=== PATIENT | male | born 1950 | race Caucasian/White ===

== ENCOUNTER 2016-10-06 09:58 | Inpatient (IN) | payer OTHER ==
[~2016-10-06] VITALS: Ht 180.3 cm; Wt 85.9 kg
[2016-10-06 10:09] VITALS: BP 167/77; PULSE 131; RESP 22; O2SAT 97
[2016-10-06 10:15] VITALS: O2SAT 100
[2016-10-06] MEDS ORDERED: SODIUM CHLORIDE 0.9% FLUSH 10 ML FLUSH IVF PRN (10:15)
[2016-10-06] MEDS: RESP: ALBUTEROL 2.5 MG/IPRATROPIUM 0.5 MG NEB (SCH) INH (10:15)
[2016-10-06] MEDS ORDERED: methylPREDNISolone SOD SUCC 125 MG/2 ML VIAL IVP ONE (10:15)
[2016-10-06 10:34] LABS: BLOOD GAS BASE EXCESS -0.9 mmol/L (-2-2); BLOOD GAS CARBOXYHEMOGLOBIN 2.2 % (0-4); BLOOD GAS HCO3 23 mmol/L (22-26); BLOOD GAS METHEMOGLOBIN 0.4 % (0-2); BLOOD GAS O2 HGB SATURATION 93 % (90-100); BLOOD GAS PCO2 39 mmHg (38-42); BLOOD GAS PO2 81 mmHG (61-120); BLOOD GAS TOTAL HGB 17.6 G/DL (12.0-16.0); CRITICAL VALUE NO; DRAW SITE RT RADIAL; LITER FLOW 4 L/M; NUMBER OF ARTERIAL PUNCTURES 1; OXYGEN DEVICE NASAL CANNULA; TEMP CORR TO 98.6
[2016-10-06 10:35] LABS: STAT YES; ULNAR PULSE PRESENT
--- NOTE | 2016-10-06 10:35 | PD ---
HPI Chief Complaint: Respiratory Distress Time Seen by Provider: 10:19 Travel History International Travel<30 days: No Contact w/Intl Traveler<30days: No Traveled to known affect area: No History of Present Illness HPI 66yo M with no significant PMH presents to the ED with c/o sob for 1 week. States he has not seen a physician in 11 years and quit cig smoking 3 days ago because he was sob. +Productive cough. +Tactile fever. Denies any chest pain , n/v, abdominal pain. Pt also noticed that his legs are swollen and this is new. [facility] and given 1 treatment and sent here. Pt received another treatment by [facility] and is saturating in the mid 80s on room air. PFSH Past Medical History Autoimmune Disease: No Blood Disorders: No Cancer: No Cardiovascular Problems: No COPD: Yes (smoker since ago 10) Diabetes: No Endocrine: No Genitourinary: No Musculoskeletal: No Neurologic: No Psychiatric: No Reproductive: No Respiratory: Yes ?: Not Past Surgical History Oral Surgery: Yes Social History Alcohol Use: No Tobacco Use: Yes (trying to quit. Stopped three days ago. Smoked since age 12) Substance Use: No Allergies-Medications (Allergen,Severity, Reaction): Coded Allergies: No Known Allergies (Verified Allergy, Severe, 03/13/05) Reported Meds & Prescriptions Reported Meds & Active Scripts Active Review of Systems Except as stated in HPI: all other systems reviewed are Neg Physical Exam Narrative GENERAL: 66yo M in moderate distress. SKIN: Focused skin assessment warm/dry. HEAD: Atraumatic. Normocephalic. EYES: Pupils equal and round. No scleral icterus. No injection or drainage. ENT: No nasal bleeding or discharge. Mucous membranes pink and moist. NECK: Trachea midline. No JVD. CARDIOVASCULAR: Sinus tachycardia at 130bpm. No murmur appreciated. RESPIRATORY: + accessory muscle use. Coarse breath sounds bilaterally and diffusely. GASTROINTESTINAL: Abdomen soft, non-tender, nondistended. +Umbilical hernia that is reducible. MUSCULOSKELETAL: No obvious deformities. No clubbing. No cyanosis. +Bilateral lower ext edema. NEUROLOGICAL: Awake and alert. No obvious cranial nerve deficits. Motor grossly within normal limits. Normal speech. PSYCHIATRIC: Appropriate mood and affect; insight and judgment normal. Data Data Last Documented VS Vital Signs Date Time Temp Pulse Resp B/P Pulse Ox O2 Delivery O2 Flow Rate FiO2 10/06/16 10:15 100 Nasal Cannula 4.00 10/06/16 10:13 22 10/06/16 10:09 131 167/77 Orders Complete Blood Count With Diff (10/06/16 10:08) Basic Metabolic Panel (Bmp) (10/06/16 10:08) B-Type Natriuretic Peptide (10/06/16 10:08) Act Partial Throm Time (Ptt) (10/06/16 10:08) Prothrombin Time / Inr (Pt) (10/06/16 10:08) Magnesium (Mg) (10/06/16 10:08) Ckmb (Isoenzyme) Profile (10/06/16 10:08) Troponin I (10/06/16 10:08) Arterial Blood Gas (Abg) (10/06/16 10:08) Blood Culture (10/06/16 10:08) Iv Access Insert/Monitor (10/06/16 10:08) Electrocardiogram (10/06/16 10:08) Ecg Monitoring (10/06/16 10:08) Oximetry (10/06/16 10:08) Oxygen Administration (10/06/16 10:08) Chest, Single Ap (10/06/16 10:08) Sodium Chloride 0.9% Flush (Ns Flush) (10/06/16 10:15) Methylprednisolone So Succ Inj (Solumedr (10/06/16 10:15) Albuterol-Ipratropium Neb (Duoneb Neb) (10/06/16 10:15) Lactic Acid Sepsis Protocol (10/06/16 10:08) Sodium Chlorid 0.9% 500 Ml Inj (Ns 500 M (10/06/16 10:45) CKMB (10/06/16 10:05) CKMB% (10/06/16 10:05) Ct Thorax/ Chest W Iv Contrast (10/06/16 ) Ceftriaxone Inj (Rocephin Inj) (10/06/16 11:45) Azithromycin Inj (Zithromax Inj) (10/06/16 11:45) Sodium Chlor 0.9% 1000 Ml Inj (Ns 1000 M (10/06/16 12:45) Iohexol 350 Inj (Omnipaque 350 Inj) (10/06/16 12:45) Admit Order (Ed Use Only) (10/06/16 13:00) Labs Laboratory Tests Test 10/06/16 10/06/16 10:05 10:25 White Blood Count 11.5 TH/MM3 Red Blood Count 4.53 MIL/MM3 Hemoglobin 14.8 GM/DL Hematocrit 43.2 % Mean Corpuscular Volume 95.3 FL Mean Corpuscular Hemoglobin 32.7 PG Mean Corpuscular Hemoglobin 34.3 % Concent Red Cell Distribution Width 13.0 % Platelet Count 278 TH/MM3 Mean Platelet Volume 8.6 FL Neutrophils (%) (Auto) 82.3 % Lymphocytes (%) (Auto) 10.8 % Monocytes (%) (Auto) 5.3 % Eosinophils (%) (Auto) 1.2 % Basophils (%) (Auto) 0.4 % Neutrophils # (Auto) 9.4 TH/MM3 Lymphocytes # (Auto) 1.2 TH/MM3 Monocytes # (Auto) 0.6 TH/MM3 Eosinophils # (Auto) 0.1 TH/MM3 Basophils # (Auto) 0.0 TH/MM3 CBC Comment DIFF FINAL Differential Comment Prothrombin Time 10.7 SEC Prothromb Time International 1.0 RATIO Ratio Activated Partial 36.9 SEC Thromboplast Time Sodium Level 136 MEQ/L Potassium Level 3.9 MEQ/L Chloride Level 99 MEQ/L Carbon Dioxide Level 27.7 MEQ/L Anion Gap 9 MEQ/L Blood Urea Nitrogen 15 MG/DL Creatinine 0.72 MG/DL Estimat Glomerular Filtration 110 ML/MIN Rate Random Glucose 113 MG/DL Lactic Acid Level 2.3 mmol/L Calcium Level 8.7 MG/DL Magnesium Level 2.1 MG/DL Total Creatine Kinase 143 U/L Creatine Kinase MB 3.3 NG/ML Troponin I LESS THAN 0.02 NG/ML B-Type Natriuretic Peptide 14 PG/ML Blood Gas Puncture Site RT RADIAL Blood Gas Patient Temperature 98.6 Blood Gas HCO3 23 mmol/L Blood Gas Base Excess -0.9 mmol/L Blood Gas Oxygen Saturation 93 % Arterial Blood pH 7.39 Arterial Blood Partial 39 mmHg Pressure CO2 Arterial Blood Partial 81 mmHG Pressure O2 Arterial Blood Oxygen Content 23.0 Vol % Arterial Blood 2.2 % Carboxyhemoglobin Arterial Blood Methemoglobin 0.4 % Blood Gas Hemoglobin 17.6 G/DL Oxygen Delivery Device NASAL CANNULA Blood Gas Liter Flow 4 L/M MDM Medical Decision Making Medical Screen Exam Complete: Yes Emergency Medical Condition: Yes Interpretation(s) EKG: Sinus tachycardia at 130bpm. Normal axis. No ST segment elevation or depression. Differential Diagnosis Pneumonia vs. CHF exacerbation vs. COPD exacerbation vs. ACS vs. malignancy Narrative Course 66yo M with sob for 1 week. Coarse rhonchi bilaterally. Pt is a smoker and does not go to the doctor. Labs reviewed, mild leukocytosis at 11.5. Lactic acid elevated at 2.3. BNP 14. Troponin negative. Pt given 1.5 liters of NS IVF. Pt feels slightly better with the oxygen and saturating at 97% on 3 L NC. CXR showed large pleura effusion and adjacent density. Recommend CT chest. Pt covered with ceftriaxone and azithromycin. 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 Pt informed of this. Discussed with Dr. Romero and accepted to her service. Critical Care Narrative Aggregate critical care time was 40 minutes. Time to perform other separately billable procedures was not included in the critical care time. My time did not include minutes spent treating any other patients simultaneously or on activities that did not directly contribute to the patient's treatment. The services I provided to this patient were to treat and/or prevent clinically significant deterioration that could result in: respiratory collapse or . I provided critical care services requiring my management, as noted below: Chart data review, documentation time, medication orders and management, vital sign assessments/reviewing monitor data, ordering and reviewing lab tests, ordering and interpreting/reviewing x-rays and diagnostic studies, care of the patient and discussion of the patient with the admitting physicians. Diagnosis Primary Impression: Lung cancer Qualified Code: C34.01 - Malignant neoplasm of hilus of right lung Admitting Information Admitting Physician Requests: Dania Stokes DO October 06, 2016 10:35
--- NOTE | 2016-10-06 10:43 | RADRPT ---
EXAM DATE/TIME: 10/06/2016 10:23 [facility] COMPARISON: No previous studies available for comparison. INDICATIONS : Short of breath for 2 weeks. MEDICAL HISTORY : None. SURGICAL HISTORY : None. ENCOUNTER: Initial ACUITY: 2 weeks PAIN SCORE: 0/10 LOCATION: Bilateral chest FINDINGS: A single view of the chest demonstrates large right pleural effusion and adjacent density. There is v olume loss. Left lung clear. Osseous structures are intact. CONCLUSION: 1. Large pleural effusion and adjacent density. 2. There is volume loss in the right hemithorax, obstructing central lesion cannot be excluded. Contr asted CT chest recommended. Ben Peterson MD on October 06, 2016 at 10:40 Board Certified Radiologist. This report was verified electronically.
[2016-10-06] MEDS ORDERED: SODIUM CHLORID 0.9% 500 ML INJ 500 ML IV ONE (10:45)
[2016-10-06 10:51] LABS: AUTOMATED NEUTROPHIL # 9.4 TH/MM3 (1.8-7.7); BASOPHIL % 0.4 % (0.0-2.0); EOSINOPHIL # 0.1 TH/MM3 (0-0.4); EOSINOPHIL % 1.2 % (0.0-4.0); HEMATOCRIT 43.2 % (39.0-51.0); HEMO FLAGS DIFF FINAL; LYMPH % 10.8 % (9.0-44.0); LYMPHOCYTE # 1.2 TH/MM3 (1.0-4.8); MEAN CELL VOLUME 95.3 FL (80.0-100.0); MEAN CORPUSCULAR HEMOGLOBIN 32.7 PG (27.0-34.0); MEAN CORPUSCULAR HGB CONC 34.3 % (32.0-36.0); MONO % 5.3 % (0.0-8.0); NEUT % 82.3 % (16.0-70.0); PLATELET COUNT 278 TH/MM3 (150-450); RED BLOOD COUNT 4.53 MIL/MM3 (4.50-5.90); WHITE BLOOD COUNT 11.5 TH/MM3 (4.0-11.0)
[2016-10-06 11:02] LABS: APTT (PATIENT) 36.9 SEC (24.3-30.1); PROTHROMBIN TIME - PATIENT 10.7 SEC (9.8-11.6)
[2016-10-06 11:12] LABS: ANION GAP 9 MEQ/L (5-15); BICARBONATE 27.7 MEQ/L (21.0-32.0); BLOOD UREA NITROGEN 15 MG/DL (7-18); CHLORIDE 99 MEQ/L (98-107); GLOMERULAR FILTRATION RATE 110 ML/MIN (>89); MAGNESIUM 2.1 MG/DL (1.5-2.5); POTASSIUM 3.9 MEQ/L (3.5-5.1); SODIUM (NA) 136 MEQ/L (136-145)
[2016-10-06 11:16] LABS: CREATINE KINASE 143 U/L (39-308)
[2016-10-06 11:28] LABS: CKMB 3.3 NG/ML (0.5-3.6)
--- NOTE | 2016-10-06 11:33 | EKG ---
Date Performed: 10/06/2016 Time Performed: 10:13:43 PTAGE: 66 years EKG: SINUS TACHYCARDIA ABNORMAL RHYTHM ECG PREVIOUS TRACING : 03/13/2005 01.29 DOCTOR: Houston Martin Interpretating Date/Time 10/06/2016 11:31:28
[2016-10-06] MEDS ORDERED: cefTRIAXone INJ 1,000 MG in SODIUM CHLORIDE 0.9% INJ 100 ML IV ONE (11:45)
[2016-10-06] MEDS ORDERED: AZITHROMYCIN INJ 500 MG in SODIUM CHLOR 0.9% 250 ML INJ 250 ML IV ONE (11:45)
[2016-10-06 12:31] LABS: LACTIC ACID GHOST NOT REPORTABLE
[2016-10-06] MEDS ORDERED: IOHEXOL 350 MG/ML 10 ML VIAL (for RAD DIAG) IV ONE (12:45)
[2016-10-06] MEDS ORDERED: SODIUM CHLOR 0.9% 1000 ML INJ 1,000 ML IV ONE (12:45)
[2016-10-06] MEDS: DOCUSATE SODIUM 100 MG CAP PO SCH (13:00)
[2016-10-06] MEDS ORDERED: RESP: ALBUTEROL 2.5 MG/IPRATROPIUM 0.5 MG NEB (PRN) NEB (13:00)
[2016-10-06] MEDS ORDERED: ONDANSETRON HCL 4 MG/2 ML VIAL IVP PRN (13:00)
[2016-10-06] MEDS ORDERED: MAGNESIUM HYDROXIDE SUSP 30 ML CUP PO PRN (13:00)
[2016-10-06] MEDS ORDERED: ACETAMINOPHEN 325 MG TAB PO PRN (13:00)
[2016-10-06] MEDS ORDERED: TEMAZEPAM 15 MG CAP PO PRN (13:00)
--- NOTE | 2016-10-06 13:27 | RADRPT ---
EXAM DATE/TIME: 10/06/2016 12:20 [facility] COMPARISON: No previous studies available for comparison. INDICATIONS : Shortness of breath for one week. IV CONTRAST: 60 cc Omnipaque 350 (iohexol) IV RADIATION DOSE: 5.64 CTDIvol (mGy) MEDICAL HISTORY : Chronic obstructive pulmonary disease. SURGICAL HISTORY : None. ENCOUNTER: Initial ACUITY: 1 week PAIN SCALE: 0/10 LOCATION: Chest TECHNIQUE: Volumetric scanning of the chest was performed. Using automated exposure control and adjustment of t he mA and/or kV according to patient size, radiation dose was kept as low as reasonably achievable to obtain optimal diagnostic quality images. FINDINGS: Study is abnormal. There is extensive mediastinal and subcarinal adenopathy. There is a large right hilar mass. There is endobronchial obstruction of the right lower lobe. Small amount of pleural effusion is evid ent. There is some fissural thickening on the left. The portion of the liver and spleen identified are free of focal defects. Both adrenal glands are pr ominent. Large cystic masses are seen in both kidneys. Review of bone windows reveals only degenerative changes. CONCLUSION: Findings would be consistent with a large hilar mass with extensive mediastinal adenopathy extending into the supraclavicular region with consolidative changes in the right. 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 Only a small amount of the opacity on the chest radiograph is fluid. Majority of the opacity is drow jayson lung. This would be amenable to percutaneous biopsy. Most likely site of biopsy would be the supraclavicul ar node on the right. There is impending SVC syndrome. Simone Tracy MD FACR on October 06, 2016 at 12:43 Board Certified Radiologist. This report was verified electronically.
[2016-10-06 13:33] VITALS: BP 146/69; PULSE 124; RESP 20; O2SAT 97
[2016-10-06] MEDS ORDERED: DILTIAZEM HCL 30 MG TAB PO ONE (14:15)
--- NOTE | 2016-10-06 14:29 | HHI.HP ---
HPI Service [facility] Primary Care Physician [facility] Admission Diagnosis Pneumonia Diagnoses: Chief Complaint: sob Travel History International Travel<30 Days: No Contact w/Intl Traveler <30 Da: No Traveled to Known Affected Are: No History of Present Illness 66 yo male with h/o SVT was seen by Dr Romano in the past (~10 years ago), HTN , noncompliant with meds and follow up says last time has seen a physician was ~ 10 years ago. Patient came to the ED for evaluation of SOB, fatigue, LE edema present for the past 1 week and getting worse over the past 3 days. States he has not seen a physician in 11 years and quit cig smoking 3 days ago because he was getting worsening sob. Some productive cough yellow color, no blood in it. No weight loss. Has tactile fever, no chills. Denies any chest pain, n/v, abdominal pain. Pt also noticed that his legs are swollen and this is new. He also says he needs more pillows at home when he is sleeping and he can go only 5 stairs because he feels sob. Says he doesn;t have any chest pain and he doesn't feel his heart raising. [facility] and given 1 treatment and he was sent here. Pt received another treatment by [facility] and is saturating in the mid 80s on room air on arrival to the hospital. No other complaints. No n/v/d/c. No diaphoresis. No urinary symptoms or abdominal pain. Review of Systems Except as stated in HPI: all other systems reviewed are Neg Past Family Social History Past Medical History HTN, SVT, tobaccoism Past Surgical History tonsillectomy, adenoidectomy, left lat maleolus fracture with ORIF [address] Rodriguez Reported Medications Reported Meds & Active Scripts Active Allergies: Coded Allergies: No Known Allergies (Verified Allergy, Severe, 03/13/05) Family History Mother of lung CA, she was a smoker Social History Smoking 1 PPD daily since young age, quit 3 days ago Occasional EtOH use, used to binge before No illicit drug use Physical Exam Vital Signs Vital Signs Date Time Temp Pulse Resp B/P Pulse Ox O2 Delivery O2 Flow Rate FiO2 10/06/16 13:33 124 20 146/69 97 Nasal Cannula 2 10/06/16 10:15 100 Nasal Cannula 4.00 10/06/16 10:13 Aerosol Mask 10/06/16 10:13 Aerosol Mask 10/06/16 10:13 22 97 Nasal Cannula 3 10/06/16 10:09 131 22 167/77 97 Physical Exam GENERAL: This is a very pleasant 66 yo male, sitting up, appears in acute distress 2/2 sob, talks in short sentences, well-nourished, well-developed patient. SKIN: No rashes, ecchymoses or lesions. Cool and dry. HEAD: Atraumatic. Normocephalic. No temporal or scalp tenderness. EYES: Pupils equal round and reactive. Extraocular motions intact. No scleral icterus. No injection or drainage. ENT: Nose without bleeding, purulent drainage or septal hematoma. Throat without erythema, tonsillar hypertrophy or exudate. Uvula midline. Airway patent. NECK: Trachea midline. No JVD or lymphadenopathy. Supple, nontender, no meningeal signs. CARDIOVASCULAR: Regular rate and rhythm without murmurs, gallops, or rubs. RESPIRATORY: Clear to auscultation. Breath sounds equal bilaterally. No wheezes , rales, or rhonchi. GASTROINTESTINAL: Abdomen soft, non-tender, nondistended. No hepato-splenomegaly , or palpable masses. No guarding. MUSCULOSKELETAL: Extremities without clubbing, cyanosis. edema. No joint tenderness, effusion, or edema noted. No calf tenderness. Negative Homans sign bilaterally. NEUROLOGICAL: Awake and alert. Cranial nerves II through XII intact. Motor and sensory grossly within normal limits. Five out of 5 muscle strength in all muscle groups. Normal speech. Laboratory Laboratory Tests Test 10/06/16 10/06/16 10:05 10:25 White Blood Count 11.5 Red Blood Count 4.53 Hemoglobin 14.8 Hematocrit 43.2 Mean Corpuscular Volume 95.3 Mean Corpuscular Hemoglobin 32.7 Mean Corpuscular Hemoglobin 34.3 Concent Red Cell Distribution Width 13.0 Platelet Count 278 Mean Platelet Volume 8.6 Neutrophils (%) (Auto) 82.3 Lymphocytes (%) (Auto) 10.8 Monocytes (%) (Auto) 5.3 Eosinophils (%) (Auto) 1.2 Basophils (%) (Auto) 0.4 Neutrophils # (Auto) 9.4 Lymphocytes # (Auto) 1.2 Monocytes # (Auto) 0.6 Eosinophils # (Auto) 0.1 Basophils # (Auto) 0.0 CBC Comment DIFF FINAL Differential Comment Prothrombin Time 10.7 Prothromb Time International 1.0 Ratio Activated Partial 36.9 Thromboplast Time Sodium Level 136 Potassium Level 3.9 Chloride Level 99 Carbon Dioxide Level 27.7 Anion Gap 9 Blood Urea Nitrogen 15 Creatinine 0.72 Estimat Glomerular Filtration 110 Rate Random Glucose 113 Lactic Acid Level 2.3 Calcium Level 8.7 Magnesium Level 2.1 Total Creatine Kinase 143 Creatine Kinase MB 3.3 Troponin I LESS THAN 0.02 B-Type Natriuretic Peptide 14 Blood Gas Puncture Site RT RADIAL Blood Gas Patient Temperature 98.6 Blood Gas HCO3 23 Blood Gas Base Excess -0.9 Blood Gas Oxygen Saturation 93 Arterial Blood pH 7.39 Arterial Blood Partial 39 Pressure CO2 Arterial Blood Partial 81 Pressure O2 Arterial Blood Oxygen Content 23.0 Arterial Blood 2.2 Carboxyhemoglobin Arterial Blood Methemoglobin 0.4 Blood Gas Hemoglobin 17.6 Oxygen Delivery Device NASAL CANNULA Blood Gas Liter Flow 4 Date/Time Procedure Status Source Growth 10/06/16 10:05 Aerobic Blood Culture Received Blood Peripheral Pending 10/06/16 10:05 Anaerobic Blood Culture Received Blood Peripheral Pending Result Diagram: 10/06/16 1005 10/06/16 1005 Imaging Last Impressions Chest X-Ray 10/06/16 1008 Signed Impressions: Service Date/Time: Thursday, October 06, 2016 10:23 - CONCLUSION: 1. Large pleural effusion and adjacent density. 2. There is volume loss in the right hemithorax , obstructing central lesion cannot be excluded. Contrasted CT chest recommended. Ben Peterson MD Assessment and Plan Assessment and Plan 66 yo male with h/o SVT was seen by Dr Romano in the past, HTN, noncompliant with meds and follow up says last time has seen a physician was ~10 years ago. Patient came to the ED for evaluation of SOB, LE edema SOB Acute respiratory failure with hypoxia, O2 sat in 80s on admission, requiring O2 Lactic acidosis likely related to hypoxia. Will trend lactic acid Community acquired pneumonia Left pleural effusion. Poss lung mass. LE edema. Will do LE doppler US to r/o DVT Tobaccoism SVT HTN Noncompliant with meds and follow up Tachycardic 120s-130s, WBC 11.5, afebrile, RR 20s CXR reviewed 1. Large pleural effusion and adjacent density. 2. There is volume loss in the right hemithorax, obstructing central lesion cannot be excluded. Contrasted CT chest recommended. CT chest pending Obtain sputum cx, legionella/pneumococcal Ag Start Ceftriaxone and Azithromycin IV Incentive spirometry ABG reviewed. O2 supplement keep O2 sat > 92 %. Duonebs scheduled and as need for wheezing/sob. Add steroid solumedrol 40 mg Q8 hrs will decrease inflammation patient is longterm smoker. Consult pulmonology BNP is 14, trops are nagative , he doesn't have any chest pain. BP 167/77 on admission. Persistent tachycardic in 130s, used to take Lopressor 100 mg po BID he is noncompliant for a long time , however due to pulm issues at his time will give cardizem to avoid further bronchoconstriction. Will also do a 2D ECHO to r/o valvulopathy, pericardial effusion. Consult cardiology DVT ppx SCD/TEDS GI ppx PPI Discussed Condition With patient, nurse, Dr Back ED physician Physician Certification 2 Midnight Certification Type: Admission for Inpatient Services Order for Inpatient Services The services are ordered in accordance with Medicare regulations or non- Medicare payer requirements, as applicable. In the case of services not specified as inpatient-only, they are appropriately provided as inpatient services in accordance with the 2-midnight benchmark. Estimated LOS (days): 3 days is the estimated time the patient will need to remain in the hospital, assuming treatment plan goals are met and no additional complications. Post-Hospital Plan: Not yet determined Lnida Romero MD October 06, 2016 14:29
[2016-10-06] MEDS: RESP: ALBUTEROL 2.5 MG/IPRATROPIUM 0.5 MG NEB (SCH) NEB ×2 (15:59→20:00)
[2016-10-06 16:50] VITALS: BP 168/86; PULSE 134; RESP 26; TEMP 97.2; O2SAT 91
--- NOTE | 2016-10-06 17:09 | PD.CONS ---
HPI Service Cardiology Consult Requested By Primary Care Physician [facility] History of Present Illness 66 y/o M with pmhx significant for SVT, HTN, noncompliant with medications and smoker that presented to the ED with complaints SOB, fatigue for 1 week. Denies any chest pain, n/v, abdominal pain. Found to be hypoxic. He reports chest congestion. Cardiology has been consulted due to sinus tachycardia. CT done here shows LARGE HILAR MASS CONCERNING FOR MALIGNANCY. Negative troponin's, no acute ST changes on EKG. Review of Systems Consitutional: COMPLAINS OF: Fatigue, DENIES: Fever, Chills, Weight gain, Weight loss Eyes: DENIES: Amaurosis Fugax, Change in vision HEENT: DENIES: Lightheadedness, Change in hearing Respiratory: COMPLAINS OF: Shortness of breath, Wheezing, DENIES: See HPI, Cough, Snoring, Sputum production Cardiovascular: DENIES: See HPI, Chest pain, Palpitations, Syncope, Tachycardia Gastrointestinal: DENIES: Nausea, Vomiting, Change in bowel habits, Reflux, Bloody stools, Melena Genitourinary: DENIES: Urinary incontinence, Difficulty voiding Integumentary: DENIES: Rash Psychiatric: DENIES: Anxiety, Depression, Sleep disturbances Hematologic: DENIES: Bruising tendencies, Bleeding tendencies Endocrine: DENIES: Weight gain, Weight loss, Thyroid disease Past Family Social History Allergies: Coded Allergies: No Known Allergies (Verified Allergy, Severe, 03/13/05) Past Medical History HTN, SVT, SMOKER Past Surgical History tonsillectomy, adenoidectomy, left lat maleolus fracture with ORIF 2004 Reported Medications Reported Meds & Active Scripts Active Active Ordered Medications Current Medications Medications (Trade) Dose Ordered Sig/Nicole Route Start Time Stop Time Status Last Admin (NS Flush) 2 ml UNSCH PRN IVF 10/06/16 10:15 (NS Flush) 2 ml UNSCH PRN IV FLUSH 10/06/16 13:00 (NS Flush) 2 ml BID IV FLUSH 10/06/16 21:00 (Tylenol) 650 mg Q4H PRN PO 10/06/16 13:00 (Zofran Inj) 4 mg Q6H PRN IVP 10/06/16 13:00 (Colace) 100 mg Q12H PO 10/06/16 13:00 (Milk Of Magnesia Liq) 30 ml Q12H PRN PO 10/06/16 13:00 (Restoril) 15 mg HS PRN PO 10/06/16 13:00 (Lovenox Inj) 40 mg Q24H SQ 10/06/16 14:00 Methylprednisolone Sodium Succinate 40 mg 40 mg Q8H IV PUSH 10/06/16 20:00 Azithromycin 500 mg/Sodium Chloride 250 ml @ 250 mls/hr Q24H IV 10/07/16 14:00 (Rocephin Inj/NS Inj) 100 ml @ 200 mls/hr Q24H IV 10/07/16 13:00 Family History NONCONTRIBUTORY Social History CHRONIC SMOKER Physical Exam Vital Signs Vital Signs Date Time Temp Pulse Resp B/P Pulse Ox O2 Delivery O2 Flow Rate FiO2 10/06/16 13:33 124 20 146/69 97 Nasal Cannula 2 10/06/16 10:15 100 Nasal Cannula 4.00 10/06/16 10:13 Aerosol Mask 10/06/16 10:13 Aerosol Mask 10/06/16 10:13 22 97 Nasal Cannula 3 10/06/16 10:09 131 22 167/77 97 Physical Exam GENERAL: Awake, alert, and oriented x 3. SKIN: Warm and dry. HEAD: Normocephalic. EYES: No scleral icterus. No injection or drainage. NECK: Supple, trachea midline. No JVD or lymphadenopathy. CARDIOVASCULAR: Tachycardiac no murmurs, gallops, or rubs. RESPIRATORY: Diminished sounds equal bilaterally. No accessory muscle use. GASTROINTESTINAL: Abdomen soft, non-tender, nondistended, ventral hernia EXTREMITIES: No cyanosis, or edema, dry skin Laboratory Laboratory Tests Test 10/06/16 10/06/16 10/06/16 10:05 10:25 13:50 White Blood Count 11.5 Red Blood Count 4.53 Hemoglobin 14.8 Hematocrit 43.2 Mean Corpuscular Volume 95.3 Mean Corpuscular Hemoglobin 32.7 Mean Corpuscular Hemoglobin 34.3 Concent Red Cell Distribution Width 13.0 Platelet Count 278 Mean Platelet Volume 8.6 Neutrophils (%) (Auto) 82.3 Lymphocytes (%) (Auto) 10.8 Monocytes (%) (Auto) 5.3 Eosinophils (%) (Auto) 1.2 Basophils (%) (Auto) 0.4 Neutrophils # (Auto) 9.4 Lymphocytes # (Auto) 1.2 Monocytes # (Auto) 0.6 Eosinophils # (Auto) 0.1 Basophils # (Auto) 0.0 CBC Comment DIFF FINAL Differential Comment Prothrombin Time 10.7 Prothromb Time International 1.0 Ratio Activated Partial 36.9 Thromboplast Time Sodium Level 136 Potassium Level 3.9 Chloride Level 99 Carbon Dioxide Level 27.7 Anion Gap 9 Blood Urea Nitrogen 15 Creatinine 0.72 Estimat Glomerular Filtration 110 Rate Random Glucose 113 Lactic Acid Level 2.3 2.0 Calcium Level 8.7 Magnesium Level 2.1 Total Creatine Kinase 143 Creatine Kinase MB 3.3 Troponin I LESS THAN 0.02 B-Type Natriuretic Peptide 14 Blood Gas Puncture Site RT RADIAL Blood Gas Patient Temperature 98.6 Blood Gas HCO3 23 Blood Gas Base Excess -0.9 Blood Gas Oxygen Saturation 93 Arterial Blood pH 7.39 Arterial Blood Partial 39 Pressure CO2 Arterial Blood Partial 81 Pressure O2 Arterial Blood Oxygen Content 23.0 Arterial Blood 2.2 Carboxyhemoglobin Arterial Blood Methemoglobin 0.4 Blood Gas Hemoglobin 17.6 Oxygen Delivery Device NASAL CANNULA Blood Gas Liter Flow 4 Date/Time Procedure Status Source Growth 10/06/16 10:05 Aerobic Blood Culture Received Blood Peripheral Pending 10/06/16 10:05 Anaerobic Blood Culture Received Blood Peripheral Pending Result Diagram: 10/06/16 1005 10/06/16 1005 Imaging Last Impressions Chest X-Ray 10/06/16 1008 Signed Impressions: Service Date/Time: Thursday, October 06, 2016 10:23 - CONCLUSION: 1. Large pleural effusion and adjacent density. 2. There is volume loss in the right hemithorax , obstructing central lesion cannot be excluded. Contrasted CT chest recommended. Ben Peterson MD Chest CT 10/06/16 0000 Signed Impressions: Service Date/Time: Thursday, October 06, 2016 12:20 - CONCLUSION: Findings would be consistent with a large hilar mass with extensive mediastinal adenopathy extending into the supraclavicular region with consolidative changes in the right. 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 Only a small amount of the opacity on the chest radiograph is fluid. Majority of the opacity is drowned lung. This would be amenable to percutaneous biopsy. Most likely site of biopsy would be the supraclavicular node on the right. There is impending SVC syndrome. Simone Tracy MD FACR Assessment and Plan Problem List: (1) Lung cancer Assessment and Plan: Sinus tachycardia likely secondary to underlying lung disease, physiologic response vs. neuroendocrine ? SMALL CELL CARCINOMA. Please treat underlying condition. Recommendations: 1. Smoking cessation 2. Pulmonology consult 3. IR for biopsy 4. Heme/Onc consult Thank you for the opportunity to participate in the care of this patient Sign off Problem Qualifiers (1) Lung cancer: Qualified Code: C34.01 - Malignant neoplasm of hilus of right lung Houston Martin MD October 06, 2016 17:09
--- NOTE | 2016-10-06 18:06 | RADRPT ---
EXAM DATE/TIME: 10/06/2016 17:11 [facility] COMPARISON: No previous studies available for comparison. INDICATIONS : Bilateral leg swelling. MEDICAL HISTORY : Chronic obstructive pulmonary disease. Hypertension. Irregular heartbeat. SURGICAL HISTORY : Tonsillectomy. Adenoidectomy. Left lat maleolus fracture with ORIF. ENCOUNTER: Initial ACUITY: 1 week PAIN SCORE: 3/10 LOCATION: Bilateral leg. TECHNIQUE: Venous ultrasound of the left and right leg was performed from the inguinal ligament t o the proximal calf. Real-time, color Doppler and spectral tracing, compression and augmentation zelda hniques were used. FINDINGS: RIGHT LEG: There is normal compressibility of the deep venous system from the inguinal region to the proximal calf. No echogenic clot is seen in the lumen of the common femoral, femoral, popliteal, and posterior tibial veins. There is a normal response of the venous system to proximal and distal augmentation and respiration. Large lymph node measuring 3.4 x 2.0 x 1.1 cm is identified in the right groin. LEFT LEG: There is normal compressibility of the deep venous system from the inguinal region to t he proximal calf. No echogenic clot is seen in the lumen of the common femoral, femoral, popliteal, and posterior tibial veins. There is a normal response of the venous system to proximal and distal a ugmentation and respiration. CONCLUSION: No evidence of DVT. Enlarged right groin lymph node. Dennis Peters MD on October 06, 2016 at 18:02 Board Certified Radiologist. This report was verified electronically.
[2016-10-06] MEDS: ENOXAPARIN SODIUM 40 MG/0.4 ML SYRINGE SQ SCH (18:44)
[2016-10-06 20:00] VITALS: BP 141/80; PULSE 132; RESP 18; TEMP 97.6; O2SAT 92
[2016-10-06 20:11] VITALS: PULSE 131
[2016-10-06 20:37] LABS: LACTIC ACID GHOST NOT REPORTABLE
[2016-10-06] MEDS: methylPREDNISolone SOD SUCC 40 MG/1 ML VIAL IV PUSH SCH (20:52)
[2016-10-06] MEDS: SODIUM CHLORIDE 0.9% FLUSH 10 ML FLUSH IV FLUSH SCH (21:01)
[2016-10-07] VITALS (11 sets, daily range): BP systolic 130–160; BP diastolic 79–89; PULSE 119–132; RESP 18–26; TEMP 96.6–98.2; O2SAT 91–95
[2016-10-07] MEDS: DOCUSATE SODIUM 100 MG CAP PO SCH ×3 (01:33→23:42)
[2016-10-07] MEDS: SODIUM CHLORIDE 0.9% FLUSH 10 ML FLUSH IV FLUSH PRN ×2 (04:07→22:26)
[2016-10-07] MEDS: methylPREDNISolone SOD SUCC 40 MG/1 ML VIAL IV PUSH SCH ×5 (04:07→22:25)
[2016-10-07 07:05] LABS: AUTOMATED NEUTROPHIL # 11.6 TH/MM3 (1.8-7.7); BASOPHIL % 0.1 % (0.0-2.0); HEMATOCRIT 42.5 % (39.0-51.0); HEMO FLAGS DIFF FINAL; LYMPH % 7.1 % (9.0-44.0); LYMPHOCYTE # 0.9 TH/MM3 (1.0-4.8); MEAN CORPUSCULAR HEMOGLOBIN 32.2 PG (27.0-34.0); MEAN CORPUSCULAR HGB CONC 33.2 % (32.0-36.0); MONO % 3.4 % (0.0-8.0); NEUT % 89.4 % (16.0-70.0); PLATELET COUNT 277 TH/MM3 (150-450); RED BLOOD COUNT 4.38 MIL/MM3 (4.50-5.90); RED CELL DISTRIBUTION WIDTH 13.1 % (11.6-17.2)
[2016-10-07 07:39] LABS: BICARBONATE 27.2 MEQ/L (21.0-32.0); POTASSIUM 4.1 MEQ/L (3.5-5.1)
[2016-10-07] MEDS: RESP: ALBUTEROL 2.5 MG/IPRATROPIUM 0.5 MG NEB (SCH) NEB ×4 (08:03→19:39)
[2016-10-07] MEDS: SODIUM CHLORIDE 0.9% FLUSH 10 ML FLUSH IV FLUSH SCH ×2 (08:31→20:44)
--- NOTE | 2016-10-07 10:25 | HHI.PR ---
Subjective Remarks Feels improving somehow, says he is less sob, O2 and meds helped some. He feels weak. + wheezing. No fever or chills overnight. Not much cough. No chest pain. Feels palpitations at times. He si noted persistent tachycardia. No n/v/d/c. Discussed regarding poss biopsy, consult IR for biopsy to eval, patient agrees with the plan. Objective Vitals Vital Signs Date Time Temp Pulse Resp B/P Pulse Ox O2 Delivery O2 Flow Rate FiO2 10/07/16 08:05 92 Nasal Cannula 3.00 10/07/16 08:00 97.1 127 24 160/88 91 10/07/16 04:00 96.9 128 18 152/81 91 10/07/16 00:18 122 10/07/16 00:00 97.5 127 18 134/79 92 10/06/16 20:11 131 10/06/16 20:00 97.6 132 18 141/80 92 10/06/16 16:50 97.2 134 26 168/86 91 10/06/16 13:33 124 20 146/69 97 Nasal Cannula 2 I/O 10/06/16 10/06/16 10/06/16 10/07/16 10/07/16 10/07/16 07:00 15:00 23:00 07:00 15:00 23:00 Intake Total 240 ml Output Total 600 ml 700 ml Balance -600 ml -460 ml Intake Oral 240 ml Output Urine Total 600 ml 700 ml Result Diagram: 10/07/16 0555 10/07/16 0555 Imaging Last Impressions Chest X-Ray 10/06/16 1008 Signed Impressions: Service Date/Time: Thursday, October 06, 2016 10:23 - CONCLUSION: 1. Large pleural effusion and adjacent density. 2. There is volume loss in the right hemithorax , obstructing central lesion cannot be excluded. Contrasted CT chest recommended. Ben Peterson MD Lower Extremity Ultrasound 10/06/16 0000 Signed Impressions: Service Date/Time: Thursday, October 06, 2016 17:11 - CONCLUSION: No evidence of DVT. Enlarged right groin lymph node. Dennis Peters MD Chest CT 10/06/16 0000 Signed Impressions: Service Date/Time: Thursday, October 06, 2016 12:20 - CONCLUSION: Findings would be consistent with a large hilar mass with extensive mediastinal adenopathy extending into the supraclavicular region with consolidative changes in the right. 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 Only a small amount of the opacity on the chest radiograph is fluid. Majority of the opacity is drowned lung. This would be amenable to percutaneous biopsy. Most likely site of biopsy would be the supraclavicular node on the right. There is impending SVC syndrome. Simone Tracy MD FACR Objective Remarks GENERAL: This is a very pleasant 66 yo male, sitting up, appears in acute distress 2/2 sob, talks in short sentences, well-nourished, well-developed patient. SKIN: No rashes, ecchymoses or lesions. Cool and dry. HEAD: Atraumatic. Normocephalic. No temporal or scalp tenderness. EYES: Pupils equal round and reactive. Extraocular motions intact. No scleral icterus. No injection or drainage. ENT: Nose without bleeding, purulent drainage or septal hematoma. Throat without erythema, tonsillar hypertrophy or exudate. Uvula midline. Airway patent. NECK: Trachea midline. No JVD or lymphadenopathy. Supple, nontender, no meningeal signs. CARDIOVASCULAR: Regular rate and rhythm without murmurs, gallops, or rubs. RESPIRATORY: Clear to auscultation. Breath sounds equal bilaterally. No wheezes , rales, or rhonchi. GASTROINTESTINAL: Abdomen soft, non-tender, nondistended. No hepato-splenomegaly , or palpable masses. No guarding. MUSCULOSKELETAL: Extremities without clubbing, cyanosis. edema. No joint tenderness, effusion, or edema noted. No calf tenderness. Negative Homans sign bilaterally. NEUROLOGICAL: Awake and alert. Cranial nerves II through XII intact. Motor and sensory grossly within normal limits. Five out of 5 muscle strength in all muscle groups. Normal speech. A/P Assessment and Plan 66 yo male with h/o SVT was seen by Dr Romano in the past, HTN, noncompliant with meds and follow up says last time has seen a physician was ~10 years ago. Patient came to the ED for evaluation of SOB, LE edema SOB Acute respiratory failure with hypoxia, O2 sat in 80s on admission, requiring O2 Lactic acidosis likely related to hypoxia. Will trend lactic acid Community acquired pneumonia Left pleural effusion. Large lung mass. LE edema. Will do LE doppler US to r/o DVT Tobaccoism SVT HTN Noncompliant with meds and follow up Tachycardic 120s-130s, WBC 11.5, afebrile, RR 20s CXR reviewed 1. Large pleural effusion and adjacent density. 2. There is volume loss in the right hemithorax, obstructing central lesion cannot be excluded. Contrasted CT chest recommended. CT chest reviewed patient with large mass, plan for biopsy by IR Cardiology also signed off to treat underlying condition. Also patient with impending SVC syndr 2/ 2 mass. Monitor closely. Obtain sputum cx, legionella/pneumococcal Ag Start Ceftriaxone and Azithromycin IV Incentive spirometry ABG reviewed. O2 supplement keep O2 sat > 92 %. Duonebs scheduled and as need for wheezing/sob. 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 Consult pulmonology BNP is 14, trops are nagative , he doesn't have any chest pain. BP 167/77 on admission. Persistent tachycardic in 130s, used to take Lopressor 100 mg po BID he is noncompliant for a long time , however due to pulm issues at his time will give cardizem to avoid further bronchoconstriction. Will also do a 2D ECHO to r/o valvulopathy, pericardial effusion. Consult cardiology, appreciate recommendations, cardiology feels is all lung related. DVT ppx SCD/TEDS GI ppx PPI Discussed Condition With patient, nurse Linda Romero MD October 07, 2016 10:25 Prothromb Time International 1.0 Ratio Activated Partial 36.9 Thromboplast Time Sodium Level 136 Potassium Level 3.9 Chloride Level 99 Carbon Dioxide Level 27.7 Anion Gap 9 Blood Urea Nitrogen 15 Creatinine 0.72 Estimat Glomerular Filtration 110 Rate Random Glucose 113 Lactic Acid Level 2.3 Calcium Level 8.7 Magnesium Level 2.1 Total Creatine Kinase 143 Creatine Kinase MB 3.3 Troponin I LESS THAN 0.02 B-Type Natriuretic Peptide 14 Blood Gas Puncture Site RT RADIAL Blood Gas Patient Temperature 98.6 Blood Gas HCO3 23 Blood Gas Base Excess -0.9 Blood Gas Oxygen Saturation 93 Arterial Blood pH 7.39 Arterial Blood Partial 39 Pressure CO2 Arterial Blood Partial 81 Pressure O2 Arterial Blood Oxygen Content 23.0 Arterial Blood 2.2 Carboxyhemoglobin Arterial Blood Methemoglobin 0.4 Blood Gas Hemoglobin 17.6 Oxygen Delivery Device NASAL CANNULA Blood Gas Liter Flow 4 Date/Time Procedure Status Source Growth 10/06/16 10:05 Aerobic Blood Culture Received Blood Peripheral Pending 10/06/16 10:05 Anaerobic Blood Culture Received Blood Peripheral Pending Result Diagram: 10/06/16 1005 10/06/16 1005 Imaging Last Impressions Chest X-Ray 10/06/16 1008 Signed Impressions: Service Date/Time: Thursday, October 06, 2016 10:23 - CONCLUSION: 1. Large pleural effusion and adjacent density. 2. There is volume loss in the right hemithorax , obstructing central lesion cannot be excluded. Contrasted CT chest recommended. Ben Peterson MD Assessment and Plan Assessment and Plan 66 yo male with h/o SVT was seen by Dr Romano in the past, HTN, noncompliant with meds and follow up says last time has seen a physician was ~10 years ago. Patient came to the ED for evaluation of SOB, LE edema SOB Acute respiratory failure with hypoxia, O2 sat in 80s on admission, requiring O2 Lactic acidosis likely related to hypoxia. Will trend lactic acid Community acquired pneumonia Left pleural effusion. Large lung mass. LE edema. Will do LE doppler US to r/o DVT Tobaccoism SVT HTN Noncompliant with meds and follow up Tachycardic 120s-130s, WBC 11.5, afebrile, RR 20s CXR reviewed 1. Large pleural effusion and adjacent density. 2. There is volume loss in the right hemithorax, obstructing central lesion cannot be excluded. Contrasted CT chest recommended. CT chest reviewed patient with large mass, plan for biopsy by IR Cardiology also signed off to treat underlying condition. Also patient with impending SVC syndr 2/ 2 mass. Monitor closely. Obtain sputum cx, legionella/pneumococcal Ag Start Ceftriaxone and Azithromycin IV Incentive spirometry ABG reviewed. O2 supplement keep O2 sat > 92 %. Duonebs scheduled and as need for wheezing/sob. Add steroid solumedrol 40 mg Q8 hrs will decrease inflammation patient is long-term smoker. Consult pulmonology BNP is 14, trops are nagative , he doesn't have any chest pain. BP 167/77 on admission. Persistent tachycardic in 130s, used to take Lopressor 100 mg po BID he is noncompliant for a long time , however due to pulm issues at his time will give cardizem to avoid further bronchoconstriction. Will also do a 2D ECHO to r/o valvulopathy, pericardial effusion. Consult cardiology DVT ppx SCD/TEDS GI ppx PPI Discussed Condition With patient, nurse Linda Romero MD October 07, 2016 10:25
[2016-10-07] MEDS: cefTRIAXone INJ 1,000 MG in SODIUM CHLORIDE 0.9% INJ 100 ML IV SCH (12:56)
[2016-10-07] MEDS: DILTIAZEM HCL 30 MG TAB PO SCH ×3 (13:00→23:42)
[2016-10-07] MEDS: ENOXAPARIN SODIUM 40 MG/0.4 ML SYRINGE SQ SCH (14:00)
[2016-10-07] MEDS ORDERED: fentaNYL CITRATE 250 MCG/5 ML AMP ONE (15:38)
[2016-10-07] MEDS ORDERED: MIDAZOLAM HCL 5 MG/5 ML VIAL ONE (15:38)
[2016-10-07] MEDS ORDERED: LIDOCAINE 1%/EPINEPHrine 1:100,000 SOLN 20 ML VIAL ONE (15:50)
[2016-10-07] MEDS: AZITHROMYCIN INJ 500 MG in SODIUM CHLOR 0.9% 250 ML INJ 250 ML IV SCH (17:59)
--- NOTE | 2016-10-07 22:30 | MB ---
cc: Yassine TOTH M.D., MIRELA MD DATE OF CONSULTATION: 10/07/2016 REASON FOR CONSULTATION: Pneumonia and lung mass HISTORY OF PRESENT ILLNESS: This is a 66-year-old white male with a history of chronic cough and wheezing, stated that he has been short of breath and extremely weak for the past 1-2 weeks. The patient has been a long-time cigarette smoker and has been experiencing cough with yellow sputum, weight loss and had some low grade fevers. He also noticed some leg edema. Since he could not catch his breath, he went to the [facility] for his shortness of breath and orthopnea. He was directed to go to the emergency room for evaluation and admission. The patient was seen in the ER and CT scan of the chest demonstrated evidence of a mass in the right hilar region with consolidation in the right as well as adenopathy in the supraclavicular region. There was mild SVT syndrome noted. The patient has now been started on IV antibiotics and IV steroids. He is tachycardiac but has been started on Cardizem p.o. He denies hemoptysis or significant chest pain, and on two liters of oxygen, his saturation is up to 95%. PAST HISTORY Past history includes history of hypertension. History of supraventricular tachycardia and COPD. PAST SURGICAL HISTORY: He has had a history of fracture of the left malleolus with ORIF. Tonsillectomy remotely. HABITS The patient smoked one-pack per day for over 40 years, quit 5 days ago. No alcohol use recently. FAMILY HISTORY: Significant for lung cancer in his mother. ALLERGIES: None listed. SYSTEM REVIEW: The patient admits to mild weight loss. He has dizziness, postnasal drip, cough with wheezing. He has epigastric distress and reflux. He has leg swelling, joint pains of his extremities. Denies any skin rash. He had some depression with anxiety. PHYSICAL EXAMINATION: This is an averagely built middle-aged white male, who is alert, mildly dyspneic at rest. VITAL SIGNS: Blood pressure is 140/70, pulse is 122, respiratory rate 20, temperature 98.2. HEENT: Head normocephalic. Pupils are reactive. Tongue dry. Throat is injected. He has no inflammation. Neck: Supple. No bruits or thyroid enlargement. Chest: Distant breath sounds with occasional crackles over the right mid and lower chest with wheezes bilaterally. Heart: The heart sounds are irregular, S1-S2 with no murmur. Abdomen is soft, protuberant with the liver just felt below the costal margin. The bowel sounds are active. Extremities: Mild edema with diminished pulses. Reflexes are 1+. No gross motor deficits. Cranial nerves grossly intact. Rectal: Exam is deferred. Skin was dry and warm. IMPRESSION 1. Hypoxemic respiratory failure resolving. 2. Right basilar pneumonia, right pleural effusion. 3. COPD with emphysema. 4. Tachycardia. SVT. PLAN: The patient has been started on antibiotic coverage including Rocephin one gram IV daily and Zithromax 500 milligrams IV daily. We will also continue Solu-Medrol 40 milligrams IV q8 hours. CT guided needle biopsy of the lung mass to be scheduled and the patient will be placed on Cardizem to control his heart rate. Bedside pulmonary function study will be done. Oxygen supplementation at 3 liters nasal cannula. DuoNeb solution, nebulizer q.i.d. Sputum will be sent for Gram stain and culture. Further evaluation will depend on the biopsy results. Thank you Dr. Romero for this consultation. MD GEETHA Munson/GEMMA /6:29 PM /10:12 PM
[2016-10-08] VITALS (10 sets, daily range): BP systolic 136–162; BP diastolic 84–89; PULSE 118–130; RESP 18–20; TEMP 96.6–97.7; O2SAT 91–98
[2016-10-08] MEDS: methylPREDNISolone SOD SUCC 40 MG/1 ML VIAL IV PUSH SCH ×3 (05:14→22:07)
[2016-10-08] MEDS: DILTIAZEM HCL 30 MG TAB PO SCH ×2 (05:19→11:57)
[2016-10-08] MEDS: RESP: ALBUTEROL 2.5 MG/IPRATROPIUM 0.5 MG NEB (SCH) NEB ×4 (07:19→19:43)
--- NOTE | 2016-10-08 07:53 | RADRPT ---
EXAM DATE/TIME: 10/07/2016 16:10 [facility] COMPARISON: No previous studies available for comparison. INDICATIONS : Supraclavical mass/lymph nodes SEDATION TIME: 30 minutes BIOPSY SITE: Right supra clavical MEDICATION(S): 1.) 100 mcg fentanyl (Sublimaze) IV 1.) 18 gauge Temno core biopsy needle MEDICAL HISTORY : Chronic obstructive pulmonary disease. SURGICAL HISTORY : None. ENCOUNTER: Initial ACUITY: 2 weeks PAIN SCORE: 0/10 LOCATION: Right neckLymphnode A total of two core specimen(s) were obtained and sent to the laboratory for pathologic evaluation. PROCEDURE: 1. CT guided lymph nodeRight neck biopsy. Prior to the procedure informed consent was obtained. Any appropriate prior imaging studies were rev iewed. Using automated exposure control and adjustment of the mA and/or kV according to patient size, radiat ion dose was kept as low as reasonably achievable to obtain optimal diagnostic quality images. The site was prepped in a sterile fashion. Full sterile technique was used, including cap, mask, morgan rile gloves and gown and a large sterile sheet. Hand hygiene and 2% chlorhexidine and/or betadine/al cohol prep was utilized per protocol for cutaneous antisepsis. The skin and subcutaneous tissues wer e infiltrated with local anesthetic solution. With CT guidance the previously identified target was localized. Biopsy was performed using the presc ribed needle as above. Adequate hemostasis was obtained with compression at the puncture site. Follow-up CT scan reveals no hemorrhage. The patient tolerated the procedure well and there were no complications. The patient was returned to the Radiology Outpatient Unit in stable condition. CONCLUSION: Uncomplicated CT guided biopsy of right supraclavicular adenopathy. Ben Peterson MD on October 08, 2016 at 7:50 Board Certified Radiologist. This report was verified electronically.
[2016-10-08] MEDS: SODIUM CHLORIDE 0.9% FLUSH 10 ML FLUSH IV FLUSH SCH ×2 (08:00→22:07)
[2016-10-08 08:08] LABS: AUTOMATED NEUTROPHIL # 17.1 TH/MM3 (1.8-7.7); BASOPHIL % 0.2 % (0.0-2.0); HEMATOCRIT 42.2 % (39.0-51.0); LYMPH % 4.2 % (9.0-44.0); LYMPHOCYTE # 0.8 TH/MM3 (1.0-4.8); MEAN CELL VOLUME 97.4 FL (80.0-100.0); MEAN CORPUSCULAR HEMOGLOBIN 32.8 PG (27.0-34.0); MEAN CORPUSCULAR HGB CONC 33.7 % (32.0-36.0); MONO % 3.7 % (0.0-8.0); NEUT % 91.9 % (16.0-70.0); PLATELET COUNT 276 TH/MM3 (150-450); RED BLOOD COUNT 4.34 MIL/MM3 (4.50-5.90); RED CELL DISTRIBUTION WIDTH 13.1 % (11.6-17.2); WHITE BLOOD COUNT 18.6 TH/MM3 (4.0-11.0)
[2016-10-08 08:56] LABS: HEMO FLAGS AUTO DIFF
[2016-10-08 09:00] LABS: NEUTROPHIL # MANUAL DIFF 17.1 TH/MM3 (1.8-7.7); POLYS (SEG NEUTROPHILS) 92 % (16-70); WBC DIFF SAMPLE 100
[2016-10-08 09:01] LABS: PLATELET ESTIMATE SMEAR NORMAL (NORMAL); PLATELET MORPHOLOGY NORMAL (NORMAL); SCAN/DIFF FINAL DIFF MANUAL
[2016-10-08 10:02] LABS: BICARBONATE 30.3 MEQ/L (21.0-32.0); MAGNESIUM 2.4 MG/DL (1.5-2.5)
[2016-10-08] MEDS: DOCUSATE SODIUM 100 MG CAP PO SCH ×2 (11:57→23:43)
[2016-10-08] MEDS: cefTRIAXone INJ 1,000 MG in SODIUM CHLORIDE 0.9% INJ 100 ML IV SCH (12:00)
[2016-10-08] MEDS: AZITHROMYCIN INJ 500 MG in SODIUM CHLOR 0.9% 250 ML INJ 250 ML IV SCH (14:22)
[2016-10-08] MEDS: ENOXAPARIN SODIUM 40 MG/0.4 ML SYRINGE SQ SCH (14:25)
--- NOTE | 2016-10-08 14:25 | HHI.PR ---
Subjective Remarks At the margin of the bed. Says she feels better when he is sitting up . With wheezing and feels congested in his chest and says he is not coughing anything up. No n/v/d/c. No fever or chills. Had biopsy yesterday. Son at bedside. Objective Vitals Vital Signs Date Time Temp Pulse Resp B/P Pulse Ox O2 Delivery O2 Flow Rate FiO2 10/08/16 11:50 96.9 130 20 162/86 93 10/08/16 08:30 125 10/08/16 07:50 97.1 118 20 136/84 98 10/08/16 07:21 93 Nasal Cannula 3.00 10/08/16 04:11 93 10/08/16 04:00 97.7 127 18 150/89 91 10/07/16 23:45 96.9 119 20 132/89 95 10/07/16 20:17 124 10/07/16 20:00 96.6 126 18 132/84 91 10/07/16 17:30 98.2 130 26 130/83 91 10/07/16 15:10 91 Nasal Cannula 3.00 I/O 10/07/16 10/07/16 10/07/16 10/08/16 10/08/16 10/08/16 07:00 15:00 23:00 07:00 15:00 23:00 Intake Total 240 ml 720 ml 640 ml 360 ml Output Total 700 ml 750 ml 350 ml 275 ml Balance -460 ml -30 ml 290 ml 85 ml Intake Oral 240 ml 720 ml 240 ml 360 ml IV Total 400 ml Output Urine Total 700 ml 750 ml 350 ml 275 ml Result Diagram: 10/08/16 0620 10/08/16 0834 Imaging Last Impressions Lymph Node Biopsy CT 10/07/16 1600 Signed Impressions: Service Date/Time: Friday, October 07, 2016 16:10 - CONCLUSION: Uncomplicated CT guided biopsy of right supraclavicular adenopathy. Ben Peterson MD Chest X-Ray 10/06/16 1008 Signed Impressions: Service Date/Time: Thursday, October 06, 2016 10:23 - CONCLUSION: 1. Large pleural effusion and adjacent density. 2. There is volume loss in the right hemithorax , obstructing central lesion cannot be excluded. Contrasted CT chest recommended. Ben Peterson MD Lower Extremity Ultrasound 10/06/16 0000 Signed Impressions: Service Date/Time: Thursday, October 06, 2016 17:11 - CONCLUSION: No evidence of DVT. Enlarged right groin lymph node. Dennis Peters MD Chest CT 10/06/16 0000 Signed Impressions: Service Date/Time: Thursday, October 06, 2016 12:20 - CONCLUSION: Findings would be consistent with a large hilar mass with extensive mediastinal adenopathy extending into the supraclavicular region with consolidative changes in the right. 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 Only a small amount of the opacity on the chest radiograph is fluid. Majority of the opacity is drowned lung. This would be amenable to percutaneous biopsy. Most likely site of biopsy would be the supraclavicular node on the right. There is impending SVC syndrome. Simone Tracy MD FACR Objective Remarks GENERAL: This is a very pleasant 66 yo male, sitting up, appears in acute distress 2/2 sob, talks in short sentences, well-nourished, well-developed patient. SKIN: No rashes, ecchymoses or lesions. Cool and dry. HEAD: Atraumatic. Normocephalic. No temporal or scalp tenderness. EYES: Pupils equal round and reactive. Extraocular motions intact. No scleral icterus. No injection or drainage. ENT: Nose without bleeding, purulent drainage or septal hematoma. Throat without erythema, tonsillar hypertrophy or exudate. Uvula midline. Airway patent. NECK: Trachea midline. No JVD or lymphadenopathy. Supple, nontender, no meningeal signs. CARDIOVASCULAR: Regular rate and rhythm without murmurs, gallops, or rubs. RESPIRATORY: Clear to auscultation. Breath sounds equal bilaterally. No wheezes , rales, or rhonchi. GASTROINTESTINAL: Abdomen soft, non-tender, nondistended. No hepato-splenomegaly , or palpable masses. No guarding. MUSCULOSKELETAL: Extremities without clubbing, cyanosis. edema. No joint tenderness, effusion, or edema noted. No calf tenderness. Negative Homans sign bilaterally. NEUROLOGICAL: Awake and alert. Cranial nerves II through XII intact. Motor and sensory grossly within normal limits. Five out of 5 muscle strength in all muscle groups. Normal speech. A/P Assessment and Plan 66 yo male with h/o SVT was seen by Dr Romano in the past, HTN, noncompliant with meds and follow up says last time has seen a physician was ~10 years ago. Patient came to the ED for evaluation of SOB, LE edema SOB Acute respiratory failure with hypoxia, O2 sat in 80s on admission, requiring O2 Lactic acidosis likely related to hypoxia. Will trend lactic acid , back to nl Community acquired pneumonia Left pleural effusion. Large lung mass. S/P CT guided biopsy of right supraclavicular adenopathy 10/07/16 LE edema. Will do LE doppler US to r/o DVT Tobaccoism SVT HTN Noncompliant with meds and follow up Tachycardic 120s-130s, WBC 11.5, afebrile, RR 20s. CXR reviewed 1. Large pleural effusion and adjacent density. 2. There is volume loss in the right hemithorax, obstructing central lesion cannot be excluded. Contrasted CT chest recommended. CT chest reviewed patient with large mass. S/P CT guided biopsy of right supraclavicular adenopathy 10/07/16 by IR Cardiology also signed off to treat underlying condition. Also patient with impending SVC syndr 2/ 2 mass. Monitor closely. Obtain sputum cx, legionella/pneumococcal Ag Start Ceftriaxone and Azithromycin IV Incentive spirometry ABG reviewed. O2 supplement keep O2 sat > 92 %. Duonebs scheduled and as need for wheezing/sob. 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 Consult pulmonology BNP is 14, trops are negative , he doesn't have any chest pain. BP 167/77 on admission. Persistent tachycardic in 130s, used to take Lopressor 100 mg po BID he is noncompliant for a long time, however due to pulm issues at his time will give cardizem to avoid further bronchoconstriction. Increase cardizem . Consult cardiology, appreciate recommendations, cardiology feels is all lung related. DVT ppx SCD/TEDS GI ppx PPI Discussed Condition With patient, nurse, son at bedside Linda Romero MD October 08, 2016 14:25
[2016-10-08] MEDS: DILTIAZEM HCL 60 MG TAB PO SCH ×2 (17:42→23:44)
--- NOTE | 2016-10-08 20:32 | HHI.PR ---
Subjective Remarks He is feeling better. No fever. Biopsy of Lymph node done. On Antibiotics Objective Vital Signs Date Time Temp Pulse Resp B/P Pulse Ox O2 Delivery O2 Flow Rate FiO2 10/08/16 20:00 96.6 120 18 142/84 93 10/08/16 19:43 95 High Flow Nasal Cannula 3.00 10/08/16 15:50 96.8 127 20 138/86 93 10/08/16 11:50 96.9 130 20 162/86 93 10/08/16 08:30 125 10/08/16 07:50 97.1 118 20 136/84 98 10/08/16 07:21 93 Nasal Cannula 3.00 10/08/16 04:11 93 10/08/16 04:00 97.7 127 18 150/89 91 10/07/16 23:45 96.9 119 20 132/89 95 I/O 10/07/16 10/07/16 10/07/16 10/08/16 10/08/16 10/08/16 07:00 15:00 23:00 07:00 15:00 23:00 Intake Total 240 ml 720 ml 640 ml 360 ml 720 ml 391 ml Output Total 700 ml 750 ml 350 ml 275 ml 425 ml Balance -460 ml -30 ml 290 ml 85 ml 295 ml 391 ml Intake Oral 240 ml 720 ml 240 ml 360 ml 720 ml IV Total 400 ml 391 ml Output Urine Total 700 ml 750 ml 350 ml 275 ml 425 ml # Bowel Movements 1 Result Diagram: 10/08/16 0620 10/08/16 0834 Objective Remarks This is an averagely built middle-aged white male, who is alert, mildly dyspneic at rest. HEENT: Head normocephalic. Pupils are reactive. Tongue dry. Throat is injected. He has no inflammation. Neck: Supple. No bruits or thyroid enlargement. Chest: Distant breath sounds with occasional crackles over the right mid and lower chest with wheezes bilaterally. Heart: The heart sounds are irregular, S1-S2 with no murmur. Abdomen is soft, protuberant with the liver just felt below the costal margin. The bowel sounds are active. Extremities: No edema with diminished pulses. Reflexes are 1+. No gross motor deficits. Cranial nerves grossly intact. Rectal: Exam is deferred. Skin was dry and warm. Assessment and Plan Assessment and Plan IMPRESSION 1. Hypoxemic respiratory failure resolving. 2. Right basilar pneumonia, right pleural effusion. 3. COPD with emphysema. 4. Tachycardia. SVT. Plan : 1. Continue antibiotics. 2. Solumedrol 40 mg IV q6h. 3. O2 at 3 L. 4. Nebs qid , duoneb. 5. CBC,BMP in am .PFT . Yassine Osei MD October 08, 2016 20:32
[2016-10-09] VITALS (10 sets, daily range): BP systolic 127–152; BP diastolic 80–93; PULSE 110–126; RESP 18–20; TEMP 96.2–98; O2SAT 94–97
[2016-10-09] MEDS: DILTIAZEM HCL 60 MG TAB PO SCH ×4 (05:45→23:32)
[2016-10-09] MEDS: methylPREDNISolone SOD SUCC 40 MG/1 ML VIAL IV PUSH SCH ×3 (05:45→20:48)
[2016-10-09] MEDS: RESP: IPRATROPIUM 0.5 MG/2.5 ML NEB NEB PRN (05:47)
[2016-10-09] MEDS: SODIUM CHLORIDE 0.9% FLUSH 10 ML FLUSH IV FLUSH SCH ×2 (08:30→20:48)
[2016-10-09] MEDS: RESP: ALBUTEROL 2.5 MG/IPRATROPIUM 0.5 MG NEB (SCH) NEB ×4 (08:45→21:17)
--- NOTE | 2016-10-09 09:38 | HHI.PR ---
Subjective Remarks He is in the chair, says he feels that shortness of breath than when he came. He is still requiring oxygen by nasal cannula. Still with elevated heart rate, however he denies palpitations, says he doesn't feel his heart racing. Says Mucinex is helping with congestion, he is coughing more now no blood view done. He is eating without any dysphagia. No fever or chills overnight. He is feeling somehow anxious regarding path results. Objective Vitals Vital Signs Date Time Temp Pulse Resp B/P Pulse Ox O2 Delivery O2 Flow Rate FiO2 10/09/16 07:00 96.2 112 20 127/80 94 10/09/16 05:50 95 Nasal Cannula 3.00 10/09/16 04:00 98.0 121 18 152/86 95 10/09/16 00:00 96.7 122 18 139/93 96 10/08/16 20:03 119 10/08/16 20:00 96.6 120 18 142/84 93 10/08/16 19:43 95 High Flow Nasal Cannula 3.00 10/08/16 15:50 96.8 127 20 138/86 93 10/08/16 11:50 96.9 130 20 162/86 93 I/O 10/08/16 10/08/16 10/08/16 10/09/16 10/09/16 10/09/16 07:00 15:00 23:00 07:00 15:00 23:00 Intake Total 360 ml 720 ml 871 ml 480 ml Output Total 275 ml 425 ml 600 ml 525 ml Balance 85 ml 295 ml 271 ml -45 ml Intake Oral 360 ml 720 ml 480 ml 480 ml IV Total 391 ml Output Urine Total 275 ml 425 ml 600 ml 525 ml # Bowel Movements 1 Result Diagram: 10/08/16 0620 10/08/16 0834 Imaging Last Impressions Lymph Node Biopsy CT 10/07/16 1600 Signed Impressions: Service Date/Time: Friday, October 07, 2016 16:10 - CONCLUSION: Uncomplicated CT guided biopsy of right supraclavicular adenopathy. Ben Peterson MD Chest X-Ray 10/06/16 1008 Signed Impressions: Service Date/Time: Thursday, October 06, 2016 10:23 - CONCLUSION: 1. Large pleural effusion and adjacent density. 2. There is volume loss in the right hemithorax , obstructing central lesion cannot be excluded. Contrasted CT chest recommended. Ben Peterson MD Lower Extremity Ultrasound 10/06/16 0000 Signed Impressions: Service Date/Time: Thursday, October 06, 2016 17:11 - CONCLUSION: No evidence of DVT. Enlarged right groin lymph node. Dennis Peters MD Chest CT 10/06/16 0000 Signed Impressions: Service Date/Time: Thursday, October 06, 2016 12:20 - CONCLUSION: Findings would be consistent with a large hilar mass with extensive mediastinal adenopathy extending into the supraclavicular region with consolidative changes in the right. 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 Only a small amount of the opacity on the chest radiograph is fluid. Majority of the opacity is drowned lung. This would be amenable to percutaneous biopsy. Most likely site of biopsy would be the supraclavicular node on the right. There is impending SVC syndrome. Simone Tracy MD FACR Objective Remarks GENERAL: This is a very pleasant 66 yo male, sitting up, appears in acute distress 2/2 sob, talks in short sentences, well-nourished, well-developed patient. Somehow anxious. SKIN: No rashes, ecchymoses or lesions. Cool and dry. HEAD: Atraumatic. Normocephalic. No temporal or scalp tenderness. EYES: Pupils equal round and reactive. Extraocular motions intact. No scleral icterus. No injection or drainage. ENT: Nose without bleeding, purulent drainage or septal hematoma. Throat without erythema, tonsillar hypertrophy or exudate. Uvula midline. Airway patent. NECK: Trachea midline. Large supraclavicular LN. no meningeal signs. CARDIOVASCULAR: Regular rate and rhythm without murmurs, gallops, or rubs. RESPIRATORY: Clear to auscultation. Breath sounds equal bilaterally. No wheezes , rales, or rhonchi. GASTROINTESTINAL: Abdomen soft, non-tender, nondistended. No hepato-splenomegaly , or palpable masses. No guarding. MUSCULOSKELETAL: Extremities without clubbing, cyanosis. edema. No joint tenderness, effusion, or edema noted. No calf tenderness. Negative Homans sign bilaterally. NEUROLOGICAL: Awake and alert. Cranial nerves II through XII intact. Motor and sensory grossly within normal limits. Five out of 5 muscle strength in all muscle groups. Normal speech. A/P Assessment and Plan 66 yo male with h/o SVT was seen by Dr Romano in the past, HTN, noncompliant with meds and follow up says last time has seen a physician was ~10 years ago. Patient came to the ED for evaluation of SOB, LE edema SOB Acute respiratory failure with hypoxia, O2 sat in 80s on admission, requiring O2 Lactic acidosis likely related to hypoxia. Will trend lactic acid , back to nl Community acquired pneumonia Left pleural effusion. Large lung mass. S/P CT guided biopsy of right supraclavicular adenopathy 10/07/16. Pathology pending. LE edema. Will do LE doppler US to r/o DVT Tobaccoism SVT HTN Noncompliant with meds and follow up Anxiety, acute: ativan prn Tachycardic 120s-130s, WBC 11.5, afebrile, RR 20s. CXR reviewed 1. Large pleural effusion and adjacent density. 2. There is volume loss in the right hemithorax, obstructing central lesion cannot be excluded. Contrasted CT chest recommended. CT chest reviewed patient with large mass. S/P CT guided biopsy of right supraclavicular adenopathy 10/07/16 by IR Cardiology also signed off to treat underlying condition. Also patient with impending SVC syndr 2/ 2 mass. Monitor closely. Sputum cx neg, legionella/pneumococcal Ag negative Blood cultures are NTD Continue Ceftriaxone and Azithromycin IV Incentive spirometry ABG reviewed. O2 supplement keep O2 sat > 92 %. Duonebs scheduled and as need for wheezing/sob. 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 Mucinex Consult pulmonology, following appreciate recommendations BNP is 14, trops are negative , he doesn't have any chest pain. BP 167/77 on admission. Persistent tachycardic in 130s, used to take Lopressor 100 mg po BID he is noncompliant for a long time, however due to pulm issues at his time will give cardizem to avoid further bronchoconstriction. Increase cardizem . Consult cardiology, appreciate recommendations, cardiology feels is all lung related. DVT ppx SCD/TEDS GI ppx PPI Discussed Condition With patient, nurse, son at bedside DC plan: Pending improvement, pathology results Linda Romero MD October 09, 2016 09:38
[2016-10-09] MEDS ORDERED: LORazepam 0.5 MG TAB PO PRN (10:00)
[2016-10-09] MEDS ORDERED: ACETAMINOPHEN/CODEINE ELIX 120 MG/12 MG/5 ML CUP PO PRN (11:00)
[2016-10-09] MEDS: guaiFENesin E.R. 600 MG TAB PO SCH ×2 (11:23→20:48)
[2016-10-09] MEDS: cefTRIAXone INJ 1,000 MG in SODIUM CHLORIDE 0.9% INJ 100 ML IV SCH (12:57)
[2016-10-09] MEDS: DOCUSATE SODIUM 100 MG CAP PO SCH ×2 (13:00→23:31)
[2016-10-09] MEDS: ENOXAPARIN SODIUM 40 MG/0.4 ML SYRINGE SQ SCH (13:00)
[2016-10-09] MEDS: AZITHROMYCIN INJ 500 MG in SODIUM CHLOR 0.9% 250 ML INJ 250 ML IV SCH (14:19)
[2016-10-09] MEDS ORDERED: IOHEXOL 350 MG/ML 10 ML VIAL (for RAD DIAG) IV ONE (20:34)
--- NOTE | 2016-10-09 20:42 | MB ---
cc: ASHLEE ROY MD DATE OF CONSULTATION: 10/09/2016 HEMATOLOGY/ONCOLOGY CONSULTATION NOTE REASON FOR CONSULTATION: Patient with a large mediastinal mass associated with extensive mediastinal and supraclavicular lymphadenopathy. Findings concerning for a primary malignancy of the lung. CHIEF COMPLAINT: Two week history of progressive difficulty breathing. The patient reports having had a three day history of pressure on either side of his neck at the level of the collarbones. HISTORY OF PRESENT ILLNESS: Mr. Ruano is a 66-year-old male. He tells me he has been smoking since he was 12 years old. Mr. Ruano presently lives at home alone. He is . 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 Mr. Ruano reports being his usual good state of health up until about three weeks ago, he then began to notice increasing difficulty breathing and shortness of breath with exertion. He subsequently began to notice difficulty breathing even at rest. He tells me that it has been increasingly difficult for him to sleep lying flat, and that at nighttime he has to sit up to catch his breath. Additionally, three days ago, he began to notice "knots on either side of my neck" that feel as if his neck is being squeezed. He presented to the [facility] for further workup and management. In the emergency department, he was noted to be hypoxic on room air and was initiated on oxygen supplementation. Imaging studies of the chest performed on admission revealed a large mass involving the right hilum with extensive mediastinal lymphadenopathy extending to the supraclavicular lesion and extensive consolidation changes in the right lung. The findings were concerning for a primary lung carcinoma. On 10/07/2016, he underwent CT-guided lymph node biopsy of the right supraclavicular lymph nodes. PAST MEDICAL HISTORY: 1. Extensive history of tobaccoism. 2. Hypertension. PAST SURGICAL HISTORY: 1. Tonsillectomy. 2. Ankle surgery. FAMILY HISTORY: Sister with pancreas cancer (alive). Mother of lung cancer. SOCIAL HISTORY: He is . He has a 31-year-old son. 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 He is a of the [place] . He smoked since he was 12 years old, and on average he thinks he may have smoked about a pack a day. He also reports previously being a heavy drinker. ALLERGIES: NO KNOWN DRUG ALLERGIES. CURRENT INPATIENT MEDICATIONS: 1. Azithromycin 500 milligrams IV q. 24 hours. 2. Ceftriaxone 1 milligram IV q. 24 hours. 3. Tylenol 650 milligrams p.o. q. 4 hours. 4. Diltiazem 60 milligrams p.o. q. 6 hours. 5. Colace 100 milligrams p.o. q. 12. 6. Lovenox 40 milligrams subcutaneous q. 24 hours. 7. Guaifenesin 600 milligrams p.o. twice a day.. 8. Lorazepam 0.5 milligrams q. 8 hours as needed for anxiety. 9. MoM 30 mL. 10. Methylprednisolone 40 milligrams IV q. 8 hours. 11. Zofran 4 milligrams IV as needed for nausea and vomiting. 12. Temazepam 15 milligrams p.o. at bedtime as needed for insomnia. REVIEW OF SYSTEMS: A thirteen point review of systems was obtained and the following are the pertinent positives: CONSTITUTIONAL: The patient reports fatigue, decreased appetite. He denies weight loss. Denies fevers or chills. HEAD, EYES, EARS, NOSE, THROAT: Denies headaches, tells me his face feels "flushed and swollen". Denies difficulty swallowing. Denies soreness in the throat. RESPIRATORY: Difficulty breathing with rest, exertion and when laying flat, denies hemoptysis. CARDIOVASCULAR: Reports orthopnea, PND, denies angina-like chest pain, PND, orthopnea. GI: Denies nausea, vomiting, diarrhea hematochezia, melena. : No complaints. 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 No other complaints reported. PHYSICAL EXAMINATION: VITAL SIGNS: The vital signs reveal a temperature of 97.7 degrees Fahrenheit, heart rate 127 beats per minute, respiratory rate 18 breaths per minute, blood pressure 150/89, 02 saturation 91% on three liters nasal cannula. GENERAL PHYSICAL APPEARANCE: Mr. Ruano is a middle-aged man. He is sitting up in bed. He appears to be in mild respiratory distress. HEAD, EYES, EARS, NOSE, THROAT: Head is atraumatic and normocephalic. Conjunctivae are non-pale. The sclerae are anicteric. Extraocular muscles intact. Pupils equal, round and reactive to light and accommodation. ORAL EXAM: No pharyngeal erythema. NECK EXAM: No palpable cervical or supraclavicular lymphadenopathy. RESPIRATORY EXAM: Coarse conducted breath sounds over the left and right lungs. Decreased right lung air movement. CARDIOVASCULAR EXAM: Tachycardic. S1, S2. No obvious murmurs, rubs or gallops. ABDOMINAL EXAM: Protuberant belly. The abdomen is soft, nontender and nondistended. No palpable organ enlargement. He does have an umbilical hernia. LOWER EXTREMITIES: No pretibial edema or calf tenderness. MUSCULOSKELETAL: Adequate muscle mass, tone and strength. 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 LABORATORY FINDINGS: Blood work dated 10/08/2016: WBC count 18.6, hemoglobin 14.2 gm/dL, hematocrit 42%, platelet count 276,000, absolute neutrophil count 17. Chemistries: Sodium 138, potassium 4, chloride 102, bicarbonate 30, BUN 14, creatinine 0.57, EGFR 144, random glucose 154, magnesium 2.4. Coags: INR 1, PTT 37, PT 10.7. IMAGING STUDIES: CT scan of the thorax dated 10/06/2016: Findings consistent with a large mass involving the right hilum with extensive mediastinal lymphadenopathy. Supraclavicular lymphadenopathy is also noted. Right lung with consolidative changes. Small amount of opacity in the right chest. Impending SVC syndrome. ASSESSMENT: Mr. Ruano is a 66-year-old male with a greater than 50 pack/year history of smoking who presented to hospital with a two week history of progressive difficulty breathing and sensation of pressure on the right and left side of his neck. He was noted to be in hypoxic respiratory failure upon presentation. Imaging studies of the chest revealed massive mediastinal lymphadenopathy with a large mass which seemed to originate from the right hilum. Extensive supraclavicular adenopathy was also noted. He has undergone a CT-guided biopsy of one of the right supraclavicular lymph nodes. Primary differential diagnoses include a primary lung malignancy such as small cell carcinoma versus a rapidly proliferating lymphoma. RECOMMENDATIONS: 1. Right hilar mass associated with extensive mediastinal and supraclavicular adenopathy: Await biopsy results. 2. I would like to obtain a CT scan of the head to rule out brain metastases given the suspicion of small cell lung carcinoma. 3. Should he be diagnosed with small cell lung carcinoma, I would recommend he be initiated on systemic therapy in the hospital emergently with a cahto doublet such as carboplatin and Etoposide. I will also order systemic staging with a CT scan of the abdomen and pelvis to identify and quantify any possible intra-abdominal disease burden. The oncology service will follow this patient closely. MD CARLYLE Bennett/MAMTA /7:45 PM /8:20 PM MTDAntonia
--- NOTE | 2016-10-09 21:00 | RADRPT ---
EXAM DATE/TIME: 10/09/2016 20:27 [facility] COMPARISON: No previous studies available for comparison. INDICATIONS : Lung cancer. Evaluate for metastatic disease. IV CONTRAST: 75 cc Omnipaque 350 (iohexol) IV RADIATION DOSE: 49.25 CTDIvol (mGy) MEDICAL HISTORY : Carcinoma, lung. SURGICAL HISTORY : None. ENCOUNTER: Initial ACUITY: 1 day PAIN SCALE: 0/10 LOCATION: cranial TECHNIQUE: Multiple contiguous axial images were obtained of the head. Using automated exposure control and adj ustment of the mA and/or kV according to patient size, radiation dose was kept as low as reasonably a chievable to obtain optimal diagnostic quality images. FINDINGS: Focus of poorly circumscribed enhancement in the right frontal vertex with underlying vasogenic edema , appearance worrisome for metastatic disease. The brain is also more symmetric and benign. The ventr icles are normal. There is no evidence of hemorrhage. There is nothing to suggest acute infarction. T he extracranial structures are benign and intact. CONCLUSION: Abnormal focus in the right frontal vertex worrisome for metastatic disease Wei Duggan MD on October 09, 2016 at 20:56 Board Certified Radiologist. This report was verified electronically.
[2016-10-10] VITALS (8 sets, daily range): BP systolic 135–168; BP diastolic 77–88; PULSE 110–125; RESP 18–19; TEMP 96–97.9; O2SAT 95–97
[2016-10-10] MEDS: methylPREDNISolone SOD SUCC 40 MG/1 ML VIAL IV PUSH SCH ×3 (05:48→21:51)
[2016-10-10] MEDS: DILTIAZEM HCL 60 MG TAB PO SCH ×4 (05:48→23:28)
[2016-10-10 07:31] LABS: AUTOMATED NEUTROPHIL # 11.1 TH/MM3 (1.8-7.7); BASOPHIL % 0.3 % (0.0-2.0); HEMATOCRIT 42.8 % (39.0-51.0); HEMO FLAGS DIFF FINAL; LYMPH % 5.3 % (9.0-44.0); LYMPHOCYTE # 0.7 TH/MM3 (1.0-4.8); MEAN CELL VOLUME 97.1 FL (80.0-100.0); MEAN CORPUSCULAR HEMOGLOBIN 31.4 PG (27.0-34.0); MEAN CORPUSCULAR HGB CONC 32.4 % (32.0-36.0); NEUT % 88.4 % (16.0-70.0); PLATELET COUNT 246 TH/MM3 (150-450); RED BLOOD COUNT 4.41 MIL/MM3 (4.50-5.90); RED CELL DISTRIBUTION WIDTH 13.1 % (11.6-17.2); WHITE BLOOD COUNT 12.6 TH/MM3 (4.0-11.0)
[2016-10-10 08:07] LABS: BICARBONATE 33.3 MEQ/L (21.0-32.0); POTASSIUM 4.2 MEQ/L (3.5-5.1)
[2016-10-10] MEDS: RESP: ALBUTEROL 2.5 MG/IPRATROPIUM 0.5 MG NEB (SCH) NEB ×3 (08:27→15:43)
--- NOTE | 2016-10-10 08:50 | HHI.PR ---
Subjective Remarks Patient in bed, appears anxious. Says we should check for allergy and parasites. He says she is still sob and feels his lung is ciongested and unable to breath, He says she is not coughing much, no blood in his sputum. No fever or chills overnight. No n/v/d/c. Denies chest pain. he denies feeling palpitations. He is tachycardic. He is sattign well on NC. Objective Vitals Vital Signs Date Time Temp Pulse Resp B/P Pulse Ox O2 Delivery O2 Flow Rate FiO2 10/10/16 04:00 96.8 120 19 168/84 95 10/10/16 00:00 96.6 120 19 141/87 96 10/09/16 21:18 96 2.00 10/09/16 20:08 121 10/09/16 20:00 97.8 120 19 141/82 94 10/09/16 15:48 96.3 114 20 138/85 97 10/09/16 11:55 97.2 126 20 146/86 95 I/O 10/09/16 10/09/16 10/09/16 10/10/16 10/10/16 10/10/16 07:00 15:00 23:00 07:00 15:00 23:00 Intake Total 480 ml 430 ml 618 ml 240 ml Output Total 525 ml 250 ml 600 ml 800 ml Balance -45 ml 180 ml 18 ml -560 ml Intake Oral 480 ml 430 ml 240 ml 240 ml IV Total 378 ml Output Urine Total 525 ml 250 ml 600 ml 800 ml # Bowel Movements 1 0 0 Result Diagram: 10/10/16 0550 10/10/16 0550 Imaging Last Impressions Head CT 10/09/16 0000 Signed Impressions: Service Date/Time: September 20:27 - CONCLUSION: Abnormal focus in the right frontal vertex worrisome for metastatic disease Wei Duggan MD Lymph Node Biopsy CT 10/07/16 1600 Signed Impressions: Service Date/Time: Friday, October 07, 2016 16:10 - CONCLUSION: Uncomplicated CT guided biopsy of right supraclavicular adenopathy. Ben Peterson MD Chest X-Ray 10/06/16 1008 Signed Impressions: Service Date/Time: Thursday, October 06, 2016 10:23 - CONCLUSION: 1. Large pleural effusion and adjacent density. 2. There is volume loss in the right hemithorax , obstructing central lesion cannot be excluded. Contrasted CT chest recommended. Ben Peterson MD Lower Extremity Ultrasound 10/06/16 Signed Impressions: Service Date/Time: Thursday, October 06, 2016 17:11 - CONCLUSION: No evidence of DVT. Enlarged right groin lymph node. Dennis Peters MD Chest CT 10/06/16 Signed Impressions: Service Date/Time: Thursday, October 06, 2016 12:20 - CONCLUSION: Findings would be consistent with a large hilar mass with extensive mediastinal adenopathy extending into the supraclavicular region with consolidative changes in the right. 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 Only a small amount of the opacity on the chest radiograph is fluid. Majority of the opacity is drowned lung. This would be amenable to percutaneous biopsy. Most likely site of biopsy would be the supraclavicular node on the right. There is impending SVC syndrome. Simone Tracy MD FACR Objective Remarks GENERAL: This is a very pleasant 66 yo male, sitting up, appears in acute distress 2/2 sob, talks in short sentences, well-nourished, well-developed patient. Somehow anxious. SKIN: No rashes, ecchymoses or lesions. Cool and dry. HEAD: Atraumatic. Normocephalic. No temporal or scalp tenderness. EYES: Pupils equal round and reactive. Extraocular motions intact. No scleral icterus. No injection or drainage. ENT: Nose without bleeding, purulent drainage or septal hematoma. Throat without erythema, tonsillar hypertrophy or exudate. Uvula midline. Airway patent. NECK: Trachea midline. Large supraclavicular LN. no meningeal signs. CARDIOVASCULAR: Regular rate and rhythm without murmurs, gallops, or rubs. RESPIRATORY: Clear to auscultation. Breath sounds equal bilaterally. No wheezes , rales, or rhonchi. GASTROINTESTINAL: Abdomen soft, non-tender, nondistended. No hepato-splenomegaly , or palpable masses. No guarding. MUSCULOSKELETAL: Extremities without clubbing, cyanosis. edema. No joint tenderness, effusion, or edema noted. No calf tenderness. Negative Homans sign bilaterally. NEUROLOGICAL: Awake and alert. Cranial nerves II through XII intact. Motor and sensory grossly within normal limits. Five out of 5 muscle strength in all muscle groups. Normal speech. A/P Assessment and Plan 66 yo male with h/o SVT was seen by Dr Romano in the past, HTN, noncompliant with meds and follow up says last time has seen a physician was ~10 years ago. Patient came to the ED for evaluation of SOB, LE edema SOB Acute respiratory failure with hypoxia, O2 sat in 80s on admission, requiring O2 Lactic acidosis likely related to hypoxia. Will trend lactic acid , back to nl Community acquired pneumonia Left pleural effusion. Large lung mass. S/P CT guided biopsy of right supraclavicular adenopathy 10/07/16. Pathology pending. LE edema. Will do LE doppler US to r/o DVT Tobaccoism SVT HTN Noncompliant with meds and follow up Anxiety, acute: ativan prn Tachycardic 120s-130s, WBC 11.5, afebrile, RR 20s. CXR reviewed 1. Large pleural effusion and adjacent density. 2. There is volume loss in the right hemithorax, obstructing central lesion cannot be excluded. Contrasted CT chest recommended. CT chest reviewed patient with large mass and enlarged LN. S/P CT guided biopsy of right supraclavicular adenopathy 10/07/16 by IR Pathology pending. Consult Hem.onc . Seen by Dr Benitez hem/onc. Recommends CT head. reviewed, patient with poss mets right frontal vertex. Cardiology also signed off to treat underlying condition. Also patient with impending SVC syndr 2/ 2 mass. Monitor closely. Sputum cx neg, legionella/pneumococcal Ag negative Blood cultures are NTD Continue Ceftriaxone and Azithromycin IV Incentive spirometry ABG reviewed. O2 supplement keep O2 sat > 92 %. Duonebs scheduled and as need for wheezing/sob. Add steroid solumedrol 40 mg Q8 hrs will decrease inflammation patient is residential smoker. Mucinex Consult pulmonology, following appreciate recommendations BNP is 14, trops are negative , he doesn't have any chest pain. BP 167/77 on admission. Persistent tachycardic in 130s, used to take Lopressor 100 mg po BID he is noncompliant for a long time, however due to pulm issues at his time will give cardizem to avoid further bronchoconstriction. Increase cardizem . Consult cardiology, appreciate recommendations, cardiology feels is all lung related. DVT ppx SCD/TEDS GI ppx PPI Discussed Condition With patient, nurse, son at bedside DC plan: Pending improvement, pathology results Linda Romero MD October 10, 2016 08:50
[2016-10-10] MEDS: guaiFENesin E.R. 600 MG TAB PO SCH ×2 (09:22→21:51)
[2016-10-10] MEDS: SODIUM CHLORIDE 0.9% FLUSH 10 ML FLUSH IV FLUSH SCH ×2 (09:24→21:51)
--- NOTE | 2016-10-10 11:43 | PD.ONC.PN ---
Subjective Subjective Remarks Afebrile overnight. Patient eager to know what pathology shows. He remains short of breath, but no more so than yesterday. Denies facial or upper extremity swelling. Objective Data Date Time Temp Pulse Resp B/P Pulse Ox O2 Delivery O2 Flow Rate FiO2 10/10/16 08:30 96 Nasal Cannula 2.00 10/10/16 08:00 97.9 111 18 148/77 97 10/10/16 04:00 96.8 120 19 168/84 95 10/10/16 00:00 96.6 120 19 141/87 96 10/09/16 21:18 96 2.00 10/09/16 20:08 121 10/09/16 20:00 97.8 120 19 141/82 94 10/09/16 15:48 96.3 114 20 138/85 97 10/09/16 11:55 97.2 126 20 146/86 95 Result Diagram: 10/10/16 0550 10/10/16 0550 Laboratory Results Laboratory Tests Test 10/10/16 05:50 White Blood Count 12.6 TH/MM3 Red Blood Count 4.41 MIL/MM3 Hemoglobin 13.9 GM/DL Hematocrit 42.8 % Mean Corpuscular Volume 97.1 FL Mean Corpuscular Hemoglobin 31.4 PG Mean Corpuscular Hemoglobin 32.4 % Concent Red Cell Distribution Width 13.1 % Platelet Count 246 TH/MM3 Mean Platelet Volume 8.9 FL Neutrophils (%) (Auto) 88.4 % Lymphocytes (%) (Auto) 5.3 % Monocytes (%) (Auto) 6.0 % Eosinophils (%) (Auto) 0.0 % Basophils (%) (Auto) 0.3 % Neutrophils # (Auto) 11.1 TH/MM3 Lymphocytes # (Auto) 0.7 TH/MM3 Monocytes # (Auto) 0.7 TH/MM3 Eosinophils # (Auto) 0.0 TH/MM3 Basophils # (Auto) 0.0 TH/MM3 CBC Comment DIFF FINAL Differential Comment Sodium Level 139 MEQ/L Potassium Level 4.2 MEQ/L Chloride Level 100 MEQ/L Carbon Dioxide Level 33.3 MEQ/L Anion Gap 6 MEQ/L Blood Urea Nitrogen 19 MG/DL Creatinine 0.52 MG/DL Estimat Glomerular Filtration 160 ML/MIN Rate Random Glucose 125 MG/DL Calcium Level 8.6 MG/DL Administered Medications Medications (Trade) Dose Ordered Sig/Nicole Route PRN Reason Start Time Stop Time Status Last Admin Dose Admin Sodium Chloride (NS Flush) 2 ml UNSCH PRN IV FLUSH FLUSH AFTER USING IV ACCESS 10/06/16 13:00 10/07/16 22:26 Sodium Chloride (NS Flush) 2 ml BID IV FLUSH 10/06/16 21:00 10/10/16 09:24 Docusate Sodium (Colace) 100 mg Q12H PO 10/06/16 13:00 10/09/16 23:31 Enoxaparin Sodium 40 mg 40 mg Q24H SQ 10/06/16 14:00 10/09/16 13:00 Azithromycin 500 mg/Sodium Chloride 250 ml @ 250 mls/hr Q24H IV 10/07/16 14:00 10/09/16 14:19 Ceftriaxone Sodium/Sodium Chloride (Rocephin Inj/NS Inj) 100 ml @ 200 mls/hr Q24H IV 10/07/16 13:00 10/09/16 12:57 Methylprednisolone Sodium Succinate (SoluMEDROL INJ) 40 mg Q8HR IV PUSH 10/07/16 14:00 10/10/16 05:48 Diltiazem HCl (Cardizem) 60 mg Q6HR PO 10/08/16 18:00 10/10/16 05:48 Guaifenesin (Mucinex Er) 600 mg BID PO 10/09/16 11:00 10/10/16 09:22 Objective Remarks GENERAL: Middle aged male, visibly dyspneic, sitting up in chair in room. SKIN: Warm and dry. HEAD: Normocephalic. EYES: No injection or drainage. NECK: Supple, trachea midline. CARDIOVASCULAR: +S1/S2 RESPIRATORY: scattered rhonchi. diminished at right base. on 2L O2 via NC GASTROINTESTINAL: Abdomen soft, non-tender, nondistended. EXTREMITIES: No cyanosis NEUROLOGICAL: No obvious focal deficit. Awake, alert, and oriented x3. Assessment/Plan Problem List: (1) Lung mass Status: Acute Plan: --s/p right hilar mass associated with extensive mediastinal and supraclavicular adenopathy: Await biopsy results. --CT brain--> abnormal focus in the right frontal vertex, possible met Assessment 66y/o male with a large mediastinal mass associated with extensive mediastinal and supraclavicular lymphadenopathy. Findings concerning for a primary malignancy of the lung. History (from initial consult):Mr. Ruano reports being his usual good state of health up until about three weeks ago, he then began to notice increasing difficulty breathing and shortness of breath with exertion. He subsequently began to notice difficulty breathing even at rest. He tells me that it has been increasingly difficult for him to sleep lying flat, and that at nighttime he has to sit up to catch his breath. Additionally, three days ago, he began to notice "knots on either side of my neck" that feel as if his neck is being squeezed. In the emergency department, he was noted to be hypoxic on room air and was initiated on oxygen supplementation. Imaging studies of the chest performed on admission revealed a large mass involving the right hilum with extensive mediastinal lymphadenopathy extending to the supraclavicular lesion and extensive consolidation changes in the right lung as well as impending SVC syndrome. The findings were concerning for a primary lung carcinoma. On 2016, he underwent CT-guided lymph node biopsy of the right supraclavicular lymph nodes. Plan 1. await biopsy results 2. monitor for signs of SVC syndrome 3. continue Lovenox as DVT prophylaxis Keesha Rosa October 10, 2016 11:43 Keesha Rosa October 10, 2016 11:43
[2016-10-10] MEDS: DOCUSATE SODIUM 100 MG CAP PO SCH (12:25)
[2016-10-10] MEDS: cefTRIAXone INJ 1,000 MG in SODIUM CHLORIDE 0.9% INJ 100 ML IV SCH (12:25)
[2016-10-10] MEDS: ENOXAPARIN SODIUM 40 MG/0.4 ML SYRINGE SQ SCH (14:15)
[2016-10-10] MEDS: AZITHROMYCIN INJ 500 MG in SODIUM CHLOR 0.9% 250 ML INJ 250 ML IV SCH (14:16)
[2016-10-11] VITALS (12 sets, daily range): BP systolic 130–159; BP diastolic 73–84; PULSE 102–123; RESP 20–22; TEMP 96.2–97.7; O2SAT 95–98
[2016-10-11] MEDS: DOCUSATE SODIUM 100 MG CAP PO SCH ×2 (00:34→11:59)
[2016-10-11] MEDS: RESP: IPRATROPIUM 0.5 MG/2.5 ML NEB NEB PRN ×2 (03:58→08:50)
[2016-10-11] MEDS: RESP: ALBUTEROL 2.5 MG/3 ML NEB (PRN) NEB ×2 (03:58→20:10)
[2016-10-11] MEDS: DILTIAZEM HCL 60 MG TAB PO SCH ×4 (04:33→23:09)
[2016-10-11] MEDS: methylPREDNISolone SOD SUCC 40 MG/1 ML VIAL IV PUSH SCH ×3 (04:33→22:07)
--- NOTE | 2016-10-11 07:21 | HHI.PR ---
Subjective Remarks Patient to appear anxious. He says he feels less short of breath today says oxygen is helping. Feels his neck is engorged and he feels chest congestion. He is agreeable with chemotherapy WILL do well. Denies fever or chills. Not much cough. He is not passing any blood. No nausea or vomiting is eating well. No dysphasia. Objective Vitals Vital Signs Date Time Temp Pulse Resp B/P Pulse Ox O2 Delivery O2 Flow Rate FiO2 10/11/16 04:00 96.3 110 22 144/84 96 10/11/16 00:00 97.6 116 21 142/84 98 10/10/16 20:10 115 10/10/16 20:00 96.6 117 19 135/78 96 10/10/16 16:00 96.0 125 18 148/80 96 10/10/16 12:00 97.3 118 19 139/88 95 10/10/16 08:30 96 Nasal Cannula 2.00 10/10/16 08:00 97.9 111 18 148/77 97 10/10/16 08:00 110 I/O 10/10/16 10/10/16 10/10/16 10/11/16 10/11/16 10/11/16 07:00 15:00 23:00 07:00 15:00 23:00 Intake Total 240 ml 960 ml 480 ml 240 ml Output Total 800 ml 550 ml 200 ml 750 ml Balance -560 ml 410 ml 280 ml -510 ml Intake Oral 240 ml 960 ml 480 ml 240 ml Output Urine Total 800 ml 550 ml 200 ml 750 ml # Voids 1 # Bowel Movements 0 1 1 Result Diagram: 10/10/16 0550 10/10/16 0550 Imaging Last Impressions Head CT 10/09/16 0000 Signed Impressions: Service Date/Time: September 20:27 - CONCLUSION: Abnormal focus in the right frontal vertex worrisome for metastatic disease Wei Duggan MD Lymph Node Biopsy CT 10/07/16 1600 Signed Impressions: Service Date/Time: Friday, October 07, 2016 16:10 - CONCLUSION: Uncomplicated CT guided biopsy of right supraclavicular adenopathy. Ben Peterson MD Chest X-Ray 10/06/16 1008 Signed Impressions: Service Date/Time: Thursday, October 06, 2016 10:23 - CONCLUSION: 1. Large pleural effusion and adjacent density. 2. There is volume loss in the right hemithorax , obstructing central lesion cannot be excluded. Contrasted CT chest recommended. Ben Peterson MD Lower Extremity Ultrasound 10/06/16 Signed Impressions: Service Date/Time: Thursday, October 06, 2016 17:11 - CONCLUSION: No evidence of DVT. Enlarged right groin lymph node. Dennis Peters MD Chest CT 10/06/16 Signed Impressions: Service Date/Time: Thursday, October 06, 2016 12:20 - CONCLUSION: Findings would be consistent with a large hilar mass with extensive mediastinal adenopathy extending into the supraclavicular region with consolidative changes in the right. 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 Only a small amount of the opacity on the chest radiograph is fluid. Majority of the opacity is drowned lung. This would be amenable to percutaneous biopsy. Most likely site of biopsy would be the supraclavicular node on the right. There is impending SVC syndrome. Simone Tracy MD FACR Objective Remarks GENERAL: This is a very pleasant 66 yo male, sitting up, appears in acute distress 2/2 sob, talks in short sentences, well-nourished, well-developed patient. Somehow anxious. SKIN: No rashes, ecchymoses or lesions. Cool and dry. HEAD: Atraumatic. Normocephalic. No temporal or scalp tenderness. EYES: Pupils equal round and reactive. Extraocular motions intact. No scleral icterus. No injection or drainage. ENT: Nose without bleeding, purulent drainage or septal hematoma. Throat without erythema, tonsillar hypertrophy or exudate. Uvula midline. Airway patent. NECK: Trachea midline. Large supraclavicular LN. no meningeal signs. CARDIOVASCULAR: Regular rate and rhythm without murmurs, gallops, or rubs. RESPIRATORY: Clear to auscultation. Breath sounds equal bilaterally. No wheezes , rales, or rhonchi. GASTROINTESTINAL: Abdomen soft, non-tender, nondistended. No hepato-splenomegaly , or palpable masses. No guarding. MUSCULOSKELETAL: Extremities without clubbing, cyanosis. edema. No joint tenderness, effusion, or edema noted. No calf tenderness. Negative Homans sign bilaterally. NEUROLOGICAL: Awake and alert. Cranial nerves II through XII intact. Motor and sensory grossly within normal limits. Five out of 5 muscle strength in all muscle groups. Normal speech. A/P Assessment and Plan 66 yo male with h/o SVT was seen by Dr Romano in the past, HTN, noncompliant with meds and follow up says last time has seen a physician was ~10 years ago. Patient came to the ED for evaluation of SOB, LE edema SOB Acute respiratory failure with hypoxia, O2 sat in 80s on admission, requiring O2 Lactic acidosis likely related to hypoxia. Will trend lactic acid , back to nl Community acquired pneumonia Left pleural effusion. Large lung mass. 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 S/P CT guided biopsy of right supraclavicular adenopathy 10/07/16. Pathology shows small cell carcinoma. Oncology following plan to start treatments per oncology LE edema. Will do LE doppler US to r/o DVT Tobaccoism SVT HTN Noncompliant with meds and follow up Anxiety, acute: ativan prn Tachycardic 120s-130s, WBC 11.5, afebrile, RR 20s. CXR reviewed 1. Large pleural effusion and adjacent density. 2. There is volume loss in the right hemithorax, obstructing central lesion cannot be excluded. Contrasted CT chest recommended. CT chest reviewed patient with large mass and enlarged LN. S/P CT guided biopsy of right supraclavicular adenopathy 10/07/16 by IR Pathology pending. Consult Hem.onc . Seen by Dr Benitez hem/onc. Recommends CT head. reviewed, patient with poss mets right frontal vertex. Cardiology also signed off to treat underlying condition. Also patient with impending SVC syndr 2/ 2 mass. Monitor closely. Sputum cx neg, legionella/pneumococcal Ag negative Blood cultures are NTD Continue Ceftriaxone and Azithromycin IV Incentive spirometry ABG reviewed. O2 supplement keep O2 sat > 92 %. Duonebs scheduled and as need for wheezing/sob. 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 BP 167/77 on admission. Persistent tachycardic in 130s, used to take Lopressor 100 mg po BID he is noncompliant for a long time, however due to pulm issues at his time will give cardizem to avoid further bronchoconstriction. Increase cardizem . Consult cardiology, appreciate recommendations, cardiology feels is all lung related. DVT ppx SCD/TEDS GI ppx PPI Discussed Condition With patient, nurse, son at bedside DC plan: Pending improvement, pathology results Linda Romero MD October 11, 2016 07:21
[2016-10-11] MEDS: SODIUM CHLORIDE 0.9% FLUSH 10 ML FLUSH IV FLUSH SCH ×2 (08:40→22:07)
[2016-10-11] MEDS: guaiFENesin E.R. 600 MG TAB PO SCH ×2 (08:41→22:07)
--- NOTE | 2016-10-11 10:48 | PD.ONC.PN ---
Subjective Subjective Remarks Afebrile overnight. Patient resting comfortably. Eagerly waiting for his pathology results. Objective Data Date Time Temp Pulse Resp B/P Pulse Ox O2 Delivery O2 Flow Rate FiO2 10/11/16 08:51 97 Nasal Cannula 2.00 10/11/16 07:51 97.7 113 20 130/73 95 10/11/16 07:41 122 10/11/16 04:00 96.3 110 22 144/84 96 10/11/16 00:00 97.6 116 21 142/84 98 10/10/16 20:10 115 10/10/16 20:00 96.6 117 19 135/78 96 10/10/16 16:00 96.0 125 18 148/80 96 10/10/16 12:00 97.3 118 19 139/88 95 10/11/16 10/11/16 10/11/16 07:00 15:00 23:00 Intake Total 240 ml Output Total 750 ml Balance -510 ml Result Diagram: 10/10/16 0550 10/10/16 0550 Administered Medications Medications (Trade) Dose Ordered Sig/Nicole Route PRN Reason Start Time Stop Time Status Last Admin Dose Admin Sodium Chloride (NS Flush) 2 ml UNSCH PRN IV FLUSH FLUSH AFTER USING IV ACCESS 10/06/16 13:00 10/07/16 22:26 Sodium Chloride (NS Flush) 2 ml BID IV FLUSH 10/06/16 21:00 10/11/16 08:40 Docusate Sodium (Colace) 100 mg Q12H PO 10/06/16 13:00 10/10/16 12:25 Enoxaparin Sodium 40 mg 40 mg Q24H SQ 10/06/16 14:00 10/10/16 14:15 Azithromycin 500 mg/Sodium Chloride 250 ml @ 250 mls/hr Q24H IV 10/07/16 14:00 10/10/16 14:16 Ceftriaxone Sodium/Sodium Chloride (Rocephin Inj/NS Inj) 100 ml @ 200 mls/hr Q24H IV 10/07/16 13:00 10/10/16 12:25 Methylprednisolone Sodium Succinate (SoluMEDROL INJ) 40 mg Q8HR IV PUSH 10/07/16 14:00 10/11/16 04:33 Diltiazem HCl (Cardizem) 60 mg Q6HR PO 10/08/16 18:00 10/11/16 04:33 Guaifenesin (Mucinex Er) 600 mg BID PO 10/09/16 11:00 10/11/16 08:41 Objective Remarks GENERAL: Middle aged male, lying in bed in nad. SKIN: Warm and dry. HEAD: Normocephalic. EYES: No injection or drainage. NECK: Supple, trachea midline. CARDIOVASCULAR: Regular rate and rhythm RESPIRATORY: diminished at bases, occasional rhonchi in anterior villatoro GASTROINTESTINAL: Abdomen soft, non-tender, nondistended. EXTREMITIES: No cyanosis NEUROLOGICAL: awake and alert, normal speech Assessment/Plan Assessment 66y/o male with newly diagnosed small cell lung cancer. History (from initial consult):Mr. Ruano reports being his usual good state of health up until about three weeks ago, he then began to notice increasing difficulty breathing and shortness of breath with exertion. He subsequently began to notice difficulty breathing even at rest. He tells me that it has been increasingly difficult for him to sleep lying flat, and that at nighttime he has to sit up to catch his breath. Additionally, three days ago, he began to notice "knots on either side of my neck" that feel as if his neck is being squeezed. In the emergency department, he was noted to be hypoxic on room air and was initiated on oxygen supplementation. Imaging studies of the chest performed on admission revealed a large mass involving the right hilum with extensive mediastinal lymphadenopathy extending to the supraclavicular lesion and extensive consolidation changes in the right lung as well as impending SVC syndrome. The findings were concerning for a primary lung carcinoma. On 2016, he underwent CT-guided lymph node biopsy of the right supraclavicular lymph nodes. Plan 1. discussed pathology results showing small cell cancer. emotional support provided. feelings validated. questions answered. discussed the need to start chemotherapy as soon as possible. will also obtain ct ab/pelvis today and place PICC line. nurse present for duration of interview. Attending Statement The exam, history, and the medical decision-making described in the above note were completed with the assistance of the mid-level provider. I reviewed and agree with the findings presented. I attest that I had a [id number] encounter with the patient on the same day, and personally performed and documented my assessment and findings in the medical record. ct of thorax and ct of brain and path report reviewed . will go ahead with tx with carbo and [employer] 16 for extensive small cell cancer today and do MRI of brain tomorrow. talked with patient and son . Keesha Rosa October 11, 2016 10:48 Javad Kwong MD October 11, 2016 13:57
[2016-10-11] MEDS ORDERED: DIATRIZOATE MEGLUM/DIATRIZOATE SOD 9 ML CUP PO ONE (10:54)
[2016-10-11 12:07] LABS: BASOPHIL % 0.1 % (0.0-2.0); HEMATOCRIT 42.1 % (39.0-51.0); LYMPH % 3.3 % (9.0-44.0); LYMPHOCYTE # 0.5 TH/MM3 (1.0-4.8); MEAN CELL VOLUME 96.9 FL (80.0-100.0); MEAN CORPUSCULAR HEMOGLOBIN 32.5 PG (27.0-34.0); MEAN CORPUSCULAR HGB CONC 33.5 % (32.0-36.0); MONO % 4.9 % (0.0-8.0); NEUT % 91.7 % (16.0-70.0); PLATELET COUNT 256 TH/MM3 (150-450); RED BLOOD COUNT 4.34 MIL/MM3 (4.50-5.90); RED CELL DISTRIBUTION WIDTH 12.9 % (11.6-17.2); WHITE BLOOD COUNT 15.3 TH/MM3 (4.0-11.0)
[2016-10-11 12:09] LABS: HEMO FLAGS AUTO DIFF
[2016-10-11 12:12] LABS: ALKALINE PHOSPHATASE 74 U/L (45-117); ALT (GPT) 61 U/L (12-78); ANION GAP 6 MEQ/L (5-15); AST (GOT) 45 U/L (15-37); BICARBONATE 36.4 MEQ/L (21.0-32.0); BLOOD UREA NITROGEN 20 MG/DL (7-18); CHLORIDE 97 MEQ/L (98-107); GLOMERULAR FILTRATION RATE 110 ML/MIN (>89); POTASSIUM 4.4 MEQ/L (3.5-5.1); SODIUM (NA) 139 MEQ/L (136-145); TOTAL BILIRUBIN ADULT 0.3 MG/DL (0.2-1.0)
[2016-10-11] MEDS: cefTRIAXone INJ 1,000 MG in SODIUM CHLORIDE 0.9% INJ 100 ML IV SCH (13:30)
[2016-10-11] MEDS ORDERED: SODIUM CHLORIDE 0.9% FLUSH 10 ML FLUSH IV FLUSH PRN (13:45)
[2016-10-11 13:51] LABS: SCAN/DIFF AUTO DIFF CONFIRMED
--- NOTE | 2016-10-11 14:01 | RADRPT ---
EXAM DATE/TIME: 10/11/2016 13:34 [facility] COMPARISON: CHEST SINGLE AP, October 06, 2016, 10:23. INDICATIONS : PICC line placement MEDICAL HISTORY : None. SURGICAL HISTORY : None. ENCOUNTER: Initial ACUITY: 1 day PAIN SCORE: 0/10 LOCATION: Bilateral chest FINDINGS: A single view of the chest demonstrates almost complete opacification right hemithorax with volume lo ss. Right-sided PICC line with tip at the cavoatrial junction. Left lung clear. Osseous structures a re intact. CONCLUSION: 1. Almost complete opacification right hemithorax slightly worse. 2. Right sided PICC line in position. Ben Peterson MD on October 11, 2016 at 13:57 Board Certified Radiologist. This report was verified electronically.
[2016-10-11] MEDS: ENOXAPARIN SODIUM 40 MG/0.4 ML SYRINGE SQ SCH (14:16)
[2016-10-11] MEDS: AZITHROMYCIN INJ 500 MG in SODIUM CHLOR 0.9% 250 ML INJ 250 ML IV SCH (14:16)
[2016-10-11] MEDS ORDERED: GRANISETRON HCL 1 MG/ML VIAL IV PUSH ONE (17:00)
[2016-10-11] MEDS ORDERED: DEXAMETHASONE INJ 20 MG in SODIUM CHLORIDE 0.9% INJ 50 ML IV ONE (17:00)
[2016-10-11] MEDS ORDERED: CARBOPLATIN IV ONE (17:30)
[2016-10-11] MEDS ORDERED: SODIUM CHLOR 0.9% IV ONE (17:30)
[2016-10-11] MEDS: NS IV SCH (19:33)
[2016-10-11] MEDS: ETOPOSIDE IV SCH (19:33)
[2016-10-11] MEDS ORDERED: IOHEXOL 350 MG/ML 10 ML VIAL (for RAD DIAG) IV ONE (21:41)
--- NOTE | 2016-10-11 22:07 | RADRPT ---
EXAM DATE/TIME: 10/11/2016 21:29 [facility] COMPARISON: No previous studies available for comparison. INDICATIONS : Metastases. IV CONTRAST: 95 cc Omnipaque 350 (iohexol) IV ORAL CONTRAST: Prescribed oral contrast ingested. RADIATION DOSE: 16.41 CTDIvol (mGy) MEDICAL HISTORY : Chronic obstructive pulmonary disease. Carcinoma, lung. SURGICAL HISTORY : None. ENCOUNTER: Initial ACUITY: 1 day PAIN SCALE: 0/10 LOCATION: Bilateral abdomen TECHNIQUE: Volumetric scanning of the abdomen and pelvis was performed. Using automated exposure control and ad justment of the mA and/or kV according to patient size, radiation dose was kept as low as reasonably achievable to obtain optimal diagnostic quality images. FINDINGS: There is diffuse consolidation/collapse of the visualized portion of the right lower lung as well as a moderate sized right pleural effusion. There is also a 2 cm soft tissue nodule adjacent to the rig ht heart which may represent an enlarged epicardial lymph node. There is a 1 cm low density lesion w ithin the right lobe of the liver which is indeterminate. MRI of the abdomen with contrast may be he lpful for further characterization of this solitary lesion, if clinically indicated. No biliary duct al dilatation is noted. The gallbladder is unremarkable. The spleen is normal. The pancreas is als o normal. The right adrenal gland is normal. There is a left adrenal nodule measuring 2.8 x 2.1 cm which is nonspecific. Differential includes adenoma and possible small metastatic lesion. Multiple bilateral renal cysts are noted. There are multiple tiny calcified nonobstructing left renal calculi with the largest in the lower pole measuring 6 mm. No hydronephrosis is noted. The abdominal aorta is calcified but is not aneurysmally dilated. The inferior vena cava is normal. There is no paraaor tic, retroperitoneal or mesenteric lymphadenopathy. A midline ventral abdominal wall hernia contains only fat. Uncomplicated colonic diverticulosis is noted. The urinary bladder demonstrates no wall thickening. There is a right posterolateral bladder diverticulum. The prostate gland is minimally p rominent. Scattered mildly prominent inguinal lymph nodes are noted bilaterally. CONCLUSION: 1. 1 cm indeterminate liver lesion within the right lobe. MRI of the abdomen with contrast may be h elpful for further characterization of this finding. 2. Left adrenal nodule measuring 2.8 x 2.1 cm which is nonspecific. Differential includes adenoma o r possible small metastatic lesion. This also could be assessed by MRI of the abdomen with contrast. 3. 2 cm soft tissue nodule along the right heart border consistent with possible epicardial lymphade nopathy. 4. Moderate sized right pleural effusion with complete collapse and/or consolidation of the visualiz ed portion of the right lower lung. 5. Multiple calcified nonobstructing left renal calculi. 6. Multiple bilateral renal cysts. 7. Uncomplicated colonic diverticulosis. 8. Midline ventral abdominal wall hernia containing only fat. 9. Right posterolateral urinary bladder diverticulum. 10. Degenerative changes throughout the lumbar and lower thoracic spine. Dwight Jewell MD on October 11, 2016 at 21:44 Board Certified Radiologist. This report was verified electronically.
[2016-10-12] VITALS (10 sets, daily range): BP systolic 144–155; BP diastolic 80–83; PULSE 101–122; RESP 18–24; TEMP 95.6–98.1; O2SAT 94–99
[2016-10-12] MEDS: DOCUSATE SODIUM 100 MG CAP PO SCH ×2 (01:00→12:40)
[2016-10-12] MEDS: DILTIAZEM HCL 60 MG TAB PO SCH ×3 (06:00→17:38)
[2016-10-12] MEDS: methylPREDNISolone SOD SUCC 40 MG/1 ML VIAL IV PUSH SCH ×2 (06:00→13:31)
--- NOTE | 2016-10-12 08:35 | HHI.PR ---
Subjective Remarks Has a very weak voice, says he has hoarse voice, getting worse. He is not able to ambulate to the bath whithout O2 suppley . He feels SOB, however O2 is helping. He also appears anxious at times. Can eat without difficulty. No fever or chills. No much cough. Feels congested. Doesn't have any pain at this time Objective Vitals Vital Signs Date Time Temp Pulse Resp B/P Pulse Ox O2 Delivery O2 Flow Rate FiO2 10/12/16 08:00 95.8 112 152/82 94 10/12/16 04:00 97.1 118 23 153/80 98 10/12/16 00:00 98.1 122 21 144/80 97 10/11/16 21:00 96.2 102 21 137/78 95 10/11/16 20:04 111 10/11/16 20:00 96.3 118 22 151/82 96 10/11/16 16:44 96 Nasal Cannula 2.00 10/11/16 16:00 96.2 112 22 136/82 97 10/11/16 12:00 97.2 123 22 159/83 96 10/11/16 08:51 97 Nasal Cannula 2.00 I/O 10/11/16 10/11/16 10/11/16 10/12/16 10/12/16 10/12/16 06:59 14:59 22:59 06:59 14:59 22:59 Intake Total 240 ml 1670 ml 240 ml Output Total 750 ml 2100 ml 750 ml Balance -510 ml -430 ml -510 ml Intake Oral 240 ml 1080 ml 240 ml IV Total 590 ml Output Urine Total 750 ml 2100 ml 750 ml Result Diagram: 10/11/16 1122 10/11/16 1122 Imaging Last Impressions Chest X-Ray 10/11/16 0000 Signed Impressions: Service Date/Time: Tuesday, October 11, 2016 13:34 - CONCLUSION: 1. Almost complete opacification right hemithorax slightly worse. 2. Right sided PICC line in position. Ben Peterson MD Abdomen/Pelvis CT 10/11/16 0000 Signed Impressions: Service Date/Time: Tuesday, October 11, 2016 21:29 - CONCLUSION: 1. 1 cm indeterminate liver lesion within the right lobe. MRI of the abdomen with contrast may be helpful for further characterization of this finding. 2. Left adrenal nodule measuring 2.8 x 2.1 cm which is nonspecific. Differential includes adenoma or possible small metastatic lesion. This also could be assessed by MRI of the abdomen with contrast. 3. 2 cm soft tissue nodule along the right heart border consistent with possible epicardial lymphadenopathy. 4. Moderate sized right pleural effusion with complete collapse and/or consolidation of the visualized portion of the right lower lung. 5. Multiple calcified nonobstructing left renal calculi. 6. Multiple bilateral renal cysts. 7. Uncomplicated colonic diverticulosis. 8. Midline ventral abdominal wall hernia containing only fat. 9. Right posterolateral urinary bladder diverticulum. 10. Degenerative changes throughout the lumbar and lower thoracic spine. Dwight Jewell MD Head CT 10/09/16 0000 Signed Impressions: Service Date/Time: September 20:27 - CONCLUSION: Abnormal focus in the right frontal vertex worrisome for metastatic disease Wei Duggan MD Lymph Node Biopsy CT 10/07/16 1600 Signed Impressions: Service Date/Time: Friday, October 07, 2016 16:10 - CONCLUSION: Uncomplicated CT guided biopsy of right supraclavicular adenopathy. Ben Peterson MD Lower Extremity Ultrasound 10/06/16 0000 Signed Impressions: Service Date/Time: Thursday, October 06, 2016 17:11 - CONCLUSION: No evidence of DVT. Enlarged right groin lymph node. Dennis Peters MD Chest CT 10/06/16 0000 Signed Impressions: Service Date/Time: Thursday, October 06, 2016 12:20 - CONCLUSION: Findings would be consistent with a large hilar mass with extensive mediastinal adenopathy extending into the supraclavicular region with consolidative changes in the right. 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 Only a small amount of the opacity on the chest radiograph is fluid. Majority of the opacity is drowned lung. This would be amenable to percutaneous biopsy. Most likely site of biopsy would be the supraclavicular node on the right. There is impending SVC syndrome. Simone Tracy MD FACR Objective Remarks GENERAL: This is a very pleasant 66 yo male, sitting up, appears in acute distress 2/2 sob, talks in short sentences, well-nourished, well-developed patient. Somehow anxious. SKIN: No rashes, ecchymoses or lesions. Cool and dry. HEAD: Atraumatic. Normocephalic. No temporal or scalp tenderness. EYES: Pupils equal round and reactive. Extraocular motions intact. No scleral icterus. No injection or drainage. ENT: Nose without bleeding, purulent drainage or septal hematoma. Throat without erythema, tonsillar hypertrophy or exudate. Uvula midline. Airway patent. NECK: Trachea midline. Large supraclavicular LN. no meningeal signs. CARDIOVASCULAR: Regular rate and rhythm without murmurs, gallops, or rubs. RESPIRATORY: Clear to auscultation. Breath sounds equal bilaterally. No wheezes , rales, or rhonchi. GASTROINTESTINAL: Abdomen soft, non-tender, nondistended. No hepato-splenomegaly , or palpable masses. No guarding. MUSCULOSKELETAL: Extremities without clubbing, cyanosis. edema. No joint tenderness, effusion, or edema noted. No calf tenderness. Negative Homans sign bilaterally. NEUROLOGICAL: Awake and alert. Cranial nerves II through XII intact. Motor and sensory grossly within normal limits. Five out of 5 muscle strength in all muscle groups. Normal speech. A/P Assessment and Plan 66 yo male with h/o SVT was seen by Dr Romano in the past, HTN, noncompliant with meds and follow up says last time has seen a physician was ~10 years ago. Patient came to the ED for evaluation of SOB, LE edema SOB Acute respiratory failure with hypoxia, O2 sat in 80s on admission, requiring O2 Lactic acidosis likely related to hypoxia. Will trend lactic acid , back to nl Community acquired pneumonia Left pleural effusion. Large lung mass. 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 S/P CT guided biopsy of right supraclavicular adenopathy 10/07/16. Pathology shows small cell carcinoma. Oncology following, chemo treatments per oncology LE edema. Will do LE doppler US to r/o DVT Tobaccoism SVT HTN Noncompliant with meds and follow up Anxiety, acute: ativan prn Tachycardic 120s-130s, WBC 11.5, afebrile, RR 20s. CXR reviewed 1. Large pleural effusion and adjacent density. 2. There is volume loss in the right hemithorax, obstructing central lesion cannot be excluded. Contrasted CT chest recommended. CT chest reviewed patient with large mass and enlarged LN. S/P CT guided biopsy of right supraclavicular adenopathy 10/07/16 by IR Pathology pending. Consult Hem.onc . Seen by Dr Benitez hem/onc. Recommends CT head. reviewed, patient with poss mets right frontal vertex. Cardiology also signed off to treat underlying condition. Also patient with impending SVC syndr 2/ 2 mass. Monitor closely. Sputum cx neg, legionella/pneumococcal Ag negative Blood cultures are NTD Continue Ceftriaxone and Azithromycin IV Incentive spirometry ABG reviewed. O2 supplement keep O2 sat > 92 %. Duonebs scheduled and as need for wheezing/sob. 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 Mucinex Consult pulmonology, following appreciate recommendations BNP is 14, trops are negative , he doesn't have any chest pain. BP 167/77 on admission. Persistent tachycardic in 130s, used to take Lopressor 100 mg po BID he is noncompliant for a long time, however due to pulm issues at his time will give cardizem to avoid further bronchoconstriction. Increase cardizem . Consult cardiology, appreciate recommendations, cardiology feels is all lung related. DVT ppx SCD/TEDS GI ppx PPI Discussed Condition With patient, nurse, son at bedside DC plan: Pending improvement, pathology with small cell CA , chemo per oncology . DC when cleared by oncology Linda Romero MD October 12, 2016 08:35
[2016-10-12] MEDS: SODIUM CHLORIDE 0.9% FLUSH 10 ML FLUSH IV FLUSH SCH ×3 (08:55→19:44)
[2016-10-12] MEDS: guaiFENesin E.R. 600 MG TAB PO SCH ×2 (08:56→20:00)
--- NOTE | 2016-10-12 09:50 | PD.ONC.PN ---
Subjective Subjective Remarks Afebrile overnight. Patient tolerated chemotherapy yesterday. Still with dyspnea. About to go down for MRI brain. Objective Data Date Time Temp Pulse Resp B/P Pulse Ox O2 Delivery O2 Flow Rate FiO2 10/12/16 08:48 96 Nasal Cannula 2.00 10/12/16 08:00 95.8 112 152/82 94 10/12/16 04:00 97.1 118 23 153/80 98 10/12/16 00:00 98.1 122 21 144/80 97 10/11/16 21:00 96.2 102 21 137/78 95 10/11/16 20:04 111 10/11/16 20:00 96.3 118 22 151/82 96 10/11/16 16:44 96 Nasal Cannula 2.00 10/11/16 16:00 96.2 112 22 136/82 97 10/11/16 12:00 97.2 123 22 159/83 96 10/12/16 10/12/16 10/12/16 06:59 14:59 22:59 Intake Total 240 ml Output Total 750 ml Balance -510 ml Result Diagram: 10/11/16 1122 10/11/16 1122 Laboratory Results Laboratory Tests Test 10/11/16 11:22 White Blood Count 15.3 TH/MM3 Red Blood Count 4.34 MIL/MM3 Hemoglobin 14.1 GM/DL Hematocrit 42.1 % Mean Corpuscular Volume 96.9 FL Mean Corpuscular Hemoglobin 32.5 PG Mean Corpuscular Hemoglobin 33.5 % Concent Red Cell Distribution Width 12.9 % Platelet Count 256 TH/MM3 Mean Platelet Volume 8.9 FL Neutrophils (%) (Auto) 91.7 % Lymphocytes (%) (Auto) 3.3 % Monocytes (%) (Auto) 4.9 % Eosinophils (%) (Auto) 0.0 % Basophils (%) (Auto) 0.1 % Neutrophils # (Auto) 14.0 TH/MM3 Lymphocytes # (Auto) 0.5 TH/MM3 Monocytes # (Auto) 0.7 TH/MM3 Eosinophils # (Auto) 0.0 TH/MM3 Basophils # (Auto) 0.0 TH/MM3 CBC Comment AUTO DIFF Differential Comment AUTO DIFF CONFIRMED Sodium Level 139 MEQ/L Potassium Level 4.4 MEQ/L Chloride Level 97 MEQ/L Carbon Dioxide Level 36.4 MEQ/L Anion Gap 6 MEQ/L Blood Urea Nitrogen 20 MG/DL Creatinine 0.72 MG/DL Estimat Glomerular Filtration 110 ML/MIN Rate Random Glucose 187 MG/DL Calcium Level 8.6 MG/DL Total Bilirubin 0.3 MG/DL Aspartate Amino Transf 45 U/L (AST/SGOT) Alanine Aminotransferase 61 U/L (ALT/SGPT) Alkaline Phosphatase 74 U/L Total Protein 6.7 GM/DL Albumin 2.8 GM/DL Administered Medications Medications (Trade) Dose Ordered Sig/Nicole Route PRN Reason Start Time Stop Time Status Last Admin Dose Admin Sodium Chloride (NS Flush) 2 ml UNSCH PRN IV FLUSH FLUSH AFTER USING IV ACCESS 10/06/16 13:00 10/07/16 22:26 Sodium Chloride (NS Flush) 2 ml BID IV FLUSH 10/06/16 21:00 10/12/16 08:55 Docusate Sodium (Colace) 100 mg Q12H PO 10/06/16 13:00 10/10/16 12:25 Enoxaparin Sodium 40 mg 40 mg Q24H SQ 10/06/16 14:00 10/11/16 14:16 Azithromycin 500 mg/Sodium Chloride 250 ml @ 250 mls/hr Q24H IV 10/07/16 14:00 10/11/16 14:16 Ceftriaxone Sodium/Sodium Chloride (Rocephin Inj/NS Inj) 100 ml @ 200 mls/hr Q24H IV 10/07/16 13:00 10/11/16 13:30 Methylprednisolone Sodium Succinate (SoluMEDROL INJ) 40 mg Q8HR IV PUSH 10/07/16 14:00 10/12/16 06:00 Diltiazem HCl (Cardizem) 60 mg Q6HR PO 10/08/16 18:00 10/12/16 06:00 Lorazepam (Ativan) 0.5 mg Q8H PRN PO anxiety 10/09/16 10:00 10/11/16 10:48 Guaifenesin (Mucinex Er) 600 mg BID PO 10/09/16 11:00 10/12/16 08:56 Sodium Chloride (NS Flush) See Protocol DAILY IV FLUSH 10/12/16 09:00 10/12/16 08:55 Heparin Sodium (Porcine) See Protocol DAILY IV FLUSH 10/12/16 09:00 10/12/16 08:56 Etoposide/Sodium Chloride (Vepesid Inj/NS 500 ml (Hinton Bag) Inj) 510.55 ml @ 510.55 mls/hr Q24H IV 10/11/16 18:00 10/13/16 18:59 10/11/16 19:33 Objective Remarks GENERAL: Middle aged male, lying on stretcher, on 2L O2 via nc SKIN: Warm and dry. HEAD: Normocephalic. EYES: No injection or drainage. NECK: Supple, trachea midline. CARDIOVASCULAR: Regular rate and rhythm RESPIRATORY: anterior villatoro with scattered rhonchi GASTROINTESTINAL: Abdomen soft, non-tender, nondistended. EXTREMITIES: No cyanosis NEUROLOGICAL: awake and alert, normal speech. moving extremities. Assessment/Plan Assessment 66y/o male with newly diagnosed small cell lung cancer. History (from initial consult):Mr. Ruano reports being his usual good state of health up until about three weeks ago, he then began to notice increasing difficulty breathing and shortness of breath with exertion. He subsequently began to notice difficulty breathing even at rest. He tells me that it has been increasingly difficult for him to sleep lying flat, and that at nighttime he has to sit up to catch his breath. Additionally, three days ago, he began to notice "knots on either side of my neck" that feel as if his neck is being squeezed. In the emergency department, he was noted to be hypoxic on room air and was initiated on oxygen supplementation. Imaging studies of the chest performed on admission revealed a large mass involving the right hilum with extensive mediastinal lymphadenopathy extending to the supraclavicular lesion and extensive consolidation changes in the right lung as well as impending SVC syndrome. The findings were concerning for a primary lung carcinoma. On 2016, he underwent CT-guided lymph node biopsy of the right supraclavicular lymph nodes. Plan 1. second day of FUNCTIONAL SUPPORT ANALYST 16 today. 2. MRI brain 3. review CT ab/pelvis results with patient 4. fs faxed to [facility] for follow up. will also consult case management for assistance as patient is [facility] Attending Statement The exam, history, and the medical decision-making described in the above note were completed with the assistance of the mid-level provider. I reviewed and agree with the findings presented. I attest that I had a [id number] encounter with the patient on the same day, and personally performed and documented my assessment and findings in the medical record. no better today but it will take several days for chemo to work. small single met in brain on MRI which can be dealt with radiation at a future date if persistent. It is not causing him any immediate problem and the life threatening problem is pulmonary. continue steroids and wait. for svp of digital 16 today and tomorrow and may consider Neupogen afterwards. Keesha Rosa October 12, 2016 09:50 Javad Kwong MD October 12, 2016 11:26
[2016-10-12] MEDS ORDERED: GADODIAMIDE PF 287 MG/ML 20 ML VIAL (for RAD MRI) IV ONE (10:29)
--- NOTE | 2016-10-12 10:37 | RADRPT ---
EXAM DATE/TIME: 10/12/2016 09:42 [facility] COMPARISON: CT BRAIN W & W/O CONTRAST, October 09, 2016, 20:27. INDICATIONS : Metastatic disease. CONTRAST: 18 cc Omniscan (gadodiamide) IV MEDICAL HISTORY : Carcinoma, lung. Hypertension. Hypertension. SURGICAL HISTORY : Ankle surgery. ENCOUNTER: Initial ACUITY: 1 day PAIN SCORE: 0/10 LOCATION: cranial TECHNIQUE: Multiplanar, multisequence MRI of the brain was performed both prior to and following the administrat ion of paramagnetic contrast. FINDINGS: CEREBRUM: Small metastatic lesion in the high right parietal convexity with adjacent vasogenic edema. The ventr icles are normal for age. No evidence of midline shift, hemorrhage or acute infarction. No extraaxi al fluid collections are seen. The pituitary gland and suprasellar cistern are normal in configurati on. WHITE MATTER: A few scattered foci of bright T2 signal abnormalities are seen in the white matter. POSTERIOR FOSSA: The cerebellum and brainstem are intact. The 4th ventricle is midline. The cerebellopontine angle is unremarkable. The cerebellar tonsils are normal in position. DIFFUSION IMAGING: No focal areas of restricted diffusion are seen. No evidence of acute infarction. EXTRACRANIAL: The visualized portions of the orbits and paranasal sinuses are unremarkable. POST-CONTRAST: Small mass involving the high parietal convexity measures 11 x 12 mm. Adjacent vasogenic edema. CONCLUSION: 1. Small enhancing lesion in the high right parietal convexity concerning for metastatic disease. Sma ll amount of vasogenic edema. 2. Minimal nonspecific white matter changes. Ben Peterson MD on October 12, 2016 at 10:31 Board Certified Radiologist. This report was verified electronically.
[2016-10-12 11:04] LABS: AUTOMATED NEUTROPHIL # 14.2 TH/MM3 (1.8-7.7); BASOPHIL % 0.1 % (0.0-2.0); EOSINOPHIL % 0.1 % (0.0-4.0); HEMATOCRIT 42.7 % (39.0-51.0); HEMO FLAGS DIFF FINAL; LYMPH % 3.2 % (9.0-44.0); LYMPHOCYTE # 0.5 TH/MM3 (1.0-4.8); MEAN CELL VOLUME 97.6 FL (80.0-100.0); MEAN CORPUSCULAR HEMOGLOBIN 31.7 PG (27.0-34.0); MEAN CORPUSCULAR HGB CONC 32.5 % (32.0-36.0); MONO % 5.6 % (0.0-8.0); PLATELET COUNT 240 TH/MM3 (150-450); RED BLOOD COUNT 4.38 MIL/MM3 (4.50-5.90); RED CELL DISTRIBUTION WIDTH 12.8 % (11.6-17.2); WHITE BLOOD COUNT 15.6 TH/MM3 (4.0-11.0)
[2016-10-12] MEDS: RESP: IPRATROPIUM 0.5 MG/2.5 ML NEB NEB PRN ×2 (11:18→20:49)
[2016-10-12] MEDS: RESP: ALBUTEROL 2.5 MG/3 ML NEB (PRN) NEB (11:18)
[2016-10-12 11:37] LABS: ANION GAP 6 MEQ/L (5-15); AST (GOT) 43 U/L (15-37); BLOOD UREA NITROGEN 21 MG/DL (7-18); CHLORIDE 98 MEQ/L (98-107); GLOMERULAR FILTRATION RATE 138 ML/MIN (>89); MAGNESIUM 2.4 MG/DL (1.5-2.5); POTASSIUM 4.2 MEQ/L (3.5-5.1); SODIUM (NA) 139 MEQ/L (136-145)
[2016-10-12 11:40] LABS: ALKALINE PHOSPHATASE 63 U/L (45-117); ALT (GPT) 64 U/L (12-78); TOTAL BILIRUBIN ADULT 0.3 MG/DL (0.2-1.0)
[2016-10-12] MEDS: cefTRIAXone INJ 1,000 MG in SODIUM CHLORIDE 0.9% INJ 100 ML IV SCH (12:38)
[2016-10-12] MEDS: ENOXAPARIN SODIUM 40 MG/0.4 ML SYRINGE SQ SCH (13:31)
[2016-10-12] MEDS: AZITHROMYCIN INJ 500 MG in SODIUM CHLOR 0.9% 250 ML INJ 250 ML IV SCH (13:31)
--- NOTE | 2016-10-12 14:24 | HHI.PR ---
Subjective Remarks He is feeling better. No fever.Small cell Lung Ca. On Chemotherapy On Antibiotics. O2 at 3 L Objective Vital Signs Date Time Temp Pulse Resp B/P Pulse Ox O2 Delivery O2 Flow Rate FiO2 10/12/16 12:00 96.2 110 18 155/80 98 10/12/16 08:48 96 Nasal Cannula 2.00 10/12/16 08:05 110 10/12/16 08:00 95.8 112 152/82 94 10/12/16 04:00 97.1 118 23 153/80 98 10/12/16 00:00 98.1 122 21 144/80 97 10/11/16 21:00 96.2 102 21 137/78 95 10/11/16 20:04 111 10/11/16 20:00 96.3 118 22 151/82 96 10/11/16 16:44 96 Nasal Cannula 2.00 10/11/16 16:00 96.2 112 22 136/82 97 I/O 10/11/16 10/11/16 10/11/16 10/12/16 10/12/16 10/12/16 07:00 15:00 23:00 07:00 15:00 23:00 Intake Total 240 ml 1670 ml 240 ml Output Total 750 ml 2100 ml 750 ml Balance -510 ml -430 ml -510 ml Intake Oral 240 ml 1080 ml 240 ml IV Total 590 ml Output Urine Total 750 ml 2100 ml 750 ml Result Diagram: 10/12/16 1048 10/12/16 1048 Objective Remarks This is an averagely built middle-aged white male, who is alert.. HEENT: Head normocephalic. Pupils are reactive. Tongue dry. Throat is clear Neck: Supple. No bruits or thyroid enlargement. Chest: Distant breath sounds with occasional crackles over the right mid and lower chest. Heart: The heart sounds are irregular, S1-S2 with no murmur. Abdomen is soft, protuberant with the liver just felt below the costal margin. The bowel sounds are active. Extremities: No edema with diminished pulses. Reflexes are 1+. No gross motor deficits. Rectal: Exam is deferred. Skin was dry and warm. Assessment and Plan Assessment and Plan IMPRESSION 1. Hypoxemic respiratory failure resolving. 2. Right basilar pneumonia, right pleural effusion. 3. COPD with emphysema. 4. Tachycardia. SVT. Plan : 1. Continue antibiotics. 2. D/C Solumedrol 3. O2 at 2 L. 4. Nebs qid , duoneb. 5. CBC,BMP in am 6. Chemo per Yassine Young MD October 12, 2016 14:24
[2016-10-12] MEDS: DEXAMETHASONE INJ 10 MG in SODIUM CHLORIDE 0.9% INJ 50 ML IV SCH (17:38)
[2016-10-12] MEDS: ETOPOSIDE IV SCH (18:10)
[2016-10-12] MEDS: NS IV SCH (18:10)
[2016-10-12] MEDS: CEFUROXIME AXETIL 500 MG TAB PO SCH (20:01)
[2016-10-13] VITALS (10 sets, daily range): BP systolic 130–145; BP diastolic 67–84; PULSE 95–106; RESP 18–24; TEMP 96.5–97.5; O2SAT 92–98
[2016-10-13] MEDS: DOCUSATE SODIUM 100 MG CAP PO SCH ×2 (00:19→13:33)
[2016-10-13] MEDS: DILTIAZEM HCL 60 MG TAB PO SCH ×4 (00:19→18:24)
[2016-10-13] MEDS: RESP: IPRATROPIUM 0.5 MG/2.5 ML NEB NEB PRN ×2 (03:33→20:21)
--- NOTE | 2016-10-13 09:19 | HHI.PR ---
Subjective Remarks A bed he says he feels very tired and feels his chest is very congested and cannot bring anything up. He also has a weak voice hoarseness. Family is at bedside his son. Says he is tolerating chemotherapy. Says he feels short of breath and he Removed without oxygen. Objective Vitals Vital Signs Date Time Temp Pulse Resp B/P Pulse Ox O2 Delivery O2 Flow Rate FiO2 10/13/16 08:00 96.7 96 20 131/67 97 10/13/16 07:26 96 Nasal Cannula 3.00 10/13/16 04:00 97.5 104 24 145/84 96 10/13/16 00:23 97.2 106 22 144/82 97 10/12/16 20:51 99 Nasal Cannula 4.00 10/12/16 20:11 107 10/12/16 20:00 96.1 107 23 144/81 97 10/12/16 16:00 95.6 101 24 147/83 97 10/12/16 12:00 96.2 110 18 155/80 98 I/O 10/12/16 10/12/16 10/12/16 10/13/16 10/13/16 10/13/16 07:00 15:00 23:00 07:00 15:00 23:00 Intake Total 240 ml 860 ml 1455 ml 480 ml Output Total 750 ml 600 ml 500 ml 800 ml Balance -510 ml 260 ml 955 ml -320 ml Intake Oral 240 ml 860 ml 480 ml 480 ml IV Total 975 ml Output Urine Total 750 ml 600 ml 500 ml 800 ml # Bowel Movements 2 Result Diagram: 10/12/16 1048 10/12/16 1048 Imaging Last Impressions Brain MRI 10/12/16 0000 Signed Impressions: Service Date/Time: Wednesday, October 12, 2016 09:42 - CONCLUSION: 1. Small enhancing lesion in the high right parietal convexity concerning for metastatic disease. Small amount of vasogenic edema. 2. Minimal nonspecific white matter changes. Ben Peterson MD Chest X-Ray 10/11/16 0000 Signed Impressions: Service Date/Time: Tuesday, October 11, 2016 13:34 - CONCLUSION: 1. Almost complete opacification right hemithorax slightly worse. 2. Right sided PICC line in position. Ben Peterson MD Abdomen/Pelvis CT 10/11/16 0000 Signed Impressions: Service Date/Time: Tuesday, October 11, 2016 21:29 - CONCLUSION: 1. 1 cm indeterminate liver lesion within the right lobe. MRI of the abdomen with contrast may be helpful for further characterization of this finding. 2. Left adrenal nodule measuring 2.8 x 2.1 cm which is nonspecific. Differential includes adenoma or possible small metastatic lesion. This also could be assessed by MRI of the abdomen with contrast. 3. 2 cm soft tissue nodule along the right heart border consistent with possible epicardial lymphadenopathy. 4. Moderate sized right pleural effusion with complete collapse and/or consolidation of the visualized portion of the right lower lung. 5. Multiple calcified nonobstructing left renal calculi. 6. Multiple bilateral renal cysts. 7. Uncomplicated colonic diverticulosis. 8. Midline ventral abdominal wall hernia containing only fat. 9. Right posterolateral urinary bladder diverticulum. 10. Degenerative changes throughout the lumbar and lower thoracic spine. Dwight Jewell MD Head CT 10/09/16 0000 Signed Impressions: Service Date/Time: September 20:27 - CONCLUSION: Abnormal focus in the right frontal vertex worrisome for metastatic disease Wei Duggan MD Lymph Node Biopsy CT 10/07/16 1600 Signed Impressions: Service Date/Time: Friday, October 07, 2016 16:10 - CONCLUSION: Uncomplicated CT guided biopsy of right supraclavicular adenopathy. Ben Peterson MD Lower Extremity Ultrasound 10/06/16 0000 Signed Impressions: Service Date/Time: Thursday, October 06, 2016 17:11 - CONCLUSION: No evidence of DVT. Enlarged right groin lymph node. Dennis Peters MD Chest CT 10/06/16 0000 Signed Impressions: Service Date/Time: Thursday, October 06, 2016 12:20 - CONCLUSION: Findings would be consistent with a large hilar mass with extensive mediastinal adenopathy extending into the supraclavicular region with consolidative changes in the right. 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 Only a small amount of the opacity on the chest radiograph is fluid. Majority of the opacity is drowned lung. This would be amenable to percutaneous biopsy. Most likely site of biopsy would be the supraclavicular node on the right. There is impending SVC syndrome. Simone Tracy MD FACR Objective Remarks GENERAL: This is a very pleasant 66 yo male, sitting up, appears in acute distress 2/2 sob, talks in short sentences, well-nourished, well-developed patient. Somehow anxious. SKIN: No rashes, ecchymoses or lesions. Cool and dry. HEAD: Atraumatic. Normocephalic. No temporal or scalp tenderness. EYES: Pupils equal round and reactive. Extraocular motions intact. No scleral icterus. No injection or drainage. ENT: Nose without bleeding, purulent drainage or septal hematoma. Throat without erythema, tonsillar hypertrophy or exudate. Uvula midline. Airway patent. NECK: Trachea midline. Large supraclavicular LN. no meningeal signs. CARDIOVASCULAR: Regular rate and rhythm without murmurs, gallops, or rubs. RESPIRATORY: Clear to auscultation. Breath sounds equal bilaterally. No wheezes , rales, or rhonchi. GASTROINTESTINAL: Abdomen soft, non-tender, nondistended. No hepato-splenomegaly , or palpable masses. No guarding. MUSCULOSKELETAL: Extremities without clubbing, cyanosis. edema. No joint tenderness, effusion, or edema noted. No calf tenderness. Negative Homans sign bilaterally. NEUROLOGICAL: Awake and alert. Cranial nerves II through XII intact. Motor and sensory grossly within normal limits. Five out of 5 muscle strength in all muscle groups. Normal speech. A/P Assessment and Plan 66 yo male with h/o SVT was seen by Dr Romano in the past, HTN, noncompliant with meds and follow up says last time has seen a physician was ~10 years ago. Patient came to the ED for evaluation of SOB, LE edema SOB Acute respiratory failure with hypoxia, O2 sat in 80s on admission, requiring O2 Lactic acidosis likely related to hypoxia. Will trend lactic acid , back to nl Community acquired pneumonia Left pleural effusion. Large lung mass. 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 S/P CT guided biopsy of right supraclavicular adenopathy 10/07/16. Pathology shows small cell carcinoma. Oncology following, chemo treatments per oncology LE edema. Will do LE doppler US to r/o DVT Tobaccoism SVT HTN Noncompliant with meds and follow up Anxiety, acute: ativan prn Tachycardic 120s-130s, WBC 11.5, afebrile, RR 20s. CXR reviewed 1. Large pleural effusion and adjacent density. 2. There is volume loss in the right hemithorax, obstructing central lesion cannot be excluded. Contrasted CT chest recommended. CT chest reviewed patient with large mass and enlarged LN. S/P CT guided biopsy of right supraclavicular adenopathy 10/07/16 by IR Pathology pending. Consult Hem.onc . Seen by Dr Benitez hem/onc. Recommends CT head. reviewed, patient with poss mets right frontal vertex. Cardiology also signed off to treat underlying condition. Also patient with impending SVC syndr 2/ 2 mass. Monitor closely. Sputum cx neg, legionella/pneumococcal Ag negative Blood cultures are NTD Continue Ceftriaxone and Azithromycin IV Incentive spirometry ABG reviewed. O2 supplement keep O2 sat > 92 %. Duonebs scheduled and as need for wheezing/sob. Add steroid solumedrol 40 mg Q8 hrs will decrease inflammation patient is snf smoker. Mucinex Consult pulmonology, following appreciate recommendations BNP is 14, trops are negative , he doesn't have any chest pain. BP 167/77 on admission. Persistent tachycardic in 130s, used to take Lopressor 100 mg po BID he is noncompliant for a long time, however due to pulm issues at his time will give cardizem to avoid further bronchoconstriction. Increase cardizem . Consult cardiology, appreciate recommendations, cardiology feels is all lung related. DVT ppx SCD/TEDS GI ppx PPI Discussed Condition With patient, nurse, son at bedside DC plan: Pending improvement, pathology with small cell CA , chemo per oncology . DC when cleared by oncology Linda Romero MD October 13, 2016 09:18
--- NOTE | 2016-10-13 09:41 | PD.ONC.PN ---
Subjective Subjective Remarks Afebrile overnight. Breathing better. Concerned about the [facility] paying for his chemo Denies chest pain. Objective Data Date Time Temp Pulse Resp B/P Pulse Ox O2 Delivery O2 Flow Rate FiO2 10/13/16 08:00 96.7 96 20 131/67 97 10/13/16 07:26 96 Nasal Cannula 3.00 10/13/16 04:00 97.5 104 24 145/84 96 10/13/16 00:23 97.2 106 22 144/82 97 10/12/16 20:51 99 Nasal Cannula 4.00 10/12/16 20:11 107 10/12/16 20:00 96.1 107 23 144/81 97 10/12/16 16:00 95.6 101 24 147/83 97 10/12/16 12:00 96.2 110 18 155/80 98 10/13/16 10/13/16 10/13/16 07:00 15:00 23:00 Intake Total 480 ml Output Total 800 ml Balance -320 ml Result Diagram: 10/12/16 1048 10/12/16 1048 Laboratory Results Laboratory Tests Test 10/12/16 10:48 White Blood Count 15.6 TH/MM3 Red Blood Count 4.38 MIL/MM3 Hemoglobin 13.9 GM/DL Hematocrit 42.7 % Mean Corpuscular Volume 97.6 FL Mean Corpuscular Hemoglobin 31.7 PG Mean Corpuscular Hemoglobin 32.5 % Concent Red Cell Distribution Width 12.8 % Platelet Count 240 TH/MM3 Mean Platelet Volume 7.9 FL Neutrophils (%) (Auto) 91.0 % Lymphocytes (%) (Auto) 3.2 % Monocytes (%) (Auto) 5.6 % Eosinophils (%) (Auto) 0.1 % Basophils (%) (Auto) 0.1 % Neutrophils # (Auto) 14.2 TH/MM3 Lymphocytes # (Auto) 0.5 TH/MM3 Monocytes # (Auto) 0.9 TH/MM3 Eosinophils # (Auto) 0.0 TH/MM3 Basophils # (Auto) 0.0 TH/MM3 CBC Comment DIFF FINAL Differential Comment Sodium Level 139 MEQ/L Potassium Level 4.2 MEQ/L Chloride Level 98 MEQ/L Carbon Dioxide Level 35.0 MEQ/L Anion Gap 6 MEQ/L Blood Urea Nitrogen 21 MG/DL Creatinine 0.59 MG/DL Estimat Glomerular Filtration 138 ML/MIN Rate Random Glucose 194 MG/DL Calcium Level 8.2 MG/DL Magnesium Level 2.4 MG/DL Total Bilirubin 0.3 MG/DL Aspartate Amino Transf 43 U/L (AST/SGOT) Alanine Aminotransferase 64 U/L (ALT/SGPT) Alkaline Phosphatase 63 U/L Total Protein 6.5 GM/DL Albumin 2.7 GM/DL Administered Medications Medications (Trade) Dose Ordered Sig/Nicole Route PRN Reason Start Time Stop Time Status Last Admin Dose Admin Sodium Chloride (NS Flush) 2 ml UNSCH PRN IV FLUSH FLUSH AFTER USING IV ACCESS 10/06/16 13:00 10/07/16 22:26 Sodium Chloride (NS Flush) 2 ml BID IV FLUSH 10/06/16 21:00 10/12/16 19:44 Docusate Sodium (Colace) 100 mg Q12H PO 10/06/16 13:00 10/10/16 12:25 Enoxaparin Sodium (Lovenox Inj) 40 mg Q24H SQ 10/06/16 14:00 10/12/16 13:31 Diltiazem HCl (Cardizem) 60 mg Q6HR PO 10/08/16 18:00 10/13/16 06:00 Lorazepam (Ativan) 0.5 mg Q8H PRN PO anxiety 10/09/16 10:00 10/11/16 10:48 Guaifenesin (Mucinex Er) 600 mg BID PO 10/09/16 11:00 10/12/16 20:00 Sodium Chloride (NS Flush) See Protocol DAILY IV FLUSH 10/12/16 09:00 10/12/16 08:55 Heparin Sodium (Porcine) (Heparin Central Flush) See Protocol DAILY IV FLUSH 10/12/16 09:00 10/12/16 08:56 Heparin Sodium (Porcine) (Heparin Central Flush) See Protocol UNSCH PRN IV FLUSH SEE PROTOCOL TABLE 10/11/16 13:45 10/12/16 19:43 Sodium Chloride UNSCH PRN IV FLUSH SEE PROTOCOL TABLE 10/11/16 13:45 10/12/16 19:59 Etoposide 211 mg/ Sodium Chloride 510.55 ml @ 510.55 mls/hr Q24H IV 10/11/16 18:00 10/13/16 18:59 10/12/16 18:10 Dexamethasone Sodium Phosphate/ Sodium Chloride (Decadron Inj/NS Inj) 52.5 ml @ 210 mls/hr Q24H IV 10/12/16 17:30 10/13/16 17:44 10/12/16 17:38 Cefuroxime Axetil (Ceftin) 500 mg Q12HR PO 10/12/16 21:00 10/12/16 20:01 Objective Remarks GENERAL: Middle aged male sitting up in chair at bedside, asking for a breathing treatment. Hoarse voice. SKIN: Warm and dry. HEAD: Normocephalic. EYES: No injection or drainage. NECK: Supple, trachea midline. + bilateral supraclavicular adenopathy CARDIOVASCULAR: Regular rate and rhythm RESPIRATORY: Coarse, scattered rhonchi posteriorly. GASTROINTESTINAL: Abdomen soft, non-tender, nondistended. EXTREMITIES: No cyanosis or edema. NEUROLOGICAL: Follows commands. A&Ox3. Moving all extremities. Assessment/Plan Problem List: (1) Lung mass Status: Acute Plan: --s/p right hilar mass associated with extensive mediastinal and supraclavicular adenopathy: --MRI brain concerning for metastatic disease Assessment 66y/o male with newly diagnosed small cell lung cancer. Plan 1. Final day etoposide today; will start Neupogen tomorrow. 2. MRI brain results discussed with pt. 3. Pt is overall tolerating chemo OK. He was asking if this is possibly just a parasite, discussed imaging, pathology with pt. Attending Statement The exam, history, and the medical decision-making described in the above note were completed with the assistance of the mid-level provider. I reviewed and agree with the findings presented. I attest that I had a [id number] encounter with the patient on the same day, and personally performed and documented my assessment and findings in the medical record. Overall about the same and tolerating chemo well. I am hopeful he will be able to go home in the next few days. adenopathy in neck unchanged. Mabel Leo October 13, 2016 09:41 Javad Kwong MD October 13, 2016 17:23
[2016-10-13] MEDS: RESP: ALBUTEROL 2.5 MG/3 ML NEB (PRN) NEB (09:43)
[2016-10-13] MEDS: guaiFENesin E.R. 600 MG TAB PO SCH ×2 (10:02→20:58)
[2016-10-13] MEDS: CEFUROXIME AXETIL 500 MG TAB PO SCH ×2 (10:09→20:58)
[2016-10-13] MEDS: SODIUM CHLORIDE 0.9% FLUSH 10 ML FLUSH IV FLUSH SCH ×3 (10:09→20:59)
[2016-10-13] MEDS: ENOXAPARIN SODIUM 40 MG/0.4 ML SYRINGE SQ SCH (13:32)
[2016-10-13] MEDS: DEXAMETHASONE INJ 10 MG in SODIUM CHLORIDE 0.9% INJ 50 ML IV SCH (18:37)
[2016-10-13] MEDS: NS IV SCH (19:25)
[2016-10-13] MEDS: ETOPOSIDE IV SCH (19:25)
[2016-10-14] VITALS (10 sets, daily range): BP systolic 110–146; BP diastolic 67–77; PULSE 89–113; RESP 20–22; TEMP 96.1–98.5; O2SAT 92–96
[2016-10-14] MEDS: RESP: ALBUTEROL 2.5 MG/3 ML NEB (PRN) NEB ×2 (00:26→16:41)
[2016-10-14] MEDS: DOCUSATE SODIUM 100 MG CAP PO SCH ×2 (00:53→11:44)
[2016-10-14] MEDS: DILTIAZEM HCL 60 MG TAB PO SCH ×4 (00:53→18:04)
[2016-10-14] MEDS: guaiFENesin E.R. 600 MG TAB PO SCH ×2 (07:46→21:30)
[2016-10-14] MEDS: CEFUROXIME AXETIL 500 MG TAB PO SCH ×2 (07:46→21:30)
--- NOTE | 2016-10-14 07:46 | HHI.PR ---
Subjective Remarks Patient is in the chair. He complains of shortness of breath, feels his chest is congested. He is desaturating without oxygen. Denies chest pain, fever or chills. No cough or hemoptysis. Has a hoarse voice after starting chemotherapy. Denies nausea or vomiting. No constipation or diarrhea. Objective Vitals Vital Signs Date Time Temp Pulse Resp B/P Pulse Ox O2 Delivery O2 Flow Rate FiO2 10/14/16 04:00 96.1 89 21 146/76 96 10/14/16 00:00 97.4 92 21 125/72 96 10/13/16 20:21 98 Nasal Cannula 3.00 10/13/16 20:07 99 10/13/16 20:00 97.4 102 21 130/77 96 10/13/16 16:00 96.5 102 18 132/71 95 10/13/16 12:00 97.4 103 22 136/77 92 10/13/16 08:00 96.7 96 20 131/67 97 I/O 10/13/16 10/13/16 10/13/16 10/14/16 10/14/16 10/14/16 07:00 15:00 23:00 07:00 15:00 23:00 Intake Total 480 ml 720 ml 730 ml 360 ml Output Total 800 ml 500 ml 930 ml 1100 ml Balance -320 ml 220 ml -200 ml -740 ml Intake Oral 480 ml 720 ml 120 ml 360 ml IV Total 610 ml Output Urine Total 800 ml 500 ml 930 ml 1100 ml Result Diagram: 10/12/16 1048 10/12/16 1048 Imaging Last Impressions Brain MRI 10/12/16 0000 Signed Impressions: Service Date/Time: Wednesday, October 12, 2016 09:42 - CONCLUSION: 1. Small enhancing lesion in the high right parietal convexity concerning for metastatic disease. Small amount of vasogenic edema. 2. Minimal nonspecific white matter changes. Ben Peterson MD Chest X-Ray 10/11/16 0000 Signed Impressions: Service Date/Time: Tuesday, October 11, 2016 13:34 - CONCLUSION: 1. Almost complete opacification right hemithorax slightly worse. 2. Right sided PICC line in position. Ben Peterson MD Abdomen/Pelvis CT 10/11/16 0000 Signed Impressions: Service Date/Time: Tuesday, October 11, 2016 21:29 - CONCLUSION: 1. 1 cm indeterminate liver lesion within the right lobe. MRI of the abdomen with contrast may be helpful for further characterization of this finding. 2. Left adrenal nodule measuring 2.8 x 2.1 cm which is nonspecific. Differential includes adenoma or possible small metastatic lesion. This also could be assessed by MRI of the abdomen with contrast. 3. 2 cm soft tissue nodule along the right heart border consistent with possible epicardial lymphadenopathy. 4. Moderate sized right pleural effusion with complete collapse and/or consolidation of the visualized portion of the right lower lung. 5. Multiple calcified nonobstructing left renal calculi. 6. Multiple bilateral renal cysts. 7. Uncomplicated colonic diverticulosis. 8. Midline ventral abdominal wall hernia containing only fat. 9. Right posterolateral urinary bladder diverticulum. 10. Degenerative changes throughout the lumbar and lower thoracic spine. Dwight Jewell MD Head CT 10/09/16 0000 Signed Impressions: Service Date/Time: September 20:27 - CONCLUSION: Abnormal focus in the right frontal vertex worrisome for metastatic disease Wei Duggan MD Lymph Node Biopsy CT 10/07/16 1600 Signed Impressions: Service Date/Time: Friday, October 07, 2016 16:10 - CONCLUSION: Uncomplicated CT guided biopsy of right supraclavicular adenopathy. Ben Peterson MD Lower Extremity Ultrasound 10/06/16 0000 Signed Impressions: Service Date/Time: Thursday, October 06, 2016 17:11 - CONCLUSION: No evidence of DVT. Enlarged right groin lymph node. Dennis Peters MD Chest CT 10/06/16 0000 Signed Impressions: Service Date/Time: Thursday, October 06, 2016 12:20 - CONCLUSION: Findings would be consistent with a large hilar mass with extensive mediastinal adenopathy extending into the supraclavicular region with consolidative changes in the right. 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 Only a small amount of the opacity on the chest radiograph is fluid. Majority of the opacity is drowned lung. This would be amenable to percutaneous biopsy. Most likely site of biopsy would be the supraclavicular node on the right. There is impending SVC syndrome. Simone Tracy MD FACR Objective Remarks GENERAL: This is a very pleasant 66 yo male, sitting up, appears in acute distress 2/2 sob, talks in short sentences, well-nourished, well-developed patient. Somehow anxious. SKIN: No rashes, ecchymoses or lesions. Cool and dry. HEAD: Atraumatic. Normocephalic. No temporal or scalp tenderness. EYES: Pupils equal round and reactive. Extraocular motions intact. No scleral icterus. No injection or drainage. ENT: Nose without bleeding, purulent drainage or septal hematoma. Throat without erythema, tonsillar hypertrophy or exudate. Uvula midline. Airway patent. NECK: Trachea midline. Large supraclavicular LN. no meningeal signs. CARDIOVASCULAR: Regular rate and rhythm without murmurs, gallops, or rubs. RESPIRATORY: Clear to auscultation. Breath sounds equal bilaterally. No wheezes , rales, or rhonchi. GASTROINTESTINAL: Abdomen soft, non-tender, nondistended. No hepato-splenomegaly , or palpable masses. No guarding. MUSCULOSKELETAL: Extremities without clubbing, cyanosis. edema. No joint tenderness, effusion, or edema noted. No calf tenderness. Negative Homans sign bilaterally. NEUROLOGICAL: Awake and alert. Cranial nerves II through XII intact. Motor and sensory grossly within normal limits. Five out of 5 muscle strength in all muscle groups. Normal speech. A/P Assessment and Plan 66 yo male with h/o SVT was seen by Dr Romano in the past, HTN, noncompliant with meds and follow up says last time has seen a physician was ~10 years ago. Patient came to the ED for evaluation of SOB, LE edema SOB Acute respiratory failure with hypoxia, O2 sat in 80s on admission, requiring O2 Lactic acidosis likely related to hypoxia. Will trend lactic acid , back to nl Community acquired pneumonia Left pleural effusion. Large lung mass. 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 S/P CT guided biopsy of right supraclavicular adenopathy 10/07/16. Pathology shows small cell carcinoma. Oncology following, chemo treatments per oncology LE edema. Will do LE doppler US to r/o DVT Tobaccoism SVT HTN Noncompliant with meds and follow up Anxiety, acute: ativan prn Tachycardic 120s-130s, WBC 11.5, afebrile, RR 20s. CXR reviewed 1. Large pleural effusion and adjacent density. 2. There is volume loss in the right hemithorax, obstructing central lesion cannot be excluded. Contrasted CT chest recommended. CT chest reviewed patient with large mass and enlarged LN. S/P CT guided biopsy of right supraclavicular adenopathy 10/07/16 by IR Pathology pending. Consult Hem.onc . Seen by Dr Benitez hem/onc. Recommends CT head. reviewed, patient with poss mets right frontal vertex. Cardiology also signed off to treat underlying condition. Also patient with impending SVC syndr 2/ 2 mass. Monitor closely. Sputum cx neg, legionella/pneumococcal Ag negative Blood cultures are NTD Continue Ceftriaxone and Azithromycin IV Incentive spirometry ABG reviewed. O2 supplement keep O2 sat > 92 %. Duonebs scheduled and as need for wheezing/sob. 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 BP 167/77 on admission. Persistent tachycardic in 130s, used to take Lopressor 100 mg po BID he is noncompliant for a long time, however due to pulm issues at his time will give cardizem to avoid further bronchoconstriction. Increase cardizem . Consult cardiology, appreciate recommendations, cardiology feels is all lung related. DVT ppx SCD/TEDS GI ppx PPI Discussed Condition With patient, nurse, son at bedside DC plan: Pending improvement, pathology with small cell CA , chemo per oncology . DC when cleared by oncology Linda Romero MD October 14, 2016 07:46
[2016-10-14] MEDS: RESP: IPRATROPIUM 0.5 MG/2.5 ML NEB NEB PRN (08:33)
--- NOTE | 2016-10-14 09:34 | PD.ONC.PN ---
Subjective Subjective Remarks Afebrile overnight. Pt tolerated chemo OK. States he feels somewhat more fatigued. Denies GI symptoms or chest pain. Nervous about his future treatments and whether or not [facility]. Objective Data Date Time Temp Pulse Resp B/P Pulse Ox O2 Delivery O2 Flow Rate FiO2 10/14/16 08:36 96 Nasal Cannula 3.00 10/14/16 08:00 97.6 98 20 128/70 96 10/14/16 04:00 96.1 89 21 146/76 96 10/14/16 00:00 97.4 92 21 125/72 96 10/13/16 20:21 98 Nasal Cannula 3.00 10/13/16 20:07 99 10/13/16 20:00 97.4 102 21 130/77 96 10/13/16 16:00 96.5 102 18 132/71 95 10/13/16 12:00 97.4 103 22 136/77 92 10/14/16 10/14/16 10/14/16 07:00 15:00 23:00 Intake Total 360 ml Output Total 1100 ml 200 ml Balance -740 ml -200 ml Result Diagram: 10/12/16 1048 10/12/16 1048 Administered Medications Medications (Trade) Dose Ordered Sig/Nicole Route PRN Reason Start Time Stop Time Status Last Admin Dose Admin Sodium Chloride (NS Flush) 2 ml UNSCH PRN IV FLUSH FLUSH AFTER USING IV ACCESS 10/06/16 13:00 10/07/16 22:26 Sodium Chloride (NS Flush) 2 ml BID IV FLUSH 10/06/16 21:00 10/13/16 20:59 Docusate Sodium (Colace) 100 mg Q12H PO 10/06/16 13:00 10/10/16 12:25 Enoxaparin Sodium (Lovenox Inj) 40 mg Q24H SQ 10/06/16 14:00 10/13/16 13:32 Diltiazem HCl (Cardizem) 60 mg Q6HR PO 10/08/16 18:00 10/14/16 05:26 Lorazepam (Ativan) 0.5 mg Q8H PRN PO anxiety 10/09/16 10:00 10/11/16 10:48 Guaifenesin (Mucinex Er) 600 mg BID PO 10/09/16 11:00 10/14/16 07:46 Sodium Chloride (NS Flush) See Protocol DAILY IV FLUSH 10/12/16 09:00 10/13/16 10:09 Sodium Chloride (NS Flush) See Protocol UNSCH PRN IV FLUSH SEE PROTOCOL TABLE 10/11/16 13:45 10/13/16 21:08 Heparin Sodium (Porcine) (Heparin Central Flush) See Protocol DAILY IV FLUSH 10/12/16 09:00 10/14/16 07:46 Heparin Sodium (Porcine) (Heparin Central Flush) See Protocol UNSCH PRN IV FLUSH SEE PROTOCOL TABLE 10/11/16 13:45 10/13/16 21:08 Sodium Chloride (NS Flush) UNSCH PRN IV FLUSH SEE PROTOCOL TABLE 10/11/16 13:45 10/12/16 19:59 Cefuroxime Axetil (Ceftin) 500 mg Q12HR PO 10/12/16 21:00 10/14/16 07:46 Objective Remarks GENERAL: Middle aged male sitting up in chair at bedside in no distress. Hoarse voice. SKIN: Warm and dry. HEAD: Normocephalic. EYES: No injection or drainage. NECK: Supple, trachea midline. + bilateral supraclavicular adenopathy CARDIOVASCULAR: Regular rate and rhythm RESPIRATORY: Coarse, scattered rhonchi, wheezing posteriorly. GASTROINTESTINAL: Abdomen soft, non-tender, nondistended. EXTREMITIES: No cyanosis or edema. NEUROLOGICAL: Follows commands. A&Ox3. Moving all extremities. Assessment/Plan Problem List: (1) Lung mass Status: Acute Plan: --s/p right hilar mass associated with extensive mediastinal and supraclavicular adenopathy: --MRI brain concerning for metastatic disease Assessment 66y/o male with newly diagnosed small cell lung cancer. Plan Finished first chemotherapy yesterday. Tolerated OK with no major side effects. We will plan to start Neupogen tonight, 24 hours post chemo. From an oncology standpoint, he will be able to be discharged once his pulmonary status is stable. [facility] Case mgmt is involved to try to speed up the process to allow pt to followup in our clinic outpatient. Attending Statement The exam, history, and the medical decision-making described in the above note were completed with the assistance of the mid-level provider. I reviewed and agree with the findings presented. I attest that I had a [id number] encounter with the patient on the same day, and personally performed and documented my assessment and findings in the medical record. nodes in neck a little smaller and breathing less labored. hopefully home soon. will need a tapering course of steroid on discharge. Dr. Benitez to return tomorrow. next cycle of chemo in 3 weeks. Mabel Leo October 14, 2016 09:34 Javad Kwong MD October 14, 2016 22:30
[2016-10-14] MEDS: SODIUM CHLORIDE 0.9% FLUSH 10 ML FLUSH IV FLUSH SCH ×3 (11:41→21:31)
[2016-10-14] MEDS: ENOXAPARIN SODIUM 40 MG/0.4 ML SYRINGE SQ SCH (13:23)
[2016-10-14] MEDS ORDERED: FILGRASTIM 480 MCG/1.6 ML VIAL SQ SCH (21:00)
[2016-10-15] VITALS (9 sets, daily range): BP systolic 100–129; BP diastolic 60–73; PULSE 108–116; RESP 19–22; TEMP 97.5–98.4; O2SAT 90–95
[2016-10-15] MEDS: DOCUSATE SODIUM 100 MG CAP PO SCH ×3 (01:00→23:13)
[2016-10-15] MEDS: DILTIAZEM HCL 60 MG TAB PO SCH ×5 (01:14→23:11)
[2016-10-15] MEDS: RESP: ALBUTEROL 2.5 MG/3 ML NEB (PRN) NEB (04:02)
[2016-10-15] MEDS: SODIUM CHLORIDE 0.9% FLUSH 10 ML FLUSH IV FLUSH PRN (04:03)
[2016-10-15 04:31] LABS: HEMATOCRIT 44.8 % (39.0-51.0); MEAN CELL VOLUME 96.7 FL (80.0-100.0); MEAN CORPUSCULAR HEMOGLOBIN 31.3 PG (27.0-34.0); MEAN CORPUSCULAR HGB CONC 32.4 % (32.0-36.0); PLATELET COUNT 202 TH/MM3 (150-450); RED BLOOD COUNT 4.64 MIL/MM3 (4.50-5.90); RED CELL DISTRIBUTION WIDTH 12.8 % (11.6-17.2); WHITE BLOOD COUNT 38.4 TH/MM3 (4.0-11.0)
[2016-10-15 04:33] LABS: HEMO FLAGS AUTO DIFF
[2016-10-15 04:56] LABS: BICARBONATE 35.4 MEQ/L (21.0-32.0); POTASSIUM 4.7 MEQ/L (3.5-5.1)
[2016-10-15 05:43] LABS: BANDS 4 % (0-6); EOSINOPHILS 1 % (0-4); POLYS (SEG NEUTROPHILS) 95 % (16-70); WBC DIFF SAMPLE 100
[2016-10-15 05:44] LABS: PLATELET ESTIMATE SMEAR NORMAL (NORMAL); PLATELET MORPHOLOGY NORMAL (NORMAL); SCAN/DIFF FINAL DIFF MANUAL
--- NOTE | 2016-10-15 08:09 | PD.ONC.PN ---
Subjective Subjective Remarks Patient seen and examined, he reports hoarseness of the voice. Continues to cough up phlegm which can be yellow to green in color, he denies hemoptysis. He tells me his breathing may be a little bit better as compared to 3 days ago. He completed his third day of chemotherapy yesterday and tells me he tolerated treatment without difficulty. He tells me he has been up out of bed and walks as far as the bathroom, continues to require continuous oxygen supplementation. Objective Data Date Time Temp Pulse Resp B/P Pulse Ox O2 Delivery O2 Flow Rate FiO2 10/15/16 04:00 98.2 109 22 115/70 95 10/15/16 01:13 110 129/73 10/15/16 00:00 98.0 112 20 100/60 94 10/14/16 20:25 104 10/14/16 20:00 98.5 110 20 110/67 93 10/14/16 19:23 92 Nasal Cannula 3.00 10/14/16 16:00 98.4 108 20 127/77 94 10/14/16 12:00 97.1 113 22 123/69 95 10/14/16 10:18 98 10/14/16 08:36 96 Nasal Cannula 3.00 10/14/16 08:00 97.6 98 20 128/70 96 Result Diagram: 10/15/16 0350 10/15/16 0350 Laboratory Results Laboratory Tests Test 10/15/16 03:50 White Blood Count 38.4 TH/MM3 Red Blood Count 4.64 MIL/MM3 Hemoglobin 14.5 GM/DL Hematocrit 44.8 % Mean Corpuscular Volume 96.7 FL Mean Corpuscular Hemoglobin 31.3 PG Mean Corpuscular Hemoglobin 32.4 % Concent Red Cell Distribution Width 12.8 % Platelet Count 202 TH/MM3 Mean Platelet Volume 8.5 FL Neutrophils (%) (Auto) % Lymphocytes (%) (Auto) % Monocytes (%) (Auto) % Eosinophils (%) (Auto) % Basophils (%) (Auto) % Neutrophils # (Auto) TH/MM3 Lymphocytes # (Auto) TH/MM3 Monocytes # (Auto) TH/MM3 Eosinophils # (Auto) TH/MM3 Basophils # (Auto) TH/MM3 CBC Comment AUTO DIFF Differential Total Cells 100 Counted Neutrophils % (Manual) 95 % Band Neutrophils % 4 % Eosinophils % 1 % Neutrophils # (Manual) 38.0 TH/MM3 Differential Comment FINAL DIFF MANUAL Platelet Estimate NORMAL Platelet Morphology Comment NORMAL Red Cell Morphology Comment NORMAL Sodium Level 135 MEQ/L Potassium Level 4.7 MEQ/L Chloride Level 95 MEQ/L Carbon Dioxide Level 35.4 MEQ/L Anion Gap 5 MEQ/L Blood Urea Nitrogen 21 MG/DL Creatinine 0.47 MG/DL Estimat Glomerular Filtration 180 ML/MIN Rate Random Glucose 108 MG/DL Calcium Level 8.7 MG/DL Administered Medications Medications (Trade) Dose Ordered Sig/Nicole Route PRN Reason Start Time Stop Time Status Last Admin Dose Admin Sodium Chloride (NS Flush) 2 ml UNSCH PRN IV FLUSH FLUSH AFTER USING IV ACCESS 10/06/16 13:00 10/15/16 04:03 Sodium Chloride (NS Flush) 2 ml BID IV FLUSH 10/06/16 21:00 10/14/16 21:31 Docusate Sodium (Colace) 100 mg Q12H PO 10/06/16 13:00 10/14/16 11:44 Enoxaparin Sodium (Lovenox Inj) 40 mg Q24H SQ 10/06/16 14:00 10/14/16 13:23 Diltiazem HCl (Cardizem) 60 mg Q6HR PO 10/08/16 18:00 10/15/16 05:37 Lorazepam (Ativan) 0.5 mg Q8H PRN PO anxiety 10/09/16 10:00 10/11/16 10:48 Guaifenesin (Mucinex Er) 600 mg BID PO 10/09/16 11:00 10/14/16 21:30 Sodium Chloride (NS Flush) See Protocol DAILY IV FLUSH 10/12/16 09:00 10/14/16 18:10 Sodium Chloride (NS Flush) See Protocol UNSCH PRN IV FLUSH SEE PROTOCOL TABLE 10/11/16 13:45 10/13/16 21:08 Heparin Sodium (Porcine) (Heparin Central Flush) See Protocol DAILY IV FLUSH 10/12/16 09:00 10/14/16 07:46 Heparin Sodium (Porcine) (Heparin Central Flush) See Protocol UNSCH PRN IV FLUSH SEE PROTOCOL TABLE 10/11/16 13:45 10/15/16 03:56 Sodium Chloride (NS Flush) UNSCH PRN IV FLUSH SEE PROTOCOL TABLE 10/11/16 13:45 10/15/16 03:56 Cefuroxime Axetil (Ceftin) 500 mg Q12HR PO 10/12/16 21:00 10/14/16 21:30 Filgrastim (Neupogen Inj) 480 mcg DAILY@21 SQ 10/14/16 21:00 10/19/16 20:59 10/14/16 21:28 Objective Remarks GENERAL PHYSICAL APPEARANCE: Mr. Ruano is a middle-aged man. He is sitting up in bed. He appears to be in mild respiratory distress. HEAD, EYES, EARS, NOSE, THROAT: Head is atraumatic and normocephalic. Conjunctivae are non-pale. The sclerae are anicteric. Extraocular muscles intact. Pupils equal, round and reactive to light and accommodation. ORAL EXAM: No pharyngeal erythema. NECK EXAM: No palpable cervical or supraclavicular lymphadenopathy. RESPIRATORY EXAM: Coarse conducted breath sounds over the left and right lungs. Decreased right lung air movement. CARDIOVASCULAR EXAM: Tachycardic. S1, S2. No obvious murmurs, rubs or gallops. ABDOMINAL EXAM: Protuberant belly. The abdomen is soft, nontender and nondistended. No palpable organ enlargement. He does have an umbilical hernia. LOWER EXTREMITIES: No pretibial edema or calf tenderness. MUSCULOSKELETAL: Adequate muscle mass, tone and strength. GAS FLOW REGULATOR: No focal sensory or motor deficits. Assessment/Plan Problem List: (1) Lung mass Status: Acute Plan: --s/p right hilar mass associated with extensive mediastinal and supraclavicular adenopathy: --MRI brain concerning for metastatic disease. -- CT scan of the abdomen and pelvis indicates adrenal enlargement as well as a lesion within the liver which is too small to characterize. Either of these lesions could represent metastatic disease. Assessment 66y/o male with newly diagnosed small cell lung cancer. 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 His disease extensively involves this mediastinum with threatened SVC syndrome. Patient is status post cycle #1 of carboplatin and etoposide day 1 was on 2016. He is now on Neupogen injections for growth factor support. Recommendations: 1. Request radiation oncology for management of the brain metastasis. 2. He will require a fair bit of discharge planning i.e. possible placement to nursing facility versus discharged home when appropriate arrangements such as oxygen supplementation have been arranged. 3. Neupogen dosing has been decreased to 300 g subcutaneous daily. His leukocytosis is secondary to the Neupogen. 4. I will begin the process of transitioning him to outpatient therapy, palliative chemotherapy will be due on November 04, 2015; cycle #2 of carboplatin and etoposide. Destin Benitez MD October 15, 2016 08:09
[2016-10-15] MEDS: CEFUROXIME AXETIL 500 MG TAB PO SCH ×2 (08:51→19:42)
[2016-10-15] MEDS: guaiFENesin E.R. 600 MG TAB PO SCH ×2 (08:51→19:42)
[2016-10-15] MEDS: SODIUM CHLORIDE 0.9% FLUSH 10 ML FLUSH IV FLUSH SCH ×3 (08:53→19:43)
--- NOTE | 2016-10-15 12:20 | HHI.PR ---
Subjective Remarks up in chair states no difficulty swallowing breathing - he states slightly better voice hoarse denies any ehadache, nausea or vomiting Objective Vitals Vital Signs Date Time Temp Pulse Resp B/P Pulse Ox O2 Delivery O2 Flow Rate FiO2 10/15/16 08:18 92 Nasal Cannula 3.00 10/15/16 07:50 98.4 108 20 112/63 90 10/15/16 04:00 98.2 109 22 115/70 95 10/15/16 01:13 110 129/73 10/15/16 00:00 98.0 112 20 100/60 94 10/14/16 20:25 104 10/14/16 20:00 98.5 110 20 110/67 93 10/14/16 19:23 92 Nasal Cannula 3.00 10/14/16 16:00 98.4 108 20 127/77 94 10/14/16 12:00 97.1 113 22 123/69 95 I/O 10/14/16 10/14/16 10/14/16 10/15/16 10/15/16 10/15/16 07:00 15:00 23:00 07:00 15:00 23:00 Intake Total 360 ml 1080 ml 120 ml Output Total 1100 ml 950 ml 375 ml Balance -740 ml 130 ml -255 ml Intake Oral 360 ml 1080 ml 120 ml Output Urine Total 1100 ml 950 ml 375 ml # Bowel Movements 1 0 Result Diagram: 10/15/16 0350 10/15/16 0350 Imaging Last Impressions Brain MRI 10/12/16 0000 Signed Impressions: Service Date/Time: Wednesday, October 12, 2016 09:42 - CONCLUSION: 1. Small enhancing lesion in the high right parietal convexity concerning for metastatic disease. Small amount of vasogenic edema. 2. Minimal nonspecific white matter changes. Ben Peetrson MD Chest X-Ray 10/11/16 0000 Signed Impressions: Service Date/Time: Tuesday, October 11, 2016 13:34 - CONCLUSION: 1. Almost complete opacification right hemithorax slightly worse. 2. Right sided PICC line in position. Ben Peterson MD Abdomen/Pelvis CT 10/11/16 0000 Signed Impressions: Service Date/Time: Tuesday, October 11, 2016 21:29 - CONCLUSION: 1. 1 cm indeterminate liver lesion within the right lobe. MRI of the abdomen with contrast may be helpful for further characterization of this finding. 2. Left adrenal nodule measuring 2.8 x 2.1 cm which is nonspecific. Differential includes adenoma or possible small metastatic lesion. This also could be assessed by MRI of the abdomen with contrast. 3. 2 cm soft tissue nodule along the right heart border consistent with possible epicardial lymphadenopathy. 4. Moderate sized right pleural effusion with complete collapse and/or consolidation of the visualized portion of the right lower lung. 5. Multiple calcified nonobstructing left renal calculi. 6. Multiple bilateral renal cysts. 7. Uncomplicated colonic diverticulosis. 8. Midline ventral abdominal wall hernia containing only fat. 9. Right posterolateral urinary bladder diverticulum. 10. Degenerative changes throughout the lumbar and lower thoracic spine. Dwight Jewell MD Head CT 10/09/16 0000 Signed Impressions: Service Date/Time: September 20:27 - CONCLUSION: Abnormal focus in the right frontal vertex worrisome for metastatic disease Wei Duggan MD Lymph Node Biopsy CT 10/07/16 1600 Signed Impressions: Service Date/Time: Friday, October 07, 2016 16:10 - CONCLUSION: Uncomplicated CT guided biopsy of right supraclavicular adenopathy. Ben Peterson MD Lower Extremity Ultrasound 10/06/16 0000 Signed Impressions: Service Date/Time: Thursday, October 06, 2016 17:11 - CONCLUSION: No evidence of DVT. Enlarged right groin lymph node. Dennis Peters MD Chest CT 10/06/16 0000 Signed Impressions: Service Date/Time: Thursday, October 06, 2016 12:20 - CONCLUSION: Findings would be consistent with a large hilar mass with extensive mediastinal adenopathy extending into the supraclavicular region with consolidative changes in the right. 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 Only a small amount of the opacity on the chest radiograph is fluid. Majority of the opacity is drowned lung. This would be amenable to percutaneous biopsy. Most likely site of biopsy would be the supraclavicular node on the right. There is impending SVC syndrome. Simone Tracy MD FACR Objective Remarks awake and alert anicteric lungs + rhonchis regular rhythm abdomen soft, nontender extremities no edema, TEDs A/P Assessment and Plan 66 yo male with h/o SVT was seen by Dr Romano in the past, HTN, noncompliant with meds and follow up says last time has seen a physician was ~10 years ago. Patient came to the ED for evaluation of SOB, LE edema SOB Acute respiratory failure with hypoxia, O2 sat in 80s on admission, requiring O2 Lactic acidosis likely related to hypoxia. Will trend lactic acid , back to nl Community acquired pneumonia Small Cell lung Carcinoma with Left pleural effusion. Large lung mass with mets. S/P CT guided biopsy of right supraclavicular adenopathy 10/07/16. Pathology shows small cell carcinoma. Oncology following, chemo treatments per oncology. Radiation Oncology consulted Tobaccoism SVT - in SR HTN Noncompliant with meds and follow up Leukocytosis- on Neupogen Anxiety, acute: ativan prn Also patient with impending SVC syndr 2/ 2 mass. Monitor closely. Sputum cx neg, legionella/pneumococcal Ag negative Blood cultures are NTD On po Ceftin- Dr. Bautista ff Incentive spirometry ABG reviewed. O2 supplement keep O2 sat > 92 %. Duonebs scheduled and as need for wheezing/sob. Pulmonary ff BNP is 14, trops are negative , he doesn't have any chest pain. BP 167/77 on admission. Persistent tachycardic in 130s, used to take Lopressor 100 mg po BID he is noncompliant for a long time, however due to pulm issues at his time will give cardizem to avoid further bronchoconstriction. Increase cardizem . cardiology feels is all lung related. DVT ppx SCD/TEDS GI ppx PPI Discussed Condition With patient, nurse, son at bedside CM involved Tayler Bello MD October 15, 2016 11:44 Tayler Bello MD October 15, 2016 11:44 DVT ppx SCD/TEDS GI ppx PPI Discussed Condition With patient, nurse, son at bedside CM involved Tayler Bello MD October 15, 2016 11:44
[2016-10-15] MEDS: ENOXAPARIN SODIUM 40 MG/0.4 ML SYRINGE SQ SCH (15:29)
[2016-10-15] MEDS ORDERED: FILGRASTIM 300 MCG/ML VIAL SQ SCH (21:00)
[2016-10-16] VITALS (9 sets, daily range): BP systolic 106–121; BP diastolic 57–77; PULSE 101–113; RESP 16–20; TEMP 95.1–97.2; O2SAT 93–97
[2016-10-16] MEDS: DILTIAZEM HCL 60 MG TAB PO SCH ×4 (05:28→23:54)
[2016-10-16 06:17] LABS: AUTOMATED NEUTROPHIL # 48.5 TH/MM3 (1.8-7.7); BASOPHIL # 0.1 TH/MM3 (0-0.2); BASOPHIL % 0.2 % (0.0-2.0); EOSINOPHIL # 0.3 TH/MM3 (0-0.4); EOSINOPHIL % 0.5 % (0.0-4.0); HEMATOCRIT 43.5 % (39.0-51.0); LYMPH % 1.7 % (9.0-44.0); LYMPHOCYTE # 0.9 TH/MM3 (1.0-4.8); MEAN CELL VOLUME 97.7 FL (80.0-100.0); MEAN CORPUSCULAR HEMOGLOBIN 31.6 PG (27.0-34.0); MEAN CORPUSCULAR HGB CONC 32.3 % (32.0-36.0); MONO % 0.4 % (0.0-8.0); NEUT % 97.2 % (16.0-70.0); PLATELET COUNT 165 TH/MM3 (150-450); RED BLOOD COUNT 4.45 MIL/MM3 (4.50-5.90); RED CELL DISTRIBUTION WIDTH 12.8 % (11.6-17.2); WHITE BLOOD COUNT 49.9 TH/MM3 (4.0-11.0)
[2016-10-16 06:37] LABS: HEMO FLAGS AUTO DIFF
[2016-10-16 06:47] LABS: BICARBONATE 35.1 MEQ/L (21.0-32.0); POTASSIUM 4.9 MEQ/L (3.5-5.1)
--- NOTE | 2016-10-16 07:00 | PD.ONC.PN ---
Subjective Subjective Remarks Reports feeling better as far as breathing is concerned, tells me the pressure along the side of his neck is also improved, voice remains hoarse. He tells me he was evaluated by radiation oncology yesterday. Tells me he has been eating well, and continues to ambulate with oxygen supplementation. Objective Data Date Time Temp Pulse Resp B/P Pulse Ox O2 Delivery O2 Flow Rate FiO2 10/16/16 04:00 97.2 111 18 113/77 93 10/16/16 00:00 97.0 113 19 121/70 94 10/15/16 20:00 109 10/15/16 20:00 97.9 113 19 120/69 94 10/15/16 17:27 91 Nasal Cannula 3.00 10/15/16 15:00 97.5 112 20 110/64 91 10/15/16 11:00 97.8 116 20 128/66 92 10/15/16 08:18 92 Nasal Cannula 3.00 10/15/16 07:50 98.4 108 20 112/63 90 10/16/16 10/16/16 10/16/16 07:00 15:00 23:00 Intake Total 240 ml Output Total 500 ml Balance -260 ml Result Diagram: 10/16/16 0530 10/16/16 0530 Laboratory Results Laboratory Tests Test 10/16/16 05:30 White Blood Count 49.9 TH/MM3 Red Blood Count 4.45 MIL/MM3 Hemoglobin 14.1 GM/DL Hematocrit 43.5 % Mean Corpuscular Volume 97.7 FL Mean Corpuscular Hemoglobin 31.6 PG Mean Corpuscular Hemoglobin 32.3 % Concent Red Cell Distribution Width 12.8 % Platelet Count 165 TH/MM3 Mean Platelet Volume 9.0 FL Neutrophils (%) (Auto) 97.2 % Lymphocytes (%) (Auto) 1.7 % Monocytes (%) (Auto) 0.4 % Eosinophils (%) (Auto) 0.5 % Basophils (%) (Auto) 0.2 % Neutrophils # (Auto) 48.5 TH/MM3 Lymphocytes # (Auto) 0.9 TH/MM3 Monocytes # (Auto) 0.2 TH/MM3 Eosinophils # (Auto) 0.3 TH/MM3 Basophils # (Auto) 0.1 TH/MM3 CBC Comment AUTO DIFF Sodium Level 137 MEQ/L Potassium Level 4.9 MEQ/L Chloride Level 95 MEQ/L Carbon Dioxide Level 35.1 MEQ/L Anion Gap 7 MEQ/L Blood Urea Nitrogen 24 MG/DL Creatinine 0.55 MG/DL Estimat Glomerular Filtration 150 ML/MIN Rate Random Glucose 113 MG/DL Calcium Level 8.7 MG/DL Administered Medications Medications (Trade) Dose Ordered Sig/Nicole Route PRN Reason Start Time Stop Time Status Last Admin Dose Admin Sodium Chloride (NS Flush) 2 ml UNSCH PRN IV FLUSH FLUSH AFTER USING IV ACCESS 10/06/16 13:00 10/15/16 04:03 Sodium Chloride (NS Flush) 2 ml BID IV FLUSH 10/06/16 21:00 10/15/16 19:43 Docusate Sodium (Colace) 100 mg Q12H PO 10/06/16 13:00 10/14/16 11:44 Enoxaparin Sodium (Lovenox Inj) 40 mg Q24H SQ 10/06/16 14:00 10/15/16 15:29 Diltiazem HCl (Cardizem) 60 mg Q6HR PO 10/08/16 18:00 10/16/16 05:28 Lorazepam (Ativan) 0.5 mg Q8H PRN PO anxiety 10/09/16 10:00 10/11/16 10:48 Guaifenesin (Mucinex Er) 600 mg BID PO 10/09/16 11:00 10/15/16 19:42 Sodium Chloride (NS Flush) See Protocol DAILY IV FLUSH 10/12/16 09:00 10/15/16 08:53 Sodium Chloride (NS Flush) See Protocol UNSCH PRN IV FLUSH SEE PROTOCOL TABLE 10/11/16 13:45 10/13/16 21:08 Heparin Sodium (Porcine) (Heparin Central Flush) See Protocol DAILY IV FLUSH 10/12/16 09:00 10/14/16 07:46 Heparin Sodium (Porcine) (Heparin Central Flush) See Protocol UNSCH PRN IV FLUSH SEE PROTOCOL TABLE 10/11/16 13:45 10/15/16 03:56 Sodium Chloride (NS Flush) UNSCH PRN IV FLUSH SEE PROTOCOL TABLE 10/11/16 13:45 10/15/16 03:56 Cefuroxime Axetil (Ceftin) 500 mg Q12HR PO 10/12/16 21:00 10/15/16 19:42 Filgrastim (Neupogen Inj) 300 mcg DAILY@21 SQ 10/15/16 21:00 10/15/16 19:43 Objective Remarks GENERAL PHYSICAL APPEARANCE: Mr. Ruano is a middle-aged man. He is sitting up in bed. Has a very hoarse voice, almost seems to be whispering. In no apparent respiratory distress at this time. HEAD, EYES, EARS, NOSE, THROAT/neck: Conjunctivae are mildly pale, sclerae anicteric, supraclavicular lymphadenopathy is clearly decreased in size when compared to initial examination. RESPIRATORY EXAM: Coarse conducted breath sounds over the left and right lungs. Improved air movement over the right lung. CARDIOVASCULAR EXAM: Regular rate. S1, S2. No obvious murmurs, rubs or gallops. ABDOMINAL EXAM: Protuberant belly. The abdomen is soft, nontender and nondistended. No palpable organ enlargement. He does have an umbilical hernia. LOWER EXTREMITIES: No pretibial edema or calf tenderness. MUSCULOSKELETAL: Adequate muscle mass, tone and strength. CLINICAL TECHNICIAN: No focal sensory or motor deficits. Assessment/Plan Problem List: (1) Lung mass Status: Acute Plan: --s/p right hilar mass associated with extensive mediastinal and supraclavicular adenopathy: --MRI brain concerning for metastatic disease (solitary lesion). -- CT scan of the abdomen and pelvis indicates adrenal enlargement as well as a lesion within the liver which is too small to characterize. Either of these lesions could represent metastatic disease. Assessment 66y/o male with newly diagnosed small cell lung cancer. 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 His disease extensively involves this mediastinum with threatened SVC syndrome. Patient is status post cycle #1 of carboplatin and etoposide day 1 was on 2016. He is now on Neupogen injections for growth factor support. Recommendations: 1. Will transitioned outpatient treatment by planning second cycle of chemotherapy in the office. 2. I will discuss the case with radiation oncology regarding timing of radiation to the solitary brain met. 3. Discharge planning; he will need arrangements for outpatient oxygen supplementation. 4. Neupogen has been discontinued. Destin Benitez MD October 16, 2016 07:00
[2016-10-16] MEDS: CEFUROXIME AXETIL 500 MG TAB PO SCH ×2 (08:25→21:06)
[2016-10-16] MEDS: SODIUM CHLORIDE 0.9% FLUSH 10 ML FLUSH IV FLUSH SCH ×3 (08:25→21:06)
[2016-10-16] MEDS: guaiFENesin E.R. 600 MG TAB PO SCH ×2 (08:25→21:05)
[2016-10-16 08:32] LABS: BANDS 11 % (0-6); NEUTROPHIL # MANUAL DIFF 48.4 TH/MM3 (1.8-7.7); POLYS (SEG NEUTROPHILS) 86 % (16-70); WBC DIFF SAMPLE 100
[2016-10-16 08:41] LABS: PLATELET ESTIMATE SMEAR NORMAL (NORMAL); PLATELET MORPHOLOGY NORMAL (NORMAL); SCAN/DIFF FINAL DIFF MANUAL
--- NOTE | 2016-10-16 12:44 | RC ---
cc: JULIOCESAR TOTH,NED WRIGHT,FORTINO HICKEY DATE OF SERVICE 10/15/2016 DATE OF [birth year][address] 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 REASON FOR VISIT The patient is being evaluated for salvage radiotherapy treatment options to the brain. HISTORY OF PRESENT ILLNESS This is a 66-year-old male who apparently has a long history of smoking since he was of 12 years of age. The patient appears was doing well until about three weeks previous to admission where he was noting some difficulty breathing with shortness of breath with exertion. Also, this progressed to the point that the shortness of breath was at rest. Also, he was having issues lying flat and sleeping at night due to this. He also began to have changes in his voice and losing his voice and becoming hoarse. It appears that the patient noticed masses of the neck and as a result of this presented to the emergency room for evaluation. Upon evaluation, he was noted to have a large mass within the mediastinum. He was evaluated, had a biopsy performed which was positive for a small cell carcinoma. As a result of this per the records, it appears that the patient has started on chemotherapy under the care of Dr. Benitez. Further imaging studies, which included MRI have now detected metastatic disease within the brain with a possible solitary lesion. As a result of this, I have been consulted for possible salvage radiotherapy treatment options. PAST MEDICAL HISTORY As above, also a history of: 1. Hypertension 2. Tonsillectomy 3. Ankle surgery MEDICATIONS Per hospital chart include: 1. Azithromycin 2. Ceftriaxone 3. Tylenol 4. Colace 5. Lovenox 6. Guaifenesin 7. Lorazepam 8. Methylprednisolone 9. Zofran 10. Temazepam ALLERGIES NO KNOWN DRUG ALLERGIES. FAMILY HISTORY Sister with pancreatic carcinoma. Mother of lung carcinoma. SOCIAL HISTORY The patient has an extensive history of smoking since he was 12 years old, probably about a pack per day. He also has a history of previous drinking. REVIEW OF SYSTEMS CONSTITUTIONAL: Upon review, the patient admits to fatigue, decreased appetite, no major weight loss. ALLERGIES: He has some allergic reaction recently. EYES: Denies any double vision. ENT: Unremarkable. Denies any difficulty in swallowing. NECK: Admits to neck masses. INTEGUMENTARY: Unremarkable. CARDIOVASCULAR: The patient denies any present chest pain or clinical signs of SD. He has some shortness of breath with exertion. RESPIRATORY: The patient admits to difficulty breathing at rest. He says he thinks it is better since being admitted. Denies any hemoptysis. GASTROINTESTINAL: Unremarkable. GENITOURINARY: Unremarkable. MUSCULOSKELETAL: Denies any bone pain. NEUROLOGIC: Unremarkable. Denies any headaches, clinical symptoms of increased intracranial pressure and no motor function deficits. No decrease in cognitive functions. PSYCHIATRIC: Unremarkable. ENDOCRINE: Unremarkable. HEMATOLOGIC: Unremarkable. DERMATOLOGIC: Unremarkable. PHYSICAL EXAMINATION The patient is oriented times three in no acute distress or discomfort at the present time. VITAL SIGNS: Stable per hospitalist chart. LUNGS: To auscultation, there is decreased ventilatory respiratory effort more so on the right where it is almost absent without breath sounds. HEART: Appears to be tachycardiac, but with a regular rate and rhythm with no murmurs. Palpation and neck and bilateral supraclavicular some free. ABDOMEN: To palpation abdominal cavity, there is slight abdominal distension. There is a periumbilical hernia, but I do not see any periumbilical masses. No nodes in the bilateral inguinal areas. EXTREMITIES: Lower extremities without edema bilaterally. NEUROLOGIC: To neurologic examination, no neurological deficits are detected. Cognitive functions are preserved. SURGICAL PATHOLOGY A CT-guided right neck node biopsy small cell carcinoma. RADIOLOGY Chest CT 10/06/2016, impression. The findings will be consistent with a large hilar mass with extensive mediastinal adenopathy extending to the supraclavicular region with consolidative changes in the right. 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 Only a small amount of opacity on the chest radiograph as fluid. Majority of the biopsy is brown lung. This will be amendable to percutaneous biopsy most likely site of biopsy will be supraclavicular node. He has impending SVC syndrome. CT of the head 10/09/2016, impression. Abnormal focus of the right frontal vertex worrisome for metastatic disease. Abdomen and pelvis CT 10/11/2016, impression. A 1 cm indeterminate liver lesion with within the right lobe. Left adrenal nodule measuring 2.8 x 2.1 cm which is nonspecific. A 2 cm soft tissue nodule along the right heart border consistent with possible epicardial lymphadenopathy. Multiple calcified nonobstructing left renal calculi. Multiple bilateral renal cysts. Moderate sized right pleural effusion with complete collapse and/or consolidation of the large portion of the right lower lung. MRI of the brain 10/12/2016, impression. A small enhancing lesion in the high right parietal convexity concerning for metastatic disease. A small amount of vasogenic edema. Minimal nonspecific white matter changes. ASSESSMENT A 66-year-old white male with a diagnosis of extensive stage small cell carcinoma metastatic to the brain. The patient is being evaluated for salvage treatment options. PLAN I had an extensive depression with the patient in regards to his present disease setting and condition. I reviewed the MRI of the brain, there is a lesion there. I would suggest the patient start on Dexamethasone if he has not started. Since this is a small lesion, I will discuss the case with Dr. Benitez and perhaps we can do salvage radiosurgery to the brain in between cycles of chemotherapy. I discussed the merits of the radiosurgery to the brain with the patient. I discussed side effects, complications of the radiation to include but limited to weakness and fatigue, decreased blood counts, edema of the skin, necrosis of the skin, bone damage and fracture, loss of hair in the treated area which will be permanent, brain damage and brain necrosis which may require prolonged use of steroids, decrease in cognitive functions, decreased hearing, loss of hearing, decreased vision, loss of vision, pain of the treated area. After a thorough discussion, the patient is interested in treating the brain lesion via radiosurgery when feasible. Right now, the patient is having some issues lying flat and therefore he will have to have a very good response to the initial chemotherapy so that he can be able to be flat for a prolonged period time so we can do the radiosurgery. I will discuss the case with Dr. Benitez and proceed accordingly. The patient advised if I could be of any further assistance to please let me know. Dr. Benitez, thank you much for your referral of this patient and allowing us to participate in his care. Should have any further question or concerns, please do not hesitate contact me. Ned Forte MD Radiation Oncologist DORIAN CAPELLAN/JULIAN /5:26 PM /12:16 PM JAYANT
--- NOTE | 2016-10-16 12:46 | HHI.PR ---
Subjective Remarks patient states breathing better voice hoarse- stable no difficulty swallowing Objective Vitals Vital Signs Date Time Temp Pulse Resp B/P Pulse Ox O2 Delivery O2 Flow Rate FiO2 10/16/16 11:39 93 Nasal Cannula 3.00 10/16/16 08:00 96.3 111 16 106/57 95 10/16/16 04:00 97.2 111 18 113/77 93 10/16/16 00:00 97.0 113 19 121/70 94 10/15/16 20:00 109 10/15/16 20:00 97.9 113 19 120/69 94 10/15/16 17:27 91 Nasal Cannula 3.00 10/15/16 15:00 97.5 112 20 110/64 91 I/O 10/15/16 10/15/16 10/15/16 10/16/16 10/16/16 10/16/16 07:00 15:00 23:00 07:00 15:00 23:00 Intake Total 120 ml 180 ml 300 ml 240 ml Output Total 375 ml 225 ml 250 ml 500 ml Balance -255 ml -45 ml 50 ml -260 ml Intake Oral 120 ml 180 ml 300 ml 240 ml Output Urine Total 375 ml 225 ml 250 ml 500 ml # Voids 1 # Bowel Movements 0 1 Result Diagram: 10/16/16 0530 10/16/16 0530 Imaging Last Impressions Brain MRI 10/12/16 0000 Signed Impressions: Service Date/Time: Wednesday, October 12, 2016 09:42 - CONCLUSION: 1. Small enhancing lesion in the high right parietal convexity concerning for metastatic disease. Small amount of vasogenic edema. 2. Minimal nonspecific white matter changes. Ben Peterson MD Chest X-Ray 10/11/16 0000 Signed Impressions: Service Date/Time: Tuesday, October 11, 2016 13:34 - CONCLUSION: 1. Almost complete opacification right hemithorax slightly worse. 2. Right sided PICC line in position. Ben Peterson MD Abdomen/Pelvis CT 10/11/16 0000 Signed Impressions: Service Date/Time: Tuesday, October 11, 2016 21:29 - CONCLUSION: 1. 1 cm indeterminate liver lesion within the right lobe. MRI of the abdomen with contrast may be helpful for further characterization of this finding. 2. Left adrenal nodule measuring 2.8 x 2.1 cm which is nonspecific. Differential includes adenoma or possible small metastatic lesion. This also could be assessed by MRI of the abdomen with contrast. 3. 2 cm soft tissue nodule along the right heart border consistent with possible epicardial lymphadenopathy. 4. Moderate sized right pleural effusion with complete collapse and/or consolidation of the visualized portion of the right lower lung. 5. Multiple calcified nonobstructing left renal calculi. 6. Multiple bilateral renal cysts. 7. Uncomplicated colonic diverticulosis. 8. Midline ventral abdominal wall hernia containing only fat. 9. Right posterolateral urinary bladder diverticulum. 10. Degenerative changes throughout the lumbar and lower thoracic spine. Dwight Jewell MD Head CT 10/09/16 0000 Signed Impressions: Service Date/Time: September 20:27 - CONCLUSION: Abnormal focus in the right frontal vertex worrisome for metastatic disease Wei Duggan MD Lymph Node Biopsy CT 10/07/16 1600 Signed Impressions: Service Date/Time: Friday, October 07, 2016 16:10 - CONCLUSION: Uncomplicated CT guided biopsy of right supraclavicular adenopathy. Ben Peterson MD Lower Extremity Ultrasound 10/06/16 0000 Signed Impressions: Service Date/Time: Thursday, October 06, 2016 17:11 - CONCLUSION: No evidence of DVT. Enlarged right groin lymph node. Dennis Peters MD Chest CT 10/06/16 0000 Signed Impressions: Service Date/Time: Thursday, October 06, 2016 12:20 - CONCLUSION: Findings would be consistent with a large hilar mass with extensive mediastinal adenopathy extending into the supraclavicular region with consolidative changes in the right. 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 Only a small amount of the opacity on the chest radiograph is fluid. Majority of the opacity is drowned lung. This would be amenable to percutaneous biopsy. Most likely site of biopsy would be the supraclavicular node on the right. There is impending SVC syndrome. Simone Tracy MD FACR Objective Remarks awake and alert anicteric lungs + few rhonchi regular rhythm abdomen soft, nontender extremities no edema, TEDs A/P Assessment and Plan 66 yo male with h/o SVT was seen by Dr Romano in the past, HTN, noncompliant with meds and follow up says last time has seen a physician was ~10 years ago. Patient came to the ED for evaluation of SOB, LE edema SOB Acute respiratory failure with hypoxia, O2 sat in 80s on admission, requiring O2 Lactic acidosis likely related to hypoxia. Will trend lactic acid , back to nl Community acquired pneumonia Small Cell lung Carcinoma with Left pleural effusion. Large lung mass with mets. S/P CT guided biopsy of right supraclavicular adenopathy 10/07/16. Pathology shows small cell carcinoma. Oncology following, chemo treatments per oncology. Radiation Oncology ff Tobaccoism sinus tachycardia HTN Leukocytosis- secondary to Neupogen- DC Anxiety, acute: ativan prn Also patient with impending SVC syndr 2/ 2 mass. Monitor closely. Sputum cx neg, legionella/pneumococcal Ag negative Blood cultures are NTD On po Ceftin- Dr. Bautista ff Incentive spirometry ABG reviewed. O2 supplement keep O2 sat > 92 %. Duonebs scheduled and as needed BNP is 14, trops are negative , he doesn't have any chest pain. BP 167/77 on admission. Persistent tachycardic in 130s, used to take Lopressor 100 mg po BID he is noncompliant for a long time, however due to pulm issues at his time will give cardizem to avoid further bronchoconstriction. Continue on po Cardizem . cardiology feels is all lung related. DVT ppx SCD/TEDS GI ppx PPI CM consult for home 02 arrangements- will do walk test prior to DC patient states up and ambulating to bathroom PT Tayler Bello MD October 16, 2016 12:46
[2016-10-16] MEDS: DOCUSATE SODIUM 100 MG CAP PO SCH ×2 (13:00→23:54)
[2016-10-16] MEDS: ENOXAPARIN SODIUM 40 MG/0.4 ML SYRINGE SQ SCH (14:00)
[2016-10-17] VITALS (7 sets, daily range): BP systolic 109–129; BP diastolic 65–70; PULSE 96–122; RESP 16–22; TEMP 96.3–96.9; O2SAT 93–97
[2016-10-17] MEDS: DILTIAZEM HCL 60 MG TAB PO SCH ×2 (05:27→12:11)
[2016-10-17] MEDS: guaiFENesin E.R. 600 MG TAB PO SCH (08:22)
[2016-10-17] MEDS: CEFUROXIME AXETIL 500 MG TAB PO SCH (08:23)
[2016-10-17] MEDS: SODIUM CHLORIDE 0.9% FLUSH 10 ML FLUSH IV FLUSH SCH ×2 (08:24→09:00)
--- NOTE | 2016-10-17 09:02 | HHI.PR ---
Subjective Remarks no difficulty swallowing voice - less hoarse up and ambulating no headaches, nausea or vomiting Objective Vitals Vital Signs Date Time Temp Pulse Resp B/P Pulse Ox O2 Delivery O2 Flow Rate FiO2 10/17/16 08:51 95 Nasal Cannula 3.00 10/17/16 07:00 96.7 96 17 109/67 97 10/17/16 04:00 96.5 103 20 111/65 96 10/17/16 00:00 96.9 122 22 118/67 95 10/16/16 20:11 105 10/16/16 20:00 96.3 112 20 115/66 97 10/16/16 17:34 94 Nasal Cannula 3.00 10/16/16 16:00 95.8 101 16 107/69 94 10/16/16 12:00 95.1 105 16 113/67 94 10/16/16 11:39 93 Nasal Cannula 3.00 I/O 10/16/16 10/16/16 10/16/16 10/17/16 10/17/16 10/17/16 07:00 15:00 23:00 07:00 15:00 23:00 Intake Total 240 ml 480 ml 480 ml 240 ml Output Total 500 ml 400 ml 400 ml Balance -260 ml 80 ml 480 ml -160 ml Intake Oral 240 ml 480 ml 480 ml 240 ml Output Urine Total 500 ml 400 ml 400 ml # Bowel Movements 1 Result Diagram: 10/16/16 0530 10/16/16 0530 Imaging Last Impressions Brain MRI 10/12/16 0000 Signed Impressions: Service Date/Time: Wednesday, October 12, 2016 09:42 - CONCLUSION: 1. Small enhancing lesion in the high right parietal convexity concerning for metastatic disease. Small amount of vasogenic edema. 2. Minimal nonspecific white matter changes. Ben Peterson MD Chest X-Ray 10/11/16 0000 Signed Impressions: Service Date/Time: Tuesday, October 11, 2016 13:34 - CONCLUSION: 1. Almost complete opacification right hemithorax slightly worse. 2. Right sided PICC line in position. Ben Peterson MD Abdomen/Pelvis CT 10/11/16 0000 Signed Impressions: Service Date/Time: Tuesday, October 11, 2016 21:29 - CONCLUSION: 1. 1 cm indeterminate liver lesion within the right lobe. MRI of the abdomen with contrast may be helpful for further characterization of this finding. 2. Left adrenal nodule measuring 2.8 x 2.1 cm which is nonspecific. Differential includes adenoma or possible small metastatic lesion. This also could be assessed by MRI of the abdomen with contrast. 3. 2 cm soft tissue nodule along the right heart border consistent with possible epicardial lymphadenopathy. 4. Moderate sized right pleural effusion with complete collapse and/or consolidation of the visualized portion of the right lower lung. 5. Multiple calcified nonobstructing left renal calculi. 6. Multiple bilateral renal cysts. 7. Uncomplicated colonic diverticulosis. 8. Midline ventral abdominal wall hernia containing only fat. 9. Right posterolateral urinary bladder diverticulum. 10. Degenerative changes throughout the lumbar and lower thoracic spine. Dwight Jewell MD Head CT 10/09/16 0000 Signed Impressions: Service Date/Time: September 20:27 - CONCLUSION: Abnormal focus in the right frontal vertex worrisome for metastatic disease Wei Duggan MD Lymph Node Biopsy CT 10/07/16 1600 Signed Impressions: Service Date/Time: Friday, October 07, 2016 16:10 - CONCLUSION: Uncomplicated CT guided biopsy of right supraclavicular adenopathy. Ben Peterson MD Lower Extremity Ultrasound 10/06/16 0000 Signed Impressions: Service Date/Time: Thursday, October 06, 2016 17:11 - CONCLUSION: No evidence of DVT. Enlarged right groin lymph node. Dennis Peters MD Chest CT 10/06/16 0000 Signed Impressions: Service Date/Time: Thursday, October 06, 2016 12:20 - CONCLUSION: Findings would be consistent with a large hilar mass with extensive mediastinal adenopathy extending into the supraclavicular region with consolidative changes in the right. 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 Only a small amount of the opacity on the chest radiograph is fluid. Majority of the opacity is drowned lung. This would be amenable to percutaneous biopsy. Most likely site of biopsy would be the supraclavicular node on the right. There is impending SVC syndrome. Simone Tracy MD FACR Objective Remarks awake and alert anicteric lungs + few rhonchi regular rhythm abdomen soft, nontender extremities no edema, TEDs A/P Assessment and Plan 66 yo male with h/o SVT was seen by Dr Romano in the past, HTN, noncompliant with meds and follow up says last time has seen a physician was ~10 years ago. Patient came to the ED for evaluation of SOB, LE edema Acute respiratory failure with hypoxia, O2 sat in 80s on admission, requiring O2 Lactic acidosis likely related to hypoxia. 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 Large lung mass with brain - mets. S/P CT guided biopsy of right supraclavicular adenopathy 10/07/16. Pathology shows small cell carcinoma. Oncology following. Radiation Oncology ff Brain MRI with mild vasogenic edema= patient no headaches, nausea or vomiting- patient S/P course of IV Dexamethasone will d/w Oncology- Tobaccoism sinus tachycardia HTN Leukocytosis- secondary to Neupogen- DC Anxiety, acute: ativan prn SVC syndr 2/ 2 mass. Monitor closely. Sputum cx neg, legionella/pneumococcal Ag negative Blood cultures are NTD On po Ceftin- Dr. Bautista ff- DC after today- received 10 days of total antibiotic course Incentive spirometry ABG reviewed. O2 supplement keep O2 sat > 92 %. Duonebs scheduled and as needed BNP is 14, trops are negative , he doesn't have any chest pain. BP 167/77 on admission. Continue on po Cardizem . cardiology feels is all lung related. DVT ppx SCD/TEDS GI ppx PPI CM consult for home 02 arrangements- will do walk test prior to DC patient states up and ambulating to bathroom patient also [facility] Tayler Bello MD October 17, 2016 09:02 Tayler Bello MD October 17, 2016 09:02
[2016-10-17] MEDS ORDERED: NEBULIZER1 MI1 (09:13)
[2016-10-17] MEDS ORDERED: DILT60TA33 PO (09:15)
[2016-10-17] MEDS ORDERED: IPRASOL NEB (09:15)
[2016-10-17] MEDS: RESP: ALBUTEROL 2.5 MG/IPRATROPIUM 0.5 MG NEB (SCH) NEB ×2 (11:35→17:23)
[2016-10-17] MEDS ORDERED: OXYGENTANK NAS.CANULA (12:52)
[2016-10-17] MEDS: DOCUSATE SODIUM 100 MG CAP PO SCH (13:00)
--- NOTE | 2016-10-17 13:18 | PD.ONC.PN ---
Subjective Subjective Remarks Afebrile overnight. Patient resting comfortably. Eager to know if he can go home. He states he is able to ambulate with oxygen. Objective Data Date Time Temp Pulse Resp B/P Pulse Ox O2 Delivery O2 Flow Rate FiO2 10/17/16 11:36 2.00 10/17/16 11:00 96.3 111 16 114/68 93 10/17/16 08:51 95 Nasal Cannula 3.00 10/17/16 07:00 96.7 96 17 109/67 97 10/17/16 04:00 96.5 103 20 111/65 96 10/17/16 00:00 96.9 122 22 118/67 95 10/16/16 20:11 105 10/16/16 20:00 96.3 112 20 115/66 97 10/16/16 17:34 94 Nasal Cannula 3.00 10/16/16 16:00 95.8 101 16 107/69 94 10/17/16 10/17/16 10/17/16 07:00 15:00 23:00 Intake Total 240 ml Output Total 400 ml Balance -160 ml Result Diagram: 10/16/16 0530 10/16/16 0530 Administered Medications Medications (Trade) Dose Ordered Sig/Nicole Route PRN Reason Start Time Stop Time Status Last Admin Dose Admin Sodium Chloride (NS Flush) 2 ml UNSCH PRN IV FLUSH FLUSH AFTER USING IV ACCESS 10/06/16 13:00 10/15/16 04:03 Sodium Chloride (NS Flush) 2 ml BID IV FLUSH 10/06/16 21:00 10/17/16 08:24 Docusate Sodium (Colace) 100 mg Q12H PO 10/06/16 13:00 10/16/16 23:54 Enoxaparin Sodium (Lovenox Inj) 40 mg Q24H SQ 10/06/16 14:00 10/16/16 14:00 Diltiazem HCl (Cardizem) 60 mg Q6HR PO 10/08/16 18:00 10/17/16 12:11 Lorazepam (Ativan) 0.5 mg Q8H PRN PO anxiety 10/09/16 10:00 10/11/16 10:48 Guaifenesin (Mucinex Er) 600 mg BID PO 10/09/16 11:00 10/17/16 08:22 Sodium Chloride (NS Flush) See Protocol DAILY IV FLUSH 10/12/16 09:00 10/16/16 08:25 Sodium Chloride (NS Flush) See Protocol UNSCH PRN IV FLUSH SEE PROTOCOL TABLE 10/11/16 13:45 10/13/16 21:08 Heparin Sodium (Porcine) (Heparin Central Flush) See Protocol DAILY IV FLUSH 10/12/16 09:00 10/17/16 08:22 Heparin Sodium (Porcine) (Heparin Central Flush) See Protocol UNSCH PRN IV FLUSH SEE PROTOCOL TABLE 10/11/16 13:45 10/15/16 03:56 Sodium Chloride (NS Flush) UNSCH PRN IV FLUSH SEE PROTOCOL TABLE 10/11/16 13:45 10/15/16 03:56 Cefuroxime Axetil (Ceftin) 500 mg Q12HR PO 10/12/16 21:00 10/17/16 08:23 Objective Remarks GENERAL: Middle aged male, sitting up in bed in nad. On 2L O2 via NC SKIN: Warm and dry. HEAD: Normocephalic. EYES: No injection or drainage. NECK: Supple, trachea midline. CARDIOVASCULAR: Regular rate and rhythm RESPIRATORY: diminished at bases. scattered rhonchi GASTROINTESTINAL: Abdomen soft, non-tender, nondistended. EXTREMITIES: No cyanosis NEUROLOGICAL: No obvious focal deficit. Awake, alert, and oriented x3. Assessment/Plan Problem List: (1) Lung mass Status: Acute Plan: --s/p right hilar mass associated with extensive mediastinal and supraclavicular adenopathy: --MRI brain concerning for metastatic disease (solitary lesion). -- CT scan of the abdomen and pelvis indicates adrenal enlargement as well as a lesion within the liver which is too small to characterize. Either of these lesions could represent metastatic disease. Assessment 66y/o male with newly diagnosed small cell lung cancer. Plan 1. clear for discharge 2. I called and spoke with new patient referrals and they are working on getting him approval for an appointment in the clinic. 3. case management will speak with patient about [facility] choice program 4. will give next cycle of chemotherapy in clinic. Keesha Rosa October 17, 2016 13:18
--- NOTE | 2016-10-17 15:23 | HHI.FF ---
Face to Face Verification Diagnosis: (1) Lung mass Home Health Nursing Order: Medical education Signs/symptoms of disease process Oxygen administration education Nursing assessment with vital signs Director [employer] Order: To Evaluate: Living conditions/environment I have seen patient Arnav Ruano on 10/17/16. My clinical findings support the need for the requested home health care services because: Patient has SOB Need for psychosocial assistance I certify that my clinical findings support that this patient is homebound because: Hx COPD- exertion dyspnea/weakness Tayler Bello MD October 17, 2016 15:23
--- NOTE | 2016-10-17 15:31 | HHI.DS ---
Discharge Summary Admission Date October 06, 2016 at 13:01 Discharge Date: October 17, 2016 Admitting Diagnosis Pneumonia (1) Acute respiratory failure ICD Code: J96.00 (2) LUNG vcancer Diagnosis: Principal (3) Leukocytosis secondary to Neupogen Diagnosis: Secondary (4) HTN, TAchycardia Diagnosis: Secondary Procedures CT guided biopsy of roght supraclavicular LN Brief History - From Admission 66 yo male with h/o SVT was seen by Dr Romano in the past (~10 years ago), HTN , noncompliant with meds and follow up says last time has seen a physician was ~ 10 years ago. Patient came to the ED for evaluation of SOB, fatigue, LE edema present for the past 1 week and getting worse over the past 3 days. States he has not seen a physician in 11 years and quit cig smoking 3 days ago because he was getting worsening sob. Some productive cough yellow color, no blood in it. No weight loss. Has tactile fever, no chills. Denies any chest pain, n/v, abdominal pain. Pt also noticed that his legs are swollen and this is new. He also says he needs more pillows at home when he is sleeping and he can go only 5 stairs because he feels sob. Says he doesn;t have any chest pain and he doesn't feel his heart raising. [facility] and given 1 treatment and he was sent here. Pt received another treatment by [facility] and is saturating in the mid 80s on room air on arrival to the hospital. No other complaints. No n/v/d/c. No diaphoresis. No urinary symptoms or abdominal pain. CBC/BMP: 10/16/16 0530 10/16/16 0530 Significant Findings Laboratory Tests Test 10/15/16 10/16/16 03:50 05:30 White Blood Count 38.4 TH/MM3 49.9 TH/MM3 (4.0-11.0) (4.0-11.0) Neutrophils % (Manual) 95 % (16-70) 86 % (16-70) Neutrophils # (Manual) 38.0 TH/MM3 48.4 TH/MM3 (1.8-7.7) (1.8-7.7) Sodium Level 135 MEQ/L (136-145) Chloride Level 95 MEQ/L 95 MEQ/L (98-107) (98-107) Carbon Dioxide Level 35.4 MEQ/L 35.1 MEQ/L (21.0-32.0) (21.0-32.0) Blood Urea Nitrogen 21 MG/DL (7-18) 24 MG/DL (7-18) Creatinine 0.47 MG/DL 0.55 MG/DL (0.60-1.30) (0.60-1.30) Random Glucose 108 MG/DL 113 MG/DL (74-106) (74-106) Red Blood Count 4.45 MIL/MM3 (4.50-5.90) Neutrophils (%) (Auto) 97.2 % (16.0-70.0) Lymphocytes (%) (Auto) 1.7 % (9.0-44.0) Neutrophils # (Auto) 48.5 TH/MM3 (1.8-7.7) Lymphocytes # (Auto) 0.9 TH/MM3 (1.0-4.8) Band Neutrophils % 11 % (0-6) Lymphocytes % 3 % (9-44) Imaging Last Impressions Brain MRI 10/12/16 Signed Impressions: Service Date/Time: Wednesday, October 12, 2016 09:42 - CONCLUSION: 1. Small enhancing lesion in the high right parietal convexity concerning for metastatic disease. Small amount of vasogenic edema. 2. Minimal nonspecific white matter changes. Ben Peterson MD Chest X-Ray 10/11/16 Signed Impressions: Service Date/Time: Tuesday, October 11, 2016 13:34 - CONCLUSION: 1. Almost complete opacification right hemithorax slightly worse. 2. Right sided PICC line in position. Ben Peterson MD Abdomen/Pelvis CT 10/11/16 Signed Impressions: Service Date/Time: Tuesday, October 11, 2016 21:29 - CONCLUSION: 1. 1 cm indeterminate liver lesion within the right lobe. MRI of the abdomen with contrast may be helpful for further characterization of this finding. 2. Left adrenal nodule measuring 2.8 x 2.1 cm which is nonspecific. Differential includes adenoma or possible small metastatic lesion. This also could be assessed by MRI of the abdomen with contrast. 3. 2 cm soft tissue nodule along the right heart border consistent with possible epicardial lymphadenopathy. 4. Moderate sized right pleural effusion with complete collapse and/or consolidation of the visualized portion of the right lower lung. 5. Multiple calcified nonobstructing left renal calculi. 6. Multiple bilateral renal cysts. 7. Uncomplicated colonic diverticulosis. 8. Midline ventral abdominal wall hernia containing only fat. 9. Right posterolateral urinary bladder diverticulum. 10. Degenerative changes throughout the lumbar and lower thoracic spine. Dwight Jewell MD Head CT 10/09/16 0000 Signed Impressions: Service Date/Time: September 20:27 - CONCLUSION: Abnormal focus in the right frontal vertex worrisome for metastatic disease Wei Duggan MD Lymph Node Biopsy CT 10/07/16 1600 Signed Impressions: Service Date/Time: Friday, October 07, 2016 16:10 - CONCLUSION: Uncomplicated CT guided biopsy of right supraclavicular adenopathy. Ben Peterson MD Lower Extremity Ultrasound 10/06/16 0000 Signed Impressions: Service Date/Time: Thursday, October 06, 2016 17:11 - CONCLUSION: No evidence of DVT. Enlarged right groin lymph node. Dennis Peters MD Chest CT 10/06/16 0000 Signed Impressions: Service Date/Time: Thursday, October 06, 2016 12:20 - CONCLUSION: Findings would be consistent with a large hilar mass with extensive mediastinal adenopathy extending into the supraclavicular region with consolidative changes in the right. 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 Only a small amount of the opacity on the chest radiograph is fluid. Majority of the opacity is drowned lung. This would be amenable to percutaneous biopsy. Most likely site of biopsy would be the supraclavicular node on the right. There is impending SVC syndrome. Simone Tracy MD FACR PE at Discharge awake and alert anicteric lungs + few rhonchi regular rhythm abdomen soft, nontender extremities no edema, TEDs Pt update on day of discharge awake and alert, afebrile, no acute distress, ambulating around- maintanining sats with NC swallowing well Hospital Course 66 yo male with h/o SVT was seen by Dr Romano in the past, HTN, noncompliant with meds and follow up says last time has seen a physician was ~10 years ago. Patient came to the ED for evaluation of SOB, LE edema Acute respiratory failure with hypoxia, O2 sat in 80s on admission, requiring O2 Lactic acidosis likely related to hypoxia. 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 Large lung mass with brain - mets. S/P CT guided biopsy of right supraclavicular adenopathy 10/07/16. Pathology shows small cell carcinoma. Oncology following. Radiation Oncology ff Brain MRI with mild vasogenic edema= patient no headaches, nausea or vomiting- patient S/P course of IV Dexamethasone will d/w Oncology- Tobaccoism sinus tachycardia HTN Leukocytosis- secondary to Neupogen- DC Anxiety, acute: ativan prn SVC syndr 2/ 2 mass. Monitor closely. Sputum cx neg, legionella/pneumococcal Ag negative Blood cultures are NTD On po Ceftin- Dr. Bautista ff- DC after today- received 10 days of total antibiotic course Incentive spirometry ABG reviewed. O2 supplement keep O2 sat > 92 %. Duonebs scheduled and as needed BNP is 14, trops are negative , he doesn't have any chest pain. BP 167/77 on admission. Continue on po Cardizem . cardiology feels is all lung related. DVT ppx SCD/TEDS GI ppx PPI CM consult for home 02 arrangements- will do walk test prior to DC patient states up and ambulating to bathroom OP ff up with Oncology, Dr. Bautista and PCP- [facility] Pt Condition on Discharge: Stable Discharge Disposition: Disch w/ Home Health Serv Discharge Time: <= 30 minutes Discharge Instructions DIET: Follow Instructions for: As Tolerated, No Restrictions Speech Therapy-Diet Recommends: Regular Activities you can perform: Weight Bearing as Arash Activities to Avoid: Prolonged Standing, Strenuous Activity Follow up Referrals: Oncology - 3-5 Days with Destin Benitez MD PCP Follow-up - 10/21/16 with [facility] Pulmonology - 3-5 Days with Yassine Osei MD New Medications: Nebulizer (Nebulizer) 1 Mis Mis 1 EA .ROUTE DIRECTED Breathing Treatment #1 Ref 0 EA Oxygen tank (Oxygen tank) 1 Ea Tank 2 LITER GEMMA.CANULA CONTINUOUS Oxygen Concentrator Portable Gaseous 2 L/min via Nasal Cannula Continuous For 99 months HYPOXEMIA PREVENTION #2 Ref 1 CYLINDER Diltiazem (Cardizem) 60 Mg Tab 60 MG PO Q6HR HTN/TAC Days 30 TAB Ipratropium-Albuterol Neb (Duoneb) 0.5-2.5 Mg/3 Ml Neb 1 AMPULE NEB QID NEB LUNGCA Days 30 ML Tayler Bello MD October 17, 2016 15:31
--- NOTE | 2016-10-21 09:17 | RSPPFT ---
DATE OF PROCEDURE: 10/08/16 COMMENTS: Spirometry demonstrates an FEV1 of 1.1 at 31% of predicted, FVC of 1.4 at 31%, FEF 25-75 is 31%. Post-bronchodilator study demonstrated no significant change. Lung volumes were not completed. Flow volume loop suggests a restrictive pattern. IMPRESSION: 1. Severe restrictive disease. 2. No significant change following use of bronchodilator.
== END 2016-10-17 18:35 | disposition home health service (06) | DRG 987 ==
LOC: NEPC 09:58 → NEDA 13:01 → HOCA 15:30
PROVIDERS: ADMIT Internal Medicine; ATTEND Internal Medicine
PROC: 07B13ZX Excision of Right Neck Lymphatic, Percutaneous Approach, Diagnostic (ICD-10-PCS; principal; 2016-10-07)
DX: C34.01 Malignant neoplasm of right main bronchus (principal); J96.01 Acute respiratory failure with hypoxia; G93.6 Cerebral edema; J18.9 Pneumonia, unspecified organism; J90 Pleural effusion, not elsewhere classified; C77.1 Secondary and unspecified malignant neoplasm of intrathoracic lymph nodes; C78.7 Secondary malignant neoplasm of liver and intrahepatic bile duct; C77.0 Secondary and unspecified malignant neoplasm of lymph nodes of head, face and neck; J44.0 Chronic obstructive pulmonary disease with (acute) lower respiratory infection; I47.1 Supraventricular tachycardia; C79.31 Secondary malignant neoplasm of brain; E87.2 Acidosis; C79.71 Secondary malignant neoplasm of right adrenal gland; I10 Essential (primary) hypertension; R49.0 Dysphonia; T45.8X5A Adverse effect of other primarily systemic and hematological agents, initial encounter; D72.828 Other elevated white blood cell count; F17.210 Nicotine dependence, cigarettes, uncomplicated; F41.9 Anxiety disorder, unspecified; Z80.0 Family history of malignant neoplasm of digestive organs; Z80.1 Family history of malignant neoplasm of trachea, bronchus and lung; Z91.14 Patient's other noncompliance with medication regimen; Z91.19 Patient's noncompliance with other medical treatment and regimen
CPT/HCPCS: 36569; 36600; 38505; 70470; 70553; 71010; 71260; 74177; 76937; 77012; 80048; 80053; 82550; 82552; 82805; 83605; 83735; 83880; 84484; 85007; 85025; 85027; 85610; 85730; 87040; 87070; 87205; 87449; 88305; 88341; 88342; 93005; 93970; 94060; 94150; 94620; 94640; 94664; 96361; 96365; 96374; 96375; 99223; A9579; J0456; J0696; J1100; J1442; J1626; J1642; J1650; J2250; J2920; J2930; J3010; J7030; J7040; J7050; J7613; J7644; J9045; J9181; Q9963; Q9967

== ENCOUNTER 2016-11-21 13:27 | Inpatient (IN) | payer OTHER ==
[2016-11-21] VITALS (19 sets, daily range): BP systolic 52–140; BP diastolic 35–86; PULSE 100–187; RESP 14–32; TEMP 98.5–101.4; O2SAT 86–100
[~2016-11-21] VITALS: Ht 177.8 cm; Wt 82.1 kg
[~2016-11-21 13:27] MED LIST: DILT60TA33 PO; IPRASOL NEB; NEBULIZER1 MI1; OXYGENTANK NAS.CANULA
[2016-11-21] MEDS ORDERED: ETOMIDATE 20 MG/10 ML VIAL ONE (13:37)
[2016-11-21] MEDS ORDERED: SUCCINYLCHOLINE CHLORIDE 200 MG/10 ML VIAL ONE (13:37)
[2016-11-21] MEDS ORDERED: SUCCINYLCHOLINE CHLORIDE 200 MG/10 ML VIAL IVP ONE (13:45)
[2016-11-21] MEDS ORDERED: ETOMIDATE 20 MG/10 ML VIAL IVP ONE (13:45)
[2016-11-21] MEDS ORDERED: PROPOFOL 1000 MG/100 ML INJ 100 ML IV SCH (13:45)
[2016-11-21] MEDS ORDERED: SODIUM CHLORIDE 0.9% FLUSH 10 ML FLUSH IVF PRN ×3 (13:45→16:45)
[2016-11-21 14:02] LABS: AUTOMATED NEUTROPHIL # 22.1 TH/MM3 (1.8-7.7); BASOPHIL % 0.1 % (0.0-2.0); HEMATOCRIT 34.3 % (39.0-51.0); LYMPH % 3.8 % (9.0-44.0); LYMPHOCYTE # 0.9 TH/MM3 (1.0-4.8); MEAN CELL VOLUME 95.4 FL (80.0-100.0); MEAN CORPUSCULAR HEMOGLOBIN 31.3 PG (27.0-34.0); MEAN CORPUSCULAR HGB CONC 32.8 % (32.0-36.0); MONO % 2.7 % (0.0-8.0); NEUT % 93.4 % (16.0-70.0); PLATELET COUNT 320 TH/MM3 (150-450); RED BLOOD COUNT 3.59 MIL/MM3 (4.50-5.90); RED CELL DISTRIBUTION WIDTH 13.3 % (11.6-17.2); WHITE BLOOD COUNT 23.6 TH/MM3 (4.0-11.0)
[2016-11-21 14:03] LABS: HEMO FLAGS AUTO DIFF
[2016-11-21] MEDS ORDERED: ADENOSINE IV SOLN 3 MG/ML 2 ML VIAL ONE (14:03)
[2016-11-21] MEDS ORDERED: DILTIAZEM DRIP INJ PREMIX 125 ML IV SCH (14:15)
[2016-11-21] MEDS: DILTIAZEM HCL 25 MG/5 ML VIAL IV PUSH ONE ×2 (14:15→14:16)
[2016-11-21] MEDS ORDERED: ADENOSINE IV SOLN 3 MG/ML 2 ML VIAL IV PUSH ONE (14:15)
[2016-11-21 14:24] LABS: ALT (GPT) 70 U/L (12-78); ANION GAP 6 MEQ/L (5-15); APTT (PATIENT) 33.2 SEC (24.3-30.1); AST (GOT) 80 U/L (15-37); BICARBONATE 34.1 MEQ/L (21.0-32.0); BLOOD UREA NITROGEN 40 MG/DL (7-18); CHLORIDE 98 MEQ/L (98-107); GLOMERULAR FILTRATION RATE 90 ML/MIN (>89); INTERNATIONAL NORMALIZED RATIO 1.3 RATIO; POTASSIUM 3.9 MEQ/L (3.5-5.1); PROTHROMBIN TIME - PATIENT 14.1 SEC (9.8-11.6); SODIUM (NA) 138 MEQ/L (136-145)
[2016-11-21 14:26] LABS: BANDS 15 % (0-6); NEUTROPHIL # MANUAL DIFF 21.5 TH/MM3 (1.8-7.7); PLATELET ESTIMATE SMEAR NORMAL (NORMAL); PLATELET MORPHOLOGY NORMAL (NORMAL); POLYS (SEG NEUTROPHILS) 76 % (16-70); SCAN/DIFF FINAL DIFF MANUAL; WBC DIFF SAMPLE 100
[2016-11-21 14:27] LABS: ALKALINE PHOSPHATASE 131 U/L (45-117); CREATINE KINASE 110 U/L (39-308); TOTAL BILIRUBIN ADULT 0.5 MG/DL (0.2-1.0)
[2016-11-21 14:28] LABS: BACTERIA, URINE FEW /hpf; BLOOD, URINE LARGE (NEG); GLUCOSE,URINE NEG (NEG); HYALINE CAST, URINE 24 /lpf (RARE); KETONE, URINE NEG (NEG); MUCUS URINE FEW /lpf (OCC); NITRITE,URINE NEG (NEG); PH, URINE 5.5 (5.0-8.5); SQUAMOUS EPITHELIAL CELL URINE 2 /hpf (0-5)
[2016-11-21 14:29] LABS: COMMENT (UR) CULTURE INDICATED; CULTURE IF INDICATED CULTURE INDICATED; URINE COLOR LIGHT-BROWN (YELLW/STRAW)
[2016-11-21] MEDS ORDERED: DILTIAZEM 125 MG/NS 100 ML IV SCH ×2 (14:30)
[2016-11-21] MEDS ORDERED: MIDAZOLAM 100 MG/ML INJ 100 ML IV SCH (14:30)
[2016-11-21 14:33] LABS: BLOOD GAS BASE EXCESS 3.5 mmol/L (-2-2); BLOOD GAS HCO3 29 mmol/L (22-26); BLOOD GAS METHEMOGLOBIN 0.6 % (0-2); BLOOD GAS O2 HGB SATURATION 97 % (90-100); BLOOD GAS OXYGEN CONTENT 13.8 Vol % (12.0-20.0); BLOOD GAS PCO2 60 mmHg (38-42); BLOOD GAS PO2 144 mmHG (61-120); CRITICAL VALUE YES; DRAW SITE LT FEMORAL; FIO2 100 %; NUMBER OF ARTERIAL PUNCTURES 1; OXYGEN DEVICE AC14/550/5PEEP; STAT YES
[2016-11-21] MEDS ORDERED: fentaNYL DRIP 250 ML ONE (14:35)
[2016-11-21] MEDS ORDERED: MIDAZOLAM 100 MG/ML INJ 100 ML ONE (14:35)
[2016-11-21 14:40] LABS: CKMB 3.5 NG/ML (0.5-3.6)
[2016-11-21] MEDS ORDERED: GLUCAGON 1 MG/ML VIAL OTHER PRN (14:45)
[2016-11-21] MEDS: INSULIN NovoLIN REGULAR SUPPLEMENTAL SCALE SQ SCH ×3 (14:45→22:37)
[2016-11-21] MEDS ORDERED: BISACODYL 10 MG SUPP RECTAL PRN (14:45)
[2016-11-21] MEDS ORDERED: MAGNESIUM HYDROXIDE SUSP 30 ML CUP PO PRN (14:45)
[2016-11-21] MEDS ORDERED: SENNOSIDES 8.6 MG TAB PO PRN (14:45)
[2016-11-21] MEDS ORDERED: CHLORHEXIDINE GLUCONATE 2 % 1 PACK (2 CLOTHS) TOP PRN (14:45)
[2016-11-21] MEDS ORDERED: LACTULOSE SYRUP 20 GM/30 ML CUP PO PRN (14:45)
[2016-11-21] MEDS ORDERED: MISCELLANEOUS NURSING INFORMATION XX SCH (14:45)
[2016-11-21] MEDS ORDERED: DEXTROSE 50% IN WATER 50 ML VIAL(D50) IV PRN (14:45)
[2016-11-21] MEDS: DOCUSATE SODIUM 50 MG/SENNA 8.6 MG TAB PO SCH ×2 (14:45→21:00)
[2016-11-21] MEDS ORDERED: TERBUTALINE INJ 1 MG/ML AMP SQ PRN (14:45)
[2016-11-21] MEDS ORDERED: RESP: ALBUTEROL 2.5 MG/IPRATROPIUM 0.5 MG NEB (PRN) INH (14:45)
[2016-11-21] MEDS: PIPERACIL-TAZO 4.5 GM PREMIX 100 ML IV SCH ×2 (15:00→21:01)
--- NOTE | 2016-11-21 15:19 | RADRPT ---
EXAM DATE/TIME: 11/21/2016 14:24 [facility] COMPARISON: No previous studies available for comparison. INDICATIONS : Short of breath and endo tracheal tube placement. MEDICAL HISTORY : Carcinoma, lung. Hypertension SURGICAL HISTORY : None. ENCOUNTER: Initial ACUITY: 1 day PAIN SCORE: Non-responsive. LOCATION: Bilateral upper chest FINDINGS: Endotracheal tube in good position. There is a looped tube in the pharynx, possibly a nasogastric tub e. If present this should be repositioned. There is a large right effusion a smaller left effusion. Bilateral mostly basilar airspace disease pr esent. Left-sided airspace disease has worsened since October 11. CONCLUSION: 1. Endotracheal tube in satisfactory position. An additional looped tube present in the pharynx incom pletely visualized. 2. Worsening left-sided airspace disease since October 11 comparison. Persistent large right effusion. Jonel Elias MD on November 21, 2016 at 15:15 Board Certified Radiologist. This report was verified electronically.
[2016-11-21] MEDS: VANCOMYCIN INJ 1,000 MG in SODIUM CHLOR 0.9% 250 ML INJ 250 ML IV SCH (15:20)
--- NOTE | 2016-11-21 15:38 | MH ---
cc: GLENN ESCOBAR M.D. DATE OF ADMISSION: 11/21/2016 ADMITTING DIAGNOSIS: Critical care admission. DATE OF : 1950. HISTORY OF PRESENT ILLNESS: The patient is a 66-year-old male with past medical history of lung cancer on chemotherapy, being followed at the [facility] who presented to [facility] emergency department with progressive shortness of breath. On arrival the patient was tachycardiac with heart rate 170s to 180s and his initial blood pressure of 140/86. He became hypotensive in the emergency room and he was subsequently given adenosine at 12 mg IV push x1. His EKG showed SVT with a rate of 187 beats per minute. Due to hemodynamic instability the patient had cardioversion with 70 joules and a repeat ABG showed sinus tachycardia with a rate of 111 beats per minute and nonspecific ST-T wave abnormalities. Due to his respiratory distress he was intubated with etomidate, succinylcholine and placed on full mechanical ventilation. ABG post intubation showed acute hypercapnic and hypoxemic respiratory failure with a pH of 7.31, CO2 60, pAO2 144, bicarb 29, sats 97% on assist control ventilation rate of 14, tidal volume 550, PEEP of five and FIO2 100%. The patient had a fever with temperature of 101.4 and his laboratory data showed leukocytosis with a WBC of 23.6 associated with bandemia. His CMP showed a BUN of 40, creatinine 0.86, AST of 80 and troponin of 0.02. The patient was found to have a UTI as his urinalysis showed leukocyte esterase 49 WBC, few bacteria. A chest x-ray post-intubation showed bilateral pleural effusion, right greater than left. According to patients son his last chemotherapy was approximately one month ago and he remains an active smoker. The patient is scheduled to undergo a CT-guided paracentesis and chest tube placement by IR. When seen in the emergency room, the patient remained tachycardic with heart rate of 111, blood pressure 91/61. He is sedated with versed and on assist control ventilation. PAST MEDICAL HISTORY: Past medical history significant for lung cancer. No history of diabetes, hyperlipidemia or coronary artery disease per son. PAST SURGICAL HISTORY Reviewed and noncontributory. ALLERGIES NO KNOWN DRUG ALLERGIES reported. MEDICATIONS: Diltiazem SOCIAL HISTORY: Active smoker, nondrinker. REVIEW OF SYSTEMS As per HPI. Rest of the review of systems limited as the patient is intubated. PHYSICAL EXAMINATION: IN GENERAL: This is a 66-year-old male intubated for respiratory failure. VITAL SIGNS: Temperature 101.4, pulse of 111 and blood pressure 91/56, saturation 100%. Vent setting assist control rate of 14, tidal volume 550, PEEP of 5, FIO2 100%. HEAD, EARS, EYES, NOSE, AND THROAT: Atraumatic, normocephalic pupil equal and reactive to accommodation. Extraocular muscles intact conjunctiva pink. Nonicteric sclerae. Oral mucosa within normal. NECK: Supple. No JVD, adenopathy or thyromegaly. Trachea midline. Orally intubated. CARDIOVASCULAR SYSTEM: Tachycardiac normal S1-S2. No murmurs, rubs, gallops noted. LUNGS: Pulmonary exam bilateral equal entry with coarse breath sounds. ABDOMEN: Soft, nontender, no distension. Positive bowel sounds, umbilical hernia noted. EXTREMITIES: No cyanosis, clubbing or edema. NEUROLOGIC: Intubated and sedated with Versed LABORATORY DATA Sodium 138, potassium 3.9 chloride 198, CO2 34, BUN 40, creatinine 0.86, glucose 116, calcium 8.8, AST 80, ALT 40, alk phos of 131, troponin 0.02 albumin 2.2, WBC 23.6, hemoglobin 11.2, hematocrit 34, platelet count of 320, INR 1.3, PT 14.1, PTT 33, D-dimer 20.1. Urinalysis positive for WBC, leukocyte esterase and few bacteria. RADIOGRAPHY A chest x-ray post intubation showed ET tube above the ruma bilateral pleural effusions right greater than left and airspace disease noted. EKG initial EKG showed SVT with a rate of 187 beats per minute. Repeat EKG post cardioversion showed sinus tachycardia with rate of 111 beats per minute and nonspecific ST wave abnormalities. IMPRESSION 1. Acute hypoxemic and hypercapnic respiratory failure. 2. Supraventricular tachycardia status post cardioversion. 3. Large right-sided pleural effusion. 4. Lung cancer on chemotherapy. 5. Leukocytosis with bandemia. 6. Urinary tract infection. 7. Anemia 8. Elevated AST. RECOMMENDATIONS 1. Continue with Versed infusion for sedation and we will add fentanyl drip if needed for as vent synchrony. 2. Continue with vent support and maintain sats above 92%. 3. Increase respiratory rate to 16. 4. Bronchodilators in the form of DuoNeb q. six and will initiate ICU vent bundle. 5. Place on stress dose steroids hydrocortisone 50 mg IV q. six. Pressors if needed. Monitor heart rate and blood pressure closely and maintain MAP greater 65 mmHg. We will obtain cardiac enzymes, we will monitor troponins and will obtain 2-D echo to evaluate LV function and to rule out regional wall motion abnormalities. 6. Check lactic acid. The patient status post adenosine 12 mg IV push in the ER and cardioversion for SVT now in sinus tachycardia. 7. Monitor renal function, intake and output and electrolyte replacement per protocol. 8. Keep N.p.o. and place on Protonix 40 mg IV daily for GI prophylaxis. 9. Will place on broad-spectrum antibiotics in the form of vancomycin, Zosyn and azithromycin. 10. Monitor for signs of infections which include fever, WBC. 11. Will check blood cultures x2 sets and sputum culture with gram stain in addition we will follow up on urine culture. 12. Check strep pneumoniae Legionella urinary antigen. 13. We will proceed with CT-guided thoracentesis and will send the pleural fluid for analysis and culture. 14. Place on sliding scale insulin with Accu-Chek q. 4-hour for glycemic control as the patient will be on IV steroids. 15. Monitor CBC and Coags. 16. We will obtain CTA of the chest to rule out PE post thoracentesis given elevation in D-dimer. 17. Will obtain a Doppler ultrasound bilateral lower extremity to rule out DVT. 18. GI prophylaxis with Protonix 40 mg IV daily and DVT prophylaxis with SCDs for now. Will hold off on chemical anticoagulation prophylaxis as the patient will undergo CT-guided thoracentesis and chest tube placement. 19. Case discussed with the patient's son was present at the bedside along with Dr. Bernstein from the emergency department. 20. Further recommendations will be based on hospital course. 21. Critical care time 40 minutes excluding procedures. MD CASI Dorado/eleazar /3:03 PM /3:19 PM JAYANT
[2016-11-21] MEDS ORDERED: IOHEXOL 350 MG/ML 10 ML VIAL (for RAD DIAG) IV ONE (15:43)
--- NOTE | 2016-11-21 15:57 | RADRPT ---
EXAM DATE/TIME: 11/21/2016 15:39 [facility] COMPARISON: CT ABDOMEN & PELVIS W CONTRAST, October 11, 2016, 21:29. INDICATIONS : Rule out pulmonary embolism. Shortness of breath X 1 month. IV CONTRAST: 74 cc Omnipaque 350 (iohexol) IV RADIATION DOSE: 23.21 CTDIvol (mGy) MEDICAL HISTORY : Cardiovascular disease. Chronic obstructive pulmonary disease. Carcinoma, lung. SURGICAL HISTORY : Non-responsive. ENCOUNTER: Initial ACUITY: 1 month PAIN SCALE: Non-responsive LOCATION: chest TECHNIQUE: Volumetric scanning of the chest was performed using a pulmonary embolism protocol MIP images were re constructed. Using automated exposure control and adjustment of the mA and/or kV according to patien t size, radiation dose was kept as low as reasonably achievable to obtain optimal diagnostic quality images. DICOM format image data is available electronically for review and comparison. FINDINGS: The examination is of excellent diagnostic quality. No pulmonary embolus is identified. The soft tissue windowed images demonstrate extensive adenopathy in the thoracic inlet bilaterally. T here is diffuse, bulky adenopathy involving the paratracheal region bilaterally, the mediastinum, the prevascular shakeel chain and the AP window. There is bilateral hilar adenopathy as well. The examination demonstrates a large right pleural effusion. There is diffuse, consolidated infiltrat e throughout the left lung concerning for diffuse pneumonia. The visualized bony structures are grossly intact. CONCLUSION: 1. There is diffuse adenopathy involving the thoracic inlet, the paratracheal shakeel chains, diffusely throughout the mediastinum and prevascular shakeel chain consistent with malignancy. There is extensiv e consolidation of the right lung with a large pleural effusion and probable right hilar mass. 2. There is diffuse edema throughout the left lung. 3. No pulmonary embolus is identified. Karl Tracy MD on November 21, 2016 at 15:51 Board Certified Radiologist. This report was verified electronically.
--- NOTE | 2016-11-21 16:38 | PD.RAD ---
Post Procedure Progress Note Pre Procedure Diagnosis: (1) Lung cancer (2) Acute respiratory failure Post Procedure Diagnosis: (1) Acute respiratory failure (2) Lung cancer Procedure Date: Nov 21, 2016 Supervising Radiologist: Karl Tracy Anesthesia: Local Plan of Activity Patient to Unit: Critical Care Patient Condition: Critical Additional Comments: Right IJ central line placed. Catheter in good position OK for use. 10 mongolian chest tube placed on the right side 2 liters of fluid removed andf sent to pathology Tube place to pleurivac drainage. See PACS Report for procedural detail/treatment Karl Tracy MD Nov 21, 2016 16:38
--- NOTE | 2016-11-21 17:39 | RADRPT ---
EXAM DATE/TIME: 11/21/2016 15:42 [facility] COMPARISON: No previous studies available for comparison. INDICATIONS : Patient is in need of a right thoracentesis due to pleural effusion. MEDICAL HISTORY : History of SVT, lung cancer with brain metastases, right hilar mass, bilateral pleural effusion, anem ia, pneumonia, HTN, COPD. SURGICAL HISTORY : History of right clavicular biopsy, left ankle ORIF. ENCOUNTER: Initial ACUITY: 1 day PAIN SCORE: 0/10 LOCATION: Patient is vented. FLUORO TIME: 2.1 minutes IMAGE SERIES: 1 DEVICE(S): 1.) 20 gauge Pogb-i-xmamxkde catheter FLUID: Total volume of 2000 cc of clear, red fluid was removed. Fluid was sent to the laboratory for evaluation. PROCEDURE : 1. Fluoroscopically guided thoracentesis. The risks, benefits and alternatives to the procedure were explained and verbal and written consent w as obtained. The site was prepped in sterile fashion. Full sterile technique was used, including ca p, mask, sterile gloves and gown and a large sterile sheet. Hand hygiene and 2% chlorhexidine and/or betadine/alcohol prep was utilized per protocol for cutaneous antisepsis. The skin and subcutaneous tissues were infiltrated with local anesthetic solution. With fluoroscopic guidance the thorax was entered between the ninth and 10th interspace. There was im mediate return of pleural fluid. A total of 2 L of fluid was removed and sent to the laboratory for c ytology. A Pleur-evac was hooked to the catheter. An additional large volume of fluid was removed via Pleur-ev ac as well. The patient tolerated the procedure well and there were no complications. A chest radiograph is to b e obtained. CONCLUSION: Uncomplicated fluoroscopically guided thoracentesis. A 10 Malay chest tube was placed. Karl Tracy MD on November 21, 2016 at 17:35 Board Certified Radiologist. This report was verified electronically.
--- NOTE | 2016-11-21 17:44 | RADRPT ---
EXAM DATE/TIME: 11/21/2016 15:42 [facility] COMPARISON: No previous studies available for comparison. INDICATIONS : Patient is in need of placement of a right chest tube due to pleural effusion. MEDICAL HISTORY : History of SVT, lung cancer with brain metastases, right hilar mass, bilateral pleural effusion, anem ia, pneumonia, HTN, COPD. SURGICAL HISTORY : History of right clavicular biopsy, left ankle ORIF. ENCOUNTER: Initial ACUITY: 1 day PAIN SCORE: 0/10 LOCATION: Patient is vented. FLUORO TIME: 2.1 minutes IMAGE SERIES: 1 DEVICE(S): 1.) 10 Luxembourgish non-locking catheter Yan PROCEDURE : 1. Fluoroscopically guided chest tube placement. 2. Conscious sedation with continuous EKG and oximetry monitoring. The risks, benefits and alternatives to the procedure were explained and verbal and written consent w as obtained. The site was prepped in sterile fashion. Full sterile technique was used, including ca p, mask, sterile gloves and gown and a large sterile sheet. Hand hygiene and 2% chlorhexidine and/or betadine/alcohol prep was utilized per protocol for cutaneous antisepsis. The skin and subcutaneous tissues were infiltrated with local anesthetic solution. With fluoroscopic guidance the chest was punctured in the mid axillary line between the ninth and 10t h interspace. There was immediate return of pleural fluid. A 0.035 wire was advanced into the chest. A 10 Luxembourgish nonlocking chest tube was advanced over the wire. There was immediate return of 2 L of fl uid this was collected and sent to pathology for cytology. The chest tube was hooked to a Pleur-evac. There was return of a large volume of fluid into the Pleur -evac as well. Conscious sedation was performed with the prescribed dosages and duration as above in the presence of an independent trained radiology nurse to assist in the monitoring of the patient. EKG and oximetry remained stable throughout the procedure. The patient tolerated the procedure well and there were n o complications. The patient was sent to post anesthesia recovery in stable condition. CONCLUSION: Uncomplicated chest tube placement as above. Karl Tracy MD on November 21, 2016 at 17:41 Board Certified Radiologist. This report was verified electronically.
--- NOTE | 2016-11-21 17:45 | RADRPT ---
EXAM DATE/TIME: 11/21/2016 15:42 [facility] COMPARISON: No previous studies available for comparison. INDICATIONS : Patient is in need of a right central line placement for medication administration. MEDICAL HISTORY : History of SVT, lung cancer with brain metastases, right hilar mass, bilateral pleural effusion, anem ia, pneumonia, HTN, COPD. SURGICAL HISTORY : History of right clavicular biopsy, left ankle ORIF. ENCOUNTER: Initial ACUITY: 1 day PAIN SCORE: 0/10 LOCATION: Patient is vented. FLUORO TIME: 2.1 IMAGE SERIES: 1 ACCESS: Right internal jugular vein DEVICE(S): 1.) 7 Dutch triple lumen 16 cm Arrow central line PROCEDURE : 1. Ultrasound guided venipuncture. 2. Fluoroscopic guidance. 3. Central line placement. The risks, benefits and alternatives to the procedure were explained and verbal and written consent w as obtained. The site was prepped in sterile fashion. Full sterile technique was used, including ca p, mask, sterile gloves and gown and a large sterile sheet. Hand hygiene and 2% chlorhexidine prep w as utilized per protocol for cutaneous antisepsis with appropriate dry time for site. The skin and subcutaneous tissues were infiltrated with local anesthetic solution. A suitable site a bryon the right internal jugular vein was selected with ultrasound and fluoroscopic guidance. A small incision was made. The vein was accessed under direct ultrasound visualization using the micropunct ure technique. The micropuncture set was exchanged for a 0.035 wire. The tract was dilated. The ca theter was advanced into position under direct fluoroscopic visualization. The catheter was fixed in place with suture and a sterile dressing was applied. The patient tolerated the procedure well and there were no complications. CONCLUSION: Uncomplicated line placement as above. Karl Tracy MD on November 21, 2016 at 17:42 Board Certified Radiologist. This report was verified electronically.
[2016-11-21 17:49] LABS: BLOOD GAS BASE EXCESS 2.4 mmol/L (-2-2); BLOOD GAS CARBOXYHEMOGLOBIN 1.1 % (0-4); BLOOD GAS HCO3 28 mmol/L (22-26); BLOOD GAS METHEMOGLOBIN 1.2 % (0-2); BLOOD GAS O2 HGB SATURATION 97 % (90-100); BLOOD GAS OXYGEN CONTENT 13.9 Vol % (12.0-20.0); BLOOD GAS PCO2 57 mmHg (38-42); BLOOD GAS PO2 246 mmHg (61-120); BLOOD GAS TOTAL HGB 9.7 G/DL (12.0-16.0); TEMP CORR TO 98.6
[2016-11-21 17:50] LABS: CRITICAL VALUE YES; DRAW SITE RT RADIAL; FIO2 100 %; NUMBER OF ARTERIAL PUNCTURES 1; OXYGEN DEVICE VENTILATOR; STAT NO; ULNAR PULSE PRESENT; VENT SETTINGS 500/16/PEEP5
--- NOTE | 2016-11-21 18:16 | RADRPT ---
EXAM DATE/TIME: 11/21/2016 17:45 [facility] COMPARISON: CHEST SINGLE AP, November 21, 2016, 14:24. INDICATIONS : Post right chest tube placement MEDICAL HISTORY : History of SVT, lung cancer with brain metastases, right hilar mass, bilateral pleural effusion, anem ia, pneumonia, HTN, COPD. SURGICAL HISTORY : None. ENCOUNTER: Initial ACUITY: 1 day PAIN SCORE: Non-responsive. LOCATION: Right chest FINDINGS: A single portable frontal view the chest shows interval placement of a small caliber right thoracosto my tube. The tube is coiled within the mid hemithorax. A subpulmonic pneumothorax is noted. The previ ously seen large effusion is no longer present. Patchy consolidation is seen involving the lingula an d left lower lobe. This is slightly improved from the prior study. No effusion on the left. Cardiomeg shayne remains. Right-sided central line has been placed with the tip at the cavoatrial junction. Endotr acheal tube tip is 4 cm from the ruma. CONCLUSION: 1. Right thoracostomy tube placement with subpulmonic pneumothorax remaining. 2. Right-sided central line. 3. Left lung infiltrate with some improvement. Sunil Stephen Jr., MD on November 21, 2016 at 17:58 Board Certified Radiologist. This report was verified electronically.
[2016-11-21] MEDS: AZITHROMYCIN INJ 500 MG in SODIUM CHLOR 0.9% 250 ML INJ 250 ML IV SCH (18:25)
[2016-11-21] MEDS ORDERED: FUROSEMIDE 40 MG/4 ML VIAL ONE (18:30)
[2016-11-21] MEDS ORDERED: PHENYLEPHRINE HCL 10 MG/ML VIAL ONE (18:40)
[2016-11-21] MEDS: PHENYLEPHRINE INJ 40 MG in DEXTROSE 5% IN WATE 500 ML INJ 496 ML IV SCH ×4 (19:00→22:35)
--- NOTE | 2016-11-21 19:32 | MB ---
cc: ASHLEE BENITEZ MD, ALAA M.D. DEVERAS, RUBY ANNE E. M.D. DATE OF CONSULTATION: 11/21/2016. REASON FOR CONSULTATION / CHIEF COMPLAINT: Dr. Loza requests consultation for Mr. Ruano regarding small cell lung cancer. DATE OF : 1950. REFERRING PHYSICIAN: Dr. Loza. HISTORY OF PRESENT ILLNESS Mr. Ruaon is a 66-year-old man well-known patient to Dr. Ashlee Benitez. 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 He has long history of tobacco use. He presented with difficulty breathing, a large mediastinal mass and a solitary brain mets. He was initiated on palliative therapy during his hospitalization. He was able to be discharged. He had cycle #2 of palliative chemotherapy with carboplatin and etoposide on November 04, 2016. He seemed to have tolerated the first treatment well. He was able to come in outpatient to receive his treatment. He is pending to undergo SRS to the solitary brain mets between cycle number two and number three. Unclear if he has had this at the time of his decompensation. He presented to the emergency department with progressive shortness of breath. He was tachycardiac in the 170s and 180s. He had an EKG that showed SVT and was hemodynamically unstable. He had nonspecific S-T-T wave abnormality. He was cardioverted. Due to his respiratory distress, he was intubated and was on full mechanical ventilatory support. During the workup, he had evidence of a urinary tract infection. He had bilateral effusions, right greater than the left. He had a CT-guided paracentesis and a chest tube placement by interventional radiology. He was seen in the ICU. There was no appreciable history obtained from the patient. His chest tube is in place draining clear fluid. Hassan is in place. He is still tachycardiac in the 105 range. He is hypotensive with systolic in the 80s. He is about start Abel-Synephrine. PAST MEDICAL HISTORY: 1. Chronic tobacco use. 2. COPD. 3. Hypertension. 4. Metastatic small cell lung cancer. 5. 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 6. History of supraventricular tachycardia. 7. Pneumonia. PAST SURGICAL HISTORY: 1. CT-guided biopsy of right clavicular lymph node. 2. Open reduction internal fixation of left ankle. 3. Chest tube placement. 4. Ultrasound-guided paracentesis. ALLERGIES: NO KNOWN DRUG ALLERGIES. CURRENT MEDICATIONS: 1. Chlorhexidine. 2. Vancomycin. 3. Piperacillin / tazobactam. 4. Diltiazem. 5. Propofol. FAMILY HISTORY: Sister has pancreas cancer. Mother of lung cancer. SOCIAL HISTORY: He is . He has a 31-year-old son. 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 . PHYSICAL EXAMINATION: VITAL SIGNS: Temperature 101.4, heart rate was 111, systolic 85, saturation 99%. GENERAL: Mr. Taveras is a well-developed, pale-appearing man, intubated, sedated. HEAD, EYES, EARS, NOSE, THROAT: His pupils are round and reactive. NECK: The neck is supple. LUNGS: With bilateral air entry. CARDIOVASCULAR: Exam reveals a tachycardiac rhythm. ABDOMEN: Abdomen is soft. Umbilical hernia. EXTREMITIES: Lower extremities with chronic venous changes of both lower extremity and trace edema. LABORATORY DATA: Leukocytosis, white blood cell count 23,000, hemoglobin of 11.2, platelet count 320,000. Chemistry with BUN of 40, creatinine 0.86, alkaline phosphatase 131. ASSESSMENT AND PLAN: Mr. Ruano is a 66-year-old man with multiple medical problems described above. He is a well-known patient to Dr. 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 He is receiving palliative chemotherapy with carboplatin and etoposide. His last cycle was over two weeks ago. He received G-CSF support. I suspect some of the elevation of white count may be related to that. I am unable to exclude the possibility of infection. He was febrile on admission. He has various potential sources such as a urinary tract infection, spontaneous bacterial peritonitis or other infection. He acutely decompensated. He has been covered for potential causes of the decompensation. He is receiving support. We will continue to follow with the ICU team. Supportive treatment over the next 24 to 48 hours. He seems to have benefited from his first cycle of chemotherapy with a response. It is unclear if this pleural effusion was a precipitating event and if it is due to progression of his disease despite the etoposide and carboplatin, I would suspect that he is actually responded. Infectious etiology is suspected. He may have been neutropenic at periods of time to make him susceptible. No specific therapy is required from an oncology standpoint. Supportive therapy. MD FAWAD Hayes/MAMTA /6:45 PM /7:21 PM
[2016-11-21 19:45] LABS: PLEURAL FLUID LYMPHS 74 %
[2016-11-21] MEDS: RESP: ALBUTEROL 2.5 MG/IPRATROPIUM 0.5 MG NEB (SCH) INH ×2 (20:06→23:53)
[2016-11-21] MEDS: fentaNYL DRIP 250 ML IV SCH (21:01)
[2016-11-21] MEDS: HYDROCORTISONE SOD SUCCINATE 100 MG VIAL IV PUSH SCH (21:02)
[2016-11-21 21:54] LABS: CREATINE KINASE 107 U/L (39-308)
[2016-11-21 22:06] LABS: CKMB 2.2 NG/ML (0.5-3.6)
[2016-11-22] VITALS (20 sets, daily range): BP systolic 89–113; BP diastolic 54–69; PULSE 78–98; RESP 0–16; TEMP 97.8–98.8; O2SAT 93–98
--- NOTE | 2016-11-22 00:14 | RADRPT ---
EXAM DATE/TIME: 11/21/2016 23:17 [facility] COMPARISON: No previous studies available for comparison. INDICATIONS : Bilateral leg swelling. MEDICAL HISTORY : Chronic obstructive pulmonary disease. Hypertension. Carcinoma, lung. Chemotherapy. Irregular heart beat. SURGICAL HISTORY : Tonsillectomy. Adenoidectomy. Left lat maleolus fracture with ORIF. ENCOUNTER: Initial ACUITY: 2 months PAIN SCORE: Non-responsive LOCATION: Bilateral legs. TECHNIQUE: Venous ultrasound of the left and right leg was performed from the inguinal ligament to the proximal calf. Real-time, color Doppler and spectral tracing, compression and augmentation techniques were us ed. FINDINGS: RIGHT LEG: There is normal compressibility of the deep venous system from the inguinal region to the proximal ca lf. No echogenic clot is seen in the lumen of the common femoral, femoral, popliteal, and posterior tibial veins. There is a normal response of the venous system to proximal and distal augmentation an d respiration. LEFT LEG: There is normal compressibility of the deep venous system from the inguinal region to the proximal ca lf. No echogenic clot is seen in the lumen of the common femoral, femoral, popliteal, and posterior tibial veins. There is a normal response of the venous system to proximal and distal augmentation an d respiration. CONCLUSION: 1. No DVT in either lower extremity. 2. Prominent lymph node in the left groin measures 33 x 11 x 20 mm. 3. Necrotic appearing left node in the left groin measures 18 x 19 x 20 mm. Ben Peterson MD on November 22, 2016 at 0:12 Board Certified Radiologist. This report was verified electronically.
[2016-11-22] MEDS: INSULIN NovoLIN REGULAR SUPPLEMENTAL SCALE SQ SCH ×5 (02:45→20:00)
[2016-11-22] MEDS: PIPERACIL-TAZO 4.5 GM PREMIX 100 ML IV SCH ×4 (03:40→19:59)
[2016-11-22] MEDS: HYDROCORTISONE SOD SUCCINATE 100 MG VIAL IV PUSH SCH ×4 (03:40→20:03)
[2016-11-22] MEDS: CHLORHEXIDINE GLUCONATE 2 % 1 PACK (2 CLOTHS) TOP SCH (04:00)
[2016-11-22] MEDS: RESP: ALBUTEROL 2.5 MG/IPRATROPIUM 0.5 MG NEB (SCH) INH ×5 (04:02→20:36)
[2016-11-22] MEDS: VANCOMYCIN INJ 1,000 MG in SODIUM CHLOR 0.9% 250 ML INJ 250 ML IV SCH ×2 (04:59→16:31)
[2016-11-22] MEDS: PHENYLEPHRINE INJ 40 MG in DEXTROSE 5% IN WATE 500 ML INJ 496 ML IV SCH ×4 (05:38→15:06)
--- NOTE | 2016-11-22 06:24 | RADRPT ---
EXAM DATE/TIME: 11/22/2016 04:56 [facility] COMPARISON: CHEST EXPIRATION ONLY, November 21, 2016, 17:45. INDICATIONS : Shortness of breath, possible pneumothorax. MEDICAL HISTORY : Hypertension. Chronic obstructive pulmonary disease. Carcinoma, lung. SURGICAL HISTORY : None. ENCOUNTER: Subsequent ACUITY: 3 days PAIN SCORE: 6/10 LOCATION: Right chest FINDINGS: A single frontal expiratory view of the chest was performed. Bilateral pleural-parenchymal densities. Right-sided chest tube minimal lucency inferiorly likely subpulmonic pneumothorax but decrease in si ze. Endotracheal tube and right jugular central line stable in position. Nasogastric tube with tip in sto mach. CONCLUSION: 1. Right-sided chest tube with minimal residual pneumothorax inferiorly. 2. Bilateral pleural-parenchymal densities. Ben Peterson MD on November 22, 2016 at 6:21 Board Certified Radiologist. This report was verified electronically.
[2016-11-22 06:26] LABS: AUTOMATED NEUTROPHIL # 25.7 TH/MM3 (1.8-7.7); BASOPHIL % 0.1 % (0.0-2.0); HEMATOCRIT 29.5 % (39.0-51.0); HEMO FLAGS DIFF FINAL; LYMPHOCYTE # 0.8 TH/MM3 (1.0-4.8); MEAN CELL VOLUME 96.2 FL (80.0-100.0); MEAN CORPUSCULAR HEMOGLOBIN 31.3 PG (27.0-34.0); MEAN CORPUSCULAR HGB CONC 32.5 % (32.0-36.0); MONO % 2.7 % (0.0-8.0); NEUT % 94.2 % (16.0-70.0); PLATELET COUNT 346 TH/MM3 (150-450); RED BLOOD COUNT 3.06 MIL/MM3 (4.50-5.90); RED CELL DISTRIBUTION WIDTH 13.7 % (11.6-17.2); WHITE BLOOD COUNT 27.3 TH/MM3 (4.0-11.0)
[2016-11-22 07:08] LABS: ALKALINE PHOSPHATASE 101 U/L (45-117); ALT (GPT) 53 U/L (12-78); ANION GAP 7 MEQ/L (5-15); AST (GOT) 48 U/L (15-37); BICARBONATE 32.2 MEQ/L (21.0-32.0); BLOOD UREA NITROGEN 27 MG/DL (7-18); CHLORIDE 103 MEQ/L (98-107); GLOMERULAR FILTRATION RATE 117 ML/MIN (>89); MAGNESIUM 2.1 MG/DL (1.5-2.5); SODIUM (NA) 142 MEQ/L (136-145); TOTAL BILIRUBIN ADULT 0.4 MG/DL (0.2-1.0)
[2016-11-22] MEDS: PANTOPRAZOLE SODIUM 40 MG VIAL IV SCH (09:15)
[2016-11-22] MEDS: DOCUSATE SODIUM 50 MG/SENNA 8.6 MG TAB PO SCH ×2 (09:15→20:03)
[2016-11-22] MEDS: SODIUM CHLORIDE 0.9% FLUSH 10 ML FLUSH IVF SCH (09:15)
--- NOTE | 2016-11-22 10:59 | HHI.CCPN ---
Subjective Remarks/Hospital Course The patient is a 66-year-old male with past medical history of lung cancer on chemotherapy, being followed [facility] who presented to [facility] emergency department with progressive shortness of breath. On arrival the patient was tachycardiac with heart rate 170s to 180s and his initial blood pressure of 140/86. He became hypotensive in the emergency room and he was subsequently given adenosine at 12 mg IV push x1. His EKG showed SVT with a rate of 187 beats per minute. Due to hemodynamic instability the patient had cardioversion with 70 joules and a repeat ABG showed sinus tachycardia with a rate of 111 beats per minute and nonspecific ST-T wave abnormalities. Due to his respiratory distress he was intubated with etomidate, succinylcholine and placed on full mechanical ventilation. ABG post intubation showed acute hypercapnic and hypoxemic respiratory failure with a pH of 7.31, CO2 60, pAO2 144, bicarb 29, sats 97% on assist control ventilation rate of 14, tidal volume 550, PEEP of five and FIO2 100%. The patient had a fever with temperature of 101.4 and his laboratory data showed leukocytosis with a WBC of 23.6 associated with bandemia. His CMP showed a BUN of 40, creatinine 0.86, AST of 80 and troponin of 0.02. The patient was found to have a UTI as his urinalysis showed leukocyte esterase 49 WBC, few bacteria. A chest x-ray post-intubation showed bilateral pleural effusion, right greater than left. According to patients son his last chemotherapy was approximately one month ago and he remains an active smoker. The patient is scheduled to undergo a CT-guided paracentesis and chest tube placement by IR. When seen in the emergency room, the patient remained tachycardic with heart rate of 111, blood pressure 91/61. He is sedated with versed and on assist control ventilation. 11/22 Patient is sedated with Versed and intubated. Afebrile. s/p CT guided thoracentesis with removal odf 2L fluid and chest tube placement drained 560 ml since yesterday. He was started on Neosyn 80 mics overnight. Objective Vital Signs Date Time Temp Pulse Resp B/P Pulse Ox O2 Delivery O2 Flow Rate FiO2 11/22/16 10:00 98 11/22/16 08:00 55 11/22/16 08:00 97.8 16 106/64 95 6/23/17 15:12 Ventilator 11/21/16 13:38 15 Intake and Output 11/21/16 11/21/16 11/22/16 08:00 16:00 00:00 Intake Total 644 ml Output Total 840 ml Balance -196 ml Result Diagram: 11/22/16 0510 11/22/16 0510 Other Results Laboratory Tests Test 11/21/16 11/21/16 11/21/16 11/21/16 13:54 14:02 14:30 16:30 White Blood Count 23.6 TH/MM3 Red Blood Count 3.59 MIL/MM3 Hemoglobin 11.2 GM/DL Hematocrit 34.3 % Mean Corpuscular Volume 95.4 FL Mean Corpuscular Hemoglobin 31.3 PG Mean Corpuscular Hemoglobin 32.8 % Concent Red Cell Distribution Width 13.3 % Platelet Count 320 TH/MM3 Mean Platelet Volume 8.6 FL Neutrophils (%) (Auto) 93.4 % Lymphocytes (%) (Auto) 3.8 % Monocytes (%) (Auto) 2.7 % Eosinophils (%) (Auto) 0.0 % Basophils (%) (Auto) 0.1 % Neutrophils # (Auto) 22.1 TH/MM3 Lymphocytes # (Auto) 0.9 TH/MM3 Monocytes # (Auto) 0.6 TH/MM3 Eosinophils # (Auto) 0.0 TH/MM3 Basophils # (Auto) 0.0 TH/MM3 CBC Comment AUTO DIFF Differential Total Cells 100 Counted Neutrophils % (Manual) 76 % Band Neutrophils % 15 % Lymphocytes % 7 % Monocytes % 2 % Neutrophils # (Manual) 21.5 TH/MM3 Differential Comment FINAL DIFF MANUAL Platelet Estimate NORMAL Platelet Morphology Comment NORMAL Prothrombin Time 14.1 SEC Prothromb Time International 1.3 RATIO Ratio Activated Partial 33.2 SEC Thromboplast Time D-Dimer Quantitative (PE/DVT) 20.17 MG/L FEU Sodium Level 138 MEQ/L Potassium Level 3.9 MEQ/L Chloride Level 98 MEQ/L Carbon Dioxide Level 34.1 MEQ/L Anion Gap 6 MEQ/L Blood Urea Nitrogen 40 MG/DL Creatinine 0.86 MG/DL Estimat Glomerular Filtration 90 ML/MIN Rate Random Glucose 116 MG/DL Calcium Level 8.8 MG/DL Total Bilirubin 0.5 MG/DL Aspartate Amino Transf 80 U/L (AST/SGOT) Alanine Aminotransferase 70 U/L (ALT/SGPT) Alkaline Phosphatase 131 U/L Total Creatine Kinase 110 U/L Creatine Kinase MB 3.5 NG/ML Troponin I 0.02 NG/ML Total Protein 7.3 GM/DL Albumin 2.2 GM/DL Urine Color LIGHT-BROWN Urine Turbidity HAZY Urine pH 5.5 Urine Specific [place] 1.022 Urine Protein 30 mg/dL Urine Glucose (UA) NEG mg/dL Urine Ketones NEG mg/dL Urine Occult Blood LARGE Urine Nitrite NEG Urine Bilirubin NEG Urine Urobilinogen LESS THAN 2.0 MG/DL Urine Leukocyte Esterase SMALL Urine RBC /hpf Urine WBC 49 /hpf Urine Squamous Epithelial 2 /hpf Cells Urine Bacteria FEW /hpf Urine Hyaline Casts 24 /lpf Urine Mucus FEW /lpf Microscopic Urinalysis Comment CULTURE INDICATED Blood Gas Puncture Site LT FEMORAL Blood Gas Patient Temperature 101.0 Blood Gas HCO3 29 mmol/L Blood Gas Base Excess 3.5 mmol/L Blood Gas Oxygen Saturation 97 % Arterial Blood pH 7.31 Arterial Blood Partial 60 mmHg Pressure CO2 Arterial Blood Partial 144 mmHG Pressure O2 Arterial Blood Oxygen Content 13.8 Vol % Arterial Blood 1.0 % Carboxyhemoglobin Arterial Blood Methemoglobin 0.6 % Blood Gas Hemoglobin 10.0 G/DL Oxygen Delivery Device AC14/550/5PEEP Blood Gas Inspired Oxygen 100 % Pleural Fluid pH 8.0 Pleural Fluid WBC 1590 /MM3 Pleural Fluid RBC 35715 /MM3 Pleural Fluid Neutrophils 13 % Pleural Fluid Lymphocytes 74 % Pleural Fluid Monocytes 1 % Pleural Fluid Histiocytes 2 % Pleural Fluid Mesothelial 9 % Cells Pleural Fluid Other Cells 1 % Pleural Fluid Comment Test 11/21/16 11/21/16 11/21/16 11/21/16 17:20 17:40 18:23 20:50 Nasal Screen MRSA (PCR) MRSA NOT DETECTED Blood Gas Puncture Site RT RADIAL Blood Gas Patient Temperature 98.6 Blood Gas HCO3 28 mmol/L Blood Gas Base Excess 2.4 mmol/L Blood Gas Oxygen Saturation 97 % Arterial Blood pH 7.31 Arterial Blood Partial 57 mmHg Pressure CO2 Arterial Blood Partial 246 mmHg Pressure O2 Arterial Blood Oxygen Content 13.9 Vol % Arterial Blood 1.1 % Carboxyhemoglobin Arterial Blood Methemoglobin 1.2 % Blood Gas Hemoglobin 9.7 G/DL Oxygen Delivery Device VENTILATOR Blood Gas Ventilator Setting 500/16/PEEP5 Blood Gas Inspired Oxygen 100 % Lactic Acid Level 2.2 mmol/L Total Creatine Kinase 107 U/L Creatine Kinase MB 2.2 NG/ML Troponin I 0.02 NG/ML Test 11/22/16 11/22/16 02:49 05:10 Total Creatine Kinase 49 U/L Troponin I 0.02 NG/ML White Blood Count 27.3 TH/MM3 Red Blood Count 3.06 MIL/MM3 Hemoglobin 9.6 GM/DL Hematocrit 29.5 % Mean Corpuscular Volume 96.2 FL Mean Corpuscular Hemoglobin 31.3 PG Mean Corpuscular Hemoglobin 32.5 % Concent Red Cell Distribution Width 13.7 % Platelet Count 346 TH/MM3 Mean Platelet Volume 8.2 FL Neutrophils (%) (Auto) 94.2 % Lymphocytes (%) (Auto) 3.0 % Monocytes (%) (Auto) 2.7 % Eosinophils (%) (Auto) 0.0 % Basophils (%) (Auto) 0.1 % Neutrophils # (Auto) 25.7 TH/MM3 Lymphocytes # (Auto) 0.8 TH/MM3 Monocytes # (Auto) 0.7 TH/MM3 Eosinophils # (Auto) 0.0 TH/MM3 Basophils # (Auto) 0.0 TH/MM3 CBC Comment DIFF FINAL Differential Comment Sodium Level 142 MEQ/L Potassium Level 4.0 MEQ/L Chloride Level 103 MEQ/L Carbon Dioxide Level 32.2 MEQ/L Anion Gap 7 MEQ/L Blood Urea Nitrogen 27 MG/DL Creatinine 0.68 MG/DL Estimat Glomerular Filtration 117 ML/MIN Rate Random Glucose 150 MG/DL Calcium Level 8.0 MG/DL Phosphorus Level 3.1 MG/DL Magnesium Level 2.1 MG/DL Total Bilirubin 0.4 MG/DL Aspartate Amino Transf 48 U/L (AST/SGOT) Alanine Aminotransferase 53 U/L (ALT/SGPT) Alkaline Phosphatase 101 U/L Total Protein 6.0 GM/DL Albumin 1.6 GM/DL Imaging Last Impressions Chest X-Ray 11/22/16 0000 Signed Impressions: Service Date/Time: Tuesday, November 22, 2016 04:56 - CONCLUSION: 1. Right- sided chest tube with minimal residual pneumothorax inferiorly. 2. Bilateral pleural-parenchymal densities. Ben Peterson MD CT Angiography 11/21/16 1436 Signed Impressions: Service Date/Time: Monday, November 21, 2016 15:39 - CONCLUSION: 1. There is diffuse adenopathy involving the thoracic inlet, the paratracheal shakeel chains , diffusely throughout the mediastinum and prevascular shakeel chain consistent with malignancy. There is extensive consolidation of the right lung with a large pleural effusion and probable right hilar mass. 2. There is diffuse edema throughout the left lung. 3. No pulmonary embolus is identified. Karl Tracy MD Thoracentesis 11/21/16 0000 Signed Impressions: Service Date/Time: Monday, November 21, 2016 15:42 - CONCLUSION: Uncomplicated fluoroscopically guided thoracentesis. A 10 [place] chest tube was placed. Karl Tracy MD Lower Extremity Ultrasound 11/21/16 0000 Signed Impressions: Service Date/Time: Monday, November 21, 2016 23:17 - CONCLUSION: 1. No DVT in either lower extremity. 2. Prominent lymph node in the left groin measures 33 x 11 x 20 mm. 3. Necrotic appearing left node in the left groin measures 18 x 19 x 20 mm. Ben Peterson MD Chest Tube Insertion 11/21/16 0000 Signed Impressions: Service Date/Time: Monday, November 21, 2016 15:42 - CONCLUSION: Uncomplicated chest tube placement as above. Karl Tracy MD Central Venous Line 11/21/16 0000 Signed Impressions: Service Date/Time: Monday, November 21, 2016 15:42 - CONCLUSION: Uncomplicated line placement as above. Karl Tracy MD Objective Remarks GENERAL: Patient is 66 yo critically ill intubated and sedated SKIN: Warm and dry. HEAD: Normocephalic. EYES: No scleral icterus. No injection or drainage. NECK: Supple, trachea midline. No JVD or lymphadenopathy. CARDIOVASCULAR: Regular rate and rhythm without murmurs, gallops, or rubs. RESPIRATORY: Breath sounds equal bilaterally. No accessory muscle use. Right CT in place GASTROINTESTINAL: Abdomen soft, non-tender, nondistended. MUSCULOSKELETAL: No cyanosis, ++ edema. Neuro: Sedated, intubated A/P Assessment and Plan 1. Acute hypoxemic and hypercapnic respiratory failure. 2. SVT post cardioversion. 3. Large right-sided pleural effusion. s/p thora and CT placement 4. 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 Leukocytosis 6. Urinary tract infection. 7. Anemia 8. Elevated AST. Plan: Neuro: Change Versed infusion to Fentanyl drip for sedation and analgesia Pulm: Continue with vent support and maintain sats > 92%. Check ABG Bronchodilators , ICU vent bundle. Start SBT daily On hydrocortisone 50 mg IV q. six. s/p CT guided thoracentesis with removal 2L and CT placement- Monitor CT drainage ( Drained 560ml since yesterday) Followup on Pleural fluid analysis/cxs/Cytology CV: Wean off Neosyn monitor HR and BP and maintain MAP> 65 mmHg. Lactic acid 2.2 For 2-D echo to evaluate LV function and to rule out regional wall motion abnormalities. s/p Adenosine 12 mg IV and cardioversion for SVT ID now in NSR : Monitor renal function, intake and output and electrolyte replacement per protocol. GI: on Protonix 40 mg IV daily for GI prophylaxis. Start tube feeds- Glucerna 1.5 with goal rate 45ml/hr ID: Continue with abx(vancomycin, Zosyn and azithromycin). Monitor for signs of infections(fever, WBC). ID eval. Check sputum, follow up on urine and blood cultures. Strep pneumoniae Legionella urinary antigen negative. Endo:SSI with Accu-Chek q. 4-hour for glycemic control Heme: Monitor CBC and Coags. Oncology is following-Dr. De Leon Doppler US b/l LE negative for DVT GI prophylaxis with Protonix 40 mg IV daily and DVT prophylaxis with SCDs for now. Not on chemical anticoagulation prophylaxis due to brain mets Lines: RIght IJ CVP placed 11/21 CCT 30 minutes excluding procedures. Leeann Loza MD Nov 22, 2016 10:59
[2016-11-22 11:37] LABS: BLOOD GAS BASE EXCESS 4.2 mmol/L (-2-2); BLOOD GAS CARBOXYHEMOGLOBIN 1.5 % (0-4); BLOOD GAS HCO3 29 mmol/L (22-26); BLOOD GAS O2 HGB SATURATION 95 % (90-100); BLOOD GAS OXYGEN CONTENT 12.6 Vol % (12.0-20.0); BLOOD GAS PCO2 53 mmHg (38-42); BLOOD GAS PO2 93 mmHg (61-120); BLOOD GAS TOTAL HGB 9.4 G/DL (12.0-16.0); CRITICAL VALUE YES; OXYGEN DEVICE VENTILATOR; TEMP CORR TO 98.6
[2016-11-22 11:38] LABS: DRAW SITE LT RADIAL; FIO2 45 %; NUMBER OF ARTERIAL PUNCTURES 1; STAT NO; ULNAR PULSE PRESENT; VENT SETTINGS A/C 500/16/5PEEP
--- NOTE | 2016-11-22 12:10 | EKG ---
Date Performed: 11/21/2016 Time Performed: 13:38:40 PTAGE: 66 years EKG: SUPRAVENTRICULAR TACHYCARDIA INDETERMINATE AXIS ST DEVIATION AND MODERATE T-WAVE ABNORMALIT Y, CONSIDER LATERAL ISCHEMIA ST DEVIATION AND MODERATE T-WAVE ABNORMALITY, CONSIDER INFERIOR ISCHEMIA Compared to previous tracing, SVT is now present and nonspecific ST changes are noted. ABNORMAL ECG PREVIOUS TRACING : 10/06/2016 10.13.43 DOCTOR: Chandana Morgan Interpretating Date/Time 11/22/2016 12:10:06
[2016-11-22] MEDS: fentaNYL DRIP 250 ML IV SCH (12:11)
--- NOTE | 2016-11-22 12:11 | EKG ---
Date Performed: 11/21/2016 Time Performed: 14:47:20 PTAGE: 66 years EKG: SINUS TACHYCARDIA NONSPECIFIC ST & T-WAVE ABNORMALITY Compared to previous tracing, SVT has resolved, sinus tachycardia is now present. ST-T changes are improved. ABNORMAL RHYTHM ECG PREVIOUS TRACING : 11/21/2016 13.38.40 DOCTOR: Chandana Morgan Interpretating Date/Time 11/22/2016 12:20:23
--- NOTE | 2016-11-22 14:06 | PD.CONS ---
History of Present Illness Service Infectious disease Consult Requested By Dr Loza Reason for Consult Evaluate patient with leukocytosis and pneumonia Primary Care Physician [facility] Diagnoses: History of Present Illness Patient seen and examined. Records reviewed. Patient is intubated and unable to give any history. History obtained from current chart and from previous admission. Patient is a 66-year-old male, admitted to the hospital for evaluation of progressive shortness of breath. He was recently here back in September and at that time he was found to have a large hilar mass with significant major spinal adenopathy. 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 His staging workup showed evidence of metastatic disease to the brain. He was being evaluated for radiation therapy to his brain metastases. He was started on palliative chemotherapy as an outpatient, and he actually received his second cycle around November 04. He was apparently also being followed at the [facility] and he developed progressive shortness of breath. Evaluation in the emergency room revealed that he was significantly tachycardic with a heart rate of 170- 180 while in the ED he became hypotensive, and he was given adenosine, and subsequently cardioverted. He ended up getting intubated. He also remained hypotensive, and currently on pressors. Patient was also febrile up to 101+. His chest x-ray is showing almost complete opacification in the right lung with a little bit of induration in the right upper lobe. He also has infiltrates on the left base. Patient had placement of a chest tube on the right side. On reviewing his previous hospitalization, his last WBC prior to being discharged from the hospital was 49,000. Infectious disease consultation requested today to evaluate the patient with leukocytosis and pneumonia. Review of Systems ROS Limitations: Clinical Condition, Intubated Past Family Social History Allergies: Coded Allergies: No Known Allergies (Verified Allergy, Severe, 03/13/05) Past Medical History Chronic tobacco use. COPD. Hypertension. Metastatic small cell lung cancer. 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 History of supraventricular tachycardia. Pneumonia. Past Surgical History CT-guided biopsy of right clavicular lymph node. Open reduction internal fixation of left ankle. Chest tube placement. Ultrasound-guided thoracentesis Active Ordered Medications Albuterol Zithromax Dulcolax Cardizem Fentanyl Solu-Cortef Insulin Lactulose MOM Versed Protonix Vasopressin Zosyn Urszula-Colace Diprivan Senokot Vancomycin Family History Family Hx pancreatic and lung CA Social History Continues to smok No ETOH abuse No illicit drugs Physical Exam Vital Signs Vital Signs Date Time Temp Pulse Resp B/P Pulse Ox O2 Delivery O2 Flow Rate FiO2 11/22/16 12:00 98.0 79 16 102/60 93 11/22/16 12:00 79 11/22/16 12:00 55 11/22/16 11:47 95 45 11/22/16 10:00 98 11/22/16 09:00 79 11/22/16 08:00 55 11/22/16 08:00 78 11/22/16 08:00 97.8 78 16 106/64 95 11/22/16 07:38 95 45 11/22/16 06:00 82 11/22/16 04:05 97 60 11/22/16 04:00 98.8 86 0 89/54 97 11/22/16 04:00 86 11/22/16 04:00 70 11/22/16 02:00 90 11/22/16 01:08 98 60 11/22/16 00:00 70 11/22/16 00:00 98.8 91 89/55 98 11/22/16 00:00 91 11/21/16 22:09 98 70 11/21/16 22:00 100 11/21/16 20:00 100 11/21/16 20:00 98.5 102 14 104/58 100 11/21/16 20:00 102 11/21/16 19:12 100 100 11/21/16 17:33 100 11/21/16 16:33 99 100 11/21/16 15:12 111 99/61 100 Ventilator 11/21/16 15:04 108 93/59 99 Ventilator 11/21/16 14:50 111 91/56 100 Ventilator 11/21/16 14:46 112 89/57 100 Ventilator 11/21/16 14:40 113 84/55 100 Ventilator 11/21/16 14:35 116 96/61 98 Ventilator 11/21/16 14:26 116 89/56 99 Ventilator 11/21/16 14:22 116 88/54 11/21/16 14:17 101.4 11/21/16 14:17 167 52/35 100 Ventilator 11/21/16 14:12 170 99 Ventilator 11/21/16 14:02 182 137/82 96 Ventilator Physical Exam GENERAL: Patient is a well-nourished, well-developed CM, sedated on the vent , not in respiratory distress. SKIN: Warm and dry. No generalized rash, no ecchymoses and no evidence of embolic lesions. HEAD: Atraumatic. Normocephalic. No temporal wasting, or tenderness. EYES: [place] conjunctiva. No petechia or hemorrhage. Pupils equal, round and reactive to light. No scleral icterus. No injection or drainage. EARS, NOSE AND THROAT: Nose without bleeding or purulent nasal discharge. No sinus tenderness. Dry oral mucosa, edentulous, he is orally intubated. NECK: Trachea midline. Supple and not tender, no meningeal signs. Line RIJ site ok CARDIOVASCULAR: Regular rate and rhythm. No murmurs, rubs or gallops heard RESPIRATORY: Coarse rhonchi bilaterally. CT on R with serous fluid. ABDOMEN: Soft, non-tender, nondistended. Bowel sounds present and normoactive. No guarding. No rebound. Has umbilical hernia EXTREMITIES: No clubbing, cyanosis, or edema. Has dry scabs on dorsum of his L foot. Cool feet. NEUROLOGICAL: Sedated PSYCHIATRIC: Unable to assess LINE: No evidence of infection : Hassan in place, urine looks clear Laboratory Laboratory Tests Test 11/21/16 11/21/16 11/21/16 11/21/16 14:02 14:30 16:30 17:20 Urine Color LIGHT-BROWN Urine Turbidity HAZY Urine pH 5.5 Urine Specific [place] 1.022 Urine Protein 30 Urine Glucose (UA) NEG Urine Ketones NEG Urine Occult Blood LARGE Urine Nitrite NEG Urine Bilirubin NEG Urine Urobilinogen LESS THAN 2.0 Urine Leukocyte Esterase SMALL Urine RBC Urine WBC 49 Urine Squamous Epithelial 2 Cells Urine Bacteria FEW Urine Hyaline Casts 24 Urine Mucus FEW Microscopic Urinalysis Comment CULTURE INDICATED Blood Gas Puncture Site LT FEMORAL Blood Gas Patient Temperature 101.0 Blood Gas HCO3 29 Blood Gas Base Excess 3.5 Blood Gas Oxygen Saturation 97 Arterial Blood pH 7.31 Arterial Blood Partial 60 Pressure CO2 Arterial Blood Partial 144 Pressure O2 Arterial Blood Oxygen Content 13.8 Arterial Blood 1.0 Carboxyhemoglobin Arterial Blood Methemoglobin 0.6 Blood Gas Hemoglobin 10.0 Oxygen Delivery Device AC14/550/5PEEP Blood Gas Inspired Oxygen 100 Pleural Fluid pH 8.0 Pleural Fluid WBC 1590 Pleural Fluid RBC 22685 Pleural Fluid Neutrophils 13 Pleural Fluid Lymphocytes 74 Pleural Fluid Monocytes 1 Pleural Fluid Histiocytes 2 Pleural Fluid Mesothelial 9 Cells Pleural Fluid Other Cells 1 Pleural Fluid Comment Nasal Screen MRSA (PCR) MRSA NOT DETECTED Test 11/21/16 11/21/16 11/21/16 11/22/16 17:40 18:23 20:50 02:49 Blood Gas Puncture Site RT RADIAL Blood Gas Patient Temperature 98.6 Blood Gas HCO3 28 Blood Gas Base Excess 2.4 Blood Gas Oxygen Saturation 97 Arterial Blood pH 7.31 Arterial Blood Partial 57 Pressure CO2 Arterial Blood Partial 246 Pressure O2 Arterial Blood Oxygen Content 13.9 Arterial Blood 1.1 Carboxyhemoglobin Arterial Blood Methemoglobin 1.2 Blood Gas Hemoglobin 9.7 Oxygen Delivery Device VENTILATOR Blood Gas Ventilator Setting 500/16/PEEP5 Blood Gas Inspired Oxygen 100 Lactic Acid Level 2.2 Total Creatine Kinase 107 49 Creatine Kinase MB 2.2 Troponin I 0.02 0.02 Test 11/22/16 11/22/16 05:10 11:30 White Blood Count 27.3 Red Blood Count 3.06 Hemoglobin 9.6 Hematocrit 29.5 Mean Corpuscular Volume 96.2 Mean Corpuscular Hemoglobin 31.3 Mean Corpuscular Hemoglobin 32.5 Concent Red Cell Distribution Width 13.7 Platelet Count 346 Mean Platelet Volume 8.2 Neutrophils (%) (Auto) 94.2 Lymphocytes (%) (Auto) 3.0 Monocytes (%) (Auto) 2.7 Eosinophils (%) (Auto) 0.0 Basophils (%) (Auto) 0.1 Neutrophils # (Auto) 25.7 Lymphocytes # (Auto) 0.8 Monocytes # (Auto) 0.7 Eosinophils # (Auto) 0.0 Basophils # (Auto) 0.0 CBC Comment DIFF FINAL Differential Comment Sodium Level 142 Potassium Level 4.0 Chloride Level 103 Carbon Dioxide Level 32.2 Anion Gap 7 Blood Urea Nitrogen 27 Creatinine 0.68 Estimat Glomerular Filtration 117 Rate Random Glucose 150 Calcium Level 8.0 Phosphorus Level 3.1 Magnesium Level 2.1 Total Bilirubin 0.4 Aspartate Amino Transf 48 (AST/SGOT) Alanine Aminotransferase 53 (ALT/SGPT) Alkaline Phosphatase 101 Total Protein 6.0 Albumin 1.6 Blood Gas Puncture Site LT RADIAL Blood Gas Patient Temperature 98.6 Blood Gas HCO3 29 Blood Gas Base Excess 4.2 Blood Gas Oxygen Saturation 95 Arterial Blood pH 7.36 Arterial Blood Partial 53 Pressure CO2 Arterial Blood Partial 93 Pressure O2 Arterial Blood Oxygen Content 12.6 Arterial Blood 1.5 Carboxyhemoglobin Arterial Blood Methemoglobin 1.0 Blood Gas Hemoglobin 9.4 Oxygen Delivery Device VENTILATOR Blood Gas Ventilator Setting A/C 500/16/5PEEP Blood Gas Inspired Oxygen 45 Date/Time Procedure Status Source Growth 11/21/16 16:30 Gram Stain - Final Resulted Fluid Pleural Fluid 11/21/16 16:30 Body Fluid Culture - Preliminary Resulted Fluid Pleural Fluid NO GROWTH IN 24 HOURS. 11/21/16 16:30 Fungal Smear - Final Resulted Fluid Pleural Fluid NO FUNGAL ELEMENTS SEEN. 11/21/16 16:30 Fungal Culture Resulted Fluid Pleural Fluid Pending 11/21/16 14:20 Aerobic Blood Culture - Preliminary Resulted Blood Peripheral NO GROWTH IN 1 DAY 11/21/16 14:20 Anaerobic Blood Culture - Preliminary Resulted Blood Peripheral NO GROWTH IN 1 DAY 11/21/16 14:02 Urine Culture - Preliminary Resulted Urine Clean Catch NO GROWTH IN 24 HOURS. 11/21/16 14:02 Legionella Antigen - Final Complete Urine Catheterized Urine PRESUMPTIVE NEGATIVE FOR LEGIONELLA P... 11/21/16 14:02 Streptococcus pneumoniae Antigen (M - Final Complete Urine Catheterized Urine PRESUMPTIVE NEGATIVE FOR STREPTOCOCCU... Result Diagram: 11/22/16 0510 11/22/16 0510 Imaging RADIOLOGY STUDIES/FILMS REVIEWED Last Impressions Chest X-Ray 11/22/16 0000 Signed Impressions: Service Date/Time: Tuesday, November 22, 2016 04:56 - CONCLUSION: 1. Right- sided chest tube with minimal residual pneumothorax inferiorly. 2. Bilateral pleural-parenchymal densities. Ben Peterson MD CT Angiography 11/21/16 1436 Signed Impressions: Service Date/Time: Monday, November 21, 2016 15:39 - CONCLUSION: 1. There is diffuse adenopathy involving the thoracic inlet, the paratracheal shakeel chains , diffusely throughout the mediastinum and prevascular shakeel chain consistent with malignancy. There is extensive consolidation of the right lung with a large pleural effusion and probable right hilar mass. 2. There is diffuse edema throughout the left lung. 3. No pulmonary embolus is identified. Karl Tracy MD Thoracentesis 11/21/16 0000 Signed Impressions: Service Date/Time: Monday, November 21, 2016 15:42 - CONCLUSION: Uncomplicated fluoroscopically guided thoracentesis. A 10 M[place] chest tube was placed. Karl Tracy MD Lower Extremity Ultrasound 11/21/16 Signed Impressions: Service Date/Time: Monday, November 21, 2016 23:17 - CONCLUSION: 1. No DVT in either lower extremity. 2. Prominent lymph node in the left groin measures 33 x 11 x 20 mm. 3. Necrotic appearing left node in the left groin measures 18 x 19 x 20 mm. Ben Peterson MD Chest Tube Insertion 11/21/16 Signed Impressions: Service Date/Time: Monday, November 21, 2016 15:42 - CONCLUSION: Uncomplicated chest tube placement as above. Karl Tracy MD Central Venous Line 11/21/16 Signed Impressions: Service Date/Time: Monday, November 21, 2016 15:42 - CONCLUSION: Uncomplicated line placement as above. Karl Tracy MD Assessment and Plan Assessment and Plan IMPRESSION Sepsis, on admission - PNA - UTI Small cell lung CA with mets, undergoing chemo Brain mets, for XRT Respiratory failure Known COPD RECOMMENDATION Follow C/S (BC, UC and sputum) On Vanco and Zosyn BP support Vent support Monitor progress Will adjust Abx once C/S available I will follow along with you Thank you for this consultation Tami Cueva MD Nov 22, 2016 14:05
[2016-11-22] MEDS: SODIUM CHLORIDE 0.9% FLUSH 10 ML FLUSH IVF PRN (15:08)
--- NOTE | 2016-11-22 15:41 | ECHRPT ---
Indication: LV function CONCLUSIONS The left ventricle is not well visualized. Normal left ventricular size. Wall thickness is measured at the upper limits of normal. The left ventricular systolic function is low normal with an estimated ejection fraction in the rang e of 50- 55%. BP: / HR: Rhythm: MEASUREMENTS (Male / Female) Normal Values Technical Quality:Technically difficult study 2D ECHO LV Diastolic Diameter PLAX 3.8 cm 4.2 - 5.9 / 3.9 - 5.3 cm LV Systolic Diameter PLAX 2.9 cm IVS Diastolic Thickness 1.1 cm 0.6 - 1.0 / 0.6 - 0.9 cm LVPW Diastolic Thickness 1.1 cm 0.6 - 1.0 / 0.6 - 0.9 cm LV Relative Wall Thickness 0.6 RV Internal Dim ED PLAX 2.5 cm M-MODE Aortic Root Diameter MM 3.5 cm LA Systolic Diameter MM 3.7 cm LA Ao Ratio MM 1.1 AV Cusp Separation MM 1.8 cm DOPPLER Mitral E Point Velocity 91.8 cm/s Mitral A Point Velocity 84.9 cm/s Mitral E to A Ratio 1.1 LV E' Lateral Velocity 6.3 cm/s Mitral E to LV E' Lateral Ratio 14.5 LV E' Septal Velocity 49.1 cm/s Mitral E to LV E' Septal Ratio 1.9 TR Peak Velocity 254.0 cm/s TR Peak Gradient 25.8 mmHg FINDINGS LEFT VENTRICLE The left ventricle is not well visualized. Normal left ventricular size. Wall thickness is measured at the upper limits of normal. The left ventricular systolic function is low normal with an estimated ejection fraction in the rang e of 50- 55%. RIGHT VENTRICLE Normal right ventricular size and systolic function. LEFT ATRIUM The left atrial size is normal. RIGHT ATRIUM The right atrial size is normal. ATRIAL SEPTUM Normal atrial septal thickness without atrial level shunting by limited color doppler interrogation. AORTA The aortic root and proximal ascending aorta are normal in size on limited imaging. MITRAL VALVE Structurally normal mitral valve. No mitral valve stenosis or regurgitation. AORTIC VALVE Trileaflet aortic valve. No aortic valve stenosis or regurgitation. TRICUSPID VALVE Structurally normal tricuspid valve. There is trace tricuspid valve regurgitation. PULMONARY VALVE The pulmonary valve is not well visualized. VESSELS The inferior vena cava is normal in size. PERICARDIUM No pericardial effusion. Jose Hand MD (Electronically Signed) Final Date:22 November 2016 15:40
[2016-11-22] MEDS: AZITHROMYCIN INJ 500 MG in SODIUM CHLOR 0.9% 250 ML INJ 250 ML IV SCH (17:32)
[2016-11-23] VITALS (21 sets, daily range): BP systolic 90–118; BP diastolic 53–71; PULSE 73–121; RESP 14–29; TEMP 97.8–98.8; O2SAT 92–99
[2016-11-23] MEDS: RESP: ALBUTEROL 2.5 MG/IPRATROPIUM 0.5 MG NEB (SCH) INH ×7 (00:45→23:49)
[2016-11-23] MEDS: INSULIN NovoLIN REGULAR SUPPLEMENTAL SCALE SQ SCH ×6 (02:45→21:48)
[2016-11-23] MEDS: PIPERACIL-TAZO 4.5 GM PREMIX 100 ML IV SCH ×4 (03:09→19:24)
[2016-11-23] MEDS: HYDROCORTISONE SOD SUCCINATE 100 MG VIAL IV PUSH SCH ×4 (03:09→19:24)
[2016-11-23] MEDS: VANCOMYCIN INJ 1,000 MG in SODIUM CHLOR 0.9% 250 ML INJ 250 ML IV SCH ×2 (03:09→17:42)
[2016-11-23] MEDS: CHLORHEXIDINE GLUCONATE 2 % 1 PACK (2 CLOTHS) TOP SCH (03:10)
[2016-11-23 04:13] LABS: AUTOMATED NEUTROPHIL # 18.6 TH/MM3 (1.8-7.7); BASOPHIL # 0.1 TH/MM3 (0-0.2); BASOPHIL % 0.3 % (0.0-2.0); HEMATOCRIT 26.9 % (39.0-51.0); LYMPHOCYTE # 0.8 TH/MM3 (1.0-4.8); MEAN CELL VOLUME 95.4 FL (80.0-100.0); MEAN CORPUSCULAR HEMOGLOBIN 31.7 PG (27.0-34.0); MEAN CORPUSCULAR HGB CONC 33.2 % (32.0-36.0); MONO % 4.5 % (0.0-8.0); NEUT % 91.2 % (16.0-70.0); PLATELET COUNT 273 TH/MM3 (150-450); RED BLOOD COUNT 2.82 MIL/MM3 (4.50-5.90); RED CELL DISTRIBUTION WIDTH 13.4 % (11.6-17.2); WHITE BLOOD COUNT 20.4 TH/MM3 (4.0-11.0)
[2016-11-23 04:14] LABS: HEMO FLAGS AUTO DIFF
[2016-11-23 04:44] LABS: BANDS 12 % (0-6); NEUTROPHIL # MANUAL DIFF 19.4 TH/MM3 (1.8-7.7); POLYS (SEG NEUTROPHILS) 83 % (16-70); WBC DIFF SAMPLE 100
[2016-11-23 04:45] LABS: ALT (GPT) 37 U/L (12-78); ANION GAP 6 MEQ/L (5-15); AST (GOT) 33 U/L (15-37); BLOOD UREA NITROGEN 20 MG/DL (7-18); CHLORIDE 103 MEQ/L (98-107); GLOMERULAR FILTRATION RATE 180 ML/MIN (>89); MAGNESIUM 1.9 MG/DL (1.5-2.5); PLATELET ESTIMATE SMEAR NORMAL (NORMAL); PLATELET MORPHOLOGY NORMAL (NORMAL); POTASSIUM 3.6 MEQ/L (3.5-5.1); SCAN/DIFF FINAL DIFF MANUAL; SODIUM (NA) 142 MEQ/L (136-145)
[2016-11-23 05:04] LABS: ALKALINE PHOSPHATASE 91 U/L (45-117); TOTAL BILIRUBIN ADULT 0.3 MG/DL (0.2-1.0)
--- NOTE | 2016-11-23 07:43 | HHI.CCPN ---
Subjective Remarks/Hospital Course The patient is a 66-year-old male with past medical history of lung cancer on chemotherapy, being followed at the [facility] who presented to [facility] emergency department with progressive shortness of breath. On arrival the patient was tachycardiac with heart rate 170s to 180s and his initial blood pressure of 140/86. He became hypotensive in the emergency room and he was subsequently given adenosine at 12 mg IV push x1. His EKG showed SVT with a rate of 187 beats per minute. Due to hemodynamic instability the patient had cardioversion with 70 joules and a repeat ABG showed sinus tachycardia with a rate of 111 beats per minute and nonspecific ST-T wave abnormalities. Due to his respiratory distress he was intubated with etomidate, succinylcholine and placed on full mechanical ventilation. ABG post intubation showed acute hypercapnic and hypoxemic respiratory failure with a pH of 7.31, CO2 60, pAO2 144, bicarb 29, sats 97% on assist control ventilation rate of 14, tidal volume 550, PEEP of five and FIO2 100%. The patient had a fever with temperature of 101.4 and his laboratory data showed leukocytosis with a WBC of 23.6 associated with bandemia. His CMP showed a BUN of 40, creatinine 0.86, AST of 80 and troponin of 0.02. The patient was found to have a UTI as his urinalysis showed leukocyte esterase 49 WBC, few bacteria. A chest x-ray post-intubation showed bilateral pleural effusion, right greater than left. According to patients son his last chemotherapy was approximately one month ago and he remains an active smoker. The patient is scheduled to undergo a CT-guided paracentesis and chest tube placement by IR. When seen in the emergency room, the patient remained tachycardic with heart rate of 111, blood pressure 91/61. He is sedated with versed and on assist control ventilation. 11/22 Patient is sedated with Versed and intubated. Afebrile. s/p CT guided thoracentesis with removal of 2L fluid and chest tube placement drained 560 ml since yesterday. He was started on Neosyn 80 mics overnight. 11/23 Patent is sedated with Fentnayl and intubated. Off Versed. Neosyn down 10 mics. WBC is trending down. Afebrile. Objective Vital Signs Date Time Temp Pulse Resp B/P Pulse Ox O2 Delivery O2 Flow Rate FiO2 11/23/16 07:26 96 40 11/23/16 06:00 100 11/23/16 04:00 97.8 14 91/58 11/21/16 15:12 Ventilator 11/21/16 13:38 15 Intake and Output 11/22/16 11/22/16 11/23/16 08:00 16:00 00:00 Intake Total 1087 ml 1179 ml 998 ml Output Total 570 ml 780 ml 310 ml Balance 517 ml 399 ml 688 ml Result Diagram: 11/23/16 0350 11/23/16 0350 Other Results Laboratory Tests Test 11/22/16 11/23/16 11:30 03:50 Blood Gas Puncture Site LT RADIAL Blood Gas Patient Temperature 98.6 Blood Gas HCO3 29 mmol/L Blood Gas Base Excess 4.2 mmol/L Blood Gas Oxygen Saturation 95 % Arterial Blood pH 7.36 Arterial Blood Partial 53 mmHg Pressure CO2 Arterial Blood Partial 93 mmHg Pressure O2 Arterial Blood Oxygen Content 12.6 Vol % Arterial Blood 1.5 % Carboxyhemoglobin Arterial Blood Methemoglobin 1.0 % Blood Gas Hemoglobin 9.4 G/DL Oxygen Delivery Device VENTILATOR Blood Gas Ventilator Setting A/C 500/16/5PEEP Blood Gas Inspired Oxygen 45 % White Blood Count 20.4 TH/MM3 Red Blood Count 2.82 MIL/MM3 Hemoglobin 8.9 GM/DL Hematocrit 26.9 % Mean Corpuscular Volume 95.4 FL Mean Corpuscular Hemoglobin 31.7 PG Mean Corpuscular Hemoglobin 33.2 % Concent Red Cell Distribution Width 13.4 % Platelet Count 273 TH/MM3 Mean Platelet Volume 7.7 FL Neutrophils (%) (Auto) 91.2 % Lymphocytes (%) (Auto) 4.0 % Monocytes (%) (Auto) 4.5 % Eosinophils (%) (Auto) 0.0 % Basophils (%) (Auto) 0.3 % Neutrophils # (Auto) 18.6 TH/MM3 Lymphocytes # (Auto) 0.8 TH/MM3 Monocytes # (Auto) 0.9 TH/MM3 Eosinophils # (Auto) 0.0 TH/MM3 Basophils # (Auto) 0.1 TH/MM3 CBC Comment AUTO DIFF Differential Total Cells 100 Counted Neutrophils % (Manual) 83 % Band Neutrophils % 12 % Lymphocytes % 4 % Monocytes % 1 % Neutrophils # (Manual) 19.4 TH/MM3 Differential Comment FINAL DIFF MANUAL Platelet Estimate NORMAL Platelet Morphology Comment NORMAL Sodium Level 142 MEQ/L Potassium Level 3.6 MEQ/L Chloride Level 103 MEQ/L Carbon Dioxide Level 33.0 MEQ/L Anion Gap 6 MEQ/L Blood Urea Nitrogen 20 MG/DL Creatinine 0.47 MG/DL Estimat Glomerular Filtration 180 ML/MIN Rate Random Glucose 122 MG/DL Calcium Level 7.7 MG/DL Phosphorus Level 1.8 MG/DL Magnesium Level 1.9 MG/DL Total Bilirubin 0.3 MG/DL Aspartate Amino Transf 33 U/L (AST/SGOT) Alanine Aminotransferase 37 U/L (ALT/SGPT) Alkaline Phosphatase 91 U/L Total Protein 5.5 GM/DL Albumin 1.4 GM/DL Imaging Last Impressions Chest X-Ray 11/22/16 Signed Impressions: Service Date/Time: Tuesday, November 22, 2016 04:56 - CONCLUSION: 1. Right- sided chest tube with minimal residual pneumothorax inferiorly. 2. Bilateral pleural-parenchymal densities. Ben Peterson MD CT Angiography 11/21/16 1436 Signed Impressions: Service Date/Time: Monday, November 21, 2016 15:39 - CONCLUSION: 1. There is diffuse adenopathy involving the thoracic inlet, the paratracheal shakeel chains , diffusely throughout the mediastinum and prevascular shakeel chain consistent with malignancy. There is extensive consolidation of the right lung with a large pleural effusion and probable right hilar mass. 2. There is diffuse edema throughout the left lung. 3. No pulmonary embolus is identified. Karl Tracy MD Thoracentesis 11/21/16 Signed Impressions: Service Date/Time: Monday, November 21, 2016 15:42 - CONCLUSION: Uncomplicated fluoroscopically guided thoracentesis. A 10 [place] chest tube was placed. Karl Tracy MD Lower Extremity Ultrasound 11/21/16 Signed Impressions: Service Date/Time: Monday, November 21, 2016 23:17 - CONCLUSION: 1. No DVT in either lower extremity. 2. Prominent lymph node in the left groin measures 33 x 11 x 20 mm. 3. Necrotic appearing left node in the left groin measures 18 x 19 x 20 mm. Ben Peterson MD Chest Tube Insertion 11/21/16 Signed Impressions: Service Date/Time: Monday, November 21, 2016 15:42 - CONCLUSION: Uncomplicated chest tube placement as above. Karl Tracy MD Central Venous Line 11/21/16 0000 Signed Impressions: Service Date/Time: Monday, November 21, 2016 15:42 - CONCLUSION: Uncomplicated line placement as above. Karl Tracy MD Objective Remarks GENERAL: Patient is 66 yo critically ill intubated and sedated SKIN: Warm and dry. HEAD: Normocephalic. EYES: No scleral icterus. No injection or drainage. NECK: Supple, trachea midline. No JVD or lymphadenopathy. CARDIOVASCULAR: Regular rate and rhythm without murmurs, gallops, or rubs. RESPIRATORY: Breath sounds equal bilaterally. No accessory muscle use. Right CT in place GASTROINTESTINAL: Abdomen soft, non-tender, nondistended. MUSCULOSKELETAL: No cyanosis, ++ edema. Neuro: Sedated, intubated A/P Assessment and Plan 1. Acute hypoxemic and hypercapnic respiratory failure. 2. SVT post cardioversion. 3. Large right-sided pleural effusion. s/p thora and CT placement 4. 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 Leukocytosis 6. Urinary tract infection. 7. Anemia 8. Elevated AST. Plan: Neuro: On Fentanyl drip for sedation and analgesia, daily sedation vacation Pulm: Continue with vent support and maintain sats > 92%. Bronchodilators , ICU vent bundle. SBT daily. check CXR On hydrocortisone 50 mg IV q. 6 s/p CT guided thoracentesis with removal 2L and CT placement- Monitor CT drainage ( Drained 290 ml since yesterday) Followup on Pleural fluid cxs/Cytology CV: Only on Neosyn 10 mics with MAP 75mmHg Place on Lopressor 25mg Q12 for rate control- monitor HR and BP and maintain MAP> 65 mmHg. Lactic acid 2.2 Echo showed EF 50-55% s/p Adenosine 12 mg IV and cardioversion for SVT in ED : Monitor renal function, intake and output and electrolyte replacement per protocol. Will need Phos replacement today GI: on Protonix 40 mg IV daily for GI prophylaxis. tube feeds- Glucerna 1.5 with goal rate 45ml/hr ID: Continue with abx(vancomycin, Zosyn and azithromycin). Monitor for signs of infections(fever, WBC). ID is following Follow up on sputum, urine and blood cultures....NGTD Strep pneumoniae Legionella urinary antigen negative. Endo:SSI with Accu-Chek q. 4-hour for glycemic control Heme: Monitor CBC and Coags. Oncology is following-Dr. De Leon Doppler US b/l LE negative for DVT GI prophylaxis with Protonix 40 mg IV daily and DVT prophylaxis with SCDs for now. Not on chemical anticoagulation prophylaxis due to brain mets Lines: Right IJ CVP placed 11/21 Palliative care eval to asses with goals of care CCT 30 minutes excluding procedures. Leeann Loza MD Nov 23, 2016 07:43
[2016-11-23] MEDS: SODIUM CHLORIDE 0.9% FLUSH 10 ML FLUSH IVF SCH (07:45)
[2016-11-23] MEDS ORDERED: POTASSIUM CHLORIDE 25 MEQ EFFERVESCENT TAB PO PRN (07:45)
[2016-11-23] MEDS ORDERED: POTASSIUM PHOSPHATE MONOBASIC 500 MG TAB PO PRN (07:45)
[2016-11-23] MEDS: DOCUSATE SODIUM 50 MG/SENNA 8.6 MG TAB PO SCH ×2 (07:45→19:24)
[2016-11-23] MEDS ORDERED: MAGNESIUM SULFATE INJ 4 GM in SODIUM CHLORIDE 0.9% INJ 92 ML IV PRN (07:45)
[2016-11-23] MEDS ORDERED: SODIUM PHOSPHATE INJ 30 MMOL in SODIUM CHLOR 0.9% 250 ML INJ 240 ML IV PRN (07:45)
[2016-11-23] MEDS ORDERED: POTASSIUM CHLOR 40 MEQ PREMIX 100 ML IV PRN ×2 (07:45)
[2016-11-23] MEDS ORDERED: POTASSIUM CHLOR 20 MEQ PREMIX 100 ML IV PRN ×2 (07:45)
[2016-11-23] MEDS ORDERED: MAGNESIUM SULFATE INJ 2 GM in SODIUM CHLORIDE 0.9% INJ 96 ML IV PRN (07:45)
[2016-11-23] MEDS ORDERED: POTASSIUM PHOSPHATE MONOBASIC 500 MG TAB PO/TUBE PRN (07:45)
[2016-11-23] MEDS ORDERED: MAGNESIUM OXIDE 400 MG TAB PO PRN (07:45)
[2016-11-23] MEDS: PANTOPRAZOLE SODIUM 40 MG VIAL IV SCH (07:45)
[2016-11-23] MEDS ORDERED: POTASSIUM PHOSPHATE INJ 30 MMOL in SODIUM CHLOR 0.9% 250 ML INJ 250 ML IV PRN (07:45)
[2016-11-23] MEDS: METOPROLOL TARTRATE 25 MG TAB PO SCH ×2 (09:00→19:24)
--- NOTE | 2016-11-23 09:17 | RADRPT ---
EXAM DATE/TIME: 11/23/2016 08:52 [place] COMPARISON: CHEST SINGLE AP, November 21, 2016, 14:24. INDICATIONS : Shortness of breath. MEDICAL HISTORY : Hypertension. Chronic obstructive pulmonary disease. Carcinoma, lung. SURGICAL HISTORY : None. ENCOUNTER: Initial ACUITY: 1 day PAIN SCORE: Non-responsive. LOCATION: Bilateral chest FINDINGS: The support devices are in place. There is no pneumothorax. There is a small right-sided chest tube i n place. The previously noted large right effusion has been drained. There are interstitial and airsp florin infiltrates in both lung villatoro. The heart size is stable. The bony structures are stable. CONCLUSION: 1. The previously noted right-sided pleural effusion has been drained and there is a right chest tube in place. 2. Bilateral interstitial and airspace infiltrates. Eric Modi MD on November 23, 2016 at 9:13 Board Certified Radiologist. This report was verified electronically.
--- NOTE | 2016-11-23 12:49 | HHI.IDPN ---
Subjective Subjective Remarks Patient is a 66-year-old male, admitted to the hospital for evaluation of progressive shortness of breath. He was recently here back in September and at that time he was found to have a large hilar mass with significant major spinal adenopathy. 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 His staging workup showed evidence of metastatic disease to the brain. He was being evaluated for radiation therapy to his brain metastases. He was started on palliative chemotherapy as an outpatient, and he actually received his second cycle around November 04. He was apparently also being followed at the [facility] and he developed progressive shortness of breath. Evaluation in the emergency room revealed that he was significantly tachycardic with a heart rate of 170- 180 while in the ED he became hypotensive, and he was given adenosine, and subsequently cardioverted. He ended up getting intubated. He also remained hypotensive, and currently on pressors. Patient was also febrile up to 101+. His chest x-ray is showing almost complete opacification in the right lung with a little bit of induration in the right upper lobe. He also has infiltrates on the left base. Patient had placement of a chest tube on the right side. On reviewing his previous hospitalization, his last WBC prior to being discharged from the hospital was 49,000. Notes reviewed Temps ok On CPAP looks comfortable On neosynephrine WBC improving Sputum with GNR UC neg BC negative CXR with decreased effusion R, has CT Antibiotics Zosyn Vancomycin Zithromax Lines INJ TLC - 11/21 Past Medical History Chronic tobacco use. COPD. Hypertension. Metastatic small cell lung cancer. [employer] metastatic disease. History of supraventricular tachycardia. Pneumonia. Past Surgical History CT-guided biopsy of right clavicular lymph node. Open reduction internal fixation of left ankle. Chest tube placement. Ultrasound-guided thoracentesis Allergies: Coded Allergies: No Known Allergies (Verified Allergy, Severe, 03/13/05) Objective . Vital Signs Date Time Temp Pulse Resp B/P Pulse Ox O2 Delivery O2 Flow Rate FiO2 11/23/16 11:16 40 11/23/16 11:16 95 40 11/23/16 10:00 104 11/23/16 09:00 100 11/23/16 08:00 98 11/23/16 08:00 98.0 98 16 90/53 96 11/23/16 08:00 40 11/23/16 07:26 96 40 11/23/16 06:00 100 11/23/16 04:36 99 40 11/23/16 04:00 93 11/23/16 04:00 97.8 93 14 91/58 95 11/23/16 04:00 55 11/23/16 02:00 73 11/23/16 00:00 85 11/23/16 00:00 55 11/23/16 00:00 98.8 86 16 118/69 97 11/22/16 22:26 95 40 11/22/16 22:00 87 11/22/16 20:34 95 40 11/22/16 20:00 55 11/22/16 20:00 83 11/22/16 20:00 98.2 83 16 113/69 95 11/22/16 18:00 82 11/22/16 16:00 55 11/22/16 16:00 97.9 85 16 101/62 94 11/22/16 16:00 85 11/22/16 15:15 94 40 11/22/16 14:00 80 11/22/16 11/22/16 11/23/16 14:59 22:59 06:59 Intake Total 1179 ml 998 ml 267 ml Output Total 780 ml 310 ml 200 ml Balance 399 ml 688 ml 67 ml Intake IV Total 939 ml 998 ml 217 ml Tube Feeding 50 ml Other 240 ml Output Urine Total 500 ml 300 ml 200 ml Chest Tube Drainage Total 280 ml 10 ml . Laboratory Tests Test 11/21/16 11/22/16 11/23/16 13:54 05:10 03:50 White Blood Count 23.6 TH/MM3 27.3 TH/MM3 20.4 TH/MM3 Red Blood Count 3.59 MIL/MM3 3.06 MIL/MM3 2.82 MIL/MM3 Hemoglobin 11.2 GM/DL 9.6 GM/DL 8.9 GM/DL Hematocrit 34.3 % 29.5 % 26.9 % Mean Corpuscular Volume 95.4 FL 96.2 FL 95.4 FL Mean Corpuscular Hemoglobin 31.3 PG 31.3 PG 31.7 PG Mean Corpuscular Hemoglobin 32.8 % 32.5 % 33.2 % Concent Red Cell Distribution Width 13.3 % 13.7 % 13.4 % Platelet Count 320 TH/MM3 346 TH/MM3 273 TH/MM3 Mean Platelet Volume 8.6 FL 8.2 FL 7.7 FL Neutrophils (%) (Auto) 93.4 % 94.2 % 91.2 % Lymphocytes (%) (Auto) 3.8 % 3.0 % 4.0 % Monocytes (%) (Auto) 2.7 % 2.7 % 4.5 % Eosinophils (%) (Auto) 0.0 % 0.0 % 0.0 % Basophils (%) (Auto) 0.1 % 0.1 % 0.3 % Neutrophils # (Auto) 22.1 TH/MM3 25.7 TH/MM3 18.6 TH/MM3 Lymphocytes # (Auto) 0.9 TH/MM3 0.8 TH/MM3 0.8 TH/MM3 Monocytes # (Auto) 0.6 TH/MM3 0.7 TH/MM3 0.9 TH/MM3 Eosinophils # (Auto) 0.0 TH/MM3 0.0 TH/MM3 0.0 TH/MM3 Basophils # (Auto) 0.0 TH/MM3 0.0 TH/MM3 0.1 TH/MM3 CBC Comment AUTO DIFF DIFF FINAL AUTO DIFF Differential Total Cells 100 100 Counted Neutrophils % (Manual) 76 % 83 % Band Neutrophils % 15 % 12 % Lymphocytes % 7 % 4 % Monocytes % 2 % 1 % Neutrophils # (Manual) 21.5 TH/MM3 19.4 TH/MM3 Differential Comment FINAL DIFF FINAL DIFF MANUAL MANUAL Platelet Estimate NORMAL NORMAL Platelet Morphology Comment NORMAL NORMAL Laboratory Tests Test 11/21/16 11/21/16 11/21/16 11/22/16 13:54 18:23 20:50 02:49 Sodium Level 138 MEQ/L Potassium Level 3.9 MEQ/L Chloride Level 98 MEQ/L Carbon Dioxide Level 34.1 MEQ/L Anion Gap 6 MEQ/L Blood Urea Nitrogen 40 MG/DL Creatinine 0.86 MG/DL Estimat Glomerular Filtration 90 ML/MIN Rate Random Glucose 116 MG/DL Calcium Level 8.8 MG/DL Total Bilirubin 0.5 MG/DL Aspartate Amino Transf 80 U/L (AST/SGOT) Alanine Aminotransferase 70 U/L (ALT/SGPT) Alkaline Phosphatase 131 U/L Total Creatine Kinase 110 U/L 107 U/L 49 U/L Creatine Kinase MB 3.5 NG/ML 2.2 NG/ML Troponin I 0.02 NG/ML 0.02 NG/ML 0.02 NG/ML Total Protein 7.3 GM/DL Albumin 2.2 GM/DL Lactic Acid Level 2.2 mmol/L Test 11/22/16 11/23/16 05:10 03:50 Sodium Level 142 MEQ/L 142 MEQ/L Potassium Level 4.0 MEQ/L 3.6 MEQ/L Chloride Level 103 MEQ/L 103 MEQ/L Carbon Dioxide Level 32.2 MEQ/L 33.0 MEQ/L Anion Gap 7 MEQ/L 6 MEQ/L Blood Urea Nitrogen 27 MG/DL 20 MG/DL Creatinine 0.68 MG/DL 0.47 MG/DL Estimat Glomerular Filtration 117 ML/MIN 180 ML/MIN Rate Random Glucose 150 MG/DL 122 MG/DL Calcium Level 8.0 MG/DL 7.7 MG/DL Phosphorus Level 3.1 MG/DL 1.8 MG/DL Magnesium Level 2.1 MG/DL 1.9 MG/DL Total Bilirubin 0.4 MG/DL 0.3 MG/DL Aspartate Amino Transf 48 U/L 33 U/L (AST/SGOT) Alanine Aminotransferase 53 U/L 37 U/L (ALT/SGPT) Alkaline Phosphatase 101 U/L 91 U/L Total Protein 6.0 GM/DL 5.5 GM/DL Albumin 1.6 GM/DL 1.4 GM/DL Microbiology Date/Time Procedure Status Source Growth 11/21/16 14:00 Aerobic Blood Culture - Preliminary Resulted Blood Peripheral NO GROWTH IN 2 DAYS 11/21/16 14:00 Anaerobic Blood Culture - Preliminary Resulted Blood Peripheral NO GROWTH IN 2 DAYS 11/21/16 14:02 Urine Culture - Final Complete Urine Clean Catch NO GROWTH IN 48 HOURS. 11/21/16 14:02 Legionella Antigen - Final Complete Urine Catheterized Urine PRESUMPTIVE NEGATIVE FOR LEGIONELLA P... 11/21/16 14:02 Streptococcus pneumoniae Antigen (M - Final Complete Urine Catheterized Urine PRESUMPTIVE NEGATIVE FOR STREPTOCOCCU... 11/21/16 14:20 Aerobic Blood Culture - Preliminary Resulted Blood Peripheral NO GROWTH IN 2 DAYS 11/21/16 14:20 Anaerobic Blood Culture - Preliminary Resulted Blood Peripheral NO GROWTH IN 2 DAYS 11/21/16 16:30 Gram Stain - Final Resulted Fluid Pleural Fluid 11/21/16 16:30 Body Fluid Culture - Preliminary Resulted Fluid Pleural Fluid NO GROWTH IN 48 HOURS. 11/21/16 16:30 Fungal Smear - Final Resulted Fluid Pleural Fluid NO FUNGAL ELEMENTS SEEN. 11/21/16 16:30 Fungal Culture Resulted Fluid Pleural Fluid Pending 11/22/16 11:45 Gram Stain - Final Resulted Sputum Endotracheal 11/22/16 11:45 Sputum Culture - Preliminary Resulted Gram Negative [facility] Last Impressions Chest X-Ray 11/23/16 0000 Signed Impressions: Service Date/Time: Wednesday, November 23, 2016 08:52 - CONCLUSION: 1. The previously noted right-sided pleural effusion has been drained and there is a right chest tube in place. 2. Bilateral interstitial and airspace infiltrates. Eric Modi MD CT Angiography 11/21/16 1436 Signed Impressions: Service Date/Time: Monday, November 21, 2016 15:39 - CONCLUSION: 1. There is diffuse adenopathy involving the thoracic inlet, the paratracheal shakeel chains , diffusely throughout the mediastinum and prevascular shakeel chain consistent with malignancy. There is extensive consolidation of the right lung with a large pleural effusion and probable right hilar mass. 2. There is diffuse edema throughout the left lung. 3. No pulmonary embolus is identified. Karl Tracy MD Thoracentesis 11/21/16 0000 Signed Impressions: Service Date/Time: Monday, November 21, 2016 15:42 - CONCLUSION: Uncomplicated fluoroscopically guided thoracentesis. A 10 [place] chest tube was placed. Karl Tracy MD Lower Extremity Ultrasound 11/21/16 0000 Signed Impressions: Service Date/Time: Monday, November 21, 2016 23:17 - CONCLUSION: 1. No DVT in either lower extremity. 2. Prominent lymph node in the left groin measures 33 x 11 x 20 mm. 3. Necrotic appearing left node in the left groin measures 18 x 19 x 20 mm. Ben Peterson MD Chest Tube Insertion 11/21/16 0000 Signed Impressions: Service Date/Time: Monday, November 21, 2016 15:42 - CONCLUSION: Uncomplicated chest tube placement as above. Karl Tracy MD Central Venous Line 11/21/16 0000 Signed Impressions: Service Date/Time: Monday, November 21, 2016 15:42 - CONCLUSION: Uncomplicated line placement as above. Karl Tracy MD Physical Exam GENERAL: sedated on the vent, not in respiratory distress. On CPAP SKIN: Warm and dry. No generalized rash, no ecchymoses and no evidence of embolic lesions. HEAD: Atraumatic. Normocephalic. No temporal wasting, or tenderness. EYES: [place] conjunctiva. No petechia or hemorrhage. Pupils equal, round and reactive to light. No scleral icterus. No injection or drainage. EARS, NOSE AND THROAT: Nose without bleeding or purulent nasal discharge. No sinus tenderness. He is orally intubated. NECK: Trachea midline. Supple and not tender, no meningeal signs. Line RIJ site ok CARDIOVASCULAR: Regular rate and rhythm. No murmurs, rubs or gallops heard RESPIRATORY: Coarse rhonchi bilaterally. CT on R with serous fluid. ABDOMEN: Soft, non-tender, nondistended. Bowel sounds present and normoactive. No guarding. No rebound. Has umbilical hernia EXTREMITIES: No clubbing, cyanosis, or edema. Has dry scabs on dorsum of his L foot. Cool feet. NEUROLOGICAL: Sedated PSYCHIATRIC: Unable to assess LINE: No evidence of infection : Hassan in place, urine looks clear Assessment & Plan Remarks IMPRESSION Sepsis, on admission - PNA - UTI Has R pleural effusion, CT in place, C/S negative so far Small cell lung CA with mets, undergoing chemo Brain mets, for XRT Respiratory failure Known COPD RECOMMENDATION Follow C/S (BC, UC and sputum) - IMPRESSION Sepsis, on admission - PNA - UTI Small cell lung CA with mets, undergoing chemo Brain mets, for XRT Respiratory failure Known COPD RECOMMENDATION Follow C/S (BC, UC and sputum) - Will adjust Abx once C/S available On Vanco and Zosyn BP support Vent support Monitor progress Weaning per CCM Tami Cueva MD Nov 23, 2016 12:49
[2016-11-23] MEDS: SODIUM CHLORIDE 0.9% FLUSH 10 ML FLUSH IVF PRN (15:10)
[2016-11-23] MEDS: AZITHROMYCIN INJ 500 MG in SODIUM CHLOR 0.9% 250 ML INJ 250 ML IV SCH (17:48)
[2016-11-24] VITALS (20 sets, daily range): BP systolic 85–127; BP diastolic 56–78; PULSE 61–141; RESP 14–20; TEMP 98–98.7; O2SAT 90–100
[2016-11-24] MEDS: INSULIN NovoLIN REGULAR SUPPLEMENTAL SCALE SQ SCH ×5 (02:45→22:45)
[2016-11-24] MEDS: PIPERACIL-TAZO 4.5 GM PREMIX 100 ML IV SCH ×4 (03:44→22:36)
[2016-11-24] MEDS: HYDROCORTISONE SOD SUCCINATE 100 MG VIAL IV PUSH SCH ×4 (03:44→22:36)
[2016-11-24] MEDS: VANCOMYCIN INJ 1,000 MG in SODIUM CHLOR 0.9% 250 ML INJ 250 ML IV SCH (03:45)
[2016-11-24] MEDS: CHLORHEXIDINE GLUCONATE 2 % 1 PACK (2 CLOTHS) TOP SCH (03:45)
[2016-11-24] MEDS: RESP: ALBUTEROL 2.5 MG/IPRATROPIUM 0.5 MG NEB (SCH) INH ×5 (04:23→22:19)
[2016-11-24 04:24] LABS: AUTOMATED NEUTROPHIL # 13.7 TH/MM3 (1.8-7.7); BASOPHIL # 0.1 TH/MM3 (0-0.2); BASOPHIL % 0.4 % (0.0-2.0); HEMATOCRIT 26.7 % (39.0-51.0); LYMPH % 4.3 % (9.0-44.0); LYMPHOCYTE # 0.6 TH/MM3 (1.0-4.8); MEAN CELL VOLUME 94.8 FL (80.0-100.0); MEAN CORPUSCULAR HEMOGLOBIN 32.4 PG (27.0-34.0); MEAN CORPUSCULAR HGB CONC 34.2 % (32.0-36.0); MONO % 4.1 % (0.0-8.0); NEUT % 91.2 % (16.0-70.0); PLATELET COUNT 308 TH/MM3 (150-450); RED BLOOD COUNT 2.82 MIL/MM3 (4.50-5.90); RED CELL DISTRIBUTION WIDTH 13.8 % (11.6-17.2); WHITE BLOOD COUNT 15.1 TH/MM3 (4.0-11.0)
[2016-11-24 04:35] LABS: HEMO FLAGS AUTO DIFF
[2016-11-24 04:47] LABS: BICARBONATE 35.5 MEQ/L (21.0-32.0); MAGNESIUM 1.9 MG/DL (1.5-2.5); POTASSIUM 3.8 MEQ/L (3.5-5.1)
[2016-11-24 06:42] LABS: BANDS 6 % (0-6); MYELOCYTES 1 % (0-0); NEUTROPHIL # MANUAL DIFF 13.7 TH/MM3 (1.8-7.7); PLATELET ESTIMATE SMEAR NORMAL (NORMAL); PLATELET MORPHOLOGY NORMAL (NORMAL); POLYS (SEG NEUTROPHILS) 84 % (16-70); SCAN/DIFF FINAL DIFF MANUAL; WBC DIFF SAMPLE 100
[2016-11-24] MEDS: fentaNYL DRIP 250 ML IV SCH (06:51)
[2016-11-24] MEDS ORDERED: BUMETANIDE INJ 1 MG/4 ML VIAL IV PUSH ONE ×2 (07:15→14:30)
--- NOTE | 2016-11-24 07:20 | HHI.CCPN ---
Subjective Remarks/Hospital Course The patient is a 66-year-old male with past medical history of lung cancer on chemotherapy, being followed at the ID who presented to [facility] emergency department with progressive shortness of breath. On arrival the patient was tachycardiac with heart rate 170s to 180s and his initial blood pressure of 140/86. He became hypotensive in the emergency room and he was subsequently given adenosine at 12 mg IV push x1. His EKG showed SVT with a rate of 187 beats per minute. Due to hemodynamic instability the patient had cardioversion with 70 joules and a repeat ABG showed sinus tachycardia with a rate of 111 beats per minute and nonspecific ST-T wave abnormalities. Due to his respiratory distress he was intubated with etomidate, succinylcholine and placed on full mechanical ventilation. ABG post intubation showed acute hypercapnic and hypoxemic respiratory failure with a pH of 7.31, CO2 60, pAO2 144, bicarb 29, sats 97% on assist control ventilation rate of 14, tidal volume 550, PEEP of five and FIO2 100%. The patient had a fever with temperature of 101.4 and his laboratory data showed leukocytosis with a WBC of 23.6 associated with bandemia. His CMP showed a BUN of 40, creatinine 0.86, AST of 80 and troponin of 0.02. The patient was found to have a UTI as his urinalysis showed leukocyte esterase 49 WBC, few bacteria. A chest x-ray post-intubation showed bilateral pleural effusion, right greater than left. According to patients son his last chemotherapy was approximately one month ago and he remains an active smoker. The patient is scheduled to undergo a CT-guided paracentesis and chest tube placement by IR. When seen in the emergency room, the patient remained tachycardic with heart rate of 111, blood pressure 91/61. He is sedated with versed and on assist control ventilation. 11/22 Patient is sedated with Versed and intubated. Afebrile. s/p CT guided thoracentesis with removal of 2L fluid and chest tube placement drained 560 ml since yesterday. He was started on Neosyn 80 mics overnight. 11/23 Patent is sedated with Fentanyl and intubated. Off Versed. Neosyn down 10 mics. WBC is trending down. Afebrile. 11/24 Patient is sedated with Versed 3mg, Fentanyl drip and intubated. Afebrile. Off Neosyn. Objective Vital Signs Date Time Temp Pulse Resp B/P Pulse Ox O2 Delivery O2 Flow Rate FiO2 11/24/16 06:00 93 11/24/16 04:19 94 40 11/24/16 04:00 98.0 18 108/78 11/21/16 15:12 Ventilator 11/21/16 13:38 15 Intake and Output 11/23/16 11/23/16 11/24/16 08:00 16:00 00:00 Intake Total 267 ml 1287 ml 176 ml Output Total 200 ml 350 ml 50 ml Balance 67 ml 937 ml 126 ml Result Diagram: 11/24/16 0404 11/24/16 0404 Other Results Laboratory Tests Test 11/24/16 04:04 White Blood Count 15.1 TH/MM3 Red Blood Count 2.82 MIL/MM3 Hemoglobin 9.1 GM/DL Hematocrit 26.7 % Mean Corpuscular Volume 94.8 FL Mean Corpuscular Hemoglobin 32.4 PG Mean Corpuscular Hemoglobin 34.2 % Concent Red Cell Distribution Width 13.8 % Platelet Count 308 TH/MM3 Mean Platelet Volume 7.8 FL Neutrophils (%) (Auto) 91.2 % Lymphocytes (%) (Auto) 4.3 % Monocytes (%) (Auto) 4.1 % Eosinophils (%) (Auto) 0.0 % Basophils (%) (Auto) 0.4 % Neutrophils # (Auto) 13.7 TH/MM3 Lymphocytes # (Auto) 0.6 TH/MM3 Monocytes # (Auto) 0.6 TH/MM3 Eosinophils # (Auto) 0.0 TH/MM3 Basophils # (Auto) 0.1 TH/MM3 CBC Comment AUTO DIFF Differential Total Cells 100 Counted Neutrophils % (Manual) 84 % Band Neutrophils % 6 % Lymphocytes % 6 % Monocytes % 3 % Neutrophils # (Manual) 13.7 TH/MM3 Myelocytes 1 % Differential Comment FINAL DIFF MANUAL Platelet Estimate NORMAL Platelet Morphology Comment NORMAL Sodium Level 147 MEQ/L Potassium Level 3.8 MEQ/L Chloride Level 106 MEQ/L Carbon Dioxide Level 35.5 MEQ/L Anion Gap 6 MEQ/L Blood Urea Nitrogen 22 MG/DL Creatinine 0.44 MG/DL Estimat Glomerular Filtration 194 ML/MIN Rate Random Glucose 138 MG/DL Calcium Level 8.0 MG/DL Phosphorus Level 2.0 MG/DL Magnesium Level 1.9 MG/DL Imaging Last Impressions Chest X-Ray 11/23/16 0000 Signed Impressions: Service Date/Time: Wednesday, November 23, 2016 08:52 - CONCLUSION: 1. The previously noted right-sided pleural effusion has been drained and there is a right chest tube in place. 2. Bilateral interstitial and airspace infiltrates. Eric Modi MD CT Angiography 11/21/16 1436 Signed Impressions: Service Date/Time: Monday, November 21, 2016 15:39 - CONCLUSION: 1. There is diffuse adenopathy involving the thoracic inlet, the paratracheal shakeel chains , diffusely throughout the mediastinum and prevascular shakeel chain consistent with malignancy. There is extensive consolidation of the right lung with a large pleural effusion and probable right hilar mass. 2. There is diffuse edema throughout the left lung. 3. No pulmonary embolus is identified. Karl Tracy MD Thoracentesis 11/21/16 0000 Signed Impressions: Service Date/Time: Monday, November 21, 2016 15:42 - CONCLUSION: Uncomplicated fluoroscopically guided thoracentesis. A 10 [place] chest tube was placed. Karl Tracy MD Lower Extremity Ultrasound 11/21/16 0000 Signed Impressions: Service Date/Time: Monday, November 21, 2016 23:17 - CONCLUSION: 1. No DVT in either lower extremity. 2. Prominent lymph node in the left groin measures 33 x 11 x 20 mm. 3. Necrotic appearing left node in the left groin measures 18 x 19 x 20 mm. Ben Peterson MD Chest Tube Insertion 11/21/16 0000 Signed Impressions: Service Date/Time: Monday, November 21, 2016 15:42 - CONCLUSION: Uncomplicated chest tube placement as above. Karl Tracy MD Central Venous Line 11/21/16 0000 Signed Impressions: Service Date/Time: Monday, November 21, 2016 15:42 - CONCLUSION: Uncomplicated line placement as above. Karl Tracy MD Objective Remarks GENERAL: Patient is 66 yo critically ill intubated and sedated SKIN: Warm and dry. HEAD: Normocephalic. EYES: No scleral icterus. No injection or drainage. NECK: Supple, trachea midline. No JVD or lymphadenopathy. CARDIOVASCULAR: Regular rate and rhythm without murmurs, gallops, or rubs. RESPIRATORY: Breath sounds equal bilaterally. No accessory muscle use. Right CT in place GASTROINTESTINAL: Abdomen soft, non-tender, nondistended. MUSCULOSKELETAL: No cyanosis, ++ edema. Neuro: Sedated, intubated A/P Assessment and Plan 1. Acute hypoxemic and hypercapnic respiratory failure. 2. SVT post cardioversion. 3. Large right-sided pleural effusion. s/p thora and CT placement 4. Small cell Lung cancer with [employer] mets on Palliative chemo 5. Leukocytosis 6. Urinary tract infection. 7. Anemia 8. Elevated AST. Plan: Neuro: On Fentanyl, Versed drips for sedation and analgesia, daily sedation vacation Pulm: Continue with vent support and maintain sats > 92%. Bronchodilators , ICU vent bundle. SBT daily. Decrease hydrocortisone 50 mg IV q. 12 s/p CT guided thoracentesis with removal 2L and CT placement- Monitor CT drainage ( Drained 50 ml since yesterday) Patient has a lot of secretions per RT, CXR showed right basilar opacity with volume loss/consolidation and left basilar opacity. He underwent bronch today showed minimal secretions suctioned to clear, ? endobronchial lesion obstructing orfice RLL CV: Monitor HR and BP keep MAP 75mmHg on Lopressor 25mg Q12 for rate control- monitor HR and BP and maintain MAP > 65 mmHg. Lactic acid 2.2 Echo showed EF 50-55% s/p Adenosine 12 mg IV and cardioversion for SVT in ED : Monitor renal function, intake and output and electrolyte replacement per protocol. Will need Phos replacement today. Diurese with Bumex 1mg x1 Add Free water 250ml Q12, monitor sodium level. GI: on Protonix 40 mg IV daily for GI prophylaxis. tube feeds- Glucerna 1.5 with goal rate 45ml/hr ID: Continue with abx(Zosyn and azithromycin, d/c Vanco). Monitor for signs of infections(fever, WBC). WBC is trending down ID is following Sputum cx: GNR 11/22 urine and blood cultures....NGTD Strep pneumoniae Legionella urinary antigen negative. Endo:SSI with Accu-Chek q. 4-hour for glycemic control Heme: Monitor CBC and Coags. Oncology is following-Dr. De Leon Doppler US b/l LE negative for DVT GI prophylaxis with Protonix 40 mg IV daily and DVT prophylaxis with SCDs for now. Not on chemical anticoagulation prophylaxis due to brain mets Lines: Right IJ CVP placed 11/21 Palliative care eval to asses with goals of care CCT 30 minutes excluding procedures. Leeann Loza MD Nov 24, 2016 07:20
[2016-11-24] MEDS: PANTOPRAZOLE SODIUM 40 MG VIAL IV SCH (08:14)
[2016-11-24] MEDS: DOCUSATE SODIUM 50 MG/SENNA 8.6 MG TAB PO SCH ×2 (08:15→22:36)
[2016-11-24] MEDS: METOPROLOL TARTRATE 25 MG TAB PO SCH ×2 (08:16→22:36)
[2016-11-24] MEDS: SODIUM CHLORIDE 0.9% FLUSH 10 ML FLUSH IVF SCH (08:16)
[2016-11-24] MEDS: FREE WATER G-TUBE SCH ×2 (08:16→21:00)
--- NOTE | 2016-11-24 09:31 | PD.ONC.PN ---
Subjective Subjective Remarks Afebrile overnight. on CPAP for six hours yesterday and 45 minutes this morning. Still on minimal sedation. CT remains in place. ~300cc/24 hours output. Objective Data Date Time Temp Pulse Resp B/P Pulse Ox O2 Delivery O2 Flow Rate FiO2 11/24/16 09:14 40 11/24/16 08:37 100 40 11/24/16 06:00 93 11/24/16 04:19 94 40 11/24/16 04:00 40 11/24/16 04:00 98.0 141 18 108/78 90 11/24/16 04:00 116 11/24/16 02:00 93 11/24/16 00:00 40 11/24/16 00:00 89 11/24/16 00:00 98.0 89 16 85/56 93 11/23/16 23:52 93 40 11/23/16 22:11 95 40 11/23/16 22:00 86 11/23/16 20:00 40 11/23/16 20:00 96 11/23/16 20:00 98.8 96 16 92/54 92 11/23/16 19:20 94 40 11/23/16 18:00 104 11/23/16 17:23 40 11/23/16 17:23 93 40 11/23/16 16:00 121 11/23/16 16:00 98.1 121 29 113/71 93 11/23/16 16:00 40 11/23/16 15:33 93 40 11/23/16 14:00 114 11/23/16 12:00 116 11/23/16 12:00 98.3 116 15 105/60 97 11/23/16 12:00 40 11/23/16 11:16 40 11/23/16 11:16 40 11/23/16 11:16 95 40 11/23/16 10:00 104 11/24/16 11/24/16 11/24/16 06:59 14:59 22:59 Intake Total 772 ml Output Total 300 ml Balance 472 ml Result Diagram: 11/24/1640311/24/16403 Laboratory Results Laboratory Tests Test 11/24/16 04:04 White Blood Count 15.1 TH/MM3 Red Blood Count 2.82 MIL/MM3 Hemoglobin 9.1 GM/DL Hematocrit 26.7 % Mean Corpuscular Volume 94.8 FL Mean Corpuscular Hemoglobin 32.4 PG Mean Corpuscular Hemoglobin 34.2 % Concent Red Cell Distribution Width 13.8 % Platelet Count 308 TH/MM3 Mean Platelet Volume 7.8 FL Neutrophils (%) (Auto) 91.2 % Lymphocytes (%) (Auto) 4.3 % Monocytes (%) (Auto) 4.1 % Eosinophils (%) (Auto) 0.0 % Basophils (%) (Auto) 0.4 % Neutrophils # (Auto) 13.7 TH/MM3 Lymphocytes # (Auto) 0.6 TH/MM3 Monocytes # (Auto) 0.6 TH/MM3 Eosinophils # (Auto) 0.0 TH/MM3 Basophils # (Auto) 0.1 TH/MM3 CBC Comment AUTO DIFF Differential Total Cells 100 Counted Neutrophils % (Manual) 84 % Band Neutrophils % 6 % Lymphocytes % 6 % Monocytes % 3 % Neutrophils # (Manual) 13.7 TH/MM3 Myelocytes 1 % Differential Comment FINAL DIFF MANUAL Platelet Estimate NORMAL Platelet Morphology Comment NORMAL Sodium Level 147 MEQ/L Potassium Level 3.8 MEQ/L Chloride Level 106 MEQ/L Carbon Dioxide Level 35.5 MEQ/L Anion Gap 6 MEQ/L Blood Urea Nitrogen 22 MG/DL Creatinine 0.44 MG/DL Estimat Glomerular Filtration 194 ML/MIN Rate Random Glucose 138 MG/DL Calcium Level 8.0 MG/DL Phosphorus Level 2.0 MG/DL Magnesium Level 1.9 MG/DL Culture Results Microbiology Date/Time Procedure Status Source Growth 11/21/16 14:00 Aerobic Blood Culture - Preliminary Resulted Blood Peripheral NO GROWTH IN 2 DAYS 11/21/16 14:00 Anaerobic Blood Culture - Preliminary Resulted Blood Peripheral NO GROWTH IN 2 DAYS 11/21/16 14:02 Urine Culture - Final Complete Urine Clean Catch NO GROWTH IN 48 HOURS. 11/21/16 14:02 Legionella Antigen - Final Complete Urine Catheterized Urine PRESUMPTIVE NEGATIVE FOR LEGIONELLA P... 11/21/16 14:02 Streptococcus pneumoniae Antigen (M - Final Complete Urine Catheterized Urine PRESUMPTIVE NEGATIVE FOR STREPTOCOCCU... 11/21/16 14:20 Aerobic Blood Culture - Preliminary Resulted Blood Peripheral NO GROWTH IN 2 DAYS 11/21/16 14:20 Anaerobic Blood Culture - Preliminary Resulted Blood Peripheral NO GROWTH IN 2 DAYS 11/21/16 16:30 Gram Stain - Final Complete Fluid Pleural Fluid 11/21/16 16:30 Body Fluid Culture - Final Complete Fluid Pleural Fluid NO GROWTH IN 72 HRS.--AEROBICALLY OR ... 11/21/16 16:30 Fungal Smear - Final Resulted Fluid Pleural Fluid NO FUNGAL ELEMENTS SEEN. 11/21/16 16:30 Fungal Culture Resulted Fluid Pleural Fluid Pending 11/22/16 11:45 Gram Stain - Final Resulted Sputum Endotracheal 11/22/16 11:45 Sputum Culture - Preliminary Resulted Gram Negative Ken Administered Medications Medications (Trade) Dose Ordered Sig/Nicole Route PRN Reason Start Time Stop Time Status Last Admin Dose Admin Propofol (Diprivan 1000 Mg/100ml Inj) 100 ml @ 0 mls/hr TITRATE IV 11/21/16 13:45 11/21/16 13:50 Sodium Chloride (NS Flush) 2 ml UNSCH PRN IVF FLUSH AFTER USING IV ACCESS 11/21/16 14:15 11/23/16 15:10 Pantoprazole Sodium (Protonix Inj) 40 mg DAILY IV 11/21/16 14:45 11/24/16 08:14 Chlorhexidine Gluconate (Chlorhexidine 2% Cloth) 3 pack Taper DAILY@04 TOP 11/22/16 04:00 11/18/17 03:59 11/24/16 03:45 Senna/Docusate Sodium 1 tab 1 tab BID PO 11/21/16 14:45 11/24/16 08:15 Fentanyl Citrate 250 ml @ 0 mls/hr TITRATE IV 11/21/16 14:45 11/24/16 06:51 Vancomycin HCl 1000 mg/Sodium Chloride 250 ml @ 250 mls/hr Q12H IV 11/21/16 16:00 11/24/16 03:45 Piperacillin Sod/ Tazobactam Sod 100 ml @ 200 mls/hr Q6H IV 11/21/16 15:00 11/24/16 08:15 Azithromycin/ Sodium Chloride (Zithromax Inj/ NS 250 ml Inj) 250 ml @ 250 mls/hr Q24H IV 11/21/16 17:00 11/23/16 17:48 Insulin Human Regular (NovoLIN R SUPPLEMENTAL SCALE) 1 Q4H SQ 11/21/16 14:45 11/23/16 15:10 Hydrocortisone Sodium Succinate (SoluCORTEF INJ) 50 mg Q6H IV PUSH 11/21/16 15:00 11/24/16 08:15 Sodium Chloride DAILY IVF 11/22/16 09:00 11/24/16 08:16 Sodium Phosphate/ Sodium Chloride (Sodium Phosphate Inj/NS 250 ml Inj) 250 ml @ 42 mls/hr UNSCH PRN IV For Phosphorus < 2.5 mg/dL 11/23/16 07:45 11/23/16 09:15 Metoprolol Tartrate (Lopressor) 25 mg Q12HR PO 11/23/16 09:00 11/24/16 08:16 Water (Free Water) 250 ml Q12HR G-TUBE 11/24/16 09:00 11/24/16 08:16 Objective Remarks GENERAL: Middle aged male, supine in bed, partially sedated, intubated SKIN: Warm and dry. HEAD: Normocephalic. receiving TF via NG tube EYES: No scleral icterus. No injection or drainage. NECK: Supple, trachea midline. CARDIOVASCULAR: +S1/S2, tachy RESPIRATORY: scattered rhonchi. GASTROINTESTINAL: Abdomen soft, non-tender, nondistended. EXTREMITIES: No cyanosis NEUROLOGICAL: sedated, intubated Assessment/Plan Problem List: (1) Lung cancer Status: Acute Plan: --presented with difficulty breathing, a large mediastinal mass and a solitary brain mets. He was initiated on palliative therapy during his hospitalization. He was able to be discharged. He had cycle #2 of palliative chemotherapy with carboplatin and etoposide on November 04, 2016. --is pending to undergo SRS to the solitary brain mets between cycle number two and number three. --palliative care has been consulted. (2) Pleural effusion Status: Acute Plan: --had a CT-guided paracentesis and a chest tube placement by interventional radiology. (3) Sepsis Status: Acute Plan: BC no growth sputum + GNR --on Zosyn, Vanco, Zithromax Assessment 66y/o male with metastatic small cell lung carcinoma with positive supraclavicular lymph node and a solitary brain mets. presented to the emergency department with progressive shortness of breath. He was tachycardiac in the 170s and 180s. He had an EKG that showed SVT and was hemodynamically unstable. He had nonspecific S-T-T wave abnormality. He was cardioverted. h/o Chronic tobacco use. COPD. Hypertension. Metastatic small cell lung cancer. [employer]ANT metastatic disease.History of supraventricular tachycardia. Pneumonia. Plan 1. continue abx 2. I spoke with radiation oncology--his brain XRT has not been started yet and has no scheduled start date. 3. will resume chemotherapy once patient more stable. Attending Statement The exam, history, and the medical decision-making described in the above note were completed with the assistance of the mid-level provider. I reviewed and agree with the findings presented. I attest that I had a [id number] encounter with the patient on the same day, and personally performed and documented my assessment and findings in the medical record. Pt seen and examined, opens eyes, pending extubation. Discussed with Dr. Topete. Consult XRT for treatment of [employer]EC[employer]IVE [employer]SULTANT mets. Pt seen for Dr. Benitez. Continue support. Pending on recovery of performance status will determine if additional chemo could be given. Keesha Rosa Nov 24, 2016 09:31 Katey De Leon MD Nov 24, 2016 23:10
--- NOTE | 2016-11-24 09:55 | PD.CONS ---
Consult Service Palliative Care . Consult Requested By Dr. Griffith . Primary Care Physician [facility] . Reason for Consultation a. To assist with evaluation and management of symptoms including: pain, dyspnea, weakness. b. To assist medical decision maker(s) with: better understanding of current medical conditions; weighing benefits/burdens of medical treatment options; making medical treatment decisions. . HPI History of Present Illness Mr. Ruano is a 66 year old male with past medical history of metastatic small cell lung cancer to [employer]ET [employer], COPD, hypertension, SVT, pneumonia and tobacco use. Patient was previously admitted to [facility] 10/07/16 10/17/16 with shortness of breath, cough. He was found to have small cell carcinoma of the lung with radiographic evidence of brain metastasis, possible liver, adrenal and LN mets (Stage IV). He was seen by Dr. Benitez. Patient was started on palliative chemotherapy (Carboplatin/ Etoposide), started cycle 2 chemotherapy on 11/07/16. Oncology notes indicate plan for patient to undergo stereotactic radiosurgery (no scheduled start day per oncology) to the solitary brain met between cycles 2 and 3 of chemotherapy. Patient presented to [facility] on 11/21/16 with worsening shortness of breath. Initial evaluation revealed: * VS: pulse 187, respiratory 32, BP 140/86, oxygen saturation 86% on room air * WBC 23.6, hemoglobin 11.2, hematocrit 34.3, platelet count 320, neutrophil 93.4% * sodium 138, potassium 3.9, chloride 98, carbon dioxide 34.1, BUN 40, creatinine 0.86, GFR 90, glucose 116 * lactic acid 2.2 * total bilirubin 0.5, AST 80, ALT 70, alkaline phosphatase 131 * total creatine kinase 110, CK MB 3.5, troponin 0.02 * total protein 7.3, albumin 2.2 * PT 14.1, INR 1.3, PTT 33.2, D dimer 20.17 * urinalysis positive for leukocyte esterase, WBC, bacteria and mucus, culture indicated - later resulted no growth 48 hours * lower extremity ultrasound negative lower extremity DVT, prominent lymph node and left groin measuring 33 x 11 x 20 mm, necrotic appearing left node in the left groin measuring 18 x 19 x 20 mm. * Chest x-ray right thoracostomy tube placement with some pulmonic pneumothorax remaining, right-sided central line, left lung infiltrate with some improvement. * CTA use adenopathy involving the thoracic inlet, the pair tracheal shakeel chains, diffusely throughout the mediastinum and prevascular notable chain consistent with malignancy, extensive consolidation in the right lung with large pleural effusion and probable right hilar mass, diffuse edema throughout the left lung, no pulmonary embolus identified. Patient became hypotensive in the emergency department was given adenosine 12 mg IV, EKG revealed SVT rate 187. Patient had cardioversion 70 joules due to hemodynamic instability. Repeat EKG revealed sinus tax rate 111, nonspecific ST T wave abnormalities. Given respiratory distress patient was intubated and placed on mechanical ventilation. Patient underwent right thoracentesis with chest tube placement by interventional radiology, pleural fluid sent for cytology, results pending. Patient is admitted to ICU with respiratory failure, UTI, SVT status post cardioversion, leukocytosis, pleural effusion. Medical oncology, Dr. De Leon was consulted with recommendations to continue supportive care per car usher team. Infectious disease,Dr. Cueva was consulted for evaluation of leukocytosis/pneumonia with recommendation to continue vancomycin and Zosyn. Blood and urine cultures no growth to date. Sputum preliminarily gram negative rods. Patient remains sedated in ICU on mechanical ventilation. Off pressor support. WBC 15.1. Chest x-ray with bilateral interstitial and airspace infiltrates. Palliative care is consulted to assist with further clarification of treatment goals. . Function/Cognitive Trajectory Son reports trajectory of decline since cancer diagnosis. Worsening weakness, shortness of breath after recent treatments. He has not been able to sleep well , sleeping intermittently in recliner due to SOB. He is eating only snacks and Ensure due to taste changes, decreased appetite and early satiety. He is requiring more assistance with ADLs, unable to shower himself or prepare meals. Needs WC to get to car. . Review of Systems ROS Limitations: Intubated (sedated on mech vent) Constitutional: COMPLAINS OF: Fatigue, Weight loss, Change in appetite ( decreased), Generalized weakness Respiratory: COMPLAINS OF: Cough, Shortness of breath Cardiovascular: COMPLAINS OF: Dyspnea on Exertion, Orthopnea Gastrointestinal: COMPLAINS OF: Nausea, Anorexia Integumentary: COMPLAINS OF: Abnormal pigmentation (dry skin andperipheral vascular changes ), Non-healing sores (left foot wound) Hematologic/Lymphatics: COMPLAINS OF: Bruising Neurologic: COMPLAINS OF: Abnormal gait (needs WC due to difficult ambulating. ), Poor Balance Other ROS: ROS per son report, pt intubated. . Past Family Social History Coded Allergies: No Known Allergies (Verified Allergy, Severe, 03/13/05) Past Medical History Stage IV small cell lung cancer with Mets to brain, lymph nodes possible liver and adrenal COPD Hypertension tobacco use SVT recent pneumonia . Past Surgical History CT guided right neck lymph node biopsy - positive small cell carcinoma. ORIF left ankle Reported Medications Reported Meds & Active Scripts Active Oxygen tank (Oxygen) 1 Ea Tank 2 Liter GEMMA.CANULA CONTINUOUS Oxygen Concentrator Portable Gaseous 2 L/min via Nasal Cannula Continuous For 99 months Duoneb (Ipratropium-Albuterol Neb) 0.5-2.5 Mg/3 Ml Neb 1 Ampule NEB QID NEB 30 Days Cardizem (Diltiazem HCl) 60 Mg Tab 60 Mg PO Q6HR 30 Days Nebulizer 1 Mis Mis 1 Ea .ROUTE DIRECTED . Current Medications Medications (Trade) Dose Ordered Sig/Nicole Route Start Time Stop Time Status Last Admin (Diprivan 1000 Mg/100ml Inj) 100 ml @ 0 mls/hr TITRATE IV 11/21/16 13:45 11/21/16 13:50 (NS Flush) 2 ml UNSCH PRN IVF 11/21/16 14:15 11/23/16 15:10 (Protonix Inj) 40 mg DAILY IV 11/21/16 14:45 11/24/16 08:14 Miscellaneous Information 1 Q361D XX 11/21/16 14:45 (Chlorhexidine 2% Cloth) 3 pack Taper DAILY@04 TOP 11/22/16 04:00 11/18/17 03:59 11/24/16 03:45 (Chlorhexidine 2% Cloth) 3 pack UNSCH PRN TOP 11/21/16 14:45 (Urszula-Colace) 1 tab BID PO 11/21/16 14:45 11/24/16 08:15 (Milk Of Magnesia Liq) 30 ml Q12H PRN PO 11/21/16 14:45 (Senokot) 17.2 mg Q12H PRN PO 11/21/16 14:45 (Dulcolax Supp) 10 mg DAILY PRN RECTAL 11/21/16 14:45 Lactulose 30 ml 30 ml DAILY PRN PO 11/21/16 14:45 Fentanyl Citrate 250 ml @ 0 mls/hr TITRATE IV 11/21/16 14:45 11/24/16 06:51 Vancomycin HCl 1000 mg/Sodium Chloride 250 ml @ 250 mls/hr Q12H IV 11/21/16 16:00 11/24/16 03:45 Piperacillin Sod/ Tazobactam Sod 100 ml @ 200 mls/hr Q6H IV 11/21/16 15:00 11/24/16 08:15 (Zithromax Inj/ NS 250 ml Inj) 250 ml @ 250 mls/hr Q24H IV 11/21/16 17:00 11/23/16 17:48 (Brethine Inj) 1 mg UNSCH PRN SQ 11/21/16 14:45 (D50w (Vial) Inj) 50 ml UNSCH PRN IV 11/21/16 14:45 (Glucagon Inj) 1 mg UNSCH PRN OTHER 11/21/16 14:45 (NovoLIN R SUPPLEMENTAL SCALE) 1 Q4H SQ 11/21/16 14:45 11/23/16 15:10 (SoluCORTEF INJ) 50 mg Q6H IV PUSH 11/21/16 15:00 11/24/16 08:15 (NS Flush) DAILY IVF 11/22/16 09:00 11/24/16 08:16 Sodium Chloride UNSCH PRN IVF 11/21/16 16:45 Potassium Chloride 100 ml @ 50 mls/hr Q2H PRN IV 11/23/16 07:45 (KCl 20 Meq Premix Inj) 100 ml @ 50 mls/hr Q2H PRN IV 11/23/16 07:45 Potassium Bicarb/ Potassium Chloride 50 meq 50 meq UNSCH PRN PO 11/23/16 07:45 Potassium Chloride 100 ml @ 25 mls/hr UNSCH PRN IV 11/23/16 07:45 Potassium Chloride 100 ml @ 50 mls/hr Q2H PRN IV 11/23/16 07:45 (Magnesium Sulfate Inj/NS Inj) 100 ml @ 50 mls/hr UNSCH PRN IV 11/23/16 07:45 Magnesium Oxide 800 mg 800 mg UNSCH PRN PO 11/23/16 07:45 (Magnesium Sulfate Inj/NS Inj) 100 ml @ 50 mls/hr UNSCH PRN IV 11/23/16 07:45 Potassium Phosphate 2000 mg 2,000 mg Q4H PRN PO 11/23/16 07:45 (Sodium Phosphate Inj/NS 250 ml Inj) 250 ml @ 42 mls/hr UNSCH PRN IV 11/23/16 07:45 11/23/16 09:15 Potassium Phosphate 2000 mg 2,000 mg UNSCH PRN PO/TUBE 11/23/16 07:45 (Potassium Phosphate Inj/NS 250 ml Inj) 260 ml @ 42 mls/hr UNSCH PRN IV 11/23/16 07:45 (Lopressor) 25 mg Q12HR PO 11/23/16 09:00 11/24/16 08:16 (Free Water) 250 ml Q12HR G-TUBE 11/24/16 09:00 11/24/16 08:16 . Family History Sister has pancreatic cancer. Mother of lung cancer. . Substance Use Tobacco: quit smoking 10/04/16 due to worsening shortness of breath. Alcohol: None. Prescription med abuse: None. Illicits: None. . Psychosocial History . Has one son. 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 . Spiritual/Cultural Factors Declines rating examiner support at this time. Taoism has not been important to the patient. . Living Will: Copy in medical record Durable Power of Guest Services Associate: Copy in medical record (POA for health care) Date completed: 10/29/16 . Health Care Surrogate(s): Patient appointed his son, Arnav Ruano as power of claim attorney for health care. . Family/friends goals: SonArnav (POA for HC) elects NO CODE (DNR/DNI) in keeping with patient previously stated and written wishes. He is certain the patient would not to be prolonged artificially by machines. He will consider transition to comfort measures with hospice support if patient fails medical extubation or has further decline. . Ethical and Legal Issues Patient appointed his son, Arnav Ruano as power of claim attorney for health care. . Physical Exam Vital Signs Date Time Temp Pulse Resp B/P Pulse Ox O2 Delivery O2 Flow Rate FiO2 11/24/16 09:14 40 11/24/16 08:37 100 40 11/24/16 06:00 93 11/24/16 04:19 94 40 11/24/16 04:00 40 11/24/16 04:00 98.0 141 18 108/78 90 11/24/16 04:00 116 11/24/16 02:00 93 11/24/16 00:00 40 11/24/16 00:00 89 11/24/16 00:00 98.0 89 16 85/56 93 11/23/16 23:52 93 40 11/23/16 22:11 95 40 11/23/16 22:00 86 11/23/16 20:00 40 11/23/16 20:00 96 11/23/16 20:00 98.8 96 16 92/54 92 11/23/16 19:20 94 40 11/23/16 18:00 104 11/23/16 17:23 40 11/23/16 17:23 93 40 11/23/16 16:00 121 11/23/16 16:00 98.1 121 29 113/71 93 11/23/16 16:00 40 11/23/16 15:33 93 40 11/23/16 14:00 114 11/23/16 12:00 116 11/23/16 12:00 98.3 116 15 105/60 97 11/23/16 12:00 40 11/23/16 11:16 40 11/23/16 11:16 40 11/23/16 11:16 95 40 11/23/16 10:00 104 11/23/16 11/24/16 19:00 07:00 Intake Total 1287 ml 948 ml Output Total 350 ml 350 ml Balance 937 ml 598 ml Intake IV Total 798 ml 322 ml Tube Feeding 429 ml 596 ml Other 60 ml 30 ml Output Urine Total 350 ml 300 ml Chest Tube Drainage Total 50 ml Exam CONSTITUTIONAL/GENERAL: This is an adequately nourished patient, on mech vent. TUBES/LINES/DRAINS: NG tube right, ETT, Right IJ central line, PIV x 2 right, x1 left, right chest tube, bilateral soft wrist restraints, Hassan, SCDs. SKIN: No jaundice, rashes, or lesions. Ecchymoses on upper extremities. Skin temperature warm. Dry skin bilateral LE, skin discoloration purple to red PVD changes. HEAD: Atraumatic. Normocephalic. EYES: Pupils equal and round. Extraocular motions intact. No scleral icterus. No injection or drainage. Fundi not examined. ENT: Hearing grossly normal. Nose without bleeding or purulent drainage. Throat difficult to visualize due to ETT. NECK: Trachea midline. CARDIOVASCULAR: Intermittent tachycardia without murmurs, gallops, or rubs. No JVD. RESPIRATORY/CHEST: Symmetric, mildly labored respirations on vent. Course breath sounds bilaterally. Right chest tube. GASTROINTESTINAL: Abdomen soft, non-tender, mildly distended. Umbilical hernia. No guarding. Bowel sounds present. GENITOURINARY: Without palpable bladder distension. Hassan catheter in place. MUSCULOSKELETAL: Extremities without edema. Dressing left foot. Scabs on bilateral knees. No mottling or clubbing. LYMPHATICS: Palpable left inguinal lymph node, hard 2-3cm. and right inguinal node, not as easy to palpate. NEUROLOGICAL: Awakens to voice briefly. Follows simple commands. Nods yes/no to some questions. Moves all extremities. PSYCHIATRIC: No obvious anxiety/depression. no apparent hallucinations or other psychotic thought process. . Diagnostic Tests Laboratory Laboratory Tests Test 11/21/16 11/21/16 11/21/16 11/21/16 13:54 14:02 14:30 16:30 White Blood Count 23.6 TH/MM3 (4.0-11.0) Red Blood Count 3.59 MIL/MM3 (4.50-5.90) Hemoglobin 11.2 GM/DL (13.0-17.0) Hematocrit 34.3 % (39.0-51.0) Mean Corpuscular Volume 95.4 FL (80.0-100.0) Mean Corpuscular Hemoglobin 31.3 PG (27.0-34.0) Mean Corpuscular Hemoglobin 32.8 % Concent (32.0-36.0) Red Cell Distribution Width 13.3 % (11.6-17.2) Platelet Count 320 TH/MM3 (150-450) Mean Platelet Volume 8.6 FL (7.0-11.0) Neutrophils (%) (Auto) 93.4 % (16.0-70.0) Lymphocytes (%) (Auto) 3.8 % (9.0-44.0) Monocytes (%) (Auto) 2.7 % (0.0-8.0) Eosinophils (%) (Auto) 0.0 % (0.0-4.0) Basophils (%) (Auto) 0.1 % (0.0-2.0) Neutrophils # (Auto) 22.1 TH/MM3 (1.8-7.7) Lymphocytes # (Auto) 0.9 TH/MM3 (1.0-4.8) Monocytes # (Auto) 0.6 TH/MM3 (0-0.9) Eosinophils # (Auto) 0.0 TH/MM3 (0-0.4) Basophils # (Auto) 0.0 TH/MM3 (0-0.2) CBC Comment AUTO DIFF Differential Total Cells 100 Counted Neutrophils % (Manual) 76 % (16-70) Band Neutrophils % 15 % (0-6) Lymphocytes % 7 % (9-44) Monocytes % 2 % (0-8) Neutrophils # (Manual) 21.5 TH/MM3 (1.8-7.7) Differential Comment FINAL DIFF MANUAL Platelet Estimate NORMAL (NORMAL) Platelet Morphology Comment NORMAL (NORMAL) Prothrombin Time 14.1 SEC (9.8-11.6) Prothromb Time International 1.3 RATIO Ratio Activated Partial 33.2 SEC Thromboplast Time (24.3-30.1) D-Dimer Quantitative (PE/DVT) 20.17 MG/L FEU (0.00-0.50) Sodium Level 138 MEQ/L (136-145) Potassium Level 3.9 MEQ/L (3.5-5.1) Chloride Level 98 MEQ/L (98-107) Carbon Dioxide Level 34.1 MEQ/L (21.0-32.0) Anion Gap 6 MEQ/L (5-15) Blood Urea Nitrogen 40 MG/DL (7-18) Creatinine 0.86 MG/DL (0.60-1.30) Estimat Glomerular Filtration 90 ML/MIN (>89) Rate Random Glucose 116 MG/DL (74-106) Calcium Level 8.8 MG/DL (8.5-10.1) Total Bilirubin 0.5 MG/DL (0.2-1.0) Aspartate Amino Transf 80 U/L (15-37) (AST/SGOT) Alanine Aminotransferase 70 U/L (12-78) (ALT/SGPT) Alkaline Phosphatase 131 U/L (45-117) Total Creatine Kinase 110 U/L (39-308) Creatine Kinase MB 3.5 NG/ML (0.5-3.6) Troponin I 0.02 NG/ML (0.02-0.05) Total Protein 7.3 GM/DL (6.4-8.2) Albumin 2.2 GM/DL (3.4-5.0) Urine Color LIGHT-BROWN (YELLW/STRAW) Urine Turbidity HAZY (CLEAR) Urine pH 5.5 (5.0-8.5) Urine Specific [place] 1.022 (1.002-1.035) Urine Protein 30 mg/dL (NEG-TRACE) Urine Glucose (UA) NEG mg/dL (NEG) Urine Ketones NEG mg/dL (NEG) Urine Occult Blood LARGE (NEG) Urine Nitrite NEG (NEG) Urine Bilirubin NEG (NEG) Urine Urobilinogen LESS THAN 2.0 MG/DL (LESS THAN 2.0) Urine Leukocyte Esterase SMALL (NEG) Urine RBC /hpf (0-3) Urine WBC 49 /hpf (0-5) Urine Squamous Epithelial 2 /hpf (0-5) Cells Urine Bacteria FEW /hpf (NONE) Urine Hyaline Casts 24 /lpf (RARE) Urine Mucus FEW /lpf (OCC) Microscopic Urinalysis Comment CULTURE INDICATED Blood Gas Puncture Site LT FEMORAL Blood Gas Patient Temperature 101.0 Blood Gas HCO3 29 mmol/L (22-26) Blood Gas Base Excess 3.5 mmol/L (-2-2) Blood Gas Oxygen Saturation 97 % (90-100) Arterial Blood pH 7.31 (7.380-7.420) Arterial Blood Partial 60 mmHg (38-42) Pressure CO2 Arterial Blood Partial 144 mmHG Pressure O2 (61-120) Arterial Blood Oxygen Content 13.8 Vol % (12.0-20.0) Arterial Blood 1.0 % (0-4) Carboxyhemoglobin Arterial Blood Methemoglobin 0.6 % (0-2) Blood Gas Hemoglobin 10.0 G/DL (12.0-16.0) Oxygen Delivery Device AC14/550/5PEEP Blood Gas Inspired Oxygen 100 % Pleural Fluid pH 8.0 Pleural Fluid WBC 1590 /MM3 (0-10) Pleural Fluid RBC 75820 /MM3 (0-0) Pleural Fluid Neutrophils 13 % Pleural Fluid Lymphocytes 74 % Pleural Fluid Monocytes 1 % Pleural Fluid Histiocytes 2 % Pleural Fluid Mesothelial 9 % Cells Pleural Fluid Other Cells 1 % Pleural Fluid Comment Test 11/21/16 11/21/16 11/21/16/23/17 17:20 17:40 18:23 20:50 Nasal Screen MRSA (PCR) MRSA NOT DETECTED (NOT DETECT) Blood Gas Puncture Site RT RADIAL Blood Gas Patient Temperature 98.6 Blood Gas HCO3 28 mmol/L (22-26) Blood Gas Base Excess 2.4 mmol/L (-2-2) Blood Gas Oxygen Saturation 97 % (90-100) Arterial Blood pH 7.31 (7.380-7.420) Arterial Blood Partial 57 mmHg (38-42) Pressure CO2 Arterial Blood Partial 246 mmHg Pressure O2 (61-120) Arterial Blood Oxygen Content 13.9 Vol % (12.0-20.0) Arterial Blood 1.1 % (0-4) Carboxyhemoglobin Arterial Blood Methemoglobin 1.2 % (0-2) Blood Gas Hemoglobin 9.7 G/DL (12.0-16.0) Oxygen Delivery Device VENTILATOR Blood Gas Ventilator Setting 500/16/PEEP5 Blood Gas Inspired Oxygen 100 % Lactic Acid Level 2.2 mmol/L (0.4-2.0) Total Creatine Kinase 107 U/L (39-308) Creatine Kinase MB 2.2 NG/ML (0.5-3.6) Troponin I 0.02 NG/ML (0.02-0.05) Test 11/22/16 11/22/16 11/22/16 11/23/16 02:49 05:10 11:30 03:50 Total Creatine Kinase 49 U/L (39-308) Troponin I 0.02 NG/ML (0.02-0.05) White Blood Count 27.3 TH/MM3 20.4 TH/MM3 (4.0-11.0) (4.0-11.0) Red Blood Count 3.06 MIL/MM3 2.82 MIL/MM3 (4.50-5.90) (4.50-5.90) Hemoglobin 9.6 GM/DL 8.9 GM/DL (13.0-17.0) (13.0-17.0) Hematocrit 29.5 % 26.9 % (39.0-51.0) (39.0-51.0) Mean Corpuscular Volume 96.2 FL 95.4 FL (80.0-100.0) (80.0-100.0) Mean Corpuscular Hemoglobin 31.3 PG 31.7 PG (27.0-34.0) (27.0-34.0) Mean Corpuscular Hemoglobin 32.5 % 33.2 % Concent (32.0-36.0) (32.0-36.0) Red Cell Distribution Width 13.7 % 13.4 % (11.6-17.2) (11.6-17.2) Platelet Count 346 TH/MM3 273 TH/MM3 (150-450) (150-450) Mean Platelet Volume 8.2 FL 7.7 FL (7.0-11.0) (7.0-11.0) Neutrophils (%) (Auto) 94.2 % 91.2 % (16.0-70.0) (16.0-70.0) Lymphocytes (%) (Auto) 3.0 % 4.0 % (9.0-44.0) (9.0-44.0) Monocytes (%) (Auto) 2.7 % (0.0-8.0) 4.5 % (0.0-8.0) Eosinophils (%) (Auto) 0.0 % (0.0-4.0) 0.0 % (0.0-4.0) Basophils (%) (Auto) 0.1 % (0.0-2.0) 0.3 % (0.0-2.0) Neutrophils # (Auto) 25.7 TH/MM3 18.6 TH/MM3 (1.8-7.7) (1.8-7.7) Lymphocytes # (Auto) 0.8 TH/MM3 0.8 TH/MM3 (1.0-4.8) (1.0-4.8) Monocytes # (Auto) 0.7 TH/MM3 0.9 TH/MM3 (0-0.9) (0-0.9) Eosinophils # (Auto) 0.0 TH/MM3 0.0 TH/MM3 (0-0.4) (0-0.4) Basophils # (Auto) 0.0 TH/MM3 0.1 TH/MM3 (0-0.2) (0-0.2) CBC Comment DIFF FINAL AUTO DIFF Differential Comment FINAL DIFF MANUAL Sodium Level 142 MEQ/L 142 MEQ/L (136-145) (136-145) Potassium Level 4.0 MEQ/L 3.6 MEQ/L (3.5-5.1) (3.5-5.1) Chloride Level 103 MEQ/L 103 MEQ/L (98-107) (98-107) Carbon Dioxide Level 32.2 MEQ/L 33.0 MEQ/L (21.0-32.0) (21.0-32.0) Anion Gap 7 MEQ/L (5-15) 6 MEQ/L (5-15) Blood Urea Nitrogen 27 MG/DL (7-18) 20 MG/DL (7-18) Creatinine 0.68 MG/DL 0.47 MG/DL (0.60-1.30) (0.60-1.30) Estimat Glomerular Filtration 117 ML/MIN 180 ML/MIN Rate (>89) (>89) Random Glucose 150 MG/DL 122 MG/DL (74-106) (74-106) Calcium Level 8.0 MG/DL 7.7 MG/DL (8.5-10.1) (8.5-10.1) Phosphorus Level 3.1 MG/DL 1.8 MG/DL (2.5-4.9) (2.5-4.9) Magnesium Level 2.1 MG/DL 1.9 MG/DL (1.5-2.5) (1.5-2.5) Total Bilirubin 0.4 MG/DL 0.3 MG/DL (0.2-1.0) (0.2-1.0) Aspartate Amino Transf 48 U/L (15-37) 33 U/L (15-37) (AST/SGOT) Alanine Aminotransferase 53 U/L (12-78) 37 U/L (12-78) (ALT/SGPT) Alkaline Phosphatase 101 U/L 91 U/L (45-117) (45-117) Total Protein 6.0 GM/DL 5.5 GM/DL (6.4-8.2) (6.4-8.2) Albumin 1.6 GM/DL 1.4 GM/DL (3.4-5.0) (3.4-5.0) Blood Gas Puncture Site LT RADIAL Blood Gas Patient Temperature 98.6 Blood Gas HCO3 29 mmol/L (22-26) Blood Gas Base Excess 4.2 mmol/L (-2-2) Blood Gas Oxygen Saturation 95 % (90-100) Arterial Blood pH 7.36 (7.380-7.420) Arterial Blood Partial 53 mmHg (38-42) Pressure CO2 Arterial Blood Partial 93 mmHg Pressure O2 (61-120) Arterial Blood Oxygen Content 12.6 Vol % (12.0-20.0) Arterial Blood 1.5 % (0-4) Carboxyhemoglobin Arterial Blood Methemoglobin 1.0 % (0-2) Blood Gas Hemoglobin 9.4 G/DL (12.0-16.0) Oxygen Delivery Device VENTILATOR Blood Gas Ventilator Setting A/C 500/16/5PEEP Blood Gas Inspired Oxygen 45 % Differential Total Cells 100 Counted Neutrophils % (Manual) 83 % (16-70) Band Neutrophils % 12 % (0-6) Lymphocytes % 4 % (9-44) Monocytes % 1 % (0-8) Neutrophils # (Manual) 19.4 TH/MM3 (1.8-7.7) Platelet Estimate NORMAL (NORMAL) Platelet Morphology Comment NORMAL (NORMAL) Test 11/24/16 04:04 White Blood Count 15.1 TH/MM3 (4.0-11.0) Red Blood Count 2.82 MIL/MM3 (4.50-5.90) Hemoglobin 9.1 GM/DL (13.0-17.0) Hematocrit 26.7 % (39.0-51.0) Mean Corpuscular Volume 94.8 FL (80.0-100.0) Mean Corpuscular Hemoglobin 32.4 PG (27.0-34.0) Mean Corpuscular Hemoglobin 34.2 % Concent (32.0-36.0) Red Cell Distribution Width 13.8 % (11.6-17.2) Platelet Count 308 TH/MM3 (150-450) Mean Platelet Volume 7.8 FL (7.0-11.0) Neutrophils (%) (Auto) 91.2 % (16.0-70.0) Lymphocytes (%) (Auto) 4.3 % (9.0-44.0) Monocytes (%) (Auto) 4.1 % (0.0-8.0) Eosinophils (%) (Auto) 0.0 % (0.0-4.0) Basophils (%) (Auto) 0.4 % (0.0-2.0) Neutrophils # (Auto) 13.7 TH/MM3 (1.8-7.7) Lymphocytes # (Auto) 0.6 TH/MM3 (1.0-4.8) Monocytes # (Auto) 0.6 TH/MM3 (0-0.9) Eosinophils # (Auto) 0.0 TH/MM3 (0-0.4) Basophils # (Auto) 0.1 TH/MM3 (0-0.2) CBC Comment AUTO DIFF Differential Total Cells 100 Counted Neutrophils % (Manual) 84 % (16-70) Band Neutrophils % 6 % (0-6) Lymphocytes % 6 % (9-44) Monocytes % 3 % (0-8) Neutrophils # (Manual) 13.7 TH/MM3 (1.8-7.7) Myelocytes 1 % (0-0) Differential Comment FINAL DIFF MANUAL Platelet Estimate NORMAL (NORMAL) Platelet Morphology Comment NORMAL (NORMAL) Sodium Level 147 MEQ/L (136-145) Potassium Level 3.8 MEQ/L (3.5-5.1) Chloride Level 106 MEQ/L (98-107) Carbon Dioxide Level 35.5 MEQ/L (21.0-32.0) Anion Gap 6 MEQ/L (5-15) Blood Urea Nitrogen 22 MG/DL (7-18) Creatinine 0.44 MG/DL (0.60-1.30) Estimat Glomerular Filtration 194 ML/MIN Rate (>89) Random Glucose 138 MG/DL (74-106) Calcium Level 8.0 MG/DL (8.5-10.1) Phosphorus Level 2.0 MG/DL (2.5-4.9) Magnesium Level 1.9 MG/DL (1.5-2.5) Result Diagram: 11/24/16 0404 11/24/16 0404 Microbiology Microbiology Date/Time Procedure Status Source Growth 11/21/16 14:00 Aerobic Blood Culture - Preliminary Resulted Blood Peripheral NO GROWTH IN 2 DAYS 11/21/16 14:00 Anaerobic Blood Culture - Preliminary Resulted Blood Peripheral NO GROWTH IN 2 DAYS 11/21/16 14:02 Urine Culture - Final Complete Urine Clean Catch NO GROWTH IN 48 HOURS. 11/21/16 14:02 Legionella Antigen - Final Complete Urine Catheterized Urine PRESUMPTIVE NEGATIVE FOR LEGIONELLA P... 11/21/16 14:02 Streptococcus pneumoniae Antigen (M - Final Complete Urine Catheterized Urine PRESUMPTIVE NEGATIVE FOR STREPTOCOCCU... 11/21/16 14:20 Aerobic Blood Culture - Preliminary Resulted Blood Peripheral NO GROWTH IN 2 DAYS 11/21/16 14:20 Anaerobic Blood Culture - Preliminary Resulted Blood Peripheral NO GROWTH IN 2 DAYS 11/21/16 16:30 Gram Stain - Final Complete Fluid Pleural Fluid 11/21/16 16:30 Body Fluid Culture - Final Complete Fluid Pleural Fluid NO GROWTH IN 72 HRS.--AEROBICALLY OR ... 11/21/16 16:30 Fungal Smear - Final Resulted Fluid Pleural Fluid NO FUNGAL ELEMENTS SEEN. 11/21/16 16:30 Fungal Culture Resulted Fluid Pleural Fluid Pending 11/22/16 11:45 Gram Stain - Final Resulted Sputum Endotracheal 11/22/16 11:45 Sputum Culture - Preliminary Resulted Gram Negative Ken . Imaging Last Impressions Chest X-Ray 11/23/16 0000 Signed Impressions: Service Date/Time: Wednesday, November 23, 2016 08:52 - CONCLUSION: 1. The previously noted right-sided pleural effusion has been drained and there is a right chest tube in place. 2. Bilateral interstitial and airspace infiltrates. Eric Modi MD CT Angiography 11/21/16 1436 Signed Impressions: Service Date/Time: Monday, November 21, 2016 15:39 - CONCLUSION: 1. There is diffuse adenopathy involving the thoracic inlet, the paratracheal shakeel chains , diffusely throughout the mediastinum and prevascular shakeel chain consistent with malignancy. There is extensive consolidation of the right lung with a large pleural effusion and probable right hilar mass. 2. There is diffuse edema throughout the left lung. 3. No pulmonary embolus is identified. Karl Tracy MD Thoracentesis 11/21/16 0000 Signed Impressions: Service Date/Time: Monday, November 21, 2016 15:42 - CONCLUSION: Uncomplicated fluoroscopically guided thoracentesis. A 10 [place] chest tube was placed. Karl Tracy MD Lower Extremity Ultrasound 11/21/16 0000 Signed Impressions: Service Date/Time: Monday, November 21, 2016 23:17 - CONCLUSION: 1. No DVT in either lower extremity. 2. Prominent lymph node in the left groin measures 33 x 11 x 20 mm. 3. Necrotic appearing left node in the left groin measures 18 x 19 x 20 mm. Ben Peterson MD Chest Tube Insertion 11/21/16 0000 Signed Impressions: Service Date/Time: Monday, November 21, 2016 15:42 - CONCLUSION: Uncomplicated chest tube placement as above. Karl Tracy MD Central Venous Line 11/21/16 0000 Signed Impressions: Service Date/Time: Monday, November 21, 2016 15:42 - CONCLUSION: Uncomplicated line placement as above. Karl Tracy MD . Procedures Pathology * 10/07/16 CT guided right neck lymph node biopsy - positive small cell carcinoma. . Patient/Family Conference Present at Family Conference: Spoke with Arnav thrasher. Family Conference Time (mins): 20 Family Conference Location: Telephone Issues Discussed: * Palliative care role, purpose, approach * Additional medical, psychosocial, and spiritual history * Patients general health, functional status, and cognitive changes in the months leading up to the current hospitalization * Patient/family understanding of the current medical problems * Patient/family understanding of prognosis * Patients goals of care as best understood from advance directives and/or conversations and/or values * Current medical treatment options and benefits/burdens of those options * Likely scenarios comparing ongoing aggressive care with a transition to comfort measures only * Questions answered to the best of my ability * Palliative care contact information provided Palliative care met with family:Spoke with Arnav thrasher (POA for HC) elects NO CODE (DNR/DNI) in keeping with patient previously stated and written wishes. He is certain the patient would not to be prolonged artificially by machines. He will consider transition to comfort measures with hospice support if patient fails medical extubation or has further decline. Assessment and Plan Disease Oriented Problem List: (1) Sepsis (2) Leukocytosis (3) Acute respiratory failure (4) Pleural effusion (5) Lung cancer (6) Hypotension (7) Tachycardia Symptom Scale: (1) Pain 0-10 Scale: 0 Comment: nods no to pain. . (2) Weakness 0-10 Scale: Unable to quantify (3) Shortness of breath 0-10 Scale: Unable to quantify Comment: on [facility] vent, possible medical extubation later today. . Pertinent Non-Medical Issues Psychosocial: . Has one son, Arnav. Spiritual: Taoism is not an important part of his life. Declines rating examiner support. Legal:Patient appointed his sonArnav as power of claim attorney for health care. Patient currently incapacitated, will reevaluate capacity once medical extubated. Ethical issues impacting care: no known concerns at this time. . Important Contacts * Arnav Ruano, son: [phone] . Prognosis * 11/21/16 - right IJ central line placed * 11/21/16 - right chest tube placed - removal of 2 liters - sent to path . Code Status: No Code Plan * Decision Maker: Patient appointed his son, Arnav Ruano as power of claim attorney for health care. Patient currently incapacitated, will reevaluate capacity once medical extubated. * NO CODE (DNR/DNI) * Palliative care met with family:Spoke with son, Arnav (POA for HC) elects NO CODE (DNR/DNI) in keeping with patient previously stated and written wishes. He is certain the patient would not to be prolonged artificially by machines. He will consider transition to comfort measures with hospice support if patient fails medical extubation or has further decline. * Discussed with Dr. Griffith and ANNIE Og. * SYMPTOMS: Pain: Potential sources of pain include intubation, mets lung cancer. On Fentanyl 25mcg drip. Nods no to pain when asked. Dyspnea: on mech vent, plan for possible medical extubation later today. Ordered Lorazepam 1mg IV every 4 hours PRN SOB, anxiety post medical extubation should patient have any resp distress post extubation. Weakness: general weakness and debility in the weeks prior to admission secondary to mets lung cancer and chemotherapy. * Palliative care number provided. * Palliative care will continue to follow throughout hospital course to assist with symptom management and clarification of goals as needed. . Thank you for the opportunity to participate in the care of Mr. Ruano. Attestation To help prompt me to consider important information that might be impacting today's encounter and assessment, information from prior notes written by myself or my colleagues may have been "brought forward" into today's note. My signature on this note, however, is an attestation that I personally performed the exam, history, and/or decision-making noted today, and, unless otherwise indicated, the interactions with patient, family, and staff as well as the review of records all occurred today. I also attest that the listed assessment and stated plan reflect my best clinical judgment today based on the combination of historical information, prior notes, and today's exam/ interactions. When time spent is documented, it refers only to time spent today by the signer, or if indicated, combined time spent today by collaborating physician/nurse practitioner. ERIBERTO MCGOVERN Nov 24, 2016 09:55
--- NOTE | 2016-11-24 09:58 | HHI.IDPN ---
Subjective Subjective Remarks Patient is a 66-year-old male, admitted to the hospital for evaluation of progressive shortness of breath. He was recently here back in September and at that time he was found to have a large hilar mass with significant major spinal adenopathy. 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 His staging workup showed evidence of metastatic disease to the brain. He was being evaluated for radiation therapy to his brain metastases. He was started on palliative chemotherapy as an outpatient, and he actually received his second cycle around November 04. He was apparently also being followed at the [place] clinic and he developed progressive shortness of breath. Evaluation in the emergency room revealed that he was significantly tachycardic with a heart rate of 170- 180 while in the ED he became hypotensive, and he was given adenosine, and subsequently cardioverted. He ended up getting intubated. He also remained hypotensive, and currently on pressors. Patient was also febrile up to 101+. His chest x-ray is showing almost complete opacification in the right lung with a little bit of induration in the right upper lobe. He also has infiltrates on the left base. Patient had placement of a chest tube on the right side. On reviewing his previous hospitalization, his last WBC prior to being discharged from the hospital was 49,000. Notes reviewed D/W RN Tolerating CPAP Off pressors Temps ok WBC improving Sputum with GNR UC neg BC negative CXR with decreased effusion R, has CT Antibiotics Zosyn Vancomycin Zithromax Lines PRJ TLC - 11/21 Past Medical History Chronic tobacco use. COPD. Hypertension. Metastatic small cell lung cancer. [employer] metastatic disease. History of supraventricular tachycardia. Pneumonia. Past Surgical History CT-guided biopsy of right clavicular lymph node. Open reduction internal fixation of left ankle. Chest tube placement. Ultrasound-guided thoracentesis Allergies: Coded Allergies: No Known Allergies (Verified Allergy, Severe, 03/13/05) Objective . Vital Signs Date Time Temp Pulse Resp B/P Pulse Ox O2 Delivery O2 Flow Rate FiO2 11/24/16 09:14 40 11/24/16 08:37 100 40 11/24/16 06:00 93 11/24/16 04:19 94 40 11/24/16 04:00 40 11/24/16 04:00 98.0 141 18 108/78 90 11/24/16 04:00 116 11/24/16 02:00 93 11/24/16 00:00 40 11/24/16 00:00 89 11/24/16 00:00 98.0 89 16 85/56 93 11/23/16 23:52 93 40 11/23/16 22:11 95 40 11/23/16 22:00 86 11/23/16 20:00 40 11/23/16 20:00 96 11/23/16 20:00 98.8 96 16 92/54 92 11/23/16 19:20 94 40 11/23/16 18:00 104 11/23/16 17:23 40 11/23/16 17:23 93 40 11/23/16 16:00 121 11/23/16 16:00 98.1 121 29 113/71 93 11/23/16 16:00 40 11/23/16 15:33 93 40 11/23/16 14:00 114 11/23/16 12:00 116 11/23/16 12:00 98.3 116 15 105/60 97 11/23/16 12:00 40 11/23/16 11:16 40 11/23/16 11:16 40 11/23/16 11:16 95 40 11/23/16 10:00 104 11/23/16 11/23/16 11/24/16 15:00 23:00 07:00 Intake Total 1287 ml 176 ml 772 ml Output Total 350 ml 50 ml 300 ml Balance 937 ml 126 ml 472 ml Intake IV Total 798 ml 176 ml 146 ml Tube Feeding 429 ml 596 ml Other 60 ml 30 ml Output Urine Total 350 ml 50 ml 250 ml Chest Tube Drainage Total 50 ml . Laboratory Tests Test 11/23/16 11/24/16 03:50 04:04 White Blood Count 20.4 TH/MM3 15.1 TH/MM3 Red Blood Count 2.82 MIL/MM3 2.82 MIL/MM3 Hemoglobin 8.9 GM/DL 9.1 GM/DL Hematocrit 26.9 % 26.7 % Mean Corpuscular Volume 95.4 FL 94.8 FL Mean Corpuscular Hemoglobin 31.7 PG 32.4 PG Mean Corpuscular Hemoglobin 33.2 % 34.2 % Concent Red Cell Distribution Width 13.4 % 13.8 % Platelet Count 273 TH/MM3 308 TH/MM3 Mean Platelet Volume 7.7 FL 7.8 FL Neutrophils (%) (Auto) 91.2 % 91.2 % Lymphocytes (%) (Auto) 4.0 % 4.3 % Monocytes (%) (Auto) 4.5 % 4.1 % Eosinophils (%) (Auto) 0.0 % 0.0 % Basophils (%) (Auto) 0.3 % 0.4 % Neutrophils # (Auto) 18.6 TH/MM3 13.7 TH/MM3 Lymphocytes # (Auto) 0.8 TH/MM3 0.6 TH/MM3 Monocytes # (Auto) 0.9 TH/MM3 0.6 TH/MM3 Eosinophils # (Auto) 0.0 TH/MM3 0.0 TH/MM3 Basophils # (Auto) 0.1 TH/MM3 0.1 TH/MM3 CBC Comment AUTO DIFF AUTO DIFF Differential Total Cells 100 100 Counted Neutrophils % (Manual) 83 % 84 % Band Neutrophils % 12 % 6 % Lymphocytes % 4 % 6 % Monocytes % 1 % 3 % Neutrophils # (Manual) 19.4 TH/MM3 13.7 TH/MM3 Differential Comment FINAL DIFF FINAL DIFF MANUAL MANUAL Platelet Estimate NORMAL NORMAL Platelet Morphology Comment NORMAL NORMAL Myelocytes 1 % Laboratory Tests Test 11/23/16 11/24/16 03:50 04:04 Sodium Level 142 MEQ/L 147 MEQ/L Potassium Level 3.6 MEQ/L 3.8 MEQ/L Chloride Level 103 MEQ/L 106 MEQ/L Carbon Dioxide Level 33.0 MEQ/L 35.5 MEQ/L Anion Gap 6 MEQ/L 6 MEQ/L Blood Urea Nitrogen 20 MG/DL 22 MG/DL Creatinine 0.47 MG/DL 0.44 MG/DL Estimat Glomerular Filtration 180 ML/MIN 194 ML/MIN Rate Random Glucose 122 MG/DL 138 MG/DL Calcium Level 7.7 MG/DL 8.0 MG/DL Phosphorus Level 1.8 MG/DL 2.0 MG/DL Magnesium Level 1.9 MG/DL 1.9 MG/DL Total Bilirubin 0.3 MG/DL Aspartate Amino Transf 33 U/L (AST/SGOT) Alanine Aminotransferase 37 U/L (ALT/SGPT) Alkaline Phosphatase 91 U/L Total Protein 5.5 GM/DL Albumin 1.4 GM/DL Microbiology Date/Time Procedure Status Source Growth 11/21/16 14:00 Aerobic Blood Culture - Preliminary Resulted Blood Peripheral NO GROWTH IN 2 DAYS 11/21/16 14:00 Anaerobic Blood Culture - Preliminary Resulted Blood Peripheral NO GROWTH IN 2 DAYS 11/21/16 14:02 Urine Culture - Final Complete Urine Clean Catch NO GROWTH IN 48 HOURS. 11/21/16 14:02 Legionella Antigen - Final Complete Urine Catheterized Urine PRESUMPTIVE NEGATIVE FOR LEGIONELLA P... 11/21/16 14:02 Streptococcus pneumoniae Antigen (M - Final Complete Urine Catheterized Urine PRESUMPTIVE NEGATIVE FOR STREPTOCOCCU... 11/21/16 14:20 Aerobic Blood Culture - Preliminary Resulted Blood Peripheral NO GROWTH IN 2 DAYS 11/21/16 14:20 Anaerobic Blood Culture - Preliminary Resulted Blood Peripheral NO GROWTH IN 2 DAYS 11/21/16 16:30 Gram Stain - Final Complete Fluid Pleural Fluid 11/21/16 16:30 Body Fluid Culture - Final Complete Fluid Pleural Fluid NO GROWTH IN 72 HRS.--AEROBICALLY OR ... 11/21/16 16:30 Fungal Smear - Final Resulted Fluid Pleural Fluid NO FUNGAL ELEMENTS SEEN. 11/21/16 16:30 Fungal Culture Resulted Fluid Pleural Fluid Pending 11/22/16 11:45 Gram Stain - Final Resulted Sputum Endotracheal 11/22/16 11:45 Sputum Culture - Preliminary Resulted Gram Negative [facility] Last Impressions Chest X-Ray 11/23/16 0000 Signed Impressions: Service Date/Time: Wednesday, November 23, 2016 08:52 - CONCLUSION: 1. The previously noted right-sided pleural effusion has been drained and there is a right chest tube in place. 2. Bilateral interstitial and airspace infiltrates. Eric Modi MD CT Angiography 11/21/16 1436 Signed Impressions: Service Date/Time: Monday, November 21, 2016 15:39 - CONCLUSION: 1. There is diffuse adenopathy involving the thoracic inlet, the paratracheal shakeel chains , diffusely throughout the mediastinum and prevascular shakeel chain consistent with malignancy. There is extensive consolidation of the right lung with a large pleural effusion and probable right hilar mass. 2. There is diffuse edema throughout the left lung. 3. No pulmonary embolus is identified. Karl Tracy MD Thoracentesis 11/21/16 0000 Signed Impressions: Service Date/Time: Monday, November 21, 2016 15:42 - CONCLUSION: Uncomplicated fluoroscopically guided thoracentesis. A 10 Citizen [place] chest tube was placed. Karl Tracy MD Lower Extremity Ultrasound 6/23/17 0000 Signed Impressions: Service Date/Time: Monday, November 21, 2016 23:17 - CONCLUSION: 1. No DVT in either lower extremity. 2. Prominent lymph node in the left groin measures 33 x 11 x 20 mm. 3. Necrotic appearing left node in the left groin measures 18 x 19 x 20 mm. Ben Peterson MD Chest Tube Insertion 11/21/16 Signed Impressions: Service Date/Time: Monday, November 21, 2016 15:42 - CONCLUSION: Uncomplicated chest tube placement as above. Karl Tracy MD Central Venous Line 11/21/16 Signed Impressions: Service Date/Time: Monday, November 21, 2016 15:42 - CONCLUSION: Uncomplicated line placement as above. Karl Tracy MD Physical Exam GENERAL: sedated on the vent, not in respiratory distress. On CPAP SKIN: Warm and dry. No generalized rash, no ecchymoses and no evidence of embolic lesions. HEAD: Atraumatic. Normocephalic. No temporal wasting, or tenderness. EYES: Hitchcock conjunctiva. No petechia or hemorrhage. Pupils equal, round and reactive to light. No scleral icterus. No injection or drainage. EARS, NOSE AND THROAT: Nose without bleeding or purulent nasal discharge. No sinus tenderness. He is orally intubated. NECK: Trachea midline. Supple and not tender, no meningeal signs. Line RIJ site ok CARDIOVASCULAR: Regular rate and rhythm. No murmurs, rubs or gallops heard RESPIRATORY: Coarse rhonchi bilaterally. CT on R with serous fluid. ABDOMEN: Soft, non-tender, nondistended. Bowel sounds present and normoactive. No guarding. No rebound. Has umbilical hernia EXTREMITIES: No clubbing, cyanosis, or edema. Has dry scabs on dorsum of his L foot. Cool feet. NEUROLOGICAL: Sedated PSYCHIATRIC: Unable to assess LINE: No evidence of infection : Hassan in place, urine looks clear Assessment & Plan Remarks IMPRESSION Sepsis, on admission - PNA - UTI Has R pleural effusion, CT in place, C/S negative so far Small cell lung CA with mets, undergoing chemo Brain mets, for XRT Respiratory failure GNR PNA Known COPD RECOMMENDATION Follow C/S (BC, UC and sputum) - Will adjust Abx once C/S available Continue Zosyn - for GNR coverage Stop Vancomycin Also on Zithromax Monitor progress Weaning per CCM D/W RN D/W Dr Loza ([facility]) Tami Cueva MD Nov 24, 2016 09:58
--- NOTE | 2016-11-24 10:13 | PD ---
HPI Chief Complaint: Respiratory Distress Time Seen by Provider: 13:38 Travel History International Travel<30 days: No Contact w/Intl Traveler<30days: No Traveled to known affect area: No History of Present Illness HPI 46-year-old male with a history of lung cancer, who presents from the [facility] for respiratory distress. The patient apparently presented at the [facility] clinic in severe respiratory distress and was sent here via EMS. When EMS arrived they found the patient to be in SVT. They gave 2 doses of Adenocard with no resolution of the SVT. Since is in severe respiratory distress. He is unable to answer questions secondary to severe respiratory distress. The patient was on 100% nonrebreather, pale and diaphoretic. PFSH Past Medical History Autoimmune Disease: No Blood Disorders: No Cancer: Yes (lung on chemo) Cardiovascular Problems: Yes Chemotherapy: Yes COPD: Yes Diabetes: No Endocrine: No Genitourinary: No Musculoskeletal: No Neurologic: No Psychiatric: No Reproductive: No Respiratory: Yes Past Surgical History Oral Surgery: Yes Social History Alcohol Use: No Tobacco Use: No Substance Use: No Allergies-Medications (Allergen,Severity, Reaction): Coded Allergies: No Known Allergies (Verified Allergy, Severe, 03/13/05) Reported Meds & Prescriptions Reported Meds & Active Scripts Active Oxygen tank (Oxygen) 1 Ea Tank 2 Liter [employer] CONTINUOUS Oxygen Concentrator Portable Gaseous 2 L/min via Nasal Cannula Continuous For 99 months Duoneb (Ipratropium-Albuterol Neb) 0.5-2.5 Mg/3 Ml Neb 1 Ampule NEB QID NEB 30 Days Cardizem (Diltiazem HCl) 60 Mg Tab 60 Mg PO Q6HR 30 Days Nebulizer 1 Mis Mis 1 Ea .ROUTE DIRECTED Review of Systems ROS Limitations: Clinical Condition (patient in severe respiratory distress and unable to provide any history.) Physical Exam Narrative GENERAL: Developed gentleman in severe respiratory distress. The patient was pale cool and diaphoretic. His respiratory rate was in the 40s. SKIN: Focused skin assessment pale and diaphoretic HEAD: Atraumatic. Normocephalic. EYES: No scleral icterus. No injection or drainage. ENT: No nasal bleeding or discharge. Mucous membranes pink and moist. NECK: Trachea midline. No JVD. Supple CARDIOVASCULAR: Tachycardic with a rate of 180. RESPIRATORY: Positive accessory muscle use. Severe tachypnea with coarse Rales throughout all 4 lung villatoro. GASTROINTESTINAL: Abdomen soft, non-tender, nondistended. MUSCULOSKELETAL: No obvious deformities. No clubbing. No cyanosis. No edema. NEUROLOGICAL: Awake and in distress. No obvious cranial nerve deficits. Motor grossly within normal limits. Data Data Last Documented VS Vital Signs Date Time Temp Pulse Resp B/P Pulse Ox O2 Delivery O2 Flow Rate FiO2 11/21/16 15:12 111 99/61 100 Ventilator 11/21/16 14:17 101.4 11/21/16 13:50 100 11/21/16 13:38 34 15 Orders Etomidate Inj (Amidate Inj) (11/21/16 13:37) Succinylcholine Inj (Quelicin Inj) (11/21/16 13:37) Complete Blood Count With Diff (11/21/16 13:38) Comprehensive Metabolic Panel (11/21/16 13:38) D-Dimer (11/21/16 13:38) Act Partial Throm Time (Ptt) (11/21/16 13:38) Prothrombin Time / Inr (Pt) (11/21/16 13:38) Ckmb (Isoenzyme) Profile (11/21/16 13:38) Troponin I (11/21/16 13:38) Arterial Blood Gas (Abg) (11/21/16 13:38) Urinalysis - C+S If Indicated (11/21/16 13:38) Iv Access Insert/Monitor (11/21/16 13:38) Ecg Monitoring (11/21/16 13:38) Oximetry (11/21/16 13:38) Oxygen Administration (11/21/16 13:38) Sodium Chloride 0.9% Flush (Ns Flush) (11/21/16 13:45) Etomidate Inj (Amidate Inj) (11/21/16 13:45) Succinylcholine Inj (Quelicin Inj) (11/21/16 13:45) Sodium Chloride 0.9% Flush (Ns Flush) (11/21/16 13:45) Propofol 1000 Mg/100 Ml Inj (Diprivan 10 (11/21/16 13:45) ^ Infusion (11/21/16 13:38) RASS (11/21/16 13:38) Neurological Rass Scale JULISSA.Q2H (11/21/16 13:38) Chest, Single Ap (11/21/16 13:56) Urinary Catheter Insert/Apply (11/21/16 13:56) Ng Gastric Tube Insert/Monitor (11/21/16 13:56) Restraints Non-Violent JULISSA.Q3H (11/21/16 13:56) Adenosine Inj (Adenocard Inj) (11/21/16 14:03) Adenosine Inj (Adenocard Inj) (11/21/16 14:15) Diltiazem Inj (Cardizem Inj) (11/21/16 14:15) Sodium Chloride 0.9% Flush (Ns Flush) (11/21/16 14:15) Diltiazem Inj (Cardizem Inj) (11/21/16 14:30) CKMB (11/21/16 13:54) CKMB% (11/21/16 13:54) Urine Culture (11/21/16 14:02) Midazolam Inj (Versed Inj) (11/21/16 14:30) Neurological Rass Scale Q30MX2,Q2HX4,Q4H (11/21/16 14:30) Midazolam Inj (Versed Inj) (11/21/16 14:35) Fentanyl Drip (Fentanyl Drip) (11/21/16 14:35) Ct Pulmonary Angiogram (11/21/16 14:36) Admit To Inpatient (11/21/16 ) Code Status (11/21/16 14:37) Vital Signs (Adult) JULISSA.Q1H (11/21/16 14:37) Activity Bed Rest (11/21/16 14:37) Elevate Head Of Bed (11/21/16 14:37) Neuro Checks . ORDERED (11/21/16 14:37) Pantoprazole Inj (Protonix Inj) (11/21/16 14:45) Albuterol-Ipratropium Neb (Duoneb Neb) (11/21/16 16:00) Albuterol-Ipratropium Neb (Duoneb Neb) (11/21/16 14:45) Complete Blood Count With Diff (11/22/16 04:00) Comprehensive Metabolic Panel (11/22/16 04:00) Magnesium (Mg) (11/22/16 04:00) Phosphorus (Po4) (11/22/16 04:00) Dietary Aid / Telemetry JULISSA.Q8H (11/21/16 14:37) Scd Bilateral/Knee High JULISSA.BID (11/21/16 14:37) ^ Initiate Protocol (11/21/16 14:37) Instruction (11/21/16 14:37) [facility] – [place], [place] Nursing Information (11/21/16 14:45) Chlorhexidine 2% Cloth (Chlorhexidine 2% (11/22/16 04:00) Chlorhexidine 2% Cloth (Chlorhexidine 2% (11/21/16 14:45) Mrsa Pcr Surveillance (11/21/16 14:37) Docusate Sodium-Senna (Urszula-Colace) (11/21/16 14:45) Magnesium Hydroxide Liq (Milk Of Magnesi (11/21/16 14:45) Sennosides (Senokot) (11/21/16 14:45) Bisacodyl Supp (Dulcolax Supp) (11/21/16 14:45) Lactulose Liq (Lactulose Liq) (11/21/16 14:45) Neurological Rass Scale Q30MX2,Q2HX4,Q4H (11/21/16 14:37) Fentanyl Drip (Fentanyl Drip) (11/21/16 14:45) Inpatient Certification (11/21/16 ) Blood Culture (11/21/16 14:39) Vancomycin Inj (Vancomycin Inj) (11/21/16 16:00) Piperacil-Tazo 4.5 Gm Premix (Zosyn 4.5 (11/21/16 15:00) Azithromycin Inj (Zithromax Inj) (11/21/16 17:00) Lactic Acid (11/21/16 14:39) Phenylephrine Inj (Neosynephrine Inj) (11/21/16 15:45) Terbutaline Inj (Brethine Inj) (11/21/16 14:45) Blood Glucose Goal (Criteria) (11/21/16 14:39) Hypoglycemia 70 Mg/Dl Or < (11/21/16 14:39) Notify Dr: Other (11/21/16 14:39) Dextrose 50% In [place] (Vial) Inj (D50w (Vi (11/21/16 14:45) Glucagon Inj (Glucagon Inj) (11/21/16 14:45) Insulin Human Reg Supp Scale (Novolin R (11/21/16 14:45) Hydrocortisone Inj (Solucortef Inj) (11/21/16 15:00) Electrocardiogram (11/21/16 14:43) Creatine Kinase (Cpk) (11/21/16 20:00) Creatine Kinase (Cpk) (11/22/16 02:00) Ckmb (Isoenzyme) Profile (11/21/16 20:00) Ckmb (Isoenzyme) Profile (11/22/16 02:00) Troponin I (11/21/16 20:00) Troponin I (11/22/16 02:00) Us Leg Venous Doppler Bilat (11/21/16 ) Pleural Fluid Ph (11/21/16 14:51) Pleural Fl Cell Count + Diff (11/21/16 14:51) Fluid Culture And Gram Stain (11/21/16 14:51) Fluid Fungus Culture And Stain (11/21/16 14:51) Cytology Request For Service (11/21/16 14:51) Legionella Urinary Antigen (11/21/16 15:07) Pneumococcal Urinary Antigen (11/21/16 15:07) Admit Order (Ed Use Only) (11/21/16 15:20) Central Line Placement W Us&Fl (11/21/16 ) CKMB (11/21/16 20:50) CKMB% (11/21/16 20:50) Echo 2d Comp With Doppler (11/22/16 ) Labs Laboratory Tests Test 11/21/16 11/21/16 11/21/16 13:54 14:02 14:30 White Blood Count 23.6 TH/MM3 Red Blood Count 3.59 MIL/MM3 Hemoglobin 11.2 GM/DL Hematocrit 34.3 % Mean Corpuscular Volume 95.4 FL Mean Corpuscular Hemoglobin 31.3 PG Mean Corpuscular Hemoglobin 32.8 % Concent Red Cell Distribution Width 13.3 % Platelet Count 320 TH/MM3 Mean Platelet Volume 8.6 FL Neutrophils (%) (Auto) 93.4 % Lymphocytes (%) (Auto) 3.8 % Monocytes (%) (Auto) 2.7 % Eosinophils (%) (Auto) 0.0 % Basophils (%) (Auto) 0.1 % Neutrophils # (Auto) 22.1 TH/MM3 Lymphocytes # (Auto) 0.9 TH/MM3 Monocytes # (Auto) 0.6 TH/MM3 Eosinophils # (Auto) 0.0 TH/MM3 Basophils # (Auto) 0.0 TH/MM3 CBC Comment AUTO DIFF Differential Total Cells 100 Counted Neutrophils % (Manual) 76 % Band Neutrophils % 15 % Lymphocytes % 7 % Monocytes % 2 % Neutrophils # (Manual) 21.5 TH/MM3 Differential Comment FINAL DIFF MANUAL Platelet Estimate NORMAL Platelet Morphology Comment NORMAL Prothrombin Time 14.1 SEC Prothromb Time International 1.3 RATIO Ratio Activated Partial 33.2 SEC Thromboplast Time D-Dimer Quantitative (PE/DVT) 20.17 MG/L FEU Sodium Level 138 MEQ/L Potassium Level 3.9 MEQ/L Chloride Level 98 MEQ/L Carbon Dioxide Level 34.1 MEQ/L Anion Gap 6 MEQ/L Blood Urea Nitrogen 40 MG/DL Creatinine 0.86 MG/DL Estimat Glomerular Filtration 90 ML/MIN Rate Random Glucose 116 MG/DL Calcium Level 8.8 MG/DL Total Bilirubin 0.5 MG/DL Aspartate Amino Transf 80 U/L (AST/SGOT) Alanine Aminotransferase 70 U/L (ALT/SGPT) Alkaline Phosphatase 131 U/L Total Creatine Kinase 110 U/L Creatine Kinase MB 3.5 NG/ML Troponin I 0.02 NG/ML Total Protein 7.3 GM/DL Albumin 2.2 GM/DL Urine Color LIGHT-BROWN Urine Turbidity HAZY Urine pH 5.5 Urine Specific Superior 1.022 Urine Protein 30 mg/dL Urine Glucose (UA) NEG mg/dL Urine Ketones NEG mg/dL Urine Occult Blood LARGE Urine Nitrite NEG Urine Bilirubin NEG Urine Urobilinogen LESS THAN 2.0 MG/DL Urine Leukocyte Esterase SMALL Urine RBC /hpf Urine WBC 49 /hpf Urine Squamous Epithelial 2 /hpf Cells Urine Bacteria FEW /hpf Urine Hyaline Casts 24 /lpf Urine Mucus FEW /lpf Microscopic Urinalysis Comment CULTURE INDICATED Blood Gas Puncture Site LT FEMORAL Blood Gas Patient Temperature 101.0 Blood Gas HCO3 29 mmol/L Blood Gas Base Excess 3.5 mmol/L Blood Gas Oxygen Saturation 97 % Arterial Blood pH 7.31 Arterial Blood Partial 60 mmHg Pressure CO2 Arterial Blood Partial 144 mmHG Pressure O2 Arterial Blood Oxygen Content 13.8 Vol % Arterial Blood 1.0 % Carboxyhemoglobin Arterial Blood Methemoglobin 0.6 % Blood Gas Hemoglobin 10.0 G/DL Oxygen Delivery Device AC14/550/5PEEP Blood Gas Inspired Oxygen 100 % MDM Medical Decision Making Medical Screen Exam Complete: Yes Emergency Medical Condition: Yes Differential Diagnosis CHF versus pleural effusion versus acute coronary syndrome versus pulmonary obstruction secondary to cancer. Narrative Course 86 year-old gentleman who presented in severe respiratory distress. The patient has a history of lung cancer. The patient's pulse was 180. The patient was emergently intubated. His blood pressure was initially stable however dropped into the 60s systolic. The patient was given 12 mg of adenosine and it revealed an underlying rhythm of atrial flutter. The patient then immediately went back into 180. We originally and start him on a diltiazem drip however his blood pressure dropped into the 60s systolic. At that time the decision was made to cardiovert him. He was cardioverted using 70 J to sinus tachycardia with a rate of 110. His blood pressure did increase into the 90s after cardioversion and fluid boluses. Chest x-ray reveals a large right pleural effusion. The patient was discussed with Dr. Loza, care asst who assisted with care in the department. The patient will be taken emergently to the CT scan for rule out pulmonary embolus and then to specials to have a chest tube placed to drain the pleural effusion. Critical Care Narrative Aggregate critical care time was 75 minutes. Time to perform other separately billable procedures was not included in the critical care time. My time did not include minutes spent treating any other patients simultaneously or on activities that did not directly contribute to the patient's treatment. The services I provided to this patient were to treat and/or prevent clinically significant deterioration that could result in: I provided critical care services requiring my management, as noted below: Chart data review, documentation time, medication orders and management, vital sign assessments/reviewing monitor data, ordering and reviewing lab tests, ordering and interpreting/reviewing x-rays and diagnostic studies, care of the patient and discussion of the patient with the admitting physicians. Procedures Procedure Narrative After the risks and benefits were discussed the following procedure was performed emergently: INTUBATION: The patient was put in optimal position for the procedure. Rapid sequence intubation was initiated by me using 20 milligrams of etomidate IV and 100 milligrams of succinylcholine IV. The patient was intubated with a 8.0 cuffed endotracheal tube. Tube placement was confirmed by visualization of the tube and balloon passing through the cords, capnometry and subsequent chest x- ray. Breath sounds were equal and well aerated bilaterally postintubation. No breath sounds over stomach. Patient tolerated procedure well. Patient was in persistent tachycardia with a rate of 180. The patient's became hypotensive and was cardioverted emergently. The monitor was set to 70 J and the patient was successfully cardioverted into sinus tachycardia with a rate of 110. Diagnosis Primary Impression: Acute respiratory failure Additional Impressions: Sepsis Leukocytosis Hypotension Tachycardia Admitting Information Admitting Physician Requests: Admit Froylan Bernstein MD Nov 24, 2016 10:13
[2016-11-24 11:33] LABS: BLOOD GAS BASE EXCESS 6.9 mmol/L (-2-2); BLOOD GAS CARBOXYHEMOGLOBIN 1.6 % (0-4); BLOOD GAS HCO3 32 mmol/L (22-26); BLOOD GAS METHEMOGLOBIN 1.1 % (0-2); BLOOD GAS O2 HGB SATURATION 90 % (90-100); BLOOD GAS OXYGEN CONTENT 12.1 Vol % (12.0-20.0); BLOOD GAS PCO2 54 mmHg (38-42); BLOOD GAS PO2 70 mmHg (61-120); BLOOD GAS TOTAL HGB 9.5 G/DL (12.0-16.0); CRITICAL VALUE YES; DRAW SITE RT RADIAL; FIO2 40 %; NUMBER OF ARTERIAL PUNCTURES 1; OXYGEN DEVICE VENTILATOR; STAT NO; TEMP CORR TO 98.6; ULNAR PULSE PRESENT
--- NOTE | 2016-11-24 11:52 | RADRPT ---
EXAM DATE/TIME: 11/24/2016 11:04 [facility] COMPARISON: CHEST SINGLE AP, November 23, 2016, 8:52. INDICATIONS : Ventilator dependent respiratory failure. MEDICAL HISTORY : None. SURGICAL HISTORY : None. ENCOUNTER: Subsequent ACUITY: 4 - 6 days PAIN SCORE: Non-responsive. LOCATION: chest FINDINGS: Portable AP view of the chest demonstrates a normal-sized cardiac silhouette. A nasogastric tube cour ses beyond the GE junction, right IJ line tip is in the SVC an endotracheal tube tip is at the aortic knob level measuring 5.5 cm from the ruma. There is a stable airspace consolidation at the left emory ng base and stable pleural-parenchymal opacity at the right lung base. A pigtail right pleural cathet er is present. No pneumothorax is seen. CONCLUSION: 1. Stable chest x-ray. Right chest tube is present and no pneumothorax is visualized. 2. There is a right basilar opacity representing pleural effusion with associated volume loss and/or consolidation. There is also stable airspace consolidation at the left lung base. Wei Larry MD on November 24, 2016 at 11:48 Board Certified Radiologist. This report was verified electronically.
[2016-11-24] MEDS: AZITHROMYCIN INJ 500 MG in SODIUM CHLOR 0.9% 250 ML INJ 250 ML IV SCH (16:21)
[2016-11-25] VITALS (25 sets, daily range): BP systolic 80–158; BP diastolic 53–88; PULSE 93–135; RESP 8–26; TEMP 97.4–99.1; O2SAT 68–96
[2016-11-25] MEDS: LORazepam 2 MG/ML VIAL IV PUSH PRN ×2 (00:28→09:26)
[2016-11-25] MEDS: RESP: ALBUTEROL 2.5 MG/IPRATROPIUM 0.5 MG NEB (SCH) INH ×4 (01:01→11:34)
[2016-11-25] MEDS: INSULIN NovoLIN REGULAR SUPPLEMENTAL SCALE SQ SCH ×3 (02:45→10:45)
[2016-11-25 03:57] LABS: AUTOMATED NEUTROPHIL # 12.5 TH/MM3 (1.8-7.7); BASOPHIL % 0.1 % (0.0-2.0); HEMATOCRIT 26.9 % (39.0-51.0); LYMPH % 3.5 % (9.0-44.0); LYMPHOCYTE # 0.5 TH/MM3 (1.0-4.8); MEAN CELL VOLUME 95.1 FL (80.0-100.0); MEAN CORPUSCULAR HEMOGLOBIN 31.6 PG (27.0-34.0); MEAN CORPUSCULAR HGB CONC 33.2 % (32.0-36.0); NEUT % 92.4 % (16.0-70.0); PLATELET COUNT 334 TH/MM3 (150-450); RED BLOOD COUNT 2.82 MIL/MM3 (4.50-5.90); RED CELL DISTRIBUTION WIDTH 13.9 % (11.6-17.2); WHITE BLOOD COUNT 13.6 TH/MM3 (4.0-11.0)
[2016-11-25] MEDS: CHLORHEXIDINE GLUCONATE 2 % 1 PACK (2 CLOTHS) TOP SCH (04:00)
[2016-11-25 04:01] LABS: HEMO FLAGS AUTO DIFF
[2016-11-25 04:13] LABS: BICARBONATE 39.4 MEQ/L (21.0-32.0); MAGNESIUM 1.6 MG/DL (1.5-2.5); POTASSIUM 3.2 MEQ/L (3.5-5.1)
[2016-11-25] MEDS: HYDROCORTISONE SOD SUCCINATE 100 MG VIAL IV PUSH SCH ×2 (04:57→15:09)
[2016-11-25] MEDS: PIPERACIL-TAZO 4.5 GM PREMIX 100 ML IV SCH ×2 (04:57→09:28)
[2016-11-25 05:16] LABS: BODY FLUID LDH 819 U/L (()); BODY FLUID LDH SOURCE PLEURAL (())
[2016-11-25 05:33] LABS: BANDS 9 % (0-6); METAMYELOCYTES 2 % (0-1); NEUTROPHIL # MANUAL DIFF 13.2 TH/MM3 (1.8-7.7); PLATELET ESTIMATE SMEAR NORMAL (NORMAL); PLATELET MORPHOLOGY NORMAL (NORMAL); POLYS (SEG NEUTROPHILS) 86 % (16-70); SCAN/DIFF FINAL DIFF MANUAL; WBC DIFF SAMPLE 100
[2016-11-25] MEDS: fentaNYL DRIP 250 ML IV SCH (07:12)
--- NOTE | 2016-11-25 07:24 | HHI.CCPN ---
Subjective Remarks/Hospital Course The patient is a 66-year-old male with past medical history of lung cancer on chemotherapy, being followed at the [facility] who presented to [facility] emergency department with progressive shortness of breath. On arrival the patient was tachycardiac with heart rate 170s to 180s and his initial blood pressure of 140/86. He became hypotensive in the emergency room and he was subsequently given adenosine at 12 mg IV push x1. His EKG showed SVT with a rate of 187 beats per minute. Due to hemodynamic instability the patient had cardioversion with 70 joules and a repeat ABG showed sinus tachycardia with a rate of 111 beats per minute and nonspecific ST-T wave abnormalities. Due to his respiratory distress he was intubated with etomidate, succinylcholine and placed on full mechanical ventilation. ABG post intubation showed acute hypercapnic and hypoxemic respiratory failure with a pH of 7.31, CO2 60, pAO2 144, bicarb 29, sats 97% on assist control ventilation rate of 14, tidal volume 550, PEEP of five and FIO2 100%. The patient had a fever with temperature of 101.4 and his laboratory data showed leukocytosis with a WBC of 23.6 associated with bandemia. His CMP showed a BUN of 40, creatinine 0.86, AST of 80 and troponin of 0.02. The patient was found to have a UTI as his urinalysis showed leukocyte esterase 49 WBC, few bacteria. A chest x-ray post-intubation showed bilateral pleural effusion, right greater than left. According to patients son his last chemotherapy was approximately one month ago and he remains an active smoker. The patient is scheduled to undergo a CT-guided paracentesis and chest tube placement by IR. When seen in the emergency room, the patient remained tachycardic with heart rate of 111, blood pressure 91/61. He is sedated with versed and on assist control ventilation. 11/22 Patient is sedated with Versed and intubated. Afebrile. s/p CT guided thoracentesis with removal of 2L fluid and chest tube placement drained 560 ml since yesterday. He was started on Neosyn 80 mics overnight. 11/23 Patent is sedated with Fentanyl and intubated. Off Versed. Neosyn down 10 mics. WBC is trending down. Afebrile. 11/24 Patient is sedated with Versed 3mg, Fentanyl drip and intubated. Afebrile. Off Neosyn. 11/25 Patient is sedated with Fentanyl and intubated s/p bronch yesterday showed mild secretions and likely mass obstructing orfice RLL. Afebrile. Objective Vital Signs Date Time Temp Pulse Resp B/P Pulse Ox O2 Delivery O2 Flow Rate FiO2 11/25/16 06:00 101 11/25/16 04:20 95 45 11/25/16 04:00 98.9 18 131/75 11/21/16 15:12 Ventilator 11/21/16 13:38 15 Intake and Output 11/24/16 11/24/16 11/25/16 08:00 16:00 00:00 Intake Total 772 ml 838 ml 875 ml Output Total 300 ml 1710 ml 1000 ml Balance 472 ml -872 ml -125 ml Result Diagram: 11/25/16 0318 11/25/16 0318 Other Results Laboratory Tests Test 11/24/16 11/24/16 11/25/16 11:22 23:15 03:18 Blood Gas Puncture Site RT RADIAL Blood Gas Patient Temperature 98.6 Blood Gas HCO3 32 mmol/L Blood Gas Base Excess 6.9 mmol/L Blood Gas Oxygen Saturation 90 % Arterial Blood pH 7.39 Arterial Blood Partial 54 mmHg Pressure CO2 Arterial Blood Partial 70 mmHg Pressure O2 Arterial Blood Oxygen Content 12.1 Vol % Arterial Blood 1.6 % Carboxyhemoglobin Arterial Blood Methemoglobin 1.1 % Blood Gas Hemoglobin 9.5 G/DL Oxygen Delivery Device VENTILATOR Blood Gas Ventilator Setting CPAP,PEEP5,PS10 Blood Gas Inspired Oxygen 40 % Potassium Level 3.2 MEQ/L 3.2 MEQ/L White Blood Count 13.6 TH/MM3 Red Blood Count 2.82 MIL/MM3 Hemoglobin 8.9 GM/DL Hematocrit 26.9 % Mean Corpuscular Volume 95.1 FL Mean Corpuscular Hemoglobin 31.6 PG Mean Corpuscular Hemoglobin 33.2 % Concent Red Cell Distribution Width 13.9 % Platelet Count 334 TH/MM3 Mean Platelet Volume 8.0 FL Neutrophils (%) (Auto) 92.4 % Lymphocytes (%) (Auto) 3.5 % Monocytes (%) (Auto) 4.0 % Eosinophils (%) (Auto) 0.0 % Basophils (%) (Auto) 0.1 % Neutrophils # (Auto) 12.5 TH/MM3 Lymphocytes # (Auto) 0.5 TH/MM3 Monocytes # (Auto) 0.5 TH/MM3 Eosinophils # (Auto) 0.0 TH/MM3 Basophils # (Auto) 0.0 TH/MM3 CBC Comment AUTO DIFF Differential Total Cells 100 Counted Neutrophils % (Manual) 86 % Band Neutrophils % 9 % Lymphocytes % 2 % Monocytes % 1 % Neutrophils # (Manual) 13.2 TH/MM3 Metamyelocytes 2 % Differential Comment FINAL DIFF MANUAL Platelet Estimate NORMAL Platelet Morphology Comment NORMAL Sodium Level 148 MEQ/L Chloride Level 104 MEQ/L Carbon Dioxide Level 39.4 MEQ/L Anion Gap 5 MEQ/L Blood Urea Nitrogen 25 MG/DL Creatinine 0.52 MG/DL Estimat Glomerular Filtration 160 ML/MIN Rate Random Glucose 149 MG/DL Calcium Level 7.7 MG/DL Phosphorus Level 2.3 MG/DL Magnesium Level 1.6 MG/DL Imaging L Last Impressions Chest X-Ray 11/24/16 0000 Signed Impressions: Service Date/Time: Thursday, November 24, 2016 11:04 - CONCLUSION: 1. Stable chest x-ray. Right chest tube is present and no pneumothorax is visualized. 2. There is a right basilar opacity representing pleural effusion with associated volume loss and/or consolidation. There is also stable airspace consolidation at the left lung base. Wei Larry MD CT Angiography 11/21/16 1436 Signed Impressions: Service Date/Time: Monday, November 21, 2016 15:39 - CONCLUSION: 1. There is diffuse adenopathy involving the thoracic inlet, the paratracheal shakeel chains , diffusely throughout the mediastinum and prevascular shakeel chain consistent with malignancy. There is extensive consolidation of the right lung with a large pleural effusion and probable right hilar mass. 2. There is diffuse edema throughout the left lung. 3. No pulmonary embolus is identified. Karl Tracy MD Thoracentesis 11/21/16 0000 Signed Impressions: Service Date/Time: Monday, November 21, 2016 15:42 - CONCLUSION: Uncomplicated fluoroscopically guided thoracentesis. A 10 Ghanaian chest tube was placed. Karl Tracy MD Lower Extremity Ultrasound 11/21/16 0000 Signed Impressions: Service Date/Time: Monday, November 21, 2016 23:17 - CONCLUSION: 1. No DVT in either lower extremity. 2. Prominent lymph node in the left groin measures 33 x 11 x 20 mm. 3. Necrotic appearing left node in the left groin measures 18 x 19 x 20 mm. Ben Peterson MD Chest Tube Insertion 11/21/16 0000 Signed Impressions: Service Date/Time: Monday, November 21, 2016 15:42 - CONCLUSION: Uncomplicated chest tube placement as above. Karl Tracy MD Central Venous Line 11/21/16 0000 Signed Impressions: Service Date/Time: Monday, November 21, 2016 15:42 - CONCLUSION: Uncomplicated line placement as above. Karl Tracy MD Objective Remarks GENERAL: Patient is 66 yo critically ill intubated and sedated SKIN: Warm and dry. HEAD: Normocephalic. EYES: No scleral icterus. No injection or drainage. NECK: Supple, trachea midline. No JVD or lymphadenopathy. CARDIOVASCULAR: Regular rate and rhythm without murmurs, gallops, or rubs. RESPIRATORY: Breath sounds equal bilaterally. No accessory muscle use. Right CT in place GASTROINTESTINAL: Abdomen soft, non-tender, nondistended. MUSCULOSKELETAL: No cyanosis, ++ edema. Neuro: Sedated, intubated A/P Assessment and Plan 1. Acute hypoxemic and hypercapnic respiratory failure. 2. SVT post cardioversion. 3. Large right-sided pleural effusion. s/p thora and CT placement 4. 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 Leukocytosis 6. Urinary tract infection. 7. Anemia 8. Elevated AST. Plan: Neuro: On Fentanyl drip for sedation and analgesia, daily sedation vacation Pulm: Continue with vent support and maintain sats > 92%. Bronchodilators , ICU vent bundle. SBT daily. hydrocortisone 50 mg IV q. 12 s/p CT guided thoracentesis with removal 2L and CT placement- Monitor CT drainage ( Drained 60 ml since yesterday) Patient had a lot of secretions per RT, CXR showed right basilar opacity with volume loss/consolidation and left basilar opacity. s/p bronch yesterday showed minimal secretions suctioned to clear, likely mass obstructing orfice RLL. Will check CXR today. Spoke to patient's son yesterday if patient's gets extubated and foes into resp distress he does not want any reintubation and will likely proceed with hospice and comfort care. CV: Monitor HR and BP keep MAP 65mmHg on Lopressor 25mg Q12 for rate control- monitor HR and BP and maintain MAP > 65 mmHg. Lactic acid 2.2 Echo showed EF 50-55% s/p Adenosine 12 mg IV and cardioversion for SVT in ED : Monitor renal function, I/O's and electrolyte replacement per protocol. Will need K, Phos replacement today Change Free water 250ml Q8, monitor sodium level. GI: on Protonix 40 mg IV daily for GI prophylaxis. tube feeds- Glucerna 1.5 with goal rate 45ml/hr ID: Continue with abx(Zosyn and azithromycin). Monitor for signs of infections( fever, WBC). WBC is trending down ID is following Sputum cx: GNR, Kleb pneumonia 11/22 urine and blood cultures....NGTD Strep pneumoniae Legionella urinary antigen negative. Endo:SSI with Accu-Chek q. 4-hour for glycemic control Heme: Monitor CBC and Coags. Oncology is following-Dr. De Leon Doppler US b/l LE negative for DVT GI prophylaxis with Protonix 40 mg IV daily and DVT prophylaxis with SCDs for now. Not on chemical anticoagulation prophylaxis due to brain mets Lines: Right IJ CVP placed 11/21 Palliative care is following. Patient's son spoke to Palliative care and decided to proceed with withdrawal life support and transitioning him to comfort care. CCT 30 minutes excluding procedures. Leeann Loza MD Nov 25, 2016 07:24
--- NOTE | 2016-11-25 08:10 | RADRPT ---
EXAM DATE/TIME: 11/25/2016 07:31 [place] COMPARISON: CHEST SINGLE AP, November 24, 2016, 11:04. INDICATIONS : Short of breath. MEDICAL HISTORY : None. History of SVT, lung cancer with brain metastases, right hilar mass, bilateral pleural SURGICAL HISTORY : None. History of right clavicular biopsy, left ankle ORIF. ENCOUNTER: Subsequent ACUITY: 1 week PAIN SCORE: Non-responsive. LOCATION: Bilateral chest FINDINGS: There is a stable ETT, right IJ central line, and NGT which courses beyond the GE junction with tip o mitted from the image. There is a stable right-sided chest tube in place with residual small to moder ate sized right pleural effusion and associated right lower lobe airspace disease. There is stable pa tchy airspace disease in the left lower lung. Cardiomediastinal contours are stable. Remainder of the exam is unchanged. CONCLUSION: 1. Stable tubes and lines, as above. 2. Stable right-sided chest tube with grossly stable small to moderate size right pleural effusion an d associated right lower lobe airspace disease. 3. Stable left lower lobe patchy airspace consolidation. Eric Garcia MD on November 25, 2016 at 8:05 Board Certified Radiologist. This report was verified electronically.
[2016-11-25] MEDS: PANTOPRAZOLE SODIUM 40 MG VIAL IV SCH (09:27)
[2016-11-25] MEDS: SODIUM CHLORIDE 0.9% FLUSH 10 ML FLUSH IVF SCH (09:28)
[2016-11-25] MEDS: METOPROLOL TARTRATE 25 MG TAB PO SCH (09:28)
[2016-11-25] MEDS: DOCUSATE SODIUM 50 MG/SENNA 8.6 MG TAB PO SCH (09:28)
--- NOTE | 2016-11-25 10:20 | PD.ONC.PN ---
Subjective Subjective Remarks Afebrile overnight. Patient remains intubated, sedated. Per nurse, son considering withdrawal of care later this morning. Objective Data Date Time Temp Pulse Resp B/P Pulse Ox O2 Delivery O2 Flow Rate FiO2 11/25/16 10:00 107 11/25/16 09:40 118 8 140/85 92 11/25/16 09:20 124 16 152/82 87 11/25/16 09:00 118 15 149/85 93 11/25/16 08:40 112 12 158/85 94 11/25/16 08:27 45 11/25/16 08:27 96 45 11/25/16 08:20 104 15 143/80 95 11/25/16 08:00 45 11/25/16 08:00 102 11/25/16 08:00 99.1 102 12 137/75 95 11/25/16 07:40 108 24 141/80 94 11/25/16 07:20 103 18 137/73 94 11/25/16 07:00 103 22 138/77 95 11/25/16 06:40 110 18 138/88 94 11/25/16 06:20 102 18 128/72 94 11/25/16 06:00 104 18 133/77 95 11/25/16 06:00 101 11/25/16 05:40 105 16 131/77 94 11/25/16 05:20 107 18 128/76 94 11/25/16 05:00 106 16 137/78 94 11/25/16 04:40 107 16 135/76 94 11/25/16 04:20 95 45 11/25/16 04:20 104 16 136/83 95 11/25/16 04:00 40 11/25/16 04:00 100 11/25/16 04:00 100 18 131/75 95 11/25/16 04:00 98.9 100 18 131/75 95 11/25/16 02:00 93 11/25/16 01:02 96 45 11/25/16 00:00 40 11/25/16 00:00 99 16 122/73 94 11/25/16 00:00 99 11/24/16 23:00 105 19 123/68 93 11/24/16 22:21 95 45 11/24/16 22:00 97 11/24/16 22:00 97 16 124/74 94 11/24/16 21:00 101 18 115/73 94 11/24/16 20:00 98.0 103 20 127/76 95 11/24/16 20:00 40 11/24/16 20:00 104 11/24/16 18:00 104 11/24/16 16:10 98 45 11/24/16 16:00 40 11/24/16 16:00 98.1 106 17 109/68 93 11/24/16 16:00 106 11/24/16 14:21 98 100 11/24/16 14:00 108 11/24/16 12:00 98.2 118 19 124/66 93 11/24/16 12:00 40 11/24/16 12:00 118 11/24/16 11:44 94 45 11/25/16 11/25/16 11/25/16 07:00 15:00 23:00 Intake Total 576 ml Output Total 200 ml Balance 376 ml Result Diagram: 11/25/16 0318 11/25/16 0318 Laboratory Results Laboratory Tests Test 11/24/16 11/24/16 11/25/16 11:22 23:15 03:18 Blood Gas Puncture Site RT RADIAL Blood Gas Patient Temperature 98.6 Blood Gas HCO3 32 mmol/L Blood Gas Base Excess 6.9 mmol/L Blood Gas Oxygen Saturation 90 % Arterial Blood pH 7.39 Arterial Blood Partial 54 mmHg Pressure CO2 Arterial Blood Partial 70 mmHg Pressure O2 Arterial Blood Oxygen Content 12.1 Vol % Arterial Blood 1.6 % Carboxyhemoglobin Arterial Blood Methemoglobin 1.1 % Blood Gas Hemoglobin 9.5 G/DL Oxygen Delivery Device VENTILATOR Blood Gas Ventilator Setting CPAP,PEEP5,PS10 Blood Gas Inspired Oxygen 40 % Potassium Level 3.2 MEQ/L 3.2 MEQ/L White Blood Count 13.6 TH/MM3 Red Blood Count 2.82 MIL/MM3 Hemoglobin 8.9 GM/DL Hematocrit 26.9 % Mean Corpuscular Volume 95.1 FL Mean Corpuscular Hemoglobin 31.6 PG Mean Corpuscular Hemoglobin 33.2 % Concent Red Cell Distribution Width 13.9 % Platelet Count 334 TH/MM3 Mean Platelet Volume 8.0 FL Neutrophils (%) (Auto) 92.4 % Lymphocytes (%) (Auto) 3.5 % Monocytes (%) (Auto) 4.0 % Eosinophils (%) (Auto) 0.0 % Basophils (%) (Auto) 0.1 % Neutrophils # (Auto) 12.5 TH/MM3 Lymphocytes # (Auto) 0.5 TH/MM3 Monocytes # (Auto) 0.5 TH/MM3 Eosinophils # (Auto) 0.0 TH/MM3 Basophils # (Auto) 0.0 TH/MM3 CBC Comment AUTO DIFF Differential Total Cells 100 Counted Neutrophils % (Manual) 86 % Band Neutrophils % 9 % Lymphocytes % 2 % Monocytes % 1 % Neutrophils # (Manual) 13.2 TH/MM3 Metamyelocytes 2 % Differential Comment FINAL DIFF MANUAL Platelet Estimate NORMAL Platelet Morphology Comment NORMAL Sodium Level 148 MEQ/L Chloride Level 104 MEQ/L Carbon Dioxide Level 39.4 MEQ/L Anion Gap 5 MEQ/L Blood Urea Nitrogen 25 MG/DL Creatinine 0.52 MG/DL Estimat Glomerular Filtration 160 ML/MIN Rate Random Glucose 149 MG/DL Calcium Level 7.7 MG/DL Phosphorus Level 2.3 MG/DL Magnesium Level 1.6 MG/DL Culture Results Microbiology Date/Time Procedure Status Source Growth 11/22/16 11:45 Gram Stain - Final Complete Sputum Endotracheal 11/22/16 11:45 Sputum Culture - Final Complete Klebsiella Pneumoniae Pseudomonas Aeruginosa 11/24/16 14:10 Cancelled Fluid Other 11/24/16 14:10 Gram Stain - Final Resulted Bronchial Washings Right Lower Lobe 11/24/16 14:10 Bronchial Culture Resulted Bronchial Washings Right Lower Lobe Pending Imaging Studies Last 24 hours Impressions Chest X-Ray 11/25/16 0000 Signed Impressions: Service Date/Time: Friday, November 25, 2016 07:31 - CONCLUSION: 1. Stable tubes and lines, as above. 2. Stable right-sided chest tube with grossly stable small to moderate size right pleural effusion and associated right lower lobe airspace disease. 3. Stable left lower lobe patchy airspace consolidation. Eric Garcia MD Administered Medications Medications (Trade) Dose Ordered Sig/Nicole Route PRN Reason Start Time Stop Time Status Last Admin Dose Admin Propofol (Diprivan 1000 Mg/100ml Inj) 100 ml @ 0 mls/hr TITRATE IV 11/21/16 13:45 11/21/16 13:50 Sodium Chloride (NS Flush) 2 ml UNSCH PRN IVF FLUSH AFTER USING IV ACCESS 11/21/16 14:15 11/23/16 15:10 Pantoprazole Sodium (Protonix Inj) 40 mg DAILY IV 11/21/16 14:45 11/25/16 09:27 Chlorhexidine Gluconate (Chlorhexidine 2% Cloth) 3 pack Taper DAILY@04 TOP 11/22/16 04:00 11/18/17 03:59 11/24/16 03:45 Senna/Docusate Sodium 1 tab 1 tab BID PO 11/21/16 14:45 11/25/16 09:28 Fentanyl Citrate 250 ml @ 0 mls/hr TITRATE IV 11/21/16 14:45 11/25/16 07:12 Piperacillin Sod/ Tazobactam Sod 100 ml @ 200 mls/hr Q6H IV 11/21/16 15:00 11/25/16 09:28 Azithromycin/ Sodium Chloride (Zithromax Inj/ NS 250 ml Inj) 250 ml @ 250 mls/hr Q24H IV 11/21/16 17:00 11/24/16 16:21 Insulin Human Regular (NovoLIN R SUPPLEMENTAL SCALE) 1 Q4H SQ 11/21/16 14:45 11/23/16 15:10 Sodium Chloride DAILY IVF 11/22/16 09:00 11/25/16 09:28 Sodium Phosphate/ Sodium Chloride (Sodium Phosphate Inj/NS 250 ml Inj) 250 ml @ 42 mls/hr UNSCH PRN IV For Phosphorus < 2.5 mg/dL 11/23/16 07:45 11/23/16 09:15 Metoprolol Tartrate (Lopressor) 25 mg Q12HR PO 11/23/16 09:00 11/25/16 09:28 Lorazepam (Ativan Inj) 1 mg Q4H PRN IV PUSH SOB, anxiety 11/24/16 13:00 11/25/16 09:26 Objective Remarks GENERAL: chronically ill male, sedated, intubated. SKIN: Warm and dry. HEAD: Normocephalic. EYES: No scleral icterus. No injection or drainage. NECK: Supple, trachea midline. CARDIOVASCULAR: +S1/S2, RESPIRATORY: scattered rhonchi. on mechanical ventilation GASTROINTESTINAL: Abdomen mildly distended. EXTREMITIES: No cyanosis NEUROLOGICAL: sedated, intubated Assessment/Plan Problem List: (1) Lung cancer Status: Acute Plan: --C2 w/ carboplatin and etoposide on November 04, 2016. --brain XRT not yet started (2) Pleural effusion Status: Acute Plan: --had a CT-guided paracentesis and a chest tube placement by interventional radiology. (3) Sepsis Status: Acute Plan: BC no growth sputum + GNR --on Zosyn, Zithromax Assessment 66y/o male with metastatic small cell lung carcinoma with positive supraclavicular lymph node and a solitary brain mets. presented to the emergency department with progressive shortness of breath. He was tachycardiac in the 170s and 180s. He had an EKG that showed SVT and was hemodynamically unstable. He had nonspecific S-T-T wave abnormality. He was cardioverted. h/o Chronic tobacco use. COPD. Hypertension. Metastatic small cell lung cancer. [employer]OC[employer]ATE metastatic disease.History of supraventricular tachycardia. Pneumonia. Plan 1. continue abx 2. await family decision on withdrawal of care Attending Statement The exam, history, and the medical decision-making described in the above note were completed with the assistance of the mid-level provider. I reviewed and agree with the findings presented. I attest that I had a [id number] encounter with the patient on the same day, and personally performed and documented my assessment and findings in the medical record. Pt seen and examined in evening. Family meeting with POA noted. Extubated per family/pt wish. Not responsive, no family at bedside. Keesha Rosa Nov 25, 2016 10:20 Katey De Leon MD Nov 25, 2016 20:28
--- NOTE | 2016-11-25 10:20 | PD.WCN.NOT ---
Wound Consult Description: Patient seen for screening of possible pressure injury to bilateral buttocks. Turned patient to L side to reveal full thickness wounds to R and L buttock. R buttock noted with 2 wounds measured as 1 wound measuring 3.5cm x 1cm x ~0.1 cm Wound bed noted with 50% pink tissue and 50% white tissue.Wound is dry without active drainage or odor. Periwound noted with peeling denuded skin.Cleansed wound with normal saline. left open to air.Thick layer of calazime barrier cream applied L buttock presents with 3 wounds close together measured as 1 wound. Wound measures 3.5cm x 2.9 cm x ~0.1 cm. Wound bed is noted with ~40% pink tissue and ~60% white tissue. Wound presents without active drainage or odor. Cleansed wound with normal saline and left open to air.Periwound noted with peeling denuded skin. Applied thick layer of Calazime barrier cream. Both wounds to R and L buttock are assessed with mixed etiology of moisture, pressure and friction.Clinical Psychiatrist is following patient. Patient noted on Michelle ICU bed. Communicated with: RN Lenka Quiroga, and Doctor Gladis Recommendation: Recommend to cleanse bilateral buttock area gently with soap and water and apply thick layer of Calazime barrier cream BID and PRN.Wound care to follow patient weekly until discharge. Please call recreation coordinator via [employer] for wound deterioration. Patient may need a different bed or alternating pressure pump added to Michelle bed. Tessa Guidry [facility] Nov 25, 2016 10:20
--- NOTE | 2016-11-25 12:34 | HHI.IDPN ---
Subjective Subjective Remarks Patient is a 66-year-old male, admitted to the hospital for evaluation of progressive shortness of breath. He was recently here back in September and at that time he was found to have a large hilar mass with significant major spinal adenopathy. 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 His staging workup showed evidence of metastatic disease to the brain. He was being evaluated for radiation therapy to his brain metastases. He was started on palliative chemotherapy as an outpatient, and he actually received his second cycle around November 04. He was apparently also being followed at the [facility] and he developed progressive shortness of breath. Evaluation in the emergency room revealed that he was significantly tachycardic with a heart rate of 170- 180 while in the ED he became hypotensive, and he was given adenosine, and subsequently cardioverted. He ended up getting intubated. He also remained hypotensive, and currently on pressors. Patient was also febrile up to 101+. His chest x-ray is showing almost complete opacification in the right lung with a little bit of induration in the right upper lobe. He also has infiltrates on the left base. Patient had placement of a chest tube on the right side. On reviewing his previous hospitalization, his last WBC prior to being discharged from the hospital was 49,000. Notes reviewed Seen by palliative medicine yesterday Family looking at withdrawal he had bronch yesterday, and has mass causing obstruction in R Sputum with Klebsiella and PSAE Bronch with GNR Temps ok Antibiotics Zosyn Zithromax Lines HIJ TLC - 11/21 Past Medical History Chronic tobacco use. COPD. Hypertension. Metastatic small cell lung cancer. 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 History of supraventricular tachycardia. Pneumonia. Past Surgical History CT-guided biopsy of right clavicular lymph node. Open reduction internal fixation of left ankle. Chest tube placement. Ultrasound-guided thoracentesis Allergies: Coded Allergies: No Known Allergies (Verified Allergy, Severe, 03/13/05) Objective . Vital Signs Date Time Temp Pulse Resp B/P Pulse Ox O2 Delivery O2 Flow Rate FiO2 11/25/16 11:34 96 45 11/25/16 10:00 107 11/25/16 09:40 118 8 140/85 92 11/25/16 09:20 124 16 152/82 87 11/25/16 09:00 118 15 149/85 93 11/25/16 08:40 112 12 158/85 94 11/25/16 08:27 45 11/25/16 08:27 96 45 11/25/16 08:20 104 15 143/80 95 11/25/16 08:00 45 11/25/16 08:00 102 11/25/16 08:00 99.1 102 12 137/75 95 11/25/16 07:40 108 24 141/80 94 11/25/16 07:20 103 18 137/73 94 11/25/16 07:00 103 22 138/77 95 11/25/16 06:40 110 18 138/88 94 11/25/16 06:20 102 18 128/72 94 11/25/16 06:00 104 18 133/77 95 11/25/16 06:00 101 11/25/16 05:40 105 16 131/77 94 11/25/16 05:20 107 18 128/76 94 11/25/16 05:00 106 16 137/78 94 11/25/16 04:40 107 16 135/76 94 11/25/16 04:20 95 45 11/25/16 04:20 104 16 136/83 95 11/25/16 04:00 40 11/25/16 04:00 100 11/25/16 04:00 100 18 131/75 95 11/25/16 04:00 98.9 100 18 131/75 95 11/25/16 02:00 93 11/25/16 01:02 96 45 11/25/16 00:00 40 11/25/16 00:00 99 16 122/73 94 11/25/16 00:00 99 11/24/16 23:00 105 19 123/68 93 11/24/16 22:21 95 45 11/24/16 22:00 97 11/24/16 22:00 97 16 124/74 94 11/24/16 21:00 101 18 115/73 94 11/24/16 20:00 98.0 103 20 127/76 95 11/24/16 20:00 40 11/24/16 20:00 104 11/24/16 18:00 104 11/24/16 16:10 98 45 11/24/16 16:00 40 11/24/16 16:00 98.1 106 17 109/68 93 11/24/16 16:00 106 11/24/16 14:21 98 100 11/24/16 14:00 108 11/24/16 11/24/16 11/25/16 15:00 23:00 07:00 Intake Total 838 ml 875 ml 576 ml Output Total 1710 ml 1000 ml 200 ml Balance -872 ml -125 ml 376 ml Intake IV Total 459 ml 517 ml 303 ml Tube Feeding 319 ml 358 ml 273 ml Other 60 ml Output Urine Total 1650 ml 1000 ml 200 ml Chest Tube Drainage Total 60 ml 0 ml 0 ml # Bowel Movements 0 . Laboratory Tests Test 11/24/16 11/25/16 04:04 03:18 White Blood Count 15.1 TH/MM3 13.6 TH/MM3 Red Blood Count 2.82 MIL/MM3 2.82 MIL/MM3 Hemoglobin 9.1 GM/DL 8.9 GM/DL Hematocrit 26.7 % 26.9 % Mean Corpuscular Volume 94.8 FL 95.1 FL Mean Corpuscular Hemoglobin 32.4 PG 31.6 PG Mean Corpuscular Hemoglobin 34.2 % 33.2 % Concent Red Cell Distribution Width 13.8 % 13.9 % Platelet Count 308 TH/MM3 334 TH/MM3 Mean Platelet Volume 7.8 FL 8.0 FL Neutrophils (%) (Auto) 91.2 % 92.4 % Lymphocytes (%) (Auto) 4.3 % 3.5 % Monocytes (%) (Auto) 4.1 % 4.0 % Eosinophils (%) (Auto) 0.0 % 0.0 % Basophils (%) (Auto) 0.4 % 0.1 % Neutrophils # (Auto) 13.7 TH/MM3 12.5 TH/MM3 Lymphocytes # (Auto) 0.6 TH/MM3 0.5 TH/MM3 Monocytes # (Auto) 0.6 TH/MM3 0.5 TH/MM3 Eosinophils # (Auto) 0.0 TH/MM3 0.0 TH/MM3 Basophils # (Auto) 0.1 TH/MM3 0.0 TH/MM3 CBC Comment AUTO DIFF AUTO DIFF Differential Total Cells 100 100 Counted Neutrophils % (Manual) 84 % 86 % Band Neutrophils % 6 % 9 % Lymphocytes % 6 % 2 % Monocytes % 3 % 1 % Neutrophils # (Manual) 13.7 TH/MM3 13.2 TH/MM3 Myelocytes 1 % Differential Comment FINAL DIFF FINAL DIFF MANUAL MANUAL Platelet Estimate NORMAL NORMAL Platelet Morphology Comment NORMAL NORMAL Metamyelocytes 2 % Laboratory Tests Test 11/24/16 11/24/16 11/25/16 04:04 23:15 03:18 Sodium Level 147 MEQ/L 148 MEQ/L Potassium Level 3.8 MEQ/L 3.2 MEQ/L 3.2 MEQ/L Chloride Level 106 MEQ/L 104 MEQ/L Carbon Dioxide Level 35.5 MEQ/L 39.4 MEQ/L Anion Gap 6 MEQ/L 5 MEQ/L Blood Urea Nitrogen 22 MG/DL 25 MG/DL Creatinine 0.44 MG/DL 0.52 MG/DL Estimat Glomerular Filtration 194 ML/MIN 160 ML/MIN Rate Random Glucose 138 MG/DL 149 MG/DL Calcium Level 8.0 MG/DL 7.7 MG/DL Phosphorus Level 2.0 MG/DL 2.3 MG/DL Magnesium Level 1.9 MG/DL 1.6 MG/DL Microbiology Date/Time Procedure Status Source Growth 11/24/16 14:10 Cancelled Fluid Other 11/24/16 14:10 Gram Stain - Final Resulted Bronchial Washings Right Lower Lobe 11/24/16 14:10 Bronchial Culture - Preliminary Resulted Gram Negative [facility] Last Impressions Chest X-Ray 11/23/16 0000 Signed Impressions: Service Date/Time: Wednesday, November 23, 2016 08:52 - CONCLUSION: 1. The previously noted right-sided pleural effusion has been drained and there is a right chest tube in place. 2. Bilateral interstitial and airspace infiltrates. Eric Modi MD CT Angiography 11/21/16 1436 Signed Impressions: Service Date/Time: Monday, November 21, 2016 15:39 - CONCLUSION: 1. There is diffuse adenopathy involving the thoracic inlet, the paratracheal shakeel chains , diffusely throughout the mediastinum and prevascular shakeel chain consistent with malignancy. There is extensive consolidation of the right lung with a large pleural effusion and probable right hilar mass. 2. There is diffuse edema throughout the left lung. 3. No pulmonary embolus is identified. Karl Tracy MD Thoracentesis 11/21/16 0000 Signed Impressions: Service Date/Time: Monday, November 21, 2016 15:42 - CONCLUSION: Uncomplicated fluoroscopically guided thoracentesis. A 10 [place] chest tube was placed. Karl Tracy MD Lower Extremity Ultrasound 11/21/16 0000 Signed Impressions: Service Date/Time: Monday, November 21, 2016 23:17 - CONCLUSION: 1. No DVT in either lower extremity. 2. Prominent lymph node in the left groin measures 33 x 11 x 20 mm. 3. Necrotic appearing left node in the left groin measures 18 x 19 x 20 mm. Ben Peterson MD Chest Tube Insertion 11/21/16 0000 Signed Impressions: Service Date/Time: Monday, November 21, 2016 15:42 - CONCLUSION: Uncomplicated chest tube placement as above. Karl Tracy MD Central Venous Line 11/21/16 0000 Signed Impressions: Service Date/Time: Monday, November 21, 2016 15:42 - CONCLUSION: Uncomplicated line placement as above. Karl Tracy MD Physical Exam GENERAL: sedated on the vent, not in respiratory distress. SKIN: Warm and dry. No generalized rash, no ecchymoses and no evidence of embolic lesions. HEAD: Atraumatic. Normocephalic. No temporal wasting, or tenderness. EYES: [place] conjunctiva. No petechia or hemorrhage. Pupils equal, round and reactive to light. No scleral icterus. No injection or drainage. EARS, NOSE AND THROAT: Nose without bleeding or purulent nasal discharge. No sinus tenderness. He is orally intubated. NECK: Trachea midline. Supple and not tender, no meningeal signs. Line RIJ site ok CARDIOVASCULAR: Regular rate and rhythm. No murmurs, rubs or gallops heard RESPIRATORY: Coarse rhonchi bilaterally. CT on R with serous fluid. ABDOMEN: Soft, non-tender, nondistended. Bowel sounds present and normoactive. No guarding. No rebound. Has umbilical hernia EXTREMITIES: No clubbing, cyanosis, or edema. Has dry scabs on dorsum of his L foot. Cool feet. NEUROLOGICAL: Sedated PSYCHIATRIC: Unable to assess LINE: No evidence of infection : Hassan in place, urine looks clear Assessment & Plan Remarks IMPRESSION Sepsis, on admission - likely postobstructive PNA - PNA - UTI Has R pleural effusion, CT in place, C/S negative so far Small cell lung CA with mets, undergoing chemo Brain mets, for XRT Respiratory failure GNR PNA - Klebsiella and PSAE on C/S Known COPD RECOMMENDATION Continue Zosyn - for GNR coverage Also on Zithromax Possible withdrawal today per family's Palliative following D/W Tami Gee MD Nov 25, 2016 12:34
[2016-11-25] MEDS ORDERED: FREE WATER G-TUBE SCH (14:00)
[2016-11-25] MEDS ORDERED: LORazepam 2 MG/ML VIAL IV ONE ×2 (14:30→14:45)
[2016-11-25] MEDS ORDERED: HYOSCYAMINE 0.5 MG/ML AMP IV ONE (14:30)
[2016-11-25] MEDS ORDERED: MORPHINE SULFATE 8 MG/ML INJ IV PUSH PRN (14:30)
[2016-11-25] MEDS ORDERED: MORPHINE SULFATE 8 MG/ML INJ IV PUSH ONE (14:30)
[2016-11-25] MEDS ORDERED: fentaNYL DRIP 250 ML IV SCH (14:45)
[2016-11-25] MEDS ORDERED: MORPHINE SULFATE 4 MG/ML INJ IV ONE (14:45)
[2016-11-25] MEDS ORDERED: BISACODYL 10 MG SUPP RECTAL PRN (15:00)
[2016-11-25] MEDS ORDERED: LORazepam 2 MG/ML VIAL IV PRN (15:00)
[2016-11-25] MEDS ORDERED: LORazepam 2 MG/ML VIAL IVS PRN (15:00)
[2016-11-25] MEDS ORDERED: ACETAMINOPHEN 650 MG SUPP RECTAL PRN (15:00)
[2016-11-25] MEDS ORDERED: FUROSEMIDE 20 MG/2 ML VIAL IV PRN (15:00)
[2016-11-25] MEDS ORDERED: HYOSCYAMINE 0.5 MG/ML AMP IV PRN (15:00)
--- NOTE | 2016-11-25 15:02 | HHI.HCPN ---
Reason for visit a. To assist with evaluation and management of symptoms including: pain, dyspnea, weakness. b. To assist medical decision maker(s) with: better understanding of current medical conditions; weighing benefits/burdens of medical treatment options; making medical treatment decisions. . Subjective/Interval History Patient seen and examined in ICU. Patient responds briefly to voice, falls off to sleep easily. Patient nods yes to pain, anxiety and shortness of breath on vent. He is not able to quantify or qualify symptoms. He is not able to stay engaged when speaking to him. Afebrile. Tachycardic. BP stable. WBC 13.6. Discussed with Dr. Griffith and AMRITA Odom. Patient failed CPAP trial this morning with tachycardia. Chest xray small to moderate right pleural effusion and right lower lobe air space disease, stable left lower lobe patchy airspace disease. Bronchoscopy 11/24/16 mild secretions and mass obstructing RLL. Document Preparer Microfilming does not feel patient will be able to be medically extubated. Bronchial washings gram negative rods. Sputum Klebsiella Pneumoniae, pseudomonas aeruginosa. Palliative care and Keesha Rosa met with sonArnav. Oncology offered additional chemotherapy while on vent in effort to reduce obstruction. In speaking with son he is certain patient would not want additional treatment and would not want to be prolonged artificially by machines. He and additional family (sister and nephew - a palliative care MD in [place]) feel patient has had declining and poor quality of life since he began chemotherapy. I also spoke with nephew, Cheo Foster MD a palliative care physician in [place] via conference call with son present. He feels patient would elect transition to comfort if he were able to participate in decision making. He too indicates poor quality of life and significant trajectory of decline in the past few months. He requests patient be adequately medicated for comfort to ensure he is not painful or frightened at the time of withdrawal of life support. He thanks the team for providing the support to his cousin (pts son). He requests follow up bereavement services, email sent. . Family/friend interactions See interval note. Advance Directives Living Will: Copy in medical record Durable Power of Biology Department Chair: Copy in medical record (POA for health care) Advance Directive Specifics Date completed: 10/29/16 . Health Care Surrogate(s): Patient appointed his son, Arnav Ruano as power of sole polisher for health care. . Significant change in goals: NO CODE. Son, Arnav (HCS) has decided to transition to comfort focused care with withdrawal of life support. Declines hospice, will consider in AM if survives. . Objective Vital Signs Date Time Temp Pulse Resp B/P Pulse Ox O2 Delivery O2 Flow Rate FiO2 11/25/16 11:34 96 45 11/25/16 10:00 107 11/25/16 09:40 118 8 140/85 92 11/25/16 09:20 124 16 152/82 87 11/25/16 09:00 118 15 149/85 93 11/25/16 08:40 112 12 158/85 94 11/25/16 08:27 45 11/25/16 08:27 96 45 11/25/16 08:20 104 15 143/80 95 11/25/16 08:00 45 11/25/16 08:00 102 11/25/16 08:00 99.1 102 12 137/75 95 11/25/16 07:40 108 24 141/80 94 11/25/16 07:20 103 18 137/73 94 11/25/16 07:00 103 22 138/77 95 11/25/16 06:40 110 18 138/88 94 11/25/16 06:20 102 18 128/72 94 11/25/16 06:00 104 18 133/77 95 11/25/16 06:00 101 11/25/16 05:40 105 16 131/77 94 11/25/16 05:20 107 18 128/76 94 11/25/16 05:00 106 16 137/78 94 11/25/16 04:40 107 16 135/76 94 11/25/16 04:20 95 45 11/25/16 04:20 104 16 136/83 95 11/25/16 04:00 40 11/25/16 04:00 100 11/25/16 04:00 100 18 131/75 95 11/25/16 04:00 98.9 100 18 131/75 95 11/25/16 02:00 93 11/25/16 01:02 96 45 11/25/16 00:00 40 11/25/16 00:00 99 16 122/73 94 11/25/16 00:00 99 11/24/16 23:00 105 19 123/68 93 11/24/16 22:21 95 45 11/24/16 22:00 97 11/24/16 22:00 97 16 124/74 94 11/24/16 21:00 101 18 115/73 94 11/24/16 20:00 98.0 103 20 127/76 95 11/24/16 20:00 40 11/24/16 20:00 104 11/24/16 18:00 104 11/24/16 16:10 98 45 11/24/16 16:00 40 11/24/16 16:00 98.1 106 17 109/68 93 11/24/16 16:00 106 Intake & Output 11/25/16 11/25/16 07:00 19:00 Intake Total 1451 ml Output Total 1200 ml Balance 251 ml Intake IV Total 820 ml Tube Feeding 631 ml Output Urine Total 1200 ml Chest Tube Drainage Total 0 ml Physical Exam CONSTITUTIONAL/GENERAL: This is an adequately nourished patient, on [facility] vent. TUBES/LINES/DRAINS: NG tube right, ETT, Right IJ central line, PIV x 2 right, x1 left, right chest tube, bilateral soft wrist restraints, Hassan, SCDs. SKIN: No jaundice, rashes, or lesions. Ecchymoses on upper extremities. Skin temperature warm. Dry skin bilateral LE, skin discoloration purple to red PVD changes. EYES: Pupils equal and round. Extraocular motions intact. No scleral icterus. No injection or drainage. Fundi not examined. CARDIOVASCULAR: Intermittent tachycardia without murmurs, gallops, or rubs. No JVD. RESPIRATORY/CHEST: Symmetric, mildly labored respirations on vent. Course breath sounds bilaterally. Right chest tube. GASTROINTESTINAL: Abdomen soft, non-tender, mildly distended. Umbilical hernia. No guarding. Bowel sounds present. GENITOURINARY: Without palpable bladder distension. Hassan catheter in place. MUSCULOSKELETAL: Extremities without edema. Dressing left foot. Scabs on bilateral knees. No mottling or clubbing. NEUROLOGICAL: Awakens to voice briefly. Follows simple commands. Nods yes/no to some questions. Moves all extremities. PSYCHIATRIC: No obvious anxiety/depression. no apparent hallucinations or other psychotic thought process. . Diagnostic Tests Laboratory Laboratory Tests Test 11/23/16 11/24/16 11/24/16 11/24/16 03:50 04:04 11:22 23:15 White Blood Count 20.4 TH/MM3 15.1 TH/MM3 (4.0-11.0) (4.0-11.0) Red Blood Count 2.82 MIL/MM3 2.82 MIL/MM3 (4.50-5.90) (4.50-5.90) Hemoglobin 8.9 GM/DL 9.1 GM/DL (13.0-17.0) (13.0-17.0) Hematocrit 26.9 % 26.7 % (39.0-51.0) (39.0-51.0) Mean Corpuscular Volume 95.4 FL 94.8 FL (80.0-100.0) (80.0-100.0) Mean Corpuscular Hemoglobin 31.7 PG 32.4 PG (27.0-34.0) (27.0-34.0) Mean Corpuscular Hemoglobin 33.2 % 34.2 % Concent (32.0-36.0) (32.0-36.0) Red Cell Distribution Width 13.4 % 13.8 % (11.6-17.2) (11.6-17.2) Platelet Count 273 TH/MM3 308 TH/MM3 (150-450) (150-450) Mean Platelet Volume 7.7 FL 7.8 FL (7.0-11.0) (7.0-11.0) Neutrophils (%) (Auto) 91.2 % 91.2 % (16.0-70.0) (16.0-70.0) Lymphocytes (%) (Auto) 4.0 % 4.3 % (9.0-44.0) (9.0-44.0) Monocytes (%) (Auto) 4.5 % (0.0-8.0) 4.1 % (0.0-8.0) Eosinophils (%) (Auto) 0.0 % (0.0-4.0) 0.0 % (0.0-4.0) Basophils (%) (Auto) 0.3 % (0.0-2.0) 0.4 % (0.0-2.0) Neutrophils # (Auto) 18.6 TH/MM3 13.7 TH/MM3 (1.8-7.7) (1.8-7.7) Lymphocytes # (Auto) 0.8 TH/MM3 0.6 TH/MM3 (1.0-4.8) (1.0-4.8) Monocytes # (Auto) 0.9 TH/MM3 0.6 TH/MM3 (0-0.9) (0-0.9) Eosinophils # (Auto) 0.0 TH/MM3 0.0 TH/MM3 (0-0.4) (0-0.4) Basophils # (Auto) 0.1 TH/MM3 0.1 TH/MM3 (0-0.2) (0-0.2) CBC Comment AUTO DIFF AUTO DIFF Differential Total Cells 100 100 Counted Neutrophils % (Manual) 83 % (16-70) 84 % (16-70) Band Neutrophils % 12 % (0-6) 6 % (0-6) Lymphocytes % 4 % (9-44) 6 % (9-44) Monocytes % 1 % (0-8) 3 % (0-8) Neutrophils # (Manual) 19.4 TH/MM3 13.7 TH/MM3 (1.8-7.7) (1.8-7.7) Differential Comment FINAL DIFF FINAL DIFF MANUAL MANUAL Platelet Estimate NORMAL NORMAL (NORMAL) (NORMAL) Platelet Morphology Comment NORMAL NORMAL (NORMAL) (NORMAL) Sodium Level 142 MEQ/L 147 MEQ/L (136-145) (136-145) Potassium Level 3.6 MEQ/L 3.8 MEQ/L 3.2 MEQ/L (3.5-5.1) (3.5-5.1) (3.5-5.1) Chloride Level 103 MEQ/L 106 MEQ/L (98-107) (98-107) Carbon Dioxide Level 33.0 MEQ/L 35.5 MEQ/L (21.0-32.0) (21.0-32.0) Anion Gap 6 MEQ/L (5-15) 6 MEQ/L (5-15) Blood Urea Nitrogen 20 MG/DL (7-18) 22 MG/DL (7-18) Creatinine 0.47 MG/DL 0.44 MG/DL (0.60-1.30) (0.60-1.30) Estimat Glomerular Filtration 180 ML/MIN 194 ML/MIN Rate (>89) (>89) Random Glucose 122 MG/DL 138 MG/DL (74-106) (74-106) Calcium Level 7.7 MG/DL 8.0 MG/DL (8.5-10.1) (8.5-10.1) Phosphorus Level 1.8 MG/DL 2.0 MG/DL (2.5-4.9) (2.5-4.9) Magnesium Level 1.9 MG/DL 1.9 MG/DL (1.5-2.5) (1.5-2.5) Total Bilirubin 0.3 MG/DL (0.2-1.0) Aspartate Amino Transf 33 U/L (15-37) (AST/SGOT) Alanine Aminotransferase 37 U/L (12-78) (ALT/SGPT) Alkaline Phosphatase 91 U/L (45-117) Total Protein 5.5 GM/DL (6.4-8.2) Albumin 1.4 GM/DL (3.4-5.0) Myelocytes 1 % (0-0) Blood Gas Puncture Site RT RADIAL Blood Gas Patient Temperature 98.6 Blood Gas HCO3 32 mmol/L (22-26) Blood Gas Base Excess 6.9 mmol/L (-2-2) Blood Gas Oxygen Saturation 90 % (90-100) Arterial Blood pH 7.39 (7.380-7.420) Arterial Blood Partial 54 mmHg (38-42) Pressure CO2 Arterial Blood Partial 70 mmHg Pressure O2 (61-120) Arterial Blood Oxygen Content 12.1 Vol % (12.0-20.0) Arterial Blood 1.6 % (0-4) Carboxyhemoglobin Arterial Blood Methemoglobin 1.1 % (0-2) Blood Gas Hemoglobin 9.5 G/DL (12.0-16.0) Oxygen Delivery Device VENTILATOR Blood Gas Ventilator Setting CPAP,PEEP5,PS10 Blood Gas Inspired Oxygen 40 % Test 11/25/16 03:18 White Blood Count 13.6 TH/MM3 (4.0-11.0) Red Blood Count 2.82 MIL/MM3 (4.50-5.90) Hemoglobin 8.9 GM/DL (13.0-17.0) Hematocrit 26.9 % (39.0-51.0) Mean Corpuscular Volume 95.1 FL (80.0-100.0) Mean Corpuscular Hemoglobin 31.6 PG (27.0-34.0) Mean Corpuscular Hemoglobin 33.2 % Concent (32.0-36.0) Red Cell Distribution Width 13.9 % (11.6-17.2) Platelet Count 334 TH/MM3 (150-450) Mean Platelet Volume 8.0 FL (7.0-11.0) Neutrophils (%) (Auto) 92.4 % (16.0-70.0) Lymphocytes (%) (Auto) 3.5 % (9.0-44.0) Monocytes (%) (Auto) 4.0 % (0.0-8.0) Eosinophils (%) (Auto) 0.0 % (0.0-4.0) Basophils (%) (Auto) 0.1 % (0.0-2.0) Neutrophils # (Auto) 12.5 TH/MM3 (1.8-7.7) Lymphocytes # (Auto) 0.5 TH/MM3 (1.0-4.8) Monocytes # (Auto) 0.5 TH/MM3 (0-0.9) Eosinophils # (Auto) 0.0 TH/MM3 (0-0.4) Basophils # (Auto) 0.0 TH/MM3 (0-0.2) CBC Comment AUTO DIFF Differential Total Cells 100 Counted Neutrophils % (Manual) 86 % (16-70) Band Neutrophils % 9 % (0-6) Lymphocytes % 2 % (9-44) Monocytes % 1 % (0-8) Neutrophils # (Manual) 13.2 TH/MM3 (1.8-7.7) Metamyelocytes 2 % (0-1) Differential Comment FINAL DIFF MANUAL Platelet Estimate NORMAL (NORMAL) Platelet Morphology Comment NORMAL (NORMAL) Sodium Level 148 MEQ/L (136-145) Potassium Level 3.2 MEQ/L (3.5-5.1) Chloride Level 104 MEQ/L (98-107) Carbon Dioxide Level 39.4 MEQ/L (21.0-32.0) Anion Gap 5 MEQ/L (5-15) Blood Urea Nitrogen 25 MG/DL (7-18) Creatinine 0.52 MG/DL (0.60-1.30) Estimat Glomerular Filtration 160 ML/MIN Rate (>89) Random Glucose 149 MG/DL (74-106) Calcium Level 7.7 MG/DL (8.5-10.1) Phosphorus Level 2.3 MG/DL (2.5-4.9) Magnesium Level 1.6 MG/DL (1.5-2.5) Result Diagram: 11/25/168 11/25/168 Microbiology Microbiology Date/Time Procedure Status Source Growth 11/24/16 14:10 Cancelled Fluid Other 11/24/16 14:10 Gram Stain - Final Resulted Bronchial Washings Right Lower Lobe 11/24/16 14:10 Bronchial Culture - Preliminary Resulted Gram Negative Ken . Imaging Last Impressions Chest X-Ray 11/25/16 0000 Signed Impressions: Service Date/Time: Friday, November 25, 2016 07:31 - CONCLUSION: 1. Stable tubes and lines, as above. 2. Stable right-sided chest tube with grossly stable small to moderate size right pleural effusion and associated right lower lobe airspace disease. 3. Stable left lower lobe patchy airspace consolidation. Eric Garcia MD CT Angiography 11/21/16 1436 Signed Impressions: Service Date/Time: Monday, November 21, 2016 15:39 - CONCLUSION: 1. There is diffuse adenopathy involving the thoracic inlet, the paratracheal shakeel chains , diffusely throughout the mediastinum and prevascular shakeel chain consistent with malignancy. There is extensive consolidation of the right lung with a large pleural effusion and probable right hilar mass. 2. There is diffuse edema throughout the left lung. 3. No pulmonary embolus is identified. Karl Tracy MD Thoracentesis 11/21/16 0000 Signed Impressions: Service Date/Time: Monday, November 21, 2016 15:42 - CONCLUSION: Uncomplicated fluoroscopically guided thoracentesis. A 10 Lithuanian chest tube was placed. Karl Tracy MD Lower Extremity Ultrasound 11/21/16 0000 Signed Impressions: Service Date/Time: Monday, November 21, 2016 23:17 - CONCLUSION: 1. No DVT in either lower extremity. 2. Prominent lymph node in the left groin measures 33 x 11 x 20 mm. 3. Necrotic appearing left node in the left groin measures 18 x 19 x 20 mm. Ben Peterson MD Chest Tube Insertion 11/21/16 0000 Signed Impressions: Service Date/Time: Monday, November 21, 2016 15:42 - CONCLUSION: Uncomplicated chest tube placement as above. Karl Tracy MD Central Venous Line 11/21/16 0000 Signed Impressions: Service Date/Time: Monday, November 21, 2016 15:42 - CONCLUSION: Uncomplicated line placement as above. Karl Tracy MD . Procedures Pathology * 10/07/16 CT guided right neck lymph node biopsy - positive small cell carcinoma. . Assessment and Plan Disease Oriented Problem List: (1) Sepsis (2) Leukocytosis (3) Acute respiratory failure (4) Pleural effusion (5) Lung cancer (6) Hypotension (7) Tachycardia Symptom Scale: (1) Pain 0-10 Scale: 0 Comment: nods yes to pain. . (2) Weakness 0-10 Scale: Unable to quantify (3) Shortness of breath 0-10 Scale: Unable to quantify Comment: on mech vent, possible medical extubation later today. . Pertinent Non-Medical Issues Psychosocial: . Has one son, Arnav. Spiritual: Yazdanism is not an important part of his life. 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 Legal:Patient appointed his sonArnav as power of sole polisher for health care. Patient currently incapacitated, will reevaluate capacity once medical extubated. Ethical issues impacting care: no known concerns at this time. . Important Contacts * Arnav Ruano, son: [phone] . Prognosis * 11/21/16 - right IJ central line placed * 11/21/16 - right chest tube placed - removal of 2 liters - sent to path . Code Status: No Code Plan * Decision Maker: Patient appointed his son, Arnav Ruano as power of sole polisher for health care. Patient currently incapacitated, will reevaluate capacity once medical extubated. * NO CODE (DNR/DNI) * Palliative care and Keesha Rosa met with sonArnav. Oncology offered additional chemotherapy while on vent in effort to reduce obstruction. In speaking with son he is certain patient would not want additional treatment and would not want to be prolonged artificially by machines. He and additional family (sister and nephew - a palliative care MD in [place]) feel patient has had declining and poor quality of life since he began chemotherapy. I also spoke with nephewCheo MD a palliative care physician in [place] via conference call with son present. He feels patient would elect transition to comfort if he were able to participate in decision making. He too indicates poor quality of life and significant trajectory of decline in the past few months. He requests patient be adequately medicated for comfort to ensure he is not painful or frightened at the time of withdrawal of life support. He thanks the team for providing the support to his cousin (pts son). He requests follow up bereavement services, e-mail sent. * Discussed with Dr. Griffith, AMRITA Odom and ANNIE Og. * Exhibits B & C completed on chart. * Orders written for transition to comfort measures. * SYMPTOMS: Pain: Potential sources of pain include intubation, mets lung cancer. On Fentanyl 250 mcg drip. Nods yes to pain when asked. Dyspnea: on mech vent. Plan for compassionate withdrawal of life support today per sons request. Weakness: general weakness and debility in the weeks prior to admission secondary to mets lung cancer and chemotherapy. * Palliative care will continue to follow throughout hospital course to assist with symptom management and clarification of goals as needed. . Time Spent Total Floor Time (mins): 90 Face to Face Time (mins): 60 >50% Counseling/Coord of Care: Yes Attestation To help prompt me to consider important information that might be impacting today's encounter and assessment, information from prior notes written by myself or my colleagues may have been "brought forward" into today's note. My signature on this note, however, is an attestation that I personally performed the exam, history, and/or decision-making noted today, and, unless otherwise indicated, the interactions with patient, family, and staff as well as the review of records all occurred today. I also attest that the listed assessment and stated plan reflect my best clinical judgment today based on the combination of historical information, prior notes, and today's exam/ interactions. When time spent is documented, it refers only to time spent today by the signer, or if indicated, combined time spent today by collaborating physician/nurse practitioner. ERIBERTO MCGOVERN Nov 25, 2016 15:02
[2016-11-25] MEDS: MORPHINE SULFATE 4 MG/ML INJ IV PRN ×2 (22:12→23:58)
[2016-11-25] MEDS: LORazepam 2 MG/ML VIAL IV PRN ×2 (22:13→23:58)
[2016-11-26] MEDS: HYDROCORTISONE SOD SUCCINATE 100 MG VIAL IV PUSH SCH (01:56)
[2016-11-26] MEDS: LORazepam 2 MG/ML VIAL IV PRN (01:56)
[2016-11-26] MEDS: MORPHINE SULFATE 4 MG/ML INJ IV PRN (01:57)
--- NOTE | 2016-11-28 16:52 | RF ---
cc: NED FORTE MD,GLENN PEDERSEN MD, M.D., HILARY, PA F o l l o w u p R e p o r t DATE OF SERVICE: 11/25/2016 AGE: 66 SEX: M DATE OF : 1950. 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 HISTORY OF PRESENT ILLNESS: This is a 66-year-old white male whom I initially saw on 10/15/2016 for the above-mentioned diagnosis at a patient consult. The patient has a solitary brain metastasis that was going to be treated with radiosurgery. The patient has deteriorated and has been in the ICU on a ventilator. I received a call yesterday from Dr. Frazier stating that a consult had been placed and that the patient was going to be extubated for continuation of care. Today I re-discussed the case with Dr. Frazier and AMRITA Odom at the tumor board. It appears that the patient is not doing well and that he may be extubated today and placed on comfort care. As a result of this, I was advised to cancel the consultation so no consult will be provided for the patient while in the hospital for radiosurgery. Should the patient recover his performance status and improve dramatically, I can see the patient very quickly for treatment. No further action will be taken from radiation oncology at this point. Ned Forte MD Radiation Oncologist DORIAN CAPELLAN/MAMTA /3:37 PM /4:49 PM JAYANT
== END 2016-11-26 02:05 | disposition expired | DRG 166 ==
LOC: NEPC 13:27 → NEDA 15:23 → HIME 16:55
PROVIDERS: ADMIT Internal Medicine Critical Care Medicine; ATTEND Internal Medicine Critical Care Medicine
PROC: 0W9930Z Drainage of Right Pleural Cavity with Drainage Device, Percutaneous Approach (ICD-10-PCS; principal; 2016-11-21)
PROC: 5A1945Z Respiratory Ventilation, 24-96 Consecutive Hours (ICD-10-PCS; 2016-11-21)
PROC: 0W993ZZ Drainage of Right Pleural Cavity, Percutaneous Approach (ICD-10-PCS; 2016-11-21)
PROC: 0BH17EZ Insertion of Endotracheal Airway into Trachea, Via Natural or Artificial Opening (ICD-10-PCS; 2016-11-21)
PROC: 5A2204Z Restoration of Cardiac Rhythm, Single (ICD-10-PCS; 2016-11-21)
PROC: 05HM33Z Insertion of Infusion Device into Right Internal Jugular Vein, Percutaneous Approach (ICD-10-PCS; 2016-11-21)
PROC: 0B9F8ZX Drainage of Right Lower Lung Lobe, Via Natural or Artificial Opening Endoscopic, Diagnostic (ICD-10-PCS; 2016-11-24)
DX: J96.02 Acute respiratory failure with hypercapnia (principal); J15.0 Pneumonia due to Klebsiella pneumoniae; C77.9 Secondary and unspecified malignant neoplasm of lymph node, unspecified; C79.31 Secondary malignant neoplasm of brain; I95.9 Hypotension, unspecified; J90 Pleural effusion, not elsewhere classified; J44.0 Chronic obstructive pulmonary disease with (acute) lower respiratory infection; I47.1 Supraventricular tachycardia; C34.90 Malignant neoplasm of unspecified part of unspecified bronchus or lung; I48.92 Unspecified atrial flutter; N39.0 Urinary tract infection, site not specified; Z66 Do not resuscitate; J96.01 Acute respiratory failure with hypoxia; F17.210 Nicotine dependence, cigarettes, uncomplicated; I10 Essential (primary) hypertension; Z92.21 Personal history of antineoplastic chemotherapy; Z51.5 Encounter for palliative care; F41.9 Anxiety disorder, unspecified; D64.9 Anemia, unspecified
CPT/HCPCS: 31500; 32557; 36556; 36600; 51702; 71010; 71275; 76937; 77001; 80048; 80053; 81001; 82550; 82552; 82805; 82945; 83605; 83615; 83735; 83986; 84100; 84132; 84157; 84484; 85007; 85025; 85027; 85379; 85610; 85730; 87040; 87070; 87077; 87086; 87102; 87186; 87205; 87206; 87449; 87641; 88112; 88305; 89051; 93005; 93306; 93970; 94002; 94003; 94640; 94664; 96365; 96375; C1729; C1769; C9113; J0153; J0330; J0456; J1720; J1940; J1980; J2060; J2250; J2270; J2370; J2543; J3010; J3370; J7050; J7060; Q9967